=== PATIENT | female | born 1990 | race Caucasian/White ===

== ENCOUNTER → 2017-03-01 | Outpatient (CLI) | payer OTHER ==
[~2017-03-01] MED LIST: AZIT500T3 PO
== END | disposition home or self-care (01) ==
LOC: C.PAPS 07:58
PROVIDERS: ATTEND Physician Assistant
DX: Z12.4 Encounter for screening for malignant neoplasm of cervix (principal)

== ENCOUNTER → 2017-03-14 | Outpatient (CLI) | payer OTHER ==
[2017-03-19 09:57] LABS: CHLAMYDIA TRACH RNA*** NOT DETECTED (NOT DETECTED); GC (NEIS GONORRHOEAE)RNA** NOT DETECTED (NOT DETECTED)
== END | disposition home or self-care (01) ==
LOC: C.LABSPEC 15:18
PROVIDERS: ATTEND Physician Assistant
DX: Z30.430 Encounter for insertion of intrauterine contraceptive device (principal)

== ENCOUNTER → 2017-03-14 | Outpatient (CLI) | payer OTHER ==
[2017-03-14 10:34] LABS: PREG INTERNAL NEGATIVE QC NEG CLEAR BACKGROUND; PREG INTERNAL POSITIVE QC POS CONTROL LINE
== END | disposition home or self-care (01) ==
LOC: C.LAB1850 09:12
PROVIDERS: ATTEND Physician Assistant
DX: Z30.9 Encounter for contraceptive management, unspecified (principal)

== ENCOUNTER 2017-10-16 11:15 | Emergency (ER) | payer OTHER ==
[~2017-10-16] VITALS: Ht 172.7 cm; Wt 116.0 kg
[2017-10-16 11:17] VITALS: Ht 172.7 cm; Wt 116.0 kg
[2017-10-16] MEDS ORDERED: PRENTAB26 PO (12:17)
[2017-10-16 12:41] LABS: BASO % 0.4 %; BASO ABS # 0.02 K/uL (0-0.2); COMPLETE YES; EOS % 2.7 %; HEMATOCRIT 45.8 % (37-47); IG% 0.2 %; LYMPH ABS # 1.32 K/uL (1.2-3.4); MEAN CELL VOLUME 88.8 fL (80-100); MEAN CORPUSCULAR HEMOGLOBIN 30.2 pg (25-34); MEAN CORPUSCULAR HGB CONC 34.1 g/dl (32-36); MEAN PLATELET VOLUME 9.7 fL (7.4-10.4); MONO % 26.1 %; NEUT % 46.6 %; PLATELET COUNT 212 K/uL (130-400); RED BLOOD COUNT 5.16 M/uL (4.2-5.4); WHITE BLOOD COUNT 5.51 K/uL (4.8-10.8)
[2017-10-16 13:02] LABS: CALCIUM 9.5 mg/dl (8.5-10.1); CREATININE 0.77 mg/dl (0.60-1.20)
[2017-10-16 13:05] LABS: ALB/GLOB RATIO 1.1 (0.9-2)
--- NOTE | 2017-10-16 13:07 | EMERGENCY ROOM VISIT NOTE ---
History Report prepared by Corin: Riccardo Deal Under the Supervision of: Rosalind AkbarO. First contact with patient: 12:26 Chief Complaint: VOMITING Stated Complaint: COLD,VOMITING, MAYBE PREG 16 DAYS LATE Nursing Triage Summary: abdominal pain lower abdomen. nasuea vomiting for the past 9-12 days. 16 days late with my period. took preg test last week that was negative. 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 She notes that she is trying to get and had her IUD removed nine days ago. She notes baseline nausea and vomiting daily, though her symptoms worsened nine days ago and became yellow in color. She notes her nausea and vomiting persisted s/p her cholecystectomy. She notes dizziness, lightheadedness, dry cough, congestion, rhinorrhea, stuffy nose, abdominal pain, sick contacts, and shortness of breath. She also notes recent hemorrhoids that began last week and are bleeding with clots. She currently rates her pain a 4/10 in severity. She has a history of severe acid reflux and takes medications daily. She denies a history of asthma. She has not received the flu shot this year. She denies any urinary symptoms, chest pain, and sore throat. Her menstrual cycle is 16 days late. 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 Review of Systems See HPI for pertinent positives & negatives. A total of 10 systems reviewed and were otherwise negative. Past Medical & Surgical Medical Problems: (1) Abdominal Pain, Epigastric (2) Abdominal Pain, Unspecified Site (3) Acute Appendicitis Nos (4) Hydradenitis (5) Tobacco Use Disorder Surgical Problems: (1) Hx of appendectomy Family History Cancer Diabetes mellitus Hypertension Kidney disease Kidney stones Social History Smoking Status: Never Smoker Alcohol Use: none Drug Use: none Marital Status: single Housing Status: lives with family Occupation Status: employed Current/Historical Medications Scheduled Multivit/Min/Iron/Fol Ac/Pren ( Vitamin), 1 TAB PO DAILY Allergies Coded Allergies: Penicillins (Verified Allergy, Intermediate, HIVES, 10/16/17) Physical Exam Vital Signs Date Time Temp Pulse Resp B/P (MAP) Pulse Ox O2 Delivery O2 Flow Rate FiO2 10/16/17 15:01 37.1 119 18 140/95 100 10/16/17 12:35 37.1 119 18 140/95 100 Room Air 10/16/17 12:14 109 10/16/17 11:39 37.1 114 18 147/97 100 Room Air 10/16/17 11:17 37.1 113 18 158/104 100 Room Air Physical Exam GENERAL: alert, well appearing, well nourished, no distress, non-toxic EYE EXAM: normal conjunctiva, PERRL and EOM's grossly intact OROPHARYNX: no exudate, no erythema, lips, buccal mucosa, and tongue normal and mucous membranes are moist NECK: supple, no nuchal rigidity, no adenopathy, non-tender LUNGS: Clear to auscultation. Normal chest wall mechanics, no wheezes/rhonchi/ rales HEART: no murmurs, S1 normal and S2 normal ABDOMEN: abdomen soft, non-tender, normo-active bowel sounds, no masses, no rebound or guarding. BACK: Back is symmetrical on inspection and there is no deformity, no midline tenderness, no CVA tenderness. SKIN: no rashes and no bruising UPPER EXTREMITIES: upper extremities are grossly normal. Normal range of motion and normal pulses. LOWER EXTREMITIES: No pitting edema. Normal range of motion and normal pulses. NEURO EXAM: Normal sensorium, cranial nerves II-XII grossly intact, normal speech, no gross weakness of arms, no gross weakness of legs. Medical Decision & Procedures ER Provider Diagnostic Interpretation: Radiology results have been interpreted by the radiologist and reviewed by me. CHEST 2 VIEWS ROUTINE CLINICAL HISTORY: Cough and shortness of breath. COMPARISON STUDY: Chest radiograph September 09, 2016. FINDINGS: Lung volumes are normal. There is no pneumothorax or pleural effusion. There is no evidence of pulmonary edema. No consolidation is identified. Cardiomediastinal silhouette is normal. Bilateral nipple piercings are noted. IMPRESSION: No acute cardiopulmonary findings. Electronically signed by: Duran Davila M.D. 10/16/2017 1:42 PM Dictated Date/Time: 10/16/2017 1:42 PM Laboratory Results 10/16/17 12:18 Red Blood Count 5.16, Mean Corpuscular Volume 88.8, Mean Corpuscular Hemoglobin 30.2, Mean Corpuscular Hemoglobin Concent 34.1, Mean Platelet Volume 9.7, Neutrophils (%) (Auto) 46.6, Lymphocytes (%) (Auto) 24.0, Monocytes (%) (Auto) 26.1, Eosinophils (%) (Auto) 2.7, Basophils (%) (Auto) 0.4, Neutrophils # (Auto ) 2.57, Lymphocytes # (Auto) 1.32, Monocytes # (Auto) 1.44, Eosinophils # (Auto ) 0.15, Basophils # (Auto) 0.02 10/16/17 12:18 Test 10/16/17 11:33 10/16/17 12:18 10/16/17 13:30 Urine Color YELLOW Urine Appearance CLOUDY (CLEAR) Urine pH 7.5 (4.5-7.5) Urine Specific Pierz 1.025 (1.000-1.030) Urine Protein NEG (NEG) Urine Glucose (UA) NEG (NEG) Urine Ketones NEG (NEG) Urine Occult Blood NEG (NEG) Urine Nitrite NEG (NEG) Urine Bilirubin NEG (NEG) Urine Urobilinogen NEG (NEG) Urine Leukocyte Esterase NEG (NEG) Urine WBC (Auto) 1-5 /hpf (0-5) Urine RBC (Auto) 5-10 /hpf (0-4) Urine Hyaline Casts (Auto) 0 /lpf (0-5) Urine Epithelial Cells (Auto) >30 /lpf (0-5) Urine Bacteria (Auto) NEG (NEG) Urine Test NEG (NEG) White Blood Count 5.51 K/uL (4.8-10.8) Red Blood Count 5.16 M/uL (4.2-5.4) Hemoglobin 15.6 g/dL (12.0-16.0) Hematocrit 45.8 % (37-47) Mean Corpuscular Volume 88.8 fL (80-100) Mean Corpuscular Hemoglobin 30.2 pg (25-34) Mean Corpuscular Hemoglobin Concent 34.1 g/dl (32-36) Platelet Count 212 K/uL (130-400) Mean Platelet Volume 9.7 fL (7.4-10.4) Neutrophils (%) (Auto) 46.6 % Lymphocytes (%) (Auto) 24.0 % Monocytes (%) (Auto) 26.1 % Eosinophils (%) (Auto) 2.7 % Basophils (%) (Auto) 0.4 % Neutrophils # (Auto) 2.57 K/uL (1.4-6.5) Lymphocytes # (Auto) 1.32 K/uL (1.2-3.4) Monocytes # (Auto) 1.44 K/uL (0.11-0.59) Eosinophils # (Auto) 0.15 K/uL (0-0.5) Basophils # (Auto) 0.02 K/uL (0-0.2) RDW Standard Deviation 41.9 fL (36.4-46.3) RDW Coefficient of Variation 13.0 % (11.5-14.5) Immature Granulocyte % (Auto) 0.2 % Immature Granulocyte # (Auto) 0.01 K/uL (0.00-0.02) Anion Gap 5.0 mmol/L (3-11) Est Creatinine Clear Calc Drug Dose 148.1 ml/min Estimated GFR () 123.5 Estimated GFR (Non- 106.6 BUN/Creatinine Ratio 17.0 (10-20) Calcium Level 9.5 mg/dl (8.5-10.1) Total Bilirubin 0.5 mg/dl (0.2-1) Aspartate Amino Transf (AST/SGOT) 28 U/L (15-37) Alanine Aminotransferase (ALT/SGPT) 57 U/L (12-78) Alkaline Phosphatase 66 U/L (45-117) Total Protein 7.7 gm/dl (6.4-8.2) Albumin 4.1 gm/dl (3.4-5.0) Globulin 3.6 gm/dl (2.5-4.0) Albumin/Globulin Ratio 1.1 (0.9-2) Lipase 92 U/L (73-393) Human Chorionic Gonadotropin, Qual NEG (NEG) Influenza Type A Antigen Neg for Influ A (NEG) Influenza Type B Antigen Neg for Influ B (NEG) Laboratory results per my review. Medications Administered Medications (Trade) Dose Ordered Sig/Nissa Route Start Time Stop Time Status Last Admin Dose Admin Albuterol (Ventolin Hfa Inhaler) 2 puffs NOW ONCE INH 10/16/17 13:15 10/16/17 13:16 DC 10/16/17 13:24 2 PUFFS ED Course 1240: The patient was evaluated in room B11B. A complete history and physical exam was performed. 1315: Ordered Albuterol 2 puffs INH 1405: I reassessed the patient at this time. She is feeling better and resting comfortably. I discussed the results and treatment plan with the patient. I answered all pertaining questions that she had. She expressed understanding and verbalized agreement. The patient will be discharged home. Medical Decision Prior records/ancillary studies reviewed. Triage Nursing notes reviewed. The patient's history was concerning for respiratory difficulties. Differential diagnosis: Etiologies such as infections, reactive airway disease, pneumonia, pneumothorax , COPD, CHF, cardiac ischemia, pulmonary embolism, musculoskeletal, gastrointestinal, as well as others were entertained. Patient well-appearing here. Patient states vomiting has been chronic since even prior to her cholecystectomy and has persisted since. Discussed with her close follow-up with family doctor, continue use of an acid reducing medication and follow-up with GI as an outpatient given persistence of symptoms. Patient' s other upper respiratory symptoms appear mild, no evidence of pneumonia, no evidence of flow, doubt bacteremia/sepsis, doubt cardiac etiology, no evidence of effusion or congestive heart failure. Discussed with patient tobacco cessation, symptoms to watch and return for, she verbalized understanding was agreeable with plan. Patient given MDI and spacer to take and use at home, discussed other outpatient [id number] cough and cold remedies, discussed adequate hydration. Discussed avoidance of acidic foods in her diet. Medication Reconcilliation Current Medication List: was personally reviewed by me Blood Pressure Screening Patient's blood pressure: Elevated blood pressure Blood pressure disposition: Elevated BP felt to be situational Impression Primary Impression: URI (upper respiratory infection) Additional Impressions: Vomiting Tobacco Use Disorder Scribe Attestation The scribe's documentation has been prepared under my direction and personally reviewed by me in its entirety. I confirm that the note above accurately reflects all work, treatment, procedures, and medical decision making performed by me. Departure Information Dispostion Home / Self-Care Referrals Perri Smith M.D. (PCP) Forms HOME CARE DOCUMENTATION FORM, IMPORTANT VISIT INFORMATION Patient Instructions Colds Self Care, My [facility] Additional Instructions Please drink plenty of water to stay well-hydrated. You may use Tylenol or ibuprofen as needed for fevers. You may use other [id number] cough and cold medications as directed on the bottles are packaging. He may eat as tolerated. Please follow up with your family doctor regarding your GI symptoms you have had for a long time, they may recommend referral to a GI specialist for additional testing or procedures. Please continue your acid reducing medication as well as her other medications as prescribed. If you develop any worsening symptoms including trouble breathing, noticed blood in your sputum, develop persistent fevers, noticed blood in your vomit, abdominal pain, dizziness, black or bloody stools, or you've any other new concerns, please return the emergency room. Problem Qualifiers Primary Impression: URI (upper respiratory infection) URI type: unspecified URI Qualified Codes: J06.9 - Acute upper respiratory infection, unspecified Additional Impressions: Vomiting Vomiting type: unspecified Vomiting Intractability: non-intractable Nausea presence: with nausea Qualified Codes: R11.2 - Nausea with vomiting, unspecified
[2017-10-16 13:15] LABS: URINE APPEARANCE CLOUDY (CLEAR); URINE BILIRUBIN NEG (NEG); URINE COLOR YELLOW; URINE EPITHELIAL CELL AUTO >30 /lpf (0-5); URINE NITRITE NEG (NEG); URINE PH 7.5 (4.5-7.5); URINE SPECIFIC GRAVITY 1.025 (1.000-1.030); UROBILINOGEN NEG (NEG); ZZUR CULT IF INDIC CLEAN CATCH NO
[2017-10-16] MEDS ORDERED: ALBUTEROL HFA 8 GM INHALER INH ONE (13:15)
[2017-10-16 13:16] LABS: MANUAL MICROSCOPIC REQUIRED? NO; REVIEW REQ? NO
[2017-10-16 13:35] LABS: PREG INTERNAL NEGATIVE QC NEG CLEAR BACKGROUND; PREG INTERNAL POSITIVE QC POS CONTROL LINE
--- NOTE | 2017-10-16 13:44 | DIAGNOSTIC IMAGING REPORT ---
CHEST 2 VIEWS ROUTINE CLINICAL HISTORY: Cough and shortness of breath. COMPARISON STUDY: Chest radiograph September 09, 2016. FINDINGS: Lung volumes are normal. There is no pneumothorax or pleural effusion. There is no evidence of pulmonary edema. No consolidation is identified. Cardiomediastinal silhouette is normal. Bilateral nipple piercings are noted. IMPRESSION: No acute cardiopulmonary findings. Electronically signed by: Duran Davila M.D. 10/16/2017 1:42 PM Dictated Date/Time: 10/16/2017 1:42 PM
[2017-10-16 15:01] VITALS: BP 140/95; PULSE 119; TEMP 37.1; O2SAT 100
== END 2017-10-16 15:02 | disposition home or self-care (01) ==
LOC: C.EDB 11:16
DX: J06.9 Acute upper respiratory infection, unspecified (principal); R11.2 Nausea with vomiting, unspecified; F17.200 Nicotine dependence, unspecified, uncomplicated; K64.9 Unspecified hemorrhoids; K21.9 Gastro-esophageal reflux disease without esophagitis; Z83.3 Family history of diabetes mellitus; Z82.49 Family history of ischemic heart disease and other diseases of the circulatory system; Z84.1 Family history of disorders of kidney and ureter

== ENCOUNTER → 2017-12-05 | Outpatient (CLI) | payer OTHER ==
[~2017-12-05] MED LIST changes: -AZIT500T3 PO; +PRENTAB26 PO
== END | disposition home or self-care (01) ==
LOC: C.LAB1850 11:40
PROVIDERS: ATTEND Physician Assistant
DX: N91.2 Amenorrhea, unspecified (principal)

== ENCOUNTER → 2018-01-09 | Outpatient (CLI) | payer BC ==
[2018-01-09 17:51] LABS: FOLLICLE STIMULAT HORMONE 5.93 IU/L; LUTEINIZING HORMONE 22.65 IU/L
== END | disposition home or self-care (01) ==
LOC: C.LAB1850 16:37
PROVIDERS: ATTEND Obstetrics & Gynecology
DX: N91.2 Amenorrhea, unspecified (principal)

== ENCOUNTER → 2018-05-20 | Outpatient (CLI) | payer BC ==
[~2018-05-20] MED LIST changes: +CLOT-51 TOP
--- NOTE | 2018-05-20 11:10 | DIAGNOSTIC IMAGING REPORT ---
HYSTEROSALPINGOGRAM HISTORY: Infertility. FLUOROSCOPY TIME: 42 seconds. TECHNIQUE: The cervix was cannulated by the station cleaning porter-engineering specialist technician and water soluble contrast was instilled into the uterus under fluoroscopic guidance. Multiple spot images were obtained. FINDINGS: The right fallopian tubes filled a normal fashion there is free spillage. The left fallopian tube is faintly visualized. No definitive spillage is identified on the left. IMPRESSION: 1. Normal right fallopian tube with free spillage 2. Suboptimal visualization of the left fallopian tube. No definite free spillage of the left Electronically signed by: Carlos Diez M.D. 05/20/2018 11:09 AM Dictated Date/Time: 05/20/2018 11:08 AM
--- NOTE | 2018-05-20 11:54 | Procedure Note ---
Procedure Note Procedure Date May 20, 2018. Procedure Description Procedure Name: Hysterosalpingogram Indications: diagnostic Description: Patient presented for hysterosalpingogram, recommended by [facility] for infertility workup. I discussed the procedure with her, informed consent was obtained, she agreed to the procedure. All questions were answered. She was positioned comfortably on the radiology table in the dorsal lithotomy position. A speculum was placed in the vagina, the cervix was visualized, the vagina and cervix were swabbed with Betadine. The anterior lip of the cervix was grasped with a single-tooth tenaculum and the acorn manipulator was placed into the cervix. The speculum was removed and patient was repositioned on the table for imaging. I gently injected the radiopaque dye through the catheter into the uterus, the radiologist took images. The uterus was visualized, the right fallopian tube appeared patent with right spill. The left fallopian tube did not appear patent, there was no left spill. I discussed these findings with the patient at the conclusion of the procedure. All instruments were, excellent hemostasis was observed. The patient tolerated the procedure well. Complications: none Patient tolerated procedure: well
== END | disposition home or self-care (01) ==
LOC: C.RAD 10:08
PROVIDERS: ATTEND Obstetrics & Gynecology
DX: N97.9 Female infertility, unspecified (principal)

== ENCOUNTER 2018-12-29 14:26 | Inpatient (IN) ==
[2018-12-29] MEDS ORDERED: SODIUM CHLORIDE 0.9% 1000ML 1,000 ML IV ONE (15:27)
[2018-12-29] MEDS ORDERED: cefTRIAXone SODIUM 1,000 MG/50 ML BAG IV STA (15:27)
[2018-12-29 16:10] LABS: Basophils # (auto) 0.02 K/uL (0-0.2); Basophils % (auto) 0.1 %; Eosinophils # (auto) 0.34 K/uL (0-0.5); Hematocrit (blood only) 41.8 % (37-47); Hemoglobin 14.4 g/dL (12.0-16.0); Immature Granulocytes # (auto) 0.05 K/uL (0.00-0.02); Immature Granulocytes % (auto) 0.3 %; Lymphocytes # (auto) 2.63 K/uL (1.2-3.4); Lymphocytes % (auto) 15.2 %; Mean Corpuscular Hgb Conc 34.4 g/dL (32-36); Mean Corpuscular Volume 86.7 fL (80-100); Mean Platelet Volume 9.5 fL (7.4-10.4); Monocytes # (auto) 1.53 K/uL (0.11-0.59); Monocytes % (auto) 8.8 %; Neutrophils # (auto) 12.74 K/uL (1.4-6.5); Neutrophils % (auto) 73.6 %; Platelet Count 254 K/uL (130-400); RDW Coefficient of Variation 12.4 % (11.5-14.5); Red Blood Count 4.82 M/uL (4.2-5.4); White Blood Count 17.31 K/uL (4.8-10.8)
[2018-12-29 16:14] LABS: INR 1.1 (0.9-1.1); Partial Thromboplastin Ratio 1.1; Partial Thromboplastin Time 30.3 Seconds (21.0-31.0)
[2018-12-29 16:15] LABS: BUN Creatinine Ratio 14.8 (10-20); Calcium 9.3 mg/dl (8.5-10.1); Creatinine Clr Calc Pharmacy 120.6 ml/min; Est GFR (African American) 94.5; Est GFR (Non-African American) 81.5; Potassium 3.7 mmol/L (3.5-5.1)
[2018-12-29 16:18] LABS: Bilirubin,Total 0.8 mg/dl (0.2-1); Globulin 4.2 gm/dl (2.5-4.0); Total Protein 8.2 gm/dl (6.4-8.2)
[2018-12-29 16:35] LABS: Pregnancy Test, Serum Negative (Negative)
--- NOTE | 2018-12-29 19:30 | Emergency Department Note ---
History of Present Illness General Chief complaint: Breast Pain/Problems Stated complaint: LUMP IN L BREAST Source: patient Mode of arrival: ambulatory Limitations: no limitations History of Present Illness Provider Complaint: + abscess/boil Onset (ago): 3 day(s) Tetanus up to date: yes Location: + chest (left breast) Severity: moderate Maximum Pain Intensity: 3 Current Pain Intensity: 3 Quality: + aching, + sharp and + constant Pain Consistency: + constant Relieved By: + cold therapy and + other (heating pad) Exacerbated By: + palpation and + movement Associated symptoms: + chills and + myalgias; no fever, no nausea, no vomiting, no malaise, no arthralgias, no cough and no shortness of breath Treatments prior to arrival: + attempted to drain pus at home, + antibiotic (bactrim) and + other (heat therapy) HPI narrative: This 28-year-old female patient presents emergency department today, ambulatory, from an outpatient ultrasound for evaluation by a surgeon for a left breast abscess. The patient was seen outpatient on Saturday at her PCP office for a lump in the left breast. She was started on Bactrim at that time and had a mammogram and ultrasound scheduled for outpatient on Saturday. The patient states over the weekend, she developed worsening redness, swelling, and pain in the breast. She states there has been some bloody, purulent drainage from the breast. She does have nipple piercings, and states the drainage is coming out of the piercing. The patient has been using heat and ice without relief of her discomfort. She has been taking the Bactrim as directed. She states after the ultrasound, the radiologist contacted her primary care provider. She was encouraged to come to the emergency department by her PCP when the PCP contacted the surgery office in attempt to schedule consult/appointment. They advised they do not have any surgeons in the office and encouraged the patient to go to the ED for I&D by Dr. Arana, as he was radiation oncology nurse. The patient denies any fever, but does report chills. She denies nausea or vomiting. Home Medications Home Medications Medication Instructions Recorded Confirmed Type Vitamin 1 tab PO DAILY 12/29/18 12/29/18 History sulfamethoxazole-trimethoprim 1 tab PO BID 12/29/18 12/29/18 History Allergies Allergy/AdvReac Type Severity Reaction Status Date / Time Penicillins Allergy Intermediate HIVES Verified 12/29/18 16:15 Past Med/Surg History Social History Preferred Language: Portuguese Communication Ability: Effective [employer] Librarian Required: No Beliefs That Will Affect Care: None Current Living Situation: Significant Other and Other Current Living Situation Comment: And daughter Other Information That Helps Us Care for You: No Feels Safe at Home: Yes Safety Concerns: Feels Safe At This Time Smoking Status: Never smoker Hx Alcohol Use: No Hx Substance Use: No Review of Systems A total of 10 systems reviewed and were otherwise negative Physical Exam Vital Signs: Vital Signs - 24 hr 12/29/18 14:34 12/29/18 16:57 12/29/18 18:41 Temperature 37.0 C Temperature Source Oral Sepsis Recent Feve r Within 48 Hours No Sepsis New/Unexpla ined Change in Men evelyne Status No Sepsis Action Take n by Nursing No Action Required Pulse Rate 105 H Pulse Rate [Apical ] Pulse Rate [Finger ] 101 H 100 H Pulse Rhythm Regular Pulse Rhythm [Apic al] Pulse Strength Normal Pulse Strength [Ap ical] Respiratory Rate 20 17 17 Respiratory Effort / Characteristics Respiratory Depth Normal Respiratory Patter n Regular Blood Pressure 158/95 H Blood Pressure [Le ft Arm] Blood Pressure [Ri ght Arm] 130/95 154/96 H Blood Pressure Bharti n 116 Blood Pressure Bharti n [Left Arm] Blood Pressure Bharti n [Right Arm] 106 115 Blood Pressure Pos ition Sitting Blood Pressure Pos ition [Right Arm] Pulse Oximetry 98 99 98 Oxygen Delivery Me thod Room Air Room Air 12/29/18 19:46 12/29/18 21:30 12/29/18 21:45 Temperature 38.2 C H Temperature Source Oral Sepsis Recent Feve r Within 48 Hours Sepsis New/Unexpla ined Change in Men evelyne Status Sepsis Action Take n by Nursing Pulse Rate Pulse Rate [Apical ] Pulse Rate [Finger ] 116 H 120 H Pulse Rhythm Pulse Rhythm [Apic al] Pulse Strength Pulse Strength [Ap ical] Respiratory Rate 18 14 Respiratory Effort / Characteristics Non-Labored Sponta neous Respiratory Depth Normal Respiratory Patter n Blood Pressure Blood Pressure [Le ft Arm] Blood Pressure [Ri ght Arm] 143/88 H 147/93 H Blood Pressure Bharti n Blood Pressure Bharti n [Left Arm] Blood Pressure Bharti n [Right Arm] 106 111 Blood Pressure Pos ition Blood Pressure Pos ition [Right Arm] Pulse Oximetry 97 97 Oxygen Delivery Me thod Room Air Room Air 12/29/18 22:45 12/29/18 23:34 12/30/18 07:56 Temperature 37.3 C 37.4 C Temperature Source Oral Oral Sepsis Recent Feve r Within 48 Hours Sepsis New/Unexpla ined Change in Men evelyne Status Sepsis Action Take n by Nursing Pulse Rate Pulse Rate [Apical ] 106 H Pulse Rate [Finger ] 123 H 117 H Pulse Rhythm Pulse Rhythm [Apic al] Regular Pulse Strength Pulse Strength [Ap ical] Normal Respiratory Rate 16 18 14 Respiratory Effort / Characteristics Non-Labored Sponta neous Non-Labored Respiratory Depth Normal Normal Respiratory Patter n Regular Regular Blood Pressure Blood Pressure [Le ft Arm] Blood Pressure [Ri ght Arm] 143/88 H 142/90 H 135/88 Blood Pressure Bharti n Blood Pressure Bharti n [Left Arm] Blood Pressure Bharti n [Right Arm] 106 107 103 Blood Pressure Pos ition Blood Pressure Pos ition [Right Arm] Lying Pulse Oximetry 96 95 94 Oxygen Delivery Me thod Room Air Room Air Room Air 12/30/18 08:12 12/30/18 11:20 Temperature 37.5 C Temperature Source Oral Sepsis Recent Feve r Within 48 Hours Sepsis New/Unexpla ined Change in Men evelyne Status Sepsis Action Take n by Nursing Pulse Rate Pulse Rate [Apical ] Pulse Rate [Finger ] 105 H Pulse Rhythm Pulse Rhythm [Apic al] Pulse Strength Pulse Strength [Ap ical] Respiratory Rate 14 Respiratory Effort / Characteristics Non-Labored Non-Labored Respiratory Depth Normal Normal Respiratory Patter n Regular Blood Pressure Blood Pressure [Le ft Arm] 128/85 Blood Pressure [Ri ght Arm] Blood Pressure Bharti n Blood Pressure Bharti n [Left Arm] 99 Blood Pressure Bharti n [Right Arm] Blood Pressure Pos ition Blood Pressure Pos ition [Right Arm] Pulse Oximetry 95 Oxygen Delivery Me thod Room Air Room Air Physical Exam: VITALS: Vitals are noted on the nurse's note and reviewed by myself. Vital signs stable. GENERAL: This is a 28-year-old female, in no acute distress, nondiaphoretic, well-developed well-nourished. SKIN: Erythematous, tender, and firm left breast superior to the area Ayush. There is a palpable abscess measuring approximately 2 x 2 cm subareolar. There is a nipple bar in place which was successfully removed with purulent drainage. the skin was otherwise without rashes, erythema, edema, or bruising. There is no tenting of the skin. Capillary reflex less than 2 seconds. HEAD: Normocephalic atraumatic. NECK: Supple without nuchal rigidity. No lymphadenopathy. Cervical spine is nontender. No JVD. HEART: Regular rate and rhythm without murmurs gallops or rubs. LUNGS: Clear to auscultation bilaterally without wheezes, rales or rhonchi. No dullness to percussion. No retractions or accessory muscle use. ABDOMEN: Positive bowel sounds x 4. Normal tympanic percussion. Soft, nontender, without masses or organomegaly. Resendez sign negative. No guarding or rebound tenderness. MUSCULOSKELETAL: No muscle atrophy, erythema, or edema noted. Full range of motion without joint tenderness in all extremities. No tenderness to palpation. Normal gait. Strength 5/5 throughout. NEURO: Patient was alert and oriented to person place and time. Normal sensation to light and sharp touch. No focal neurological deficits. Course The patient was seen and evaluated as above. IV access obtained, labs drawn. I contacted Haydee Moody PA-C to discuss the case. She did see the patient at ultrasound today and advised the redness and induration has worsened over the weekend. She contacted the surgery office outpatient and was advised to send the patient to the ED to be seen/drained by Dr. Arana. Ultrasound report obtained from [facility] outpatient. This was reviewed. Labs reviewed by myself. The patient was started on ceftriaxone IV. I attempted to contact Dr. Arana. He was in the OR most of the afternoon. Awaiting his response for other patient and did not receive call back for approximately 3 hours. Was advised when he was done in the OR he would return the call. Updated the patient that we are awaiting call. Found out Dr. Arana had been down to the department to see other patient. Had not informed other provider. I paged him again. He responded and asked that I call the on-call surgeon, as it is now 1900 and he is no longer the on-call surgeon at this time. Contacted Dr. Escobedo. Advised him of the patient condition and lengthy wait for Dr. Arana. He agreed to see and evaluate the patient. Please see his dictation regarding ongoing management and care. Administered Medications Lactated Ringer's (Lr) 1,000 mls @ 125 mls/hr IV .Q8H [facility] Stop: 01/29/19 00:00 Last Admin: 12/30/18 09:06 Dose: 125 mls/hr Documented by: [id number] Infusion: 12/30/18 08:54 Dose: 125 mls/hr Documented by: [id number] Infusion: 12/30/18 01:00 Dose: 125 mls/hr Documented by: [id number] Infusion: 12/30/18 00:24 Dose: 0 mls/hr Documented by: [id number] Admin: 12/30/18 00:18 Dose: 125 mls/hr Documented by: [id number] Clindamycin Phosphate 600 mg/ (Dextrose) 54 mls @ 100 mls/hr IV Q8H [facility] Stop: 01/09/19 00:00 Last Infusion: 12/30/18 09:44 Dose: 0 mls/hr Documented by: [id number] Admin: 12/30/18 09:05 Dose: 100 mls/hr Documented by: [id number] Infusion: 12/30/18 01:00 Dose: 0 mls/hr Documented by: [id number] Admin: 12/30/18 00:24 Dose: 100 mls/hr Documented by: [id number] Prenat Multivit/[place]/Iron/Folic Ac ( Vitamin) 1 tab PO DAILY [facility] Stop: 01/29/19 08:59 Last Admin: 12/30/18 09:06 Dose: 1 tab Documented by: [id number] Discontinued Medications Sodium Chloride (Nss 1000ml) 1,000 mls @ 999 mls/hr IV .Q1H1M ONE Stop: 12/29/18 16:27 Last Infusion: 12/29/18 16:57 Dose: 0 mls/hr Documented by: [id number] Admin: 12/29/18 15:54 Dose: 999 mls/hr Documented by: [id number] Ceftriaxone Sodium (Rocephin) 1,000 mg in 50 mls @ 100 mls/hr IV NOW STA Stop: 12/29/18 15:56 Last Infusion: 12/29/18 16:26 Dose: 0 mls/hr Documented by: [id number] Admin: 12/29/18 15:54 Dose: 100 mls/hr Documented by: [id number] Medical Decision Making Differential Diagnosis + abscess of skin or subcutaneous tissue, + viral exanthem, + dermatophytosis, + urticaria, + herpes zoster, + allergic reaction to drug, + cellulitis, + eczema, + insect bites, + impetigo, + contact dermatitis, + cellulitis, + necrotizing fasciitis, + foreign body, + dermatitis and + drug eruption Home Medications Current Medication List: was personally reviewed by me Laboratory Data Attestation: I reviewed the patient's lab results. On her leukocytosis of 17,000. No anemia or thrombocytopenia. Renal, hepatic function electrolytes without abnormality. Lactic acid 0.9. HCG negative. Coags normal. Result diagrams: 12/30/18 09:33 12/30/18 09:33 Lab Results 12/29/18 12/29/18 12/29/18 Range/Units 15:44 15:44 15:44 WBC 17.31 H (4.8-10.8) K/uL RBC 4.82 (4.2-5.4) M/uL Hgb 14.4 (12.0-16.0) g/dL Hct 41.8 (37-47) % MCV 86.7 (80-100) fL MCH 29.9 (25-34) pg MCHC 34.4 (32-36) g/dL RDW Std Deviation 40.0 (36.4-46.3) fL RDW Coeff of Gurpreet 12.4 (11.5-14.5) % Plt Count 254 (130-400) K/uL MPV 9.5 (7.4-10.4) fL Immature Gran % (Auto) 0.3 % Neut % (Auto) 73.6 % Lymph % (Auto) 15.2 % [place] % (Auto) 8.8 % Eos % (Auto) 2.0 % Baso % (Auto) 0.1 % Immature Gran # (Auto) 0.05 H (0.00-0.02) K/uL Neut # (Auto) 12.74 H (1.4-6.5) K/uL Lymph # (Auto) 2.63 (1.2-3.4) K/uL [place] # (Auto) 1.53 H (0.11-0.59) K/uL Eos # (Auto) 0.34 (0-0.5) K/uL Baso # (Auto) 0.02 (0-0.2) K/uL PT 11.0 (9.0-12.0) Seconds INR 1.1 (0.9-1.1) APTT 30.3 (21.0-31.0) Seconds PTT Ratio 1.1 Sodium 136 (136-145) mmol/L Potassium 3.7 (3.5-5.1) mmol/L Chloride 102 (98-107) mmol/L Carbon Dioxide 26 (21-32) mmol/L Anion Gap 8.0 (3-11) BUN 14 (7-18) mg/dl Creatinine 0.95 (0.6-1.2) mg/dl Est Cr Clr Drug Dosing 120.6 ml/min Est GFR ( Amer) 94.5 Est GFR (Non-Af Amer) 81.5 BUN/Creatinine Ratio 14.8 (10-20) Glucose 81 (70-99) mg/dl Lactate (0.4-2.0) mmol/L Calcium 9.3 (8.5-10.1) mg/dl Total Bilirubin 0.8 (0.2-1) mg/dl AST 20 (15-37) U/L ALT 44 (12-78) U/L Alkaline Phosphatase 76 (45-117) U/L Total Protein 8.2 (6.4-8.2) gm/dl Albumin 4.0 (3.4-5.0) gm/dl Globulin 4.2 H (2.5-4.0) gm/dl Albumin/Globulin Ratio 1.0 (0.9-2) HCG, Qual (Negative) Urine Color Urine Appearance (Clear) Urine pH (4.5-7.5) Ur Specific [place] (1.000-1.030) Urine Protein (Negative) Urine Glucose (UA) (Negative) Urine Ketones (Negative) Urine Blood (Negative) Urine Nitrite (Negative) Urine Bilirubin (Negative) Urine Urobilinogen (Negative) Ur Leukocyte Esterase (Negative) 12/29/18 12/29/18 12/29/18 Range/Units 15:44 15:44 21:45 WBC (4.8-10.8) K/uL RBC (4.2-5.4) M/uL Hgb (12.0-16.0) g/dL Hct (37-47) % MCV (80-100) fL MCH (25-34) pg MCHC (32-36) g/dL RDW Std Deviation (36.4-46.3) fL RDW Coeff of Gurpreet (11.5-14.5) % Plt Count (130-400) K/uL MPV (7.4-10.4) fL Immature Gran % (Auto) % Neut % (Auto) % Lymph % (Auto) % [place] % (Auto) % Eos % (Auto) % Baso % (Auto) % Immature Gran # (Auto) (0.00-0.02) K/uL Neut # (Auto) (1.4-6.5) K/uL Lymph # (Auto) (1.2-3.4) K/uL [place] # (Auto) (0.11-0.59) K/uL Eos # (Auto) (0-0.5) K/uL Baso # (Auto) (0-0.2) K/uL PT (9.0-12.0) Seconds INR (0.9-1.1) APTT (21.0-31.0) Seconds PTT Ratio Sodium (136-145) mmol/L Potassium (3.5-5.1) mmol/L Chloride (98-107) mmol/L Carbon Dioxide (21-32) mmol/L Anion Gap (3-11) BUN (7-18) mg/dl Creatinine (0.6-1.2) mg/dl Est Cr Clr Drug Dosing ml/min Est GFR ( Amer) Est GFR (Non-Af Amer) BUN/Creatinine Ratio (10-20) Glucose (70-99) mg/dl Lactate 0.9 (0.4-2.0) mmol/L Calcium (8.5-10.1) mg/dl Total Bilirubin (0.2-1) mg/dl AST (15-37) U/L ALT (12-78) U/L Alkaline Phosphatase (45-117) U/L Total Protein (6.4-8.2) gm/dl Albumin (3.4-5.0) gm/dl Globulin (2.5-4.0) gm/dl Albumin/Globulin Ratio (0.9-2) HCG, Qual Negative (Negative) Urine Color Dark Yellow Urine Appearance Clear (Clear) Urine pH 6.0 (4.5-7.5) Ur Specific [place] 1.027 (1.000-1.030) Urine Protein Negative (Negative) Urine Glucose (UA) Negative (Negative) Urine Ketones 4+ H (Negative) Urine Blood Negative (Negative) Urine Nitrite Negative (Negative) Urine Bilirubin Negative (Negative) Urine Urobilinogen Negative (Negative) Ur Leukocyte Esterase Negative (Negative) 12/30/18 12/30/18 Range/Units 09:33 09:33 WBC 12.41 H (4.8-10.8) K/uL RBC 4.54 (4.2-5.4) M/uL Hgb 13.2 (12.0-16.0) g/dL Hct 39.3 (37-47) % MCV 86.6 (80-100) fL MCH 29.1 (25-34) pg MCHC 33.6 (32-36) g/dL RDW Std Deviation 39.9 (36.4-46.3) fL RDW Coeff of Gurpreet 12.5 (11.5-14.5) % Plt Count 230 (130-400) K/uL MPV 9.5 (7.4-10.4) fL Immature Gran % (Auto) 0.3 % Neut % (Auto) 64.2 % Lymph % (Auto) 19.3 % [place] % (Auto) 13.1 % Eos % (Auto) 2.9 % Baso % (Auto) 0.2 % Immature Gran # (Auto) 0.04 H (0.00-0.02) K/uL Neut # (Auto) 7.96 H (1.4-6.5) K/uL Lymph # (Auto) 2.40 (1.2-3.4) K/uL [place] # (Auto) 1.62 H (0.11-0.59) K/uL Eos # (Auto) 0.36 (0-0.5) K/uL Baso # (Auto) 0.03 (0-0.2) K/uL PT (9.0-12.0) Seconds INR (0.9-1.1) APTT (21.0-31.0) Seconds PTT Ratio Sodium 137 (136-145) mmol/L Potassium 4.1 (3.5-5.1) mmol/L Chloride 106 (98-107) mmol/L Carbon Dioxide 23 (21-32) mmol/L Anion Gap 8.0 (3-11) BUN 11 (7-18) mg/dl Creatinine 0.68 (0.6-1.2) mg/dl Est Cr Clr Drug Dosing 167.8 ml/min Est GFR ( Amer) 138.0 Est GFR (Non-Af Amer) 119.0 BUN/Creatinine Ratio 16.2 (10-20) Glucose 85 (70-99) mg/dl Lactate (0.4-2.0) mmol/L Calcium 8.8 (8.5-10.1) mg/dl Total Bilirubin (0.2-1) mg/dl AST (15-37) U/L ALT (12-78) U/L Alkaline Phosphatase (45-117) U/L Total Protein (6.4-8.2) gm/dl Albumin (3.4-5.0) gm/dl Globulin (2.5-4.0) gm/dl Albumin/Globulin Ratio (0.9-2) HCG, Qual (Negative) Urine Color Urine Appearance (Clear) Urine pH (4.5-7.5) Ur Specific [place] (1.000-1.030) Urine Protein (Negative) Urine Glucose (UA) (Negative) Urine Ketones (Negative) Urine Blood (Negative) Urine Nitrite (Negative) Urine Bilirubin (Negative) Urine Urobilinogen (Negative) Ur Leukocyte Esterase (Negative) Imaging Data Radiologist's Impression: US Left Breast (Outpatient US obtained from [facility]): Findings consistent with left breast cellulitis and retroareolar abscess maximally measuring 21 x 13 x 23 mm. Clinical follow-up to ensure complete resolution is recommended after appropriate therapy. If this does not resolve in the expected time course, follow-up imaging is recommended. Blood Pressure Blood Pressure Findings: Elevated blood pressure Blood Pressure Disposition: elevated BP felt to be situational MDM Narrative This 28-year-old female patient presents emergency department today after being seen and evaluated by her primary care provider and sent for an outpatient ultrasound. She was sent for a left breast abscess and cellulitis which has developed quickly over the weekend. The patient has not been febrile, but is tachycardic and experiencing chills. She does have a leukocytosis of 17,000. She has been on Bactrim without improvement in the symptoms. The patient was started on IV antibiotics in the emergency department. We did wait an extended period of time for surgical consult due to the surgeon being in the OR most of the afternoon. I did ultimately discuss the case with the next on-call surgeon in the evening, Dr. Escobedo. He did see and evaluate the patient. He felt jorge t the patient could be admitted for IV antibiotics, but did not feel that she needs drainage at this time. He agreed to admit the patient and will continue to monitor. He recommended ultrasound-guided drainage if no improvement with IV antibiotics. Please see his dictation regarding ongoing management and care of this patient. The chart was completed utilizing [employer] voice recognition software. Grammatical errors, random word insertions, pronoun errors, and incomplete sentences are an occasional consequence of this system due to software limitations, ambient noise, and hardware issues. Any formal questions or concerns about the content, text, or information contained within the body of this dictation should be directly addressed to the provider for clarification. Impression & Plan Cellulitis of left breast, Breast abscess of female Discharge Plan Visit Data *Final* Discharge Date/Time: 12/29/18 22:46 Chief Complaint: Breast Pain/Problems Stated Complaint: LUMP IN L BREAST ED Provider: Leonid Staples ED Midlevel Provider: Kia Tang Discharge Problem: Cellulitis of left breast, Breast abscess of female Patient Disposition: Admitted As Inpatient Discharge Instructions Interventions: ED Discharge Assessment Last Done: 12/29/18 22:46
--- NOTE | 2018-12-29 20:07 | History & Physical Report ---
Date of Service December 29, 2018 Assessment & Plan (1) Breast abscess of female: Small abscess only 2 cm No skin fluctuance Will begin IV zosyn and gauge response, if fails would proceed to US guided drainage by radiology Present on Admission?: Yes History of Present Illness Primary Care Provider: Perri Smith MD This 28-year-old female patient presents emergency department today after an ultrasound showed a 2cm retro-areolar abscess with cellulitis of her left breast. She has been on Bactrim since Saturday but over the weekend, she developed worsening redness, swelling, and pain in the breast. She states there has been some bloody, purulent drainage from the breast. She does have nipple piercings, and states the drainage is coming out of the piercing. The patient denies any fever, but does report chills. She denies nausea or vomiting. Allergies Allergy/AdvReac Type Severity Reaction Status Date / Time Penicillins Allergy Intermediate HIVES Verified 12/29/18 16:15 Home Medications Home Medications Medication Instructions Recorded Confirmed Type Vitamin 1 tab PO DAILY 12/29/18 12/29/18 History sulfamethoxazole-trimethoprim 1 tab PO BID 12/29/18 12/29/18 History Past Med/Surg History Social History Preferred Language: Turkish Feels Safe at Home: Yes Smoking Status: Former smoker Review of Systems Constitutional: + chills and + anorexia; no fever and no sweats Eyes: no problem reported Ear, Nose, Mouth, Throat: no problem reported Respiratory: no cough, no chest congestion, no dyspnea and no dyspnea on exertion Cardiovascular: no chest pain, no chest pain with activity and no dyspnea at rest Gastrointestinal: no abdominal pain, no bloating, no nausea and no vomiting Genitourinary (Female): no problem reported Musculoskeletal: no back pain, no neck pain and no joint pain Integumentary: + breast lump, + breast pain, + breast skin changes and + breast swelling; no rash and no lesions Neurologic: no problem reported Psychiatric: no problem reported Endocrine: no problem reported Hematologic / Lymphatic: no problem reported Physical Exam Vital Signs (Past 24 Hours): Last Vital Signs Temp 37.0 C 12/29/18 14:34 Pulse 116 H 12/29/18 19:46 Resp 18 12/29/18 19:46 BP 143/88 H 12/29/18 19:46 Pulse Ox 98 12/29/18 19:46 Constitutional: well developed and well nourished; no acute distress Eyes: PERRL, conjunctivae normal, anicteric sclerae ENMT: external ear and nose normal, oropharynx normal Neck: trachea midline Thyroid: thyroid nontender Respiratory: normal respiratory effort, lungs clear to auscultation normal respiratory effort Cardiovascular: Rate/Rhythm: regular rhythm and + tachycardic Chest (Breasts): Breast: + breast tenderness Additional Comments: erythema without fluctuance of left breast Gastrointestinal (Abdomen): normal bowel sounds, soft, nontender, no hepatosplenomegaly Musculoskeletal: no cyanosis or clubbing, extremities motor strength 5/5 Skin: no rashes, warm and dry Psychiatric: A+Ox3, euthymic affect Code Status & VTE Plan VTE Prophylaxis Plan VTE Prophylaxis will be ordered: Yes
[2018-12-29 21:59] LABS: Appearance Urine Clear (Clear); Bilirubin Urine Negative (Negative); Blood Urine Negative (Negative); Color Urine Dark Yellow; Glucose Urine UA Negative (Negative); Leukocyte Esterase Urine Negative (Negative); Nitrite Urine Negative (Negative); Protein Urine Negative (Negative); Specific Gravity Urine 1.027 (1.000-1.030); Urobilinogen Urine Negative (Negative)
[2018-12-29 22:08] LABS: Ketones Urine 4+ (Negative)
[2018-12-29] MEDS ORDERED: ACETAMINOPHEN 325 MG TAB PO PRN (23:04)
[2018-12-29] MEDS ORDERED: ONDANSETRON INJ 2 MG/ML 2 ML VIAL IV PRN (23:04)
[2018-12-29] MEDS ORDERED: MoRPHine SULFATE 2 MG/ML CARP IV PRN (23:04)
[2018-12-29] MEDS ORDERED: HYDROCODONE/ACETAMOPHEN 5/325MG TAB PO PRN ×2 (23:04)
[2018-12-29] MEDS ORDERED: MoRPHine SULFATE 4 MG/ML 1 ML CARP\\VIAL IV PRN (23:04)
[2018-12-29] MEDS ORDERED: IBUPROFEN 200 MG TAB PO PRN (23:04)
[2018-12-30] MEDS: LACTATED RINGER'S 1,000 ML IV SCH ×3 (00:18→18:42)
[2018-12-30] MEDS: CLINDAMYCIN 600 MG in DEXTROSE 5% 50 ML IV SCH ×4 (00:24→23:43)
[2018-12-30] MEDS: PRENATAL VITAMIN 1 TAB PO SCH (09:06)
--- NOTE | 2018-12-30 09:26 | Surgery Progress Note ---
Date of Service December 30, 2018 Assessment & Plan (1) Breast abscess of female: Small abscess only 2 cm, outpatient US No skin fluctuance afebrile last night Plan: Will order US guided aspiration of abscess with fluid sent for culture continue IV Abx Keep NPO until US aspiration and then may advanced to regular diet Will continue to monitor response to abx Dr. Arana has seen and examined pt, agrees with above Subjective had some sweats when she woke up no fever no n/v pain improved of left breast, mild drainage Physical Exam Vital Signs (Past 24 Hours): Last Vital Signs Temp 37.4 C 12/30/18 07:56 Pulse 117 H 12/30/18 07:56 Resp 14 12/30/18 07:56 BP 135/88 12/30/18 07:56 Pulse Ox 94 12/30/18 07:56 Constitutional: WD/WN, vitals as above no acute distress and not ill appearing Respiratory: no respiratory distress Chest (Breasts): Breast: + skin thickening and + breast tenderness Additional Comments: Left breast with induration surrounding nipple , no fluctuance palpated, tender to palpation, + erythema Skin: no rashes, warm and dry Psychiatric: A+Ox3, euthymic affect Results & Data Laboratory Results 12/30/18 12/30/18 12/29/18 Range/Units 09:33 09:33 21:45 WBC Pending (4.8-10.8) K/uL RBC Pending (4.2-5.4) M/uL Hgb Pending (12.0-16.0) g/dL Hct Pending (37-47) % MCV Pending (80-100) fL MCH Pending (25-34) pg MCHC Pending (32-36) g/dL RDW Std Deviation (36.4-46.3) fL RDW Coeff of Gurpreet (11.5-14.5) % Plt Count Pending (130-400) K/uL MPV (7.4-10.4) fL Immature Gran % (Auto) % Neut % (Auto) % Lymph % (Auto) % [place] % (Auto) % Eos % (Auto) % Baso % (Auto) % Immature Gran # (Auto) (0.00-0.02) K/uL Neut # (Auto) (1.4-6.5) K/uL Lymph # (Auto) (1.2-3.4) K/uL Spink # (Auto) (0.11-0.59) K/uL Eos # (Auto) (0-0.5) K/uL Baso # (Auto) (0-0.2) K/uL PT (9.0-12.0) Seconds INR (0.9-1.1) APTT (21.0-31.0) Seconds PTT Ratio Sodium Pending (136-145) mmol/L Potassium Pending (3.5-5.1) mmol/L Chloride Pending (98-107) mmol/L Carbon Dioxide Pending (21-32) mmol/L Anion Gap Pending (3-11) BUN Pending (7-18) mg/dl Creatinine Pending (0.6-1.2) mg/dl Est Cr Clr Drug Dosing Pending ml/min Est GFR ( Amer) Pending Est GFR (Non-Af Amer) Pending BUN/Creatinine Ratio Pending (10-20) Glucose Pending (70-99) mg/dl Lactate (0.4-2.0) mmol/L Calcium Pending (8.5-10.1) mg/dl Total Bilirubin (0.2-1) mg/dl AST (15-37) U/L ALT (12-78) U/L Alkaline Phosphatase (45-117) U/L Total Protein (6.4-8.2) gm/dl Albumin (3.4-5.0) gm/dl Globulin (2.5-4.0) gm/dl Albumin/Globulin Ratio (0.9-2) HCG, Qual (Negative) Urine Color Dark Yellow Urine Appearance Clear (Clear) Urine pH 6.0 (4.5-7.5) Ur Specific [place] 1.027 (1.000-1.030) Urine Protein Negative (Negative) Urine Glucose (UA) Negative (Negative) Urine Ketones 4+ H (Negative) Urine Blood Negative (Negative) Urine Nitrite Negative (Negative) Urine Bilirubin Negative (Negative) Urine Urobilinogen Negative (Negative) Ur Leukocyte Esterase Negative (Negative) 12/29/18 12/29/18 12/29/18 Range/Units 15:44 15:44 15:44 WBC (4.8-10.8) K/uL RBC (4.2-5.4) M/uL Hgb (12.0-16.0) g/dL Hct (37-47) % MCV (80-100) fL MCH (25-34) pg MCHC (32-36) g/dL RDW Std Deviation (36.4-46.3) fL RDW Coeff of Gurpreet (11.5-14.5) % Plt Count (130-400) K/uL MPV (7.4-10.4) fL Immature Gran % (Auto) % Neut % (Auto) % Lymph % (Auto) % Spink % (Auto) % Eos % (Auto) % Baso % (Auto) % Immature Gran # (Auto) (0.00-0.02) K/uL Neut # (Auto) (1.4-6.5) K/uL Lymph # (Auto) (1.2-3.4) K/uL Spink # (Auto) (0.11-0.59) K/uL Eos # (Auto) (0-0.5) K/uL Baso # (Auto) (0-0.2) K/uL PT (9.0-12.0) Seconds INR (0.9-1.1) APTT (21.0-31.0) Seconds PTT Ratio Sodium 136 (136-145) mmol/L Potassium 3.7 (3.5-5.1) mmol/L Chloride 102 (98-107) mmol/L Carbon Dioxide 26 (21-32) mmol/L Anion Gap 8.0 (3-11) BUN 14 (7-18) mg/dl Creatinine 0.95 (0.6-1.2) mg/dl Est Cr Clr Drug Dosing 120.6 ml/min Est GFR ( Amer) 94.5 Est GFR (Non-Af Amer) 81.5 BUN/Creatinine Ratio 14.8 (10-20) Glucose 81 (70-99) mg/dl Lactate 0.9 (0.4-2.0) mmol/L Calcium 9.3 (8.5-10.1) mg/dl Total Bilirubin 0.8 (0.2-1) mg/dl AST 20 (15-37) U/L ALT 44 (12-78) U/L Alkaline Phosphatase 76 (45-117) U/L Total Protein 8.2 (6.4-8.2) gm/dl Albumin 4.0 (3.4-5.0) gm/dl Globulin 4.2 H (2.5-4.0) gm/dl Albumin/Globulin Ratio 1.0 (0.9-2) HCG, Qual Negative (Negative) Urine Color Urine Appearance (Clear) Urine pH (4.5-7.5) Ur Specific [place] (1.000-1.030) Urine Protein (Negative) Urine Glucose (UA) (Negative) Urine Ketones (Negative) Urine Blood (Negative) Urine Nitrite (Negative) Urine Bilirubin (Negative) Urine Urobilinogen (Negative) Ur Leukocyte Esterase (Negative) 12/29/18 12/29/18 Range/Units 15:44 15:44 WBC 17.31 H (4.8-10.8) K/uL RBC 4.82 (4.2-5.4) M/uL Hgb 14.4 (12.0-16.0) g/dL Hct 41.8 (37-47) % MCV 86.7 (80-100) fL MCH 29.9 (25-34) pg MCHC 34.4 (32-36) g/dL RDW Std Deviation 40.0 (36.4-46.3) fL RDW Coeff of Gurpreet 12.4 (11.5-14.5) % Plt Count 254 (130-400) K/uL MPV 9.5 (7.4-10.4) fL Immature Gran % (Auto) 0.3 % Neut % (Auto) 73.6 % Lymph % (Auto) 15.2 % Spink % (Auto) 8.8 % Eos % (Auto) 2.0 % Baso % (Auto) 0.1 % Immature Gran # (Auto) 0.05 H (0.00-0.02) K/uL Neut # (Auto) 12.74 H (1.4-6.5) K/uL Lymph # (Auto) 2.63 (1.2-3.4) K/uL Spink # (Auto) 1.53 H (0.11-0.59) K/uL Eos # (Auto) 0.34 (0-0.5) K/uL Baso # (Auto) 0.02 (0-0.2) K/uL PT 11.0 (9.0-12.0) Seconds INR 1.1 (0.9-1.1) APTT 30.3 (21.0-31.0) Seconds PTT Ratio 1.1 Sodium (136-145) mmol/L Potassium (3.5-5.1) mmol/L Chloride (98-107) mmol/L Carbon Dioxide (21-32) mmol/L Anion Gap (3-11) BUN (7-18) mg/dl Creatinine (0.6-1.2) mg/dl Est Cr Clr Drug Dosing ml/min Est GFR ( Amer) Est GFR (Non-Af Amer) BUN/Creatinine Ratio (10-20) Glucose (70-99) mg/dl Lactate (0.4-2.0) mmol/L Calcium (8.5-10.1) mg/dl Total Bilirubin (0.2-1) mg/dl AST (15-37) U/L ALT (12-78) U/L Alkaline Phosphatase (45-117) U/L Total Protein (6.4-8.2) gm/dl Albumin (3.4-5.0) gm/dl Globulin (2.5-4.0) gm/dl Albumin/Globulin Ratio (0.9-2) HCG, Qual (Negative) Urine Color Urine Appearance (Clear) Urine pH (4.5-7.5) Ur Specific [place] (1.000-1.030) Urine Protein (Negative) Urine Glucose (UA) (Negative) Urine Ketones (Negative) Urine Blood (Negative) Urine Nitrite (Negative) Urine Bilirubin (Negative) Urine Urobilinogen (Negative) Ur Leukocyte Esterase (Negative)
[2018-12-30 09:58] LABS: Basophils # (auto) 0.03 K/uL (0-0.2); Basophils % (auto) 0.2 %; Eosinophils # (auto) 0.36 K/uL (0-0.5); Eosinophils % (auto) 2.9 %; Hematocrit (blood only) 39.3 % (37-47); Hemoglobin 13.2 g/dL (12.0-16.0); Immature Granulocytes # (auto) 0.04 K/uL (0.00-0.02); Immature Granulocytes % (auto) 0.3 %; Lymphocytes % (auto) 19.3 %; Mean Corpuscular Hgb Conc 33.6 g/dL (32-36); Mean Corpuscular Volume 86.6 fL (80-100); Mean Platelet Volume 9.5 fL (7.4-10.4); Monocytes # (auto) 1.62 K/uL (0.11-0.59); Monocytes % (auto) 13.1 %; Neutrophils # (auto) 7.96 K/uL (1.4-6.5); Neutrophils % (auto) 64.2 %; Platelet Count 230 K/uL (130-400); RDW Coefficient of Variation 12.5 % (11.5-14.5); RDW Standard Deviation 39.9 fL (36.4-46.3); Red Blood Count 4.54 M/uL (4.2-5.4); White Blood Count 12.41 K/uL (4.8-10.8)
[2018-12-30 10:45] LABS: BUN Creatinine Ratio 16.2 (10-20); Calcium 8.8 mg/dl (8.5-10.1); Creatinine Clr Calc Pharmacy 167.8 ml/min; Potassium 4.1 mmol/L (3.5-5.1)
--- NOTE | 2018-12-30 16:18 | Ultrasound Report ---
ULTRASOUND GUIDED ASPIRATION OF LEFT BREAST ABSCESS CLINICAL HISTORY: Left breast 2 cm abscess COMPARISON STUDY: Left breast ultrasound [facility] December 29, 2018. PROCEDURE: Sonography of the left breast demonstrated a 2.1 cm fluid collection within the left breas t at the 12:00 position, approximately 2 cm from the nipple. This was targeted for aspiration. Proced ure, risks and benefits were discussed with the patient and informed written consent was obtained. Th e procedure was performed by Dr. Davila following a timeout. Skin was prepped and draped in steril e fashion and local anesthesia achieved with 1% lidocaine. Under direct ultrasound guidance, an 18-ga uge 3 1/2 inch needle was directed into the fluid collection. 5 cc of purulent fluid was aspirated an d sent to the report for analysis. The patient tolerated the procedure well and no immediate complica tions were evident. IMPRESSION: Successful ultrasound guided aspiration of a 2 cm left breast abscess. 5 cc of aspirated purulent fluid sent to the laboratory for Gram stain, culture and sensitivity. Electronically signed by: Duran Davila M.D. 12/30/2018 4:16 PM
[2018-12-31] MEDS: LACTATED RINGER'S 1,000 ML IV SCH ×2 (03:03→07:46)
[2018-12-31 04:14] LABS: Basophils # (auto) 0.02 K/uL (0-0.2); Basophils % (auto) 0.2 %; Eosinophils # (auto) 0.53 K/uL (0-0.5); Eosinophils % (auto) 5.7 %; Hematocrit (blood only) 38.5 % (37-47); Hemoglobin 13.2 g/dL (12.0-16.0); Immature Granulocytes # (auto) 0.03 K/uL (0.00-0.02); Immature Granulocytes % (auto) 0.3 %; Lymphocytes # (auto) 2.55 K/uL (1.2-3.4); Lymphocytes % (auto) 27.4 %; Mean Corpuscular Hgb Conc 34.3 g/dL (32-36); Mean Corpuscular Volume 86.9 fL (80-100); Mean Platelet Volume 9.4 fL (7.4-10.4); Monocytes # (auto) 1.72 K/uL (0.11-0.59); Monocytes % (auto) 18.5 %; Neutrophils # (auto) 4.47 K/uL (1.4-6.5); Neutrophils % (auto) 47.9 %; Platelet Count 225 K/uL (130-400); RDW Coefficient of Variation 12.4 % (11.5-14.5); Red Blood Count 4.43 M/uL (4.2-5.4); White Blood Count 9.32 K/uL (4.8-10.8)
[2018-12-31 07:15] VITALS: TEMP 98.1; O2SAT 95
[2018-12-31] MEDS: CLINDAMYCIN 600 MG in DEXTROSE 5% 50 ML IV SCH (07:45)
[2018-12-31] MEDS: PRENATAL VITAMIN 1 TAB PO SCH (07:46)
--- NOTE | 2018-12-31 09:49 | Surgery Progress Note ---
Date of Service December 31, 2018 Assessment & Plan (1) Breast abscess of female: Breast abscess aspirated Gram stain noted Plan to send home on oral antibiotics Follow up next week Present on Admission?: Yes Subjective Results of U/S guided aspiration noted Cultures pending Gram stain showed gram positive cocci and gram negative bacilli Physical Exam Vital Signs (Past 24 Hours): Last Vital Signs Temp 36.7 C 12/31/18 07:14 Pulse 98 H 12/31/18 07:14 Resp 14 12/31/18 07:14 BP 131/87 12/31/18 07:14 Pulse Ox 95 12/31/18 07:14 Chest (Breasts): Additional Comments: Much less tender Less erythema Induration unchanged
[2018-12-31 10:16] VITALS: BP 135/88; PULSE 106
--- NOTE | 2019-01-01 06:58 | Discharge Summary ---
Date of Service January 02, 2019 Admission HPI Per Admitting Provider This 28-year-old female patient presents emergency department today after an ultrasound showed a 2cm retro-areolar abscess with cellulitis of her left breast. She has been on Bactrim since Saturday but over the weekend, she developed worsening redness, swelling, and pain in the breast. She states there has been some bloody, purulent drainage from the breast. She does have nipple piercings, and states the drainage is coming out of the piercing. The patient denies any fever, but does report chills. She denies nausea or vomiting. Principal Diagnosis Left breast abscess Discharge Exam Constitutional well developed; no acute distress Chest (Breasts) Breast: + breast tenderness (Mild and decreased) Additional Comments: Induration decreased Discharge Data Allergies Allergy/AdvReac Type Severity Reaction Status Date / Time Penicillins Allergy Intermediate HIVES Verified 12/29/18 16:15 Consultations 12/29/18 19:01 Consult General Surgery Stat 12/29/18 20:03 ED Decision to Admit Stat Ordered Studies 12/30/18 09:33 US breast cyst asp LT Routine 12/30/18 15:14 US guide needle placement Routine Hospital Course (1) Breast abscess of female: This patient had induration and a breast abscess between 2 and 3 cm. Ultrasound-guided aspiration removed 5 cc of purulent fluid that was sent for culture. At the time of this dictation the culture showed beta hemolytic strep but the sensitivities are still pending. Following the aspiration the discomfort and induration decreased significantly. She remained afebrile. She was discharged to home with plan for follow-up next week. We will continue to monitor the sensitivities. Total Time Total Time Spent Total Time Spent (In Minutes): 10 Discharge Plan Discharge Items Patient Disposition: Home - Self-Care Reason For Visit: BREAST CELLULITIS Discharge Diagnosis: Breast cellulitis with abscess Discharge Goals: Decrease discomfort Activity: Resume your previous activity Bathing: No limitations Non-emergency contact: Surgeon Call non-emergency contact if: your temperature is above 101.5, your wound has increased redness and your wound has increased drainage Follow-up/Referrals: Perri Smith MD [Primary Care Provider] - Diet: Regular Addtl Provider Instructions: Change band daily and as needed If pain or redness is increasing, call office ([phone]) Otherwise call for appointment for next week ([phone]) Prescriptions: Continued sulfamethoxazole-trimethoprim 800-160 mg tablet 1 tab PO BID RF: 0 Vitamin 1 tab PO DAILY RF: 0 Stand-Alone Forms: [facility] Discharge Orders: Discharge Order (Routine); Ordered 12/31/18 Ordered By: Jose Luis Arana Admission Data Admit Date/Time: 12/30/18 16:59 Attending Provider: Jose Luis Arana Admit Provider: Ethan Escobedo Primary Care Provider: Perri Smith Other Providers: Ethan Escobedo Service: Surgical Services Other Interventions: Discharge Summary Assessment (RN) Last Done: 12/31/18 10:15 DC Date/Time DO NOT enter until pt leaves facility: 12/31/18 11:08
--- NOTE | 2019-01-02 08:21 | Ultrasound Report ---
ULTRASOUND GUIDED ASPIRATION OF LEFT BREAST ABSCESS CLINICAL HISTORY: Left breast 2 cm abscess COMPARISON STUDY: Left breast ultrasound [facility] December 29, 2018. PROCEDURE: Sonography of the left breast demonstrated a 2.1 cm fluid collection within the left breas t at the 12:00 position, approximately 2 cm from the nipple. This was targeted for aspiration. Proced ure, risks and benefits were discussed with the patient and informed written consent was obtained. Th e procedure was performed by Dr. Davila following a timeout. Skin was prepped and draped in steril e fashion and local anesthesia achieved with 1% lidocaine. Under direct ultrasound guidance, an 18-ga uge 3 1/2 inch needle was directed into the fluid collection. 5 cc of purulent fluid was aspirated an d sent to the report for analysis. The patient tolerated the procedure well and no immediate complica tions were evident. IMPRESSION: Successful ultrasound guided aspiration of a 2 cm left breast abscess. 5 cc of aspirated purulent fluid sent to the laboratory for Gram stain, culture and sensitivity. Electronically signed by: Duran Davila M.D. 12/30/2018 4:16 PM
--- NOTE | 2019-01-02 11:07 | Coding Query ---
PATHOLOGY To promote full compliance with coding requirements relating to patient care, physician participation is requested in all cases of robotics mechanic uncertainty. Please assist us with the question(s) below: Please review the culture results from the left breast abscess FNA and please document any relevant diagnosis(es) below: Diagnosis(es): Breast abscess Thank you Darlyn MONTOYA
== END 2018-12-31 11:08 | disposition home or self-care (01) | DRG 601 ==
LOC: 3N 14:26 → ED 14:26 → 3N 22:46

== ENCOUNTER 2020-12-02 07:34 | Inpatient (IN) ==
[2020-12-02] MEDS ORDERED: OXYTOCIN 30 UNITS/500 ML BAG IV PRN (08:19)
[2020-12-02] MEDS ORDERED: VANCOMYCIN HCL 2,000 MG in SODIUM CHLORIDE 0.9% 250 ML IV PRN (08:19)
--- NOTE | 2020-12-02 08:30 | History & Physical Report ---
Date of Service December 02, 2020 Assessment & Plan (1) Elective induction of labor planned: Patient is a 39-year-old -0-0-1 at 39 weeks and 4 days of gestation, induction of labor for Class III Obesity VSS Afebrile FHR reassuring GBS + Covid testing pending Cervix unfavorable Plan to admit, labs, Cervidil for cervical ripening, Vancomycin All questions were answered (2) Class 3 obesity: (3) GBS (group B Streptococcus carrier), +RV culture, currently : Admission and Anticipated Discharge Date Admission Date: December 02, 2020 History of Present Illness Primary Care Provider: NO PCP Patient Is a 29-year-old -0-0-1 at 39 weeks 2 days of gestation is being admitted for induction of labor time due to class III obesity affecting . Patient has no complaints. Patient denies contractions, leakage of fluid, vaginal bleeding and she reports good movements. She denies fever, chills, nausea, vomiting, headaches, change in vision, abdominal or back pain. Her has been complicated by 1) Class III Obesity, last US with EFW of close to 8 lb on 11/23 2) PCOS 3) GBS, allergic to PCN, rx unknown 4) Pylectasis of fetus Allergies Allergy/AdvReac Type Severity Reaction Status Date / Time Penicillins Allergy Intermediate HIVES Verified 12/02/20 08:00 Home Medications Medication Instructions Recorded Confirmed Type prenat.vits,francine,[id number] 1 tab PO DAILY #0 12/29/18 12/02/20 History [ Vitamin] Patient History Surgical History History of ankle surgery Hx laparoscopic cholecystectomy Hx of appendectomy Social History Smoking Status: Never smoker Hx Alcohol Use: No Hx Substance Use: No Preferred Language: Sami Communication Ability: Effective 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 Gastrointestinal (Abdomen): normal bowel sounds, soft, nontender, no hepatosplenomegaly (Gravid) Genitourinary: normal external appearance Manual OB Exam: + cervical dilation 2 cm, + cervical effacement 50% and + station (ballotable) high OB Exam Monitor Tracing: + external uterine monitor used and + category I Results & Data ([facility]) Vital Signs (Past 12 Hours) Vital Signs Pulse BP 12/02/20 08:19 112 H 136/87 12/02/20 07:56 109 H 152/87 H 12/02/20 07:55 107 H 175/108 H
[2020-12-02 08:41] LABS: Hematocrit (blood only) 31.8 % (37-47); Hemoglobin 10.6 g/dL (12.0-16.0); Mean Corpuscular Hemoglobin 27.8 pg (25-34); Mean Corpuscular Hgb Conc 33.3 g/dL (32-36); Mean Corpuscular Volume 83.5 fL (80-100); Mean Platelet Volume 10.4 fL (7.4-10.4); Platelet Count 239 K/uL (130-400); RDW Coefficient of Variation 13.8 % (11.5-14.5); RDW Standard Deviation 41.5 fL (36.4-46.3); Red Blood Count 3.81 M/uL (4.2-5.4); White Blood Count 8.38 K/uL (4.8-10.8)
[2020-12-02] MEDS ORDERED: DINOPROSTONE 10 MG INSERT PV ONE (08:45)
[2020-12-02 08:59] LABS: Albumin Level 2.6 gm/dl (3.4-5.0); BUN Creatinine Ratio 8.2 (10-20); Calcium 9.1 mg/dl (8.5-10.1); Creatinine Clr Calc Pharmacy 196.3 ml/min; Est GFR (African American) 141.2; Est GFR (Non-African American) 121.9; Potassium 3.6 mmol/L (3.5-5.1)
[2020-12-02 09:02] LABS: Albumin Globulin Ratio 0.7 (0.9-2); Bilirubin,Total 0.6 mg/dl (0.2-1); Globulin 3.9 gm/dl (2.5-4.0); Total Protein 6.5 gm/dl (6.4-8.2)
--- NOTE | 2020-12-02 09:19 | Progress Note ---
Date of Service December 02, 2020 Assessment & Plan Admission and Anticipated Discharge Date Admission Date: December 02, 2020 Subjective Pt doing well FHR; CAT1 Ctx; Minimal VE; 2cm Cervidil placed in vagina Results & Data ([facility]) Vital Signs (Past 12 Hours) Vital Signs Pulse BP 12/02/20 08:19 112 H 136/87 12/02/20 07:56 109 H 152/87 H 12/02/20 07:55 107 H 175/108 H
[2020-12-02] MEDS: LACTATED RINGER'S 1,000 ML IV PRN (09:24)
[2020-12-02] MEDS: VANCOMYCIN HCL 2,000 MG in SODIUM CHLORIDE 0.9% 500 ML IV SCH ×2 (09:27→21:18)
--- NOTE | 2020-12-02 15:27 | Obstetrical Progress Note ---
Date of Service December 02, 2020 Assessment & Plan Admission and Anticipated Discharge Date Admission Date: December 02, 2020 Subjective Patient is reevaluated She feels crampy, not sure about ctxs Denies pain meds No LOF/VB FM's FHR categ I no ctxs on monitor Received Vancomycin Continue to monitor closely Results & Data ([facility]) Vital Signs (Past 12 Hours) Vital Signs Temp Pulse Resp BP 12/02/20 14:49 36.9 C 96 H 20 142/87 H 12/02/20 11:16 36.9 C 92 H 20 138/75 12/02/20 08:19 112 H 136/87 12/02/20 07:56 109 H 152/87 H 12/02/20 07:55 107 H 175/108 H
[2020-12-02] MEDS ORDERED: BUTORPHANOL TARTRATE 1 MG/ML VIAL IV ONE (21:20)
[2020-12-02] MEDS ORDERED: ONDANSETRON INJ 2 MG/ML 2 ML VIAL IV PRN (21:20)
--- NOTE | 2020-12-02 21:23 | Obstetrical Progress Note ---
Date of Service December 02, 2020 Assessment & Plan Admission and Anticipated Discharge Date Admission Date: December 02, 2020 Subjective Patient has been feeling painful ctxs for the last 2 hours No LOF/VB +FM's Pain is 7-8/10 FHR categ I [place]: ctxs q 2-3 min VE: Cervidil is removed, cervix is 2-3 cm/ 70%/ -3 Plan to observe, Monitor, Stadol for pain, Misoprostol of if ctxs would space out Results & Data ([facility]) Vital Signs (Past 12 Hours) Vital Signs Temp Pulse Resp BP 12/02/20 19:03 36.8 C 110 H 18 167/75 H 12/02/20 18:03 112 H 148/62 H 12/02/20 18:02 106 H 20 179/76 H 12/02/20 14:49 36.9 C 96 H 20 142/87 H 12/02/20 11:16 36.9 C 92 H 20 138/75
[2020-12-03] MEDS: miSOPROStoL 50 MCG TAB PO SCH ×6 (01:44→19:17)
[2020-12-03] MEDS ORDERED: miSOPROStoL 50 MCG TAB PO ONE (07:25)
[2020-12-03] MEDS: VANCOMYCIN HCL 2,000 MG in SODIUM CHLORIDE 0.9% 500 ML IV SCH ×2 (09:10→21:08)
[2020-12-03] MEDS ORDERED: OXYTOCIN 30 UNITS/500 ML BAG IV PRN (12:14)
[2020-12-03] MEDS: LACTATED RINGER'S 1,000 ML IV PRN (17:34)
[2020-12-03] MEDS ORDERED: BUTORPHANOL TARTRATE 1 MG/ML VIAL ONE (18:27)
[2020-12-03] MEDS ORDERED: SODIUM CHLORIDE 0.9% INJ 10 ML VIAL ONE (19:30)
[2020-12-03] MEDS ORDERED: BUPIVACAINE 0.25% 30 ML VIAL ONE (19:30)
[2020-12-03] MEDS ORDERED: ePHEDrine sulfate 50 MG/ML AMP ONE (19:30)
[2020-12-03] MEDS ORDERED: fentaNYL 2MCG/ML ROPIVACAINE 1.25MG/ML 100 ML BAG EPI ONE (19:31)
[2020-12-03] MEDS ORDERED: fentaNYL citrate 100 MCG/2 ML VIAL ONE (19:31)
[2020-12-03] MEDS ORDERED: NALOXONE HCL 0.4 MG/1 ML VIAL/CARP IV PRN (20:02)
[2020-12-03] MEDS ORDERED: ONDANSETRON INJ 2 MG/ML 2 ML VIAL IV PRN (20:02)
[2020-12-03] MEDS ORDERED: fentaNYL 2MCG/ML ROPIVACAINE 1.25MG/ML 100 ML BAG EPI PRN (20:02)
[2020-12-03] MEDS ORDERED: ePHEDrine sulfate 50 MG/ML AMP IV PRN (20:02)
[2020-12-03] MEDS ORDERED: diphenhydrAMINE 50 MG/ML VIAL IV PRN (20:02)
[2020-12-03] MEDS ORDERED: NALOXONE HCL 1 MG in SODIUM CHLORIDE 0.9% 1000ML 1,000 ML IV PRN (20:02)
--- NOTE | 2020-12-03 20:04 | Anesthesiology Consultation ---
Date of Service December 03, 2020 Covid 19 negative on 12/02/20. Assessment & Plan Chart Review Chart Review: Patient NOT seen in Pre Admission Testing and Acceptable Risk for Labor Epidural Consults Requested none ASA ASA2 Proposed Anesthesia Anesthesia Type: Labor Epidural and CSE Risk / Benefits Reviewed With: PT / POA / Parent / Guardian, Accepts Plan and Informed Consent Obtained History Height/Weight Height: 5 ft 9 in Weight: 132.903 kg Allergies Allergy/AdvReac Type Severity Reaction Status Date / Time Penicillins Allergy Intermediate HIVES Verified 12/02/20 08:00 Medications Home Medications Medication Instructions Recorded Confirmed Last Taken prenat.vits,francine,[id number] 1 tab PO DAILY #0 12/29/18 12/02/20 12/29/18 [ Vitamin] Active Medications Generic Name Dose Route Start Last Admin Trade Name Freq PRN Reason Stop Dose Admin Lactated Ringer's 1,000 mls @ 125 mls/hr 12/02/20 08:19 12/03/20 17:34 Lr IV 12/04/20 08:18 125 mls/hr .Q8H PRN Administration L&D Protocol Protocol Vancomycin HCl 2,000 mg/ 540 mls @ 200 mls/hr 12/02/20 09:15 12/03/20 09:10 Sodium Chloride IV 12/12/20 09:14 200 mls/hr Q12H ANDRES Administration Oxytocin 30 units in 500 mls @ 22 mls/hr 12/03/20 12:14 12/03/20 19:13 Pitocin IV 12/05/20 12:13 1.32 units/hr .[id number] PRN 22 mls/hr Labor Induction/Augmentation Titration Protocol 1.32 UNITS/HR Misoprostol 50 mcg 12/03/20 00:00 12/03/20 19:17 Misoprostol 50 Mcg Tab PO 01/02/21 00:00 Not Given Q4 ANDRES NPO Date Last Intake of Fluids: 12/03/20 Time Last Intake of Fluids: 18:00 Date Last Intake of Solids: 12/02/20 Time Last Intake of Solids: 21:00 Past Medical History Medical History Morbid obesity Exercise / Class Metabolic Activity II 4-5 Yardwork/Stairs/Walk up hill Past Surgical History Surgical History History of ankle surgery Hx laparoscopic cholecystectomy Hx of appendectomy Past Anesthesia History No Hx of Anesthesia Complications and No Family Hx of Anesthesia Complications History of PONV No Hx of PONV and No Hx of Motion Sickness Social History Smoking Status: Never smoker Hx Alcohol Use: No Hx Substance Use: No substance use type: does not use Review of Systems no chest pain or sob Physical Exam Vital Signs Last Vital Signs Temp 36.8 C 12/03/20 18:22 Pulse 99 H 12/03/20 19:57 Resp 18 12/03/20 18:22 BP 146/88 H 12/03/20 19:14 Pulse Ox 99 12/03/20 19:57 ENMT Mouth: no TMJ abnormality Thyromental Distance: > or= 3.5 Finger Breadths Mallampati Class: II Neck normal visual inspection Respiratory normal respiratory effort Auscultation: lungs clear to auscultation bilaterally Cardiovascular Rate/Rhythm: regular rate and regular rhythm Musculoskeletal Spine: normal cervical ROM Neurologic moves all extremities Psychiatric Orientation: alert and oriented x 3 Testing Laboratory Results 12/02/20 08:29 12/02/20 08:29 Blood Type O Positive 12/02/20 08:29 Antibody Screen NEGATIVE 12/02/20 08:29
[2020-12-03] MEDS ORDERED: Nursing to Pharmacy Communication SCH (23:45)
[2020-12-04] MEDS ORDERED: METHYLERGONOVINE MALEATE 0.2 MG/ML AMP ONE (04:38)
[2020-12-04] MEDS ORDERED: ACETAMINOPHEN W/CODEINE #3 1 TAB PO PRN (05:10)
[2020-12-04] MEDS ORDERED: DIPHTHERIA/TETANUS/PERTUSSIS 0.5 ML SYR/VIAL IM ONE (05:10)
[2020-12-04] MEDS ORDERED: ACETAMINOPHEN 325 MG TAB PO PRN (05:10)
[2020-12-04] MEDS ORDERED: OXYTOCIN 30 UNITS/500 ML BAG IV PRN (05:10)
[2020-12-04] MEDS ORDERED: oxyCODONE/ACETAMINOPHEN 5mg/325mg TAB PO PRN (05:10)
[2020-12-04] MEDS ORDERED: METHYLERGONOVINE MALEATE 0.2 MG/ML AMP IM ONE (05:10)
[2020-12-04] MEDS ORDERED: bisacodyL 10 MG SUPP PR PRN (05:10)
[2020-12-04] MEDS ORDERED: HYDROCORTISONE ACETATE 25 MG SUPP PR PRN (05:10)
--- NOTE | 2020-12-04 05:26 | Operative Report (OR) ---
DATE OF OPERATION: 12/04/2020 DELIVERY NOTE This is a 2, para 2, blood type is O positive, group B strep positive. The patient was brought in for induction of labor, suspected macrosomia. She was brought in for induction with suspected macrosomia at 39 weeks and 4 days. She had a long induction. She had a vaginal tape. She had 2 p.o. Cytotecs. Eventually she was switched to Pitocin, got to be about 4-5 cm, received epidural, got good pain relief. Membranes were ruptured. At the time of rupture, fluid was clear. She slowly but steadily progressed, went to full dilatation, pushed out a live male via direct occiput anterior position over an intact perineum. After delivery of the head, the head retracted. It was diagnosed with shoulder dystocia. We put the bed flat. We flexed the maternal thighs towards the chest and continued steady continuous pressure. There was a nuchal cord x1, which was reduced over the head. We then with a steady pressure, we were able to dislodge the anterior shoulder along with some suprapubic pressure and once this was dislodged, the other shoulder came out. We were able to deliver the . We let the cord pulse for a minute, then I clamped and cut it. Apgars will be deferred to the nurses. The immediately moved both of his arms vigorously. Cord blood was taken. With IV Pitocin running, the placenta was removed intact. I gave her IM Methergine. After removal of the placenta, there was a first-degree laceration. This was repaired anatomically. The vaginal mucosa was approximated out and to beyond the hymenal ring with a continuous Vicryl. Deep suture of Vicryl was used to approximate the bulbocavernosus muscle, separate deep suture was used to approximate the perineal body. Running subcuticular suture was used to approximate the perineal skin edges. Following this, vaginal exam including rectovaginal examination revealed no hematoma formation. A red rubber catheter was used to empty the bladder. Estimated blood loss was 200 mL. I attest to the content of the Intraoperative Record and any orders documented therein. Any exception s are noted below.
[2020-12-04] MEDS: DOCUSATE SODIUM 100 MG CAP PO SCH ×2 (07:26→20:56)
[2020-12-04] MEDS: PRENATAL VITAMIN 1 TAB PO SCH (07:26)
[2020-12-04] MEDS: SUPERCREAM 0.870% 15 GM JAR EXT PRN (08:13)
[2020-12-04] MEDS: BENZOCAINE 20% AER SPR 82.5 GM CAN EXT PRN (08:14)
--- NOTE | 2020-12-04 09:19 | Anesthesia Procedure Note ---
Date of Service December 04, 2020 Anesthesia Post Epidural Note Vital Signs Vital Signs: Temp Pulse Resp BP Pulse Ox 36.9 C 114 H 18 142/77 H 97 12/04/20 03:00 12/04/20 07:24 12/04/20 01:03 12/04/20 07:24 12/04/20 04:47 Pain Intensity Lower Abdomen: Pain Intensity: 2 Notes Mental Status: alert / awake / arousable and participated in evaluation Nausea / Vomiting: adequately controlled Pain: adequately controlled Airway Patency, RR, SpO2: stable & adequate BP & HR: stable & adequate Hydration State: stable & adequate Neuraxial Anesthesia: was administered and sensory block is resolving Anesthetic Complications: no major complications apparent Epidural: Removed without complications and With tip intact
[2020-12-04] MEDS: IBUPROFEN 600 MG TAB PO PRN ×2 (13:31→20:56)
[2020-12-04 15:46] LABS: Hematocrit (blood only) 28.8 % (37-47); Hemoglobin 9.8 g/dL (12.0-16.0)
[2020-12-04] MEDS: LABETALOL HCL 100 MG TAB PO SCH (20:56)
[2020-12-05 06:30] LABS: Hematocrit (blood only) 25.5 % (37-47); Hemoglobin 8.7 g/dL (12.0-16.0); Mean Corpuscular Hemoglobin 28.3 pg (25-34); Mean Corpuscular Hgb Conc 34.1 g/dL (32-36); Mean Corpuscular Volume 83.1 fL (80-100); Platelet Count 223 K/uL (130-400); RDW Coefficient of Variation 13.9 % (11.5-14.5); RDW Standard Deviation 42.3 fL (36.4-46.3); Red Blood Count 3.07 M/uL (4.2-5.4)
[2020-12-05] MEDS ORDERED: FERROUS SULFATE 325 MG TAB PO SCH (08:00)
[2020-12-05] MEDS: PRENATAL VITAMIN 1 TAB PO SCH (08:09)
[2020-12-05] MEDS: SUPERCREAM 0.870% 15 GM JAR EXT PRN (08:09)
[2020-12-05] MEDS: DOCUSATE SODIUM 100 MG CAP PO SCH (08:09)
[2020-12-05] MEDS: LABETALOL HCL 100 MG TAB PO SCH (08:10)
[2020-12-05] MEDS: BENZOCAINE 20% AER SPR 82.5 GM CAN EXT PRN (08:10)
[2020-12-05] MEDS: IBUPROFEN 600 MG TAB PO PRN (08:11)
--- NOTE | 2020-12-05 08:11 | Obstetrical Progress Note ---
Date of Service December 05, 2020 Assessment & Plan Admission and Anticipated Discharge Date Admission Date: December 02, 2020 Subjective Patient is seen and examined. She feels well, no complaints. Desires d/c today Ambulating without dizziness Voiding without difficulty Tolerating regular diet with out N&V Bleeding is minimal No fever/ chills/ CP/ SOB/ N&V/ Leg pain Breast feeding without problems Vital Signs Temp Pulse Pulse Resp BP Pulse Ox 12/05/20 03:30 36.6 C 99 H 18 115/79 12/04/20 23:35 36.5 C 103 H 18 133/92 12/04/20 20:50 36.8 C 105 H 18 133/91 12/04/20 15:05 37.0 C 120 H 18 129/86 12/04/20 13:20 36.8 C 116 H 18 142/94 H 99 Lab Results 12/02/20 12/02/20 12/02/20 Range/Units 08:29 08:29 08:29 WBC 8.38 (4.8-10.8) K/uL RBC 3.81 L (4.2-5.4) M/uL Hgb 10.6 L (12.0-16.0) g/dL Hct 31.8 L (37-47) % MCV 83.5 (80-100) fL MCH 27.8 (25-34) pg MCHC 33.3 (32-36) g/dL RDW Std Deviation 41.5 (36.4-46.3) fL RDW Coeff of Gurpreet 13.8 (11.5-14.5) % Plt Count 239 (130-400) K/uL MPV 10.4 (7.4-10.4) fL Sodium 139 (136-145) mmol/L Potassium 3.6 (3.5-5.1) mmol/L Chloride 108 H (98-107) mmol/L Carbon Dioxide 24 (21-32) mmol/L Anion Gap 7.0 (3-11) BUN 5 L (7-18) mg/dl Creatinine 0.62 (0.6-1.2) mg/dl Est Cr Clr Drug Dosing 196.3 ml/min Est GFR ( Amer) 141.2 Est GFR (Non-Af Amer) 121.9 BUN/Creatinine Ratio 8.2 L (10-20) Glucose 118 H (70-99) mg/dl Calcium 9.1 (8.5-10.1) mg/dl Total Bilirubin 0.6 (0.2-1) mg/dl AST 12 L (15-37) U/L ALT 12 (12-78) U/L Alkaline Phosphatase 190 H (45-117) U/L Total Protein 6.5 (6.4-8.2) gm/dl Albumin 2.6 L (3.4-5.0) gm/dl Globulin 3.9 (2.5-4.0) gm/dl Albumin/Globulin Ratio 0.7 L (0.9-2) COVID-19 Eval Order SARS-CoV-2, RNA, NAAT (NEGATIVE) Blood Type O Positive Antibody Screen NEGATIVE 12/02/20 12/02/20 12/04/20 Range/Units Unknown Unknown 15:38 WBC (4.8-10.8) K/uL RBC (4.2-5.4) M/uL Hgb 9.8 L (12.0-16.0) g/dL Hct 28.8 L (37-47) % MCV (80-100) fL MCH (25-34) pg MCHC (32-36) g/dL RDW Std Deviation (36.4-46.3) fL RDW Coeff of Gurpreet (11.5-14.5) % Plt Count (130-400) K/uL MPV (7.4-10.4) fL Sodium (136-145) mmol/L Potassium (3.5-5.1) mmol/L Chloride (98-107) mmol/L Carbon Dioxide (21-32) mmol/L Anion Gap (3-11) BUN (7-18) mg/dl Creatinine (0.6-1.2) mg/dl Est Cr Clr Drug Dosing ml/min Est GFR ( Amer) Est GFR (Non-Af Amer) BUN/Creatinine Ratio (10-20) Glucose (70-99) mg/dl Calcium (8.5-10.1) mg/dl Total Bilirubin (0.2-1) mg/dl AST (15-37) U/L ALT (12-78) U/L Alkaline Phosphatase (45-117) U/L Total Protein (6.4-8.2) gm/dl Albumin (3.4-5.0) gm/dl Globulin (2.5-4.0) gm/dl Albumin/Globulin Ratio (0.9-2) COVID-19 Eval [facility] SARS-CoV-2, RNA, NAAT NEGATIVE (NEGATIVE) Blood Type Antibody Screen 12/05/20 Range/Units 05:51 WBC 12.30 H (4.8-10.8) K/uL RBC 3.07 L (4.2-5.4) M/uL Hgb 8.7 L (12.0-16.0) g/dL Hct 25.5 L (37-47) % MCV 83.1 (80-100) fL MCH 28.3 (25-34) pg MCHC 34.1 (32-36) g/dL RDW Std Deviation 42.3 (36.4-46.3) fL RDW Coeff of Gurpreet 13.9 (11.5-14.5) % Plt Count 223 (130-400) K/uL MPV 10.0 (7.4-10.4) fL Sodium (136-145) mmol/L Potassium (3.5-5.1) mmol/L Chloride (98-107) mmol/L Carbon Dioxide (21-32) mmol/L Anion Gap (3-11) BUN (7-18) mg/dl Creatinine (0.6-1.2) mg/dl Est Cr Clr Drug Dosing ml/min Est GFR ( Amer) Est GFR (Non-Af Amer) BUN/Creatinine Ratio (10-20) Glucose (70-99) mg/dl Calcium (8.5-10.1) mg/dl Total Bilirubin (0.2-1) mg/dl AST (15-37) U/L ALT (12-78) U/L Alkaline Phosphatase (45-117) U/L Total Protein (6.4-8.2) gm/dl Albumin (3.4-5.0) gm/dl Globulin (2.5-4.0) gm/dl Albumin/Globulin Ratio (0.9-2) COVID-19 Eval Order SARS-CoV-2, RNA, NAAT (NEGATIVE) Blood Type Antibody Screen PE: General: Alert, orientedx3, NAD Abd: soft, NT, fundus firm, below Umbilicus Perineum intact, Lochia rubra minimal Ext; NT, 1+/1+ edema, Homans sign neg/ neg AP: 30 yo s/p , ppd# 1 VSS Afebrile doing well Continue routine care All questions were answered D/C home , f/u in office Discussed when to call Results & Data ([facility]) Vital Signs (Past 12 Hours) Vital Signs Temp Pulse Pulse Resp BP 12/05/20 03:30 36.6 C 99 H 18 115/79 12/04/20 23:35 36.5 C 103 H 18 133/92 12/04/20 20:50 36.8 C 105 H 18 133/91
[2020-12-05] MEDS ORDERED: bisacodyL 5 MG TABEC PO SCH (20:00)
== END 2020-12-05 13:29 | disposition home or self-care (01) | DRG 807 ==
LOC: 4S1 07:34 → 4S2 12-04 08:18

== ENCOUNTER 2022-10-23 07:29 | Inpatient (IN) ==
[2022-10-23] MEDS ORDERED: OXYTOCIN 30 UNITS/500 ML BAG IV PRN (09:08)
[2022-10-23] MEDS ORDERED: LIDOCAINE 1% LOCAL 20 ML VIAL INFIL PRN (09:08)
[2022-10-23] MEDS ORDERED: PENICILLIN G POTASSIUM 6 MU in DEXTROSE 5% 250 ML IV STA (09:14)
[2022-10-23] MEDS ORDERED: DINOPROSTONE 10 MG INSERT PV ONE (09:18)
--- NOTE | 2022-10-23 09:20 | History & Physical Report ---
Date of Service October 23, 2022 Assessment & Plan (1) Morbid obesity: Plan: Induction of labor Cervidil planned for cervical ripening (2) History of shoulder dystocia: Admission and Anticipated Discharge Date Admission Date: October 23, 2022 History of Present Illness Chief Complaint: induction of labor Primary Care Provider: SHAUNNA PCP 31 F [id number] at 39.1 weeks admitted for IOL for history of shoulder dystocia without any trauma to baby, macrosomia and class 3 obesity. GBS is negative. FHT Cat 1. I discussed with patient the option for primary for history of shoulder dystocia but patient declines Allergies Allergy/AdvReac Type Severity Reaction Status Date / Time Penicillins Allergy Intermediate HIVES Verified 12/02/20 08:00 Home Medications Medication Instructions Recorded Confirmed Type prenat.vits,francine,grz-[id number] 1 tab PO DAILY ##0 12/29/18 10/23/22 History ferrous sulfate 325 mg (65 mg 325 mg PO BIDM #60 tabs 12/05/20 10/23/22 Rx iron) tablet,delayed release aspirin 81 mg tablet,delayed 81 mg PO DAILY 10/23/22 10/23/22 History release labetalol 100 mg tablet 200 mg PO BID 10/23/22 10/23/22 History Patient History Medical History Morbid obesity Surgical History History of ankle surgery Hx laparoscopic cholecystectomy Hx of appendectomy Social History Smoking Status: Former smoker Smoking End Date: 2012; Hx Alcohol Use: No Hx Substance Use: No Preferred Language: Hungarian Communication Ability: Effective Japanese Interpreter Required: No Beliefs That Will Affect Care: None marital status: Current Living Situation: Spouse Current Living Situation Comment: And daughter Other Information That Helps Us Care for You: No Feels Safe at Home: Yes Safety Concerns: Feels Safe At This Time Assistive Devices: None OB History x2 history shoulder dystocia history of macrosomia [employer]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 neg Review of Systems All systems reviewed & are unremarkable except as noted in HPI & below Physical Exam Constitutional: WD/WN, vitals as above Eyes: PERRL, conjunctivae normal, anicteric sclerae Respiratory: normal respiratory effort, lungs clear to auscultation Cardiovascular: RRR, no murmur, no edema Gastrointestinal (Abdomen): Inspection/Auscultation: abdomen normal to inspection Musculoskeletal: Extremities: extremities normal to inspection Skin: no rashes, warm and dry Neurologic: patellar DTR's 2+ bilat, sensation intact Psychiatric: A+Ox3, euthymic affect Genitourinary: no vaginal lesions, no adnexal mass OB Exam Abdomen: + fundal height and + vertex Manual OB Exam: + cervical dilation fingertip, + cervical effacement 50% and + station high OB Exam Monitor Tracing: + external FHT monitor used, + external uterine monitor used, + category I and + normal FHT variability EFW 9 lbs. plan for Cervidil for cervical ripening Results & Data ([facility]) Vital Signs (Past 12 Hours) Vital Signs Temp Pulse Resp BP 10/23/22 07:46 36.7 C 10/23/22 07:44 36.7 C 105 H 20 130/85 Laboratory Results 10/23/22 08:20 SARS-CoV-2, RNA, NAAT NEGATIVE Code Status & VTE Plan VTE Prophylaxis Plan VTE Prophylaxis will be ordered: No
--- NOTE | 2022-10-23 09:33 | Labor Progress Brief Note ---
Date of Service October 23, 2022 Assessment & Plan Admission and Anticipated Discharge Date Admission Date: October 23, 2022 Physical Exam Genitourinary: Cervidil placed vaginally Results & Data ([facility]) Vital Signs (Past 12 Hours) Vital Signs Temp Pulse Resp BP 10/23/22 07:46 36.7 C 10/23/22 07:44 36.7 C 105 H 20 130/85
[2022-10-23 09:42] LABS: Hematocrit (blood only) 31.8 % (34.1-44.9); Hemoglobin 10.9 g/dl (12.0-16.0); Mean Corpuscular Hemoglobin 28.9 pg (25.0-34.0); Mean Corpuscular Hgb Conc 34.3 g/dL (32.0-36.0); Mean Corpuscular Volume 84.4 fL (80.0-100.0); Mean Platelet Volume 10.4 fL (9.4-12.3); Platelet Count 221 K/uL (130-400); RDW Coefficient of Variation 13.6 % (11.5-14.5); RDW Standard Deviation 41.6 fL (36.4-46.3); Red Blood Count 3.77 M/uL (3.93-5.22); White Blood Count 8.52 K/ul (4.8-10.8)
[2022-10-23] MEDS: LACTATED RINGER'S 1,000 ML IV PRN (17:03)
[2022-10-23] MEDS: PENICILLIN G POTASSIUM 3 MU in DEXTROSE 5% 100 ML IV PRN (20:45)
--- NOTE | 2022-10-23 21:14 | Labor Progress Brief Note ---
Date of Service October 23, 2022 Assessment & Plan Admission and Anticipated Discharge Date Admission Date: October 23, 2022 Physical Exam Genitourinary: Manual OB Exam: + cervical dilation 3 cm, + cervical effacement 60% and + station high OB Exam Monitor Tracing: + external FHT monitor used, + external uterine monitor used, + category I and + normal FHT variability Results & Data ([facility]) Vital Signs (Past 12 Hours) Vital Signs Temp Pulse Resp BP 10/23/22 19:23 37.1 C 18 10/23/22 19:31 100 H 139/87 10/23/22 17:11 93 H 137/86 10/23/22 15:53 36.8 C 83 20 146/83 H 10/23/22 11:00 18 10/23/22 11:00 36.7 C 18 10/23/22 11:05 81 137/86
[2022-10-24] MEDS: PENICILLIN G POTASSIUM 3 MU in DEXTROSE 5% 100 ML IV PRN ×6 (00:46→20:29)
[2022-10-24] MEDS ORDERED: OXYTOCIN 30 UNITS/500 ML BAG IV PRN ×3 (08:04→20:52)
--- NOTE | 2022-10-24 09:45 | Labor Progress Brief Note ---
Date of Service October 24, 2022 Subjective Patient comfortable in bed at this time, denies any contractions. Not had her morning labetalol dose yet Assessment & Plan (1) Morbid obesity: Plan: Continue oxytocin for augmentation, epidural if patient request Anticipate spontaneous vaginal delivery (2) History of shoulder dystocia: Plan: Again patient was counseled for history of shoulder dystocia, most common risk factor for shoulder dystocia is a history of a previous shoulder dystocia. Previously has counseled patient at length in clinic about elective , patient declines. Discussed if another shoulder dystocia occurs the risk of and maternal injury, hypoxia or even possible . We will proceed with continuation of induction at this time, however if she falls off the labor curve, my recommendation would be to again consider a , and avoid any operative delivery or if not good descent of the head She voiced her understanding and agreement with the plan. All questions answered in the room (3) Positive GBS test: Plan: currently on prophylaxis (4) Chronic hypertension affecting : Plan: labetalol 100mg BID, morning dose pending BP 141/85 (5) Macrosomia affecting management of mother in third trimester: Plan: Last EFW 4000g with M Admission and Anticipated Discharge Date Admission Date: October 23, 2022 Physical Exam Genitourinary: General heart tracing: Baseline 130, moderate variability, positive accelerations, no decelerations, category 1 tracing Tocometer: Irregular contractions, pit currently at 4 milliunits/h Cervix: 3/50/-3, head well applied AROM performed with moderate clear fluid, IUPC was placed, no cord felt, no complications Results & Data ([facility]) Vital Signs (Past 12 Hours) Vital Signs Temp Pulse Resp BP 10/24/22 00:48 36.8 C 16 10/24/22 08:44 98 H 141/85 H 10/24/22 08:21 36.8 C 80 20 169/96 H 10/24/22 04:19 36.8 C 95 H 16 133/83 10/24/22 00:48 81 143/93 H 10/23/22 22:19 88 138/89 10/23/22 22:17 37.0 C 83 19 171/96 H
[2022-10-24] MEDS ORDERED: ePHEDrine sulfate 50 MG/ML AMP ONE (10:31)
[2022-10-24] MEDS ORDERED: LIDOCAINE 2%/EPINEPHRINE 1:200,000 20 ML SDV ONE (10:32)
[2022-10-24] MEDS ORDERED: fentaNYL citrate 100 MCG/2 ML VIAL ONE (10:32)
[2022-10-24] MEDS ORDERED: SODIUM CHLORIDE 0.9% INJ 10 ML VIAL ONE (10:32)
[2022-10-24] MEDS ORDERED: BUPIVACAINE 0.25% 30 ML VIAL ONE (10:32)
[2022-10-24] MEDS ORDERED: fentaNYL 2MCG/ML ROPIVACAINE 1.25MG/ML 100 ML BAG EPI ONE (10:33)
[2022-10-24] MEDS ORDERED: NALBUPHINE HCL INJ 10 MG/ML AMP IV PRN (10:41)
[2022-10-24] MEDS ORDERED: NALOXONE HCL 1 MG in SODIUM CHLORIDE 0.9% 1000ML 1,000 ML IV PRN (10:41)
[2022-10-24] MEDS ORDERED: NALOXONE HCL 0.4 MG/1 ML VIAL/CARP IV PRN (10:41)
[2022-10-24] MEDS ORDERED: diphenhydrAMINE 50 MG/ML VIAL IV PRN (10:41)
[2022-10-24] MEDS ORDERED: ePHEDrine sulfate 50 MG/ML AMP IV PRN (10:41)
[2022-10-24] MEDS ORDERED: ONDANSETRON INJ 2 MG/ML 2 ML VIAL IV PRN (10:41)
--- NOTE | 2022-10-24 10:44 | Anesthesiology Consultation ---
Date of Service October 24, 2022 Assessment & Plan (1) Encounter for pre-operative examination: Chart Review Chart Review: Patient NOT seen in Pre Admission Testing and Acceptable Risk for Labor Epidural Consults Requested none History Height/Weight Height: 5 ft 8 in Weight: 136.078 kg Allergies Allergy/AdvReac Type Severity Reaction Status Date / Time Penicillins Allergy Intermediate HIVES Verified 12/02/20 08:00 Medications Home Medications Medication Instructions Recorded Confirmed Last Taken prenat.vits,francine,umq-jopx-dxluj 1 tab PO DAILY ##0 12/29/18 10/23/22 10/23/22 07:00 ferrous sulfate 325 mg (65 mg 325 mg PO BIDM #60 tabs 12/05/20 10/23/22 10/23/22 07:00 iron) tablet,delayed release aspirin 81 mg tablet,delayed 81 mg PO DAILY 10/23/22 10/23/22 10/23/22 07:00 release labetalol 100 mg tablet 200 mg PO BID 10/23/22 10/23/22 10/23/22 07:00 Active Medications Generic Name Dose Route Start Last Admin Trade Name Freq PRN Reason Stop Dose Admin Lactated Ringer's 1,000 mls @ 125 mls/hr 10/23/22 09:08 10/24/22 10:30 Lr IV 10/25/22 09:07 999 mls/hr .Q8H PRN Infusion L&D Protocol Protocol Penicillin G Potassium 3 mu/ 106 mls @ 100 mls/hr 10/23/22 12:08 10/24/22 09:33 Dextrose IV 11/02/22 12:07 Infused Q4H PRN Infusion GBS(+) Until Delivery Oxytocin 30 units in 500 mls @ 6 mls/hr 10/24/22 08:29 10/24/22 10:03 Pitocin IV 10/26/22 08:28 0.36 units/hr .Q24H PRN 6 mls/hr Labor Induction/Augmentation Titration Protocol 0.36 UNITS/HR Past Medical History Medical History Morbid obesity Exercise / Class Metabolic Activity II 4-5 Yardwork/Stairs/Walk up hill Past Surgical History Surgical History History of ankle surgery Hx laparoscopic cholecystectomy Hx of appendectomy Past Anesthesia History No Hx of Anesthesia Complications and No Family Hx of Anesthesia Complications History of PONV No Hx of PONV and No Hx of Motion Sickness Social History Smoking Status: Former smoker Smoking End Date: 2012 Hx Alcohol Use: No Hx Substance Use: No substance use type: does not use Physical Exam Vital Signs Last Vital Signs Temp 36.8 C 10/24/22 08:21 Pulse 85 10/24/22 10:46 Resp 20 10/24/22 08:21 BP 141/85 H 10/24/22 08:44 Testing Laboratory Results 10/23/22 09:21
[2022-10-24] MEDS: fentaNYL 2MCG/ML ROPIVACAINE 1.25MG/ML 100 ML BAG EPI PRN ×2 (11:07→17:00)
[2022-10-24] MEDS: LACTATED RINGER'S 1,000 ML IV PRN ×2 (11:31→21:25)
[2022-10-24] MEDS: LABETALOL HCL 200 MG TAB PO SCH ×2 (12:26→21:21)
--- NOTE | 2022-10-24 14:31 | Labor Progress Brief Note ---
Date of Service October 24, 2022 Subjective Patient comfortable in bed at this time, epidural in place Assessment & Plan (1) Morbid obesity: Plan: Continue oxytocin for augmentation Anticipate spontaneous vaginal delivery (2) History of shoulder dystocia: Plan: Again patient was counseled for history of shoulder dystocia, most common risk factor for shoulder dystocia is a history of a previous shoulder dystocia. Previously has counseled patient at length in clinic about elective , patient declines. Discussed if another shoulder dystocia occurs the risk of and maternal injury, hypoxia or even possible . We will proceed with continuation of induction at this time, however if she falls off the labor curve, my recommendation would be to again consider a , and avoid any operative delivery or if not good descent of the head She voiced her understanding and agreement with the plan. All questions answered in the room (3) Positive GBS test: Plan: currently on prophylaxis (4) Chronic hypertension affecting : Plan: labetalol 100mg BID, BP 134/74 (5) Macrosomia affecting management of mother in third trimester: Plan: Last EFW 4000g with M Admission and Anticipated Discharge Date Admission Date: October 23, 2022 Physical Exam Genitourinary: heart tracing: Baseline 150, moderate variability, no accelerations, variable and early decelerations, category 2 tracing Tocometer contractions every3 to 4 minutes, oxytocin at 16 milliunits/h Cervix: 5/80/-2 Results & Data ([facility]) Vital Signs (Past 12 Hours) Vital Signs Temp Pulse Resp BP Pulse Ox 10/24/22 14:26 113 H 98 10/24/22 14:21 88 96 10/24/22 14:22 99 H 91 10/24/22 14:16 110 H 99 10/24/22 14:14 96 H 134/74 10/24/22 14:11 106 H 99 10/24/22 14:06 98 H 98 10/24/22 14:01 100 H 98 10/24/22 14:00 92 H 145/73 H 10/24/22 13:56 98 H 100 10/24/22 13:51 88 99 10/24/22 13:46 103 H 98 10/24/22 13:44 84 140/82 10/24/22 13:42 113 H 92 10/24/22 13:41 100 H 99 01/04/23 13:36 98 H 100 10/24/22 13:34 100 H 92 10/24/22 13:31 95 H 100 10/24/22 13:29 98 H 140/92 10/24/22 13:26 92 H 98 10/24/22 13:21 91 H 99 10/24/22 13:20 101 H 91 10/24/22 13:16 88 99 10/24/22 13:14 81 140/88 10/24/22 13:11 87 99 10/24/22 13:06 79 100 10/24/22 13:01 80 99 10/24/22 12:59 88 137/74 10/24/22 12:56 81 100 10/24/22 12:51 92 H 99 10/24/22 10:26 20 10/24/22 10:26 36.7 C 20 10/24/22 12:46 81 100 10/24/22 12:44 66 142/80 H 10/24/22 12:41 89 100 10/24/22 12:36 78 99 10/24/22 12:33 83 91 10/24/22 12:31 76 100 10/24/22 12:28 79 145/80 H 10/24/22 12:26 87 98 10/24/22 12:22 84 163/85 H 10/24/22 12:21 97 H 100 10/24/22 12:18 88 171/83 H 10/24/22 12:16 73 100 10/24/22 12:11 77 100 10/24/22 12:06 78 100 10/24/22 12:01 100 10/24/22 12:01 81 10/24/22 12:01 78 155/86 H 10/24/22 11:56 81 99 10/24/22 11:51 80 99 10/24/22 11:47 75 143/89 H 10/24/22 11:46 76 100 10/24/22 11:41 87 100 10/24/22 11:40 83 93 10/24/22 11:36 93 H 100 10/24/22 11:31 85 100 10/24/22 11:30 84 153/88 H 10/24/22 11:26 92 H 100 10/24/22 11:25 95 H 154/88 H 10/24/22 11:21 88 156/89 H 99 10/24/22 11:18 95 H 159/84 H 10/24/22 11:16 92 H 100 10/24/22 11:14 89 172/88 H 10/24/22 11:11 91 H 100 10/24/22 11:12 90 160/102 H 10/24/22 11:10 92 H 145/95 H 10/24/22 11:08 91 H 142/90 H 10/24/22 11:06 91 H 98 10/24/22 11:05 90 163/99 H 10/24/22 11:02 78 168/94 H 10/24/22 11:01 77 100 10/24/22 10:56 90 97 10/24/22 10:51 96 H 99 10/24/22 10:46 85 100 10/24/22 08:44 98 H 141/85 H 10/24/22 08:21 36.8 C 80 20 169/96 H 10/24/22 04:19 36.8 C 95 H 16 133/83
[2022-10-24] MEDS ORDERED: SODIUM CHLORIDE 0.9% 250 ML IV PRN (15:12)
[2022-10-24] MEDS ORDERED: NURSING L&D Epidural Breakthrough Pain Update ONE (17:51)
--- NOTE | 2022-10-24 19:01 | Communication Note ---
Date of Service: October 24, 2022 pt with increased pain despite hitting bolus button via epidural infusion. gave a total of 10ml of 2% lido with epi in divided doses. vss. pain improved
--- NOTE | 2022-10-24 19:42 | Labor Progress Brief Note ---
Date of Service October 24, 2022 Subjective Patient comfortable in bed at this time, epidural in place. Was just redosed Assessment & Plan (1) Morbid obesity: Plan: Continue oxytocin for augmentation, positional changes Anticipate spontaneous vaginal delivery (2) History of shoulder dystocia: Plan: Again patient was counseled for history of shoulder dystocia, most common risk factor for shoulder dystocia is a history of a previous shoulder dystocia. Previously has counseled patient at length in clinic about elective , patient declines. Discussed if another shoulder dystocia occurs the risk of and maternal injury, hypoxia or even possible . We will proceed with continuation of induction at this time, however if she falls off the labor curve, my recommendation would be to again consider a , and avoid any operative delivery or if not good descent of the head She voiced her understanding and agreement with the plan. All questions answered in the room (3) Positive GBS test: Plan: currently on prophylaxis (4) Chronic hypertension affecting : Plan: labetalol 100mg BID, BP 134/74 (5) Macrosomia affecting management of mother in third trimester: Plan: Last EFW 4000g with MFM (6) Gestational hypertension: Plan: Noted elevated BP >4 hrs apart, severe range was due to cuff position. Will place stat H labs Treat severe range and start Mag if indicated Admission and Anticipated Discharge Date Admission Date: October 23, 2022 Physical Exam Genitourinary: heart tracing: Baseline 155, moderate variability, positive accelerations, early decelerations, currently category 2 tracing Tocometer:: Contractions every 2 to 3 minutes oxytocin at 20 milliunits/h Cervix: Anterior lip/100% effaced, -[address] Results & Data ([facility] [place]) Vital Signs (Past 12 Hours) Vital Signs Temp Pulse Resp BP Pulse Ox 10/24/22 19:37 128 H 100 10/24/22 19:33 125 H 180/90 H 10/24/22 19:31 116 H 98 10/24/22 19:26 102 H 100 10/24/22 19:21 101 H 100 10/24/22 19:16 110 H 99 10/24/22 19:17 120 H 146/80 H 10/24/22 19:11 111 H 99 10/24/22 19:06 111 H 99 10/24/22 19:02 106 H 146/81 H 10/24/22 19:01 108 H 100 10/24/22 18:56 98 H 100 10/24/22 18:50 20 10/24/22 18:50 36.9 C 20 10/24/22 18:51 104 H 100 10/24/22 18:46 123 H 98 10/24/22 18:45 100 H 153/92 H 10/24/22 18:43 99 H 163/95 H 10/24/22 18:41 100 10/24/22 18:41 107 H 10/24/22 18:41 99 H 162/88 H 10/24/22 18:39 103 H 149/89 H 10/24/22 18:36 101 H 100 10/24/22 18:37 99 H 145/84 H 10/24/22 18:33 102 H 168/102 H 10/24/22 18:31 100 H 162/101 H 100 10/24/22 18:29 111 H 138/87 10/24/22 18:26 101 H 100 10/24/22 18:21 98 H 100 10/24/22 18:20 102 H 93 10/24/22 18:16 106 H 99 10/24/22 18:14 112 H 150/87 H 10/24/22 18:11 123 H 99 10/24/22 18:06 113 H 100 10/24/22 18:04 112 H 94 10/24/22 18:01 114 H 95 10/24/22 17:59 107 H 138/83 10/24/22 17:56 103 H 100 10/24/22 17:51 99 H 100 10/24/22 17:46 118 H 99 10/24/22 17:45 108 H 151/84 H 10/24/22 17:41 117 H 99 10/24/22 17:36 108 H 98 10/24/22 17:31 97 H 100 10/24/22 17:29 97 H 141/80 H 10/24/22 17:26 95 H 100 10/24/22 17:23 104 H 92 10/24/22 17:21 99 H 100 10/24/22 17:16 92 H 100 10/24/22 17:14 96 H 138/84 10/24/22 17:11 100 H 99 10/24/22 17:06 98 H 99 10/24/22 17:03 107 H 88 L 10/24/22 17:01 100 H 100 10/24/22 17:00 37.1 C 99 H 20 137/83 10/24/22 16:56 86 100 10/24/22 16:51 96 H 99 10/24/22 16:46 100 H 100 10/24/22 16:45 96 H 142/78 H 10/24/22 16:41 98 H 100 10/24/22 16:36 94 H 99 10/24/22 16:33 103 H 91 10/24/22 16:31 95 H 100 10/24/22 16:30 93 H 135/79 10/24/22 16:26 94 H 100 10/24/22 16:21 96 H 100 10/24/22 16:16 94 H 100 10/24/22 16:14 93 H 148/78 H 10/24/22 16:11 102 H 98 10/24/22 16:06 101 H 99 10/24/22 16:01 104 H 98 10/24/22 16:00 100 H 144/76 H 10/24/22 15:56 89 98 10/24/22 15:51 95 H 99 10/24/22 15:46 86 99 10/24/22 15:44 93 H 145/77 H 10/24/22 15:41 93 H 99 10/24/22 15:36 93 H 99 10/24/22 15:31 92 H 99 10/24/22 15:29 102 H 129/81 10/24/22 15:26 78 100 10/24/22 15:21 107 H 100 10/24/22 15:16 94 H 100 10/24/22 15:15 37.1 C 93 H 20 144/82 H 10/24/22 15:11 96 H 99 10/24/22 15:06 98 H 100 10/24/22 15:01 89 100 10/24/22 14:59 85 139/83 10/24/22 14:56 105 H 98 10/24/22 14:51 99 H 99 10/24/22 14:46 83 99 10/24/22 14:44 90 138/78 10/24/22 14:41 95 H 99 10/24/22 14:36 98 H 98 10/24/22 14:31 87 99 10/24/22 14:29 104 H 141/72 H 10/24/22 14:26 113 H 98 10/24/22 14:21 88 96 10/24/22 14:22 99 H 91 10/24/22 14:16 36.9 C 110 H 18 99 10/24/22 14:14 96 H 134/74 10/24/22 14:11 106 H 99 10/24/22 14:06 98 H 98 10/24/22 14:01 100 H 98 10/24/22 14:00 92 H 145/73 H 10/24/22 13:56 98 H 100 10/24/22 13:51 88 99 10/24/22 13:46 103 H 98 10/24/22 13:44 84 140/82 10/24/22 13:42 113 H 92 10/24/22 13:41 100 H 99 10/24/22 13:36 98 H 100 10/24/22 13:34 100 H 92 10/24/22 13:31 95 H 100 10/24/22 13:29 98 H 140/92 10/24/22 13:26 92 H 98 10/24/22 13:21 91 H 99 10/24/22 13:20 101 H 91 10/24/22 13:16 88 99 10/24/22 13:14 81 140/88 10/24/22 13:11 87 99 10/24/22 13:06 79 100 10/24/22 13:01 80 99 10/24/22 12:59 88 137/74 10/24/22 12:56 81 100 10/24/22 12:51 92 H 99 10/24/22 10:26 20 10/24/22 10:26 36.7 C 20 10/24/22 12:46 81 100 10/24/22 12:44 66 142/80 H 10/24/22 12:41 89 100 10/24/22 12:36 78 99 10/24/22 12:33 83 91 10/24/22 12:31 76 100 10/24/22 12:28 36.8 C 79 20 145/80 H 10/24/22 12:26 87 98 10/24/22 12:22 84 163/85 H 10/24/22 12:21 97 H 100 10/24/22 12:18 88 171/83 H 10/24/22 12:16 73 100 10/24/22 12:11 77 100 10/24/22 12:06 78 100 10/24/22 12:01 100 10/24/22 12:01 81 10/24/22 12:01 78 155/86 H 10/24/22 11:56 81 99 10/24/22 11:51 80 99 10/24/22 11:47 75 143/89 H 10/24/22 11:46 76 100 10/24/22 11:41 87 100 10/24/22 11:40 83 93 10/24/22 11:36 93 H 100 10/24/22 11:31 85 100 10/24/22 11:30 84 153/88 H 10/24/22 11:26 92 H 100 10/24/22 11:25 95 H 154/88 H 10/24/22 11:21 88 156/89 H 99 10/24/22 11:18 95 H 159/84 H 10/24/22 11:16 92 H 100 10/24/22 11:14 89 172/88 H 10/24/22 11:11 91 H 100 10/24/22 11:12 90 160/102 H 10/24/22 11:10 92 H 145/95 H 10/24/22 11:08 91 H 142/90 H 10/24/22 11:06 91 H 98 10/24/22 11:05 90 163/99 H 10/24/22 11:02 78 168/94 H 10/24/22 11:01 77 100 10/24/22 10:56 90 97 10/24/22 10:51 96 H 99 10/24/22 10:46 85 100 10/24/22 08:44 98 H 141/85 H 10/24/22 08:21 36.8 C 80 20 169/96 H
[2022-10-24] MEDS ORDERED: MAG SULFATE 4GM BOLUS FROM BAG IV ONE (19:45)
[2022-10-24] MEDS ORDERED: LABETALOL HCL IV 5 MG/ML 20ML IV STA ×3 (19:45→22:11)
[2022-10-24 20:02] LABS: Hematocrit (blood only) 34.2 % (34.1-44.9); Hemoglobin 11.8 g/dl (12.0-16.0); Mean Corpuscular Hemoglobin 28.9 pg (25.0-34.0); Mean Corpuscular Hgb Conc 34.5 g/dL (32.0-36.0); Mean Corpuscular Volume 83.8 fL (80.0-100.0); Mean Platelet Volume 10.1 fL (9.4-12.3); Platelet Count 213 K/uL (130-400); RDW Coefficient of Variation 13.8 % (11.5-14.5); RDW Standard Deviation 42.2 fL (36.4-46.3); Red Blood Count 4.08 M/uL (3.93-5.22); White Blood Count 13.05 K/ul (4.8-10.8)
[2022-10-24 20:21] LABS: Albumin Globulin Ratio 1.1 (0.9-2); Albumin Level 3.3 gm/dl (3.4-5.0); BUN Creatinine Ratio 15.3 (10-20); Bilirubin,Total 1.1 mg/dl (0.2-1.0); Calcium 9.3 mg/dl (8.5-10.1); Creatinine Clr Calc Pharmacy 202.3 ml/min; Est GFR (African American) 141.6 ml/min; Est GFR (Non-African American) 122.1 ml/min; Potassium 3.8 mmol/L (3.5-5.1); Total Protein 6.3 gm/dl (6.0-8.3)
[2022-10-24] MEDS: MAGNESIUM SULFATE / WTR 40 GM/1,000 ML BAG IV SCH (20:43)
[2022-10-24] MEDS ORDERED: HYDROCORTISONE ACETATE 25 MG SUPP PR PRN (20:52)
[2022-10-24] MEDS ORDERED: bisacodyL 10 MG SUPP PR PRN (20:52)
[2022-10-24] MEDS ORDERED: DIPHTHERIA/TETANUS/PERTUSSIS 0.5mL SYR/VIAL (Age 7+yrs) IM ONE (20:52)
[2022-10-24] MEDS ORDERED: ACETAMINOPHEN W/CODEINE #3 1 TAB PO PRN (20:52)
[2022-10-24] MEDS ORDERED: ACETAMINOPHEN 325 MG TAB PO PRN (20:52)
[2022-10-24] MEDS ORDERED: BENZOCAINE 20% AER SPR 82.5 GM CAN EXT PRN (20:52)
--- NOTE | 2022-10-24 20:58 | Delivery Summary ---
Vaginal Delivery Summary Date of Service October 24, 2022 Vaginal Delivery Summary Delivery Note History synopsis: Patient is a 31-year-old G3, P2 with a history of a previous shoulder dystocia who was induced for chronic hypertension at term. She received 1 dose of Cervidil and progressed to 3 cm, and the next morning she was started on oxytocin for augmentation. She is currently on penicillin G for GBS prophylaxis. AROM was performed after adequate GBS prophylaxis was administered to the patient, she progressed to 5 cm, 8 cm, then 9 cm and complete. She had additional pressure, nurse called as delivery was eminent Delivery Summary: Patient was placed in the dorsal lithotomy position. She was prepped and draped in the usual sterile fashion. Upon maternal pushing the head was delivered atraumatically followed by the anterior shoulders, posterior shoulders then the remainder of the infants body. The infants mouth and nose were bulb suctioned. Delayed cord clamping for 1 min. A female infant was delivered at 2037, weight pending with APGARS of 8 at 1 minute and 9 at 5 minutes. The umbilical cord was clamped times two and cut. The was handed off to the awaiting nursing staff. Cord blood gases were not obtained. The placenta delivered intact with three vessel cord. Placenta was sent to pathology. Noted profuse bleeding from the uterus, and hemorrhage cart was called for. And gave 1 unit of Hemabate while I performed bimanual massage. Noted increase uterine tone, and oxytocin was allowed to run freely. Uterine massage was performed until uterus was deemed firm. Upon inspection of the vagina and cervix were intact. First degree laceration was noted which was repaired with 3-0 Vicryl in a [id number] fashion. Upon re-inspection the patient was hemostatic. Uterus again massaged and found to be firm. Needle and sponge counts were correct. Patient was stable and allowed to recover in L&D room. Infant was stable and remained in room with mother in the Family Care Unit. EBL 1500mls
[2022-10-24] MEDS ORDERED: CARBOPROST TROMETHAMINE 250 MCG/ML AMPUL IM ONE (21:28)
--- NOTE | 2022-10-24 21:50 | Anesthesia Procedure Note ---
Date of Service October 24, 2022 Anesthesia Post Epidural Note Vital Signs Vital Signs: Temp Pulse Resp BP Pulse Ox 36.9 C 110 H 20 191/87 H 95 10/24/22 18:50 10/24/22 21:47 10/24/22 18:50 10/24/22 21:45 10/24/22 21:47 Pain Intensity Bilateral Medial Abdomen: Pain Intensity: 2 Notes Mental Status: alert / awake / arousable and participated in evaluation Patient Amnestic to Procedure: No Nausea / Vomiting: adequately controlled Pain: adequately controlled Airway Patency, RR, SpO2: stable & adequate BP & HR: stable & adequate Hydration State: stable & adequate Neuraxial Anesthesia: was administered and sensory block is resolving Anesthetic Complications: no major complications apparent and Pt Satisfied with anesthetic care Epidural: Removed without complications and With tip intact
[2022-10-24] MEDS ORDERED: hydrALAZINE HCL 20 MG/ML VIAL IV STA (22:52)
[2022-10-24] MEDS: DOCUSATE SODIUM 100 MG CAP PO SCH (23:09)
[2022-10-25] MEDS: IBUPROFEN 600 MG TAB PO PRN ×4 (00:17→17:35)
[2022-10-25 00:40] LABS: Creatinine Urine Random 150.3 mg/dl; Protein Creatinine Ratio Urine 0.3 (0-0.2); Total Protein Urine Random 51.4 mg/dl (0-11.9)
[2022-10-25 06:31] LABS: Hematocrit (blood only) 29.7 % (34.1-44.9); Hemoglobin 10.1 g/dl (12.0-16.0); Mean Corpuscular Hemoglobin 29.4 pg (25.0-34.0); Mean Corpuscular Volume 86.3 fL (80.0-100.0); Mean Platelet Volume 10.4 fL (9.4-12.3); Platelet Count 217 K/uL (130-400); RDW Coefficient of Variation 13.6 % (11.5-14.5); RDW Standard Deviation 41.7 fL (36.4-46.3); Red Blood Count 3.44 M/uL (3.93-5.22); White Blood Count 15.37 K/ul (4.8-10.8)
[2022-10-25 06:50] LABS: Albumin Globulin Ratio 1.2 (0.9-2); Albumin Level 3.1 gm/dl (3.4-5.0); BUN Creatinine Ratio 12.5 (10-20); Calcium 7.8 mg/dl (8.5-10.1); Creatinine Clr Calc Pharmacy 213.2 ml/min; Est GFR (Non-African American) 124.2 ml/min; Globulin 2.6 gm/dl (2.5-4.0); Potassium 4.3 mmol/L (3.5-5.1); Total Protein 5.7 gm/dl (6.0-8.3)
[2022-10-25] MEDS: DOCUSATE SODIUM 100 MG CAP PO SCH ×2 (07:53→20:31)
[2022-10-25] MEDS: FERROUS SULFATE 325 MG TAB PO SCH (07:53)
[2022-10-25] MEDS: PRENATAL VITAMIN 1 TAB PO SCH (07:53)
--- NOTE | 2022-10-25 08:46 | Obstetrical Progress Note ---
Date of Service October 25, 2022 Assessment & Plan Admission and Anticipated Discharge Date Admission Date: October 23, 2022 Subjective Patient is seen and examined. She feels well, no complaints. On IV magnesium since last night Tolerating regular diet with out N&V Bleeding is minimal Moreno is draining, about 800 ml urine in it No SALCIDO/ Change in vision/fever/ chills/ CP/ SOB/ N&V/ Leg pain Plans to pump and breast and bottle feed Vital Signs Temp Pulse Resp BP Pulse Ox 10/25/22 07:21 36.6 C 20 100 10/25/22 07:21 20 10/25/22 06:00 18 10/25/22 05:00 37.0 C 18 10/25/22 05:00 18 10/25/22 04:00 18 10/25/22 03:00 18 10/25/22 01:00 18 10/25/22 00:00 18 10/24/22 22:45 36.7 C 18 97 10/25/22 08:37 100 10/25/22 08:37 85 10/25/22 08:32 98 10/25/22 08:32 92 H 10/25/22 08:27 98 10/25/22 08:27 86 10/25/22 08:22 100 10/25/22 08:22 85 10/25/22 08:21 83 10/25/22 08:21 127/74 10/25/22 08:17 100 10/25/22 08:17 84 10/25/22 08:12 100 10/25/22 08:12 87 10/25/22 08:07 100 10/25/22 08:07 85 10/25/22 08:02 100 10/25/22 08:02 83 10/25/22 07:57 100 10/25/22 07:57 86 10/25/22 07:52 99 10/25/22 07:52 87 10/25/22 07:47 99 10/25/22 07:47 85 10/25/22 07:42 99 10/25/22 07:42 81 10/25/22 07:37 99 10/25/22 07:37 87 10/25/22 07:32 100 10/25/22 07:32 87 10/25/22 07:27 99 10/25/22 07:27 91 H 10/25/22 07:21 20 10/25/22 07:21 36.6 C 20 10/25/22 07:22 100 10/25/22 07:22 87 10/25/22 07:21 81 10/25/22 07:21 142/72 H 10/25/22 07:17 100 10/25/22 07:17 89 10/25/22 07:12 99 10/25/22 07:12 86 10/25/22 07:07 99 10/25/22 07:07 89 10/25/22 07:02 100 10/25/22 07:02 85 10/25/22 06:57 100 10/25/22 06:57 90 10/25/22 06:52 100 10/25/22 06:52 75 10/25/22 06:47 97 10/25/22 06:47 85 10/25/22 06:42 99 10/25/22 06:42 86 10/25/22 06:37 99 10/25/22 06:37 80 10/25/22 06:32 99 10/25/22 06:32 88 10/25/22 06:27 97 10/25/22 06:27 85 10/25/22 06:22 99 10/25/22 06:22 85 10/25/22 06:21 91 H 10/25/22 06:21 111/75 10/25/22 06:17 99 10/25/22 06:17 90 10/25/22 06:12 99 10/25/22 06:12 87 10/25/22 06:07 100 10/25/22 06:07 89 10/25/22 06:02 99 10/25/22 06:02 93 H 10/25/22 05:57 98 10/25/22 05:57 97 H 10/25/22 05:52 98 10/25/22 05:52 88 10/25/22 05:47 97 10/25/22 05:47 92 H 10/25/22 05:42 98 10/25/22 05:42 98 H 10/25/22 05:21 100 10/25/22 05:21 89 10/25/22 05:21 82 10/25/22 05:21 125/67 10/25/22 05:16 97 10/25/22 05:16 90 10/25/22 05:11 100 10/25/22 05:11 92 H 10/25/22 05:06 98 10/25/22 05:06 94 H 10/25/22 05:01 96 10/25/22 05:01 92 H 10/25/22 04:56 97 10/25/22 04:56 95 H 10/25/22 04:51 97 10/25/22 04:51 82 10/25/22 04:46 98 10/25/22 04:46 84 10/25/22 04:41 97 10/25/22 04:41 88 10/25/22 04:36 98 10/25/22 04:36 93 H 10/25/22 04:31 97 10/25/22 04:31 90 10/25/22 04:26 97 10/25/22 04:26 90 10/25/22 04:21 99 10/25/22 04:21 90 10/25/22 04:21 94 H 10/25/22 04:21 109/66 10/25/22 04:16 97 10/25/22 04:16 90 10/25/22 04:11 97 10/25/22 04:11 91 H 10/25/22 04:06 97 10/25/22 04:06 92 H 10/25/22 04:01 97 10/25/22 04:01 90 10/25/22 03:56 97 10/25/22 03:56 90 10/25/22 03:51 97 10/25/22 03:51 92 H 10/25/22 03:46 96 10/25/22 03:46 92 H 10/25/22 03:41 97 10/25/22 03:41 91 H 10/25/22 03:36 97 10/25/22 03:36 91 H 10/25/22 03:31 96 10/25/22 03:31 95 H 10/25/22 03:26 96 10/25/22 03:26 103 H 10/25/22 03:21 98 10/25/22 03:21 89 10/25/22 03:21 96 H 10/25/22 03:21 122/64 10/25/22 03:16 97 10/25/22 03:16 94 H 10/25/22 03:11 97 10/25/22 03:11 95 H 10/25/22 03:06 97 10/25/22 03:06 95 H 10/25/22 03:01 95 H 97 10/25/22 02:56 95 H 97 10/25/22 02:51 98 H 97 10/25/22 02:46 99 H 97 10/25/22 02:41 102 H 97 10/25/22 02:36 107 H 97 10/25/22 02:33 99 H 121/66 10/25/22 02:31 103 H 98 10/25/22 02:26 104 H 97 10/25/22 02:21 106 H 97 10/25/22 02:16 107 H 99 10/25/22 02:11 96 H 97 10/25/22 02:06 97 H 96 10/25/22 02:01 94 H 97 10/25/22 01:56 95 H 97 10/25/22 01:51 91 H 98 10/25/22 01:46 97 H 96 10/25/22 01:41 103 H 96 10/25/22 01:36 102 H 96 10/25/22 01:31 96 H 95 10/25/22 01:26 97 H 96 10/25/22 01:21 94 H 96 10/25/22 01:16 96 H 96 10/25/22 01:11 95 H 96 10/25/22 01:06 94 H 95 10/25/22 01:01 96 H 96 10/25/22 00:56 94 H 96 10/25/22 00:51 94 H 96 10/25/22 00:46 92 H 96 10/25/22 00:41 98 H 97 10/25/22 00:36 99 H 97 10/25/22 00:31 96 H 98 10/25/22 00:26 93 H 98 10/25/22 00:21 96 H 99 10/25/22 00:20 95 H 140/80 10/25/22 00:16 102 H 99 10/25/22 00:11 97 H 99 10/25/22 00:06 100 H 98 10/25/22 00:01 94 H 99 10/25/22 00:02 92 H 133/85 10/24/22 23:56 97 H 98 10/24/22 23:51 101 H 98 10/24/22 23:46 99 H 98 10/24/22 23:47 98 H 126/80 10/24/22 23:41 100 H 97 10/24/22 23:36 101 H 99 10/24/22 23:31 97 H 97 10/24/22 23:32 96 H 129/82 10/24/22 23:26 96 10/24/22 23:26 106 H 10/24/22 23:26 105 H 94 10/24/22 23:21 101 H 98/63 L 10/24/22 22:47 101 H 95 10/24/22 22:46 100 H 164/76 H 10/24/22 22:42 103 H 97 10/24/22 22:41 102 H 160/74 H 10/24/22 22:37 101 H 96 10/24/22 22:36 103 H 165/74 H 10/24/22 22:32 105 H 96 10/24/22 22:31 102 H 156/75 H 10/24/22 22:27 102 H 96 10/24/22 22:28 104 H 94 10/24/22 22:26 104 H 157/80 H 10/24/22 22:22 96 10/24/22 22:22 107 H 10/24/22 22:22 107 H 94 10/24/22 22:21 106 H 160/80 H 10/24/22 22:17 106 H 95 10/24/22 22:15 107 H 162/82 H 10/24/22 22:13 104 H 92 10/24/22 22:12 106 H 96 10/24/22 22:10 104 H 179/88 H 10/24/22 22:07 107 H 94 10/24/22 22:08 107 H 177/88 H 10/24/22 22:06 104 H 93 10/24/22 22:02 112 H 95 10/24/22 22:01 107 H 93 10/24/22 22:00 109 H 171/79 H 10/24/22 21:57 110 H 95 10/24/22 21:55 108 H 173/77 H 94 10/24/22 21:52 106 H 178/81 H 95 10/24/22 21:49 111 H 92 10/24/22 21:50 112 H 201/91 H 10/24/22 21:47 110 H 95 10/24/22 21:45 112 H 191/87 H 10/24/22 21:44 116 H 93 10/24/22 21:42 116 H 96 10/24/22 21:40 114 H 194/88 H 10/24/22 21:37 94 10/24/22 21:37 112 H 10/24/22 21:37 111 H 93 10/24/22 21:35 114 H 197/90 H 10/24/22 21:32 112 H 95 10/24/22 21:30 112 H 199/90 H 10/24/22 21:25 116 H 195/90 H 10/24/22 21:20 113 H 177/84 H 10/24/22 21:15 112 H 185/86 H 10/24/22 21:08 114 H 202/94 H 10/24/22 21:02 126 H 195/89 H 10/24/22 20:57 124 H 99 10/24/22 20:52 118 H 98 10/24/22 20:47 133 H 98 10/24/22 20:48 126 H 180/87 H Lab Results 10/23/22 10/23/22 10/23/22 Range/Units 08:20 09:21 09:21 WBC 8.52 (4.8-10.8) K/ul RBC 3.77 L (3.93-5.22) M/uL Hgb 10.9 L (12.0-16.0) g/dl Hct 31.8 L (34.1-44.9) % MCV 84.4 (80.0-100.0) fL MCH 28.9 (25.0-34.0) pg MCHC 34.3 (32.0-36.0) g/dL RDW Std Deviation 41.6 (36.4-46.3) fL RDW Coeff of Gurpreet 13.6 (11.5-14.5) % Plt Count 221 (130-400) K/uL MPV 10.4 (9.4-12.3) fL Sodium (136-145) mmol/L Potassium (3.5-5.1) mmol/L Chloride (98-107) mmol/L Carbon Dioxide (21-32) mmol/L Anion Gap (3-11) BUN (6-23) mg/dl Creatinine (0.6-1.2) mg/dl Est Cr Clr Drug Dosing ml/min Est GFR ( Amer) ml/min Est GFR (Non-Af Amer) ml/min BUN/Creatinine Ratio (10-20) Glucose (70-99(Fasting)) mg/dl Calcium (8.5-10.1) mg/dl Total Bilirubin (0.2-1.0) mg/dl AST (13-39) U/L ALT (7-52) U/L Alkaline Phosphatase (34-104) U/L Total Protein (6.0-8.3) gm/dl Albumin (3.4-5.0) gm/dl Globulin (2.5-4.0) gm/dl Albumin/Globulin Ratio (0.9-2) Ur Random Creatinine mg/dl U Random Total Protein (0-11.9) mg/dl Protein/Creatinin Ratio (0-0.2) SARS-CoV-2, RNA, NAAT NEGATIVE (NEGATIVE) Blood Type O Positive Antibody Screen NEGATIVE Crossmatch See Detail 10/24/22 10/24/22 10/24/22 Range/Units 19:52 19:52 Unknown WBC 13.05 H (4.8-10.8) K/ul RBC 4.08 (3.93-5.22) M/uL Hgb 11.8 L (12.0-16.0) g/dl Hct 34.2 (34.1-44.9) % MCV 83.8 (80.0-100.0) fL MCH 28.9 (25.0-34.0) pg MCHC 34.5 (32.0-36.0) g/dL RDW Std Deviation 42.2 (36.4-46.3) fL RDW Coeff of Gurpreet 13.8 (11.5-14.5) % Plt Count 213 (130-400) K/uL MPV 10.1 (9.4-12.3) fL Sodium 136 (136-145) mmol/L Potassium 3.8 (3.5-5.1) mmol/L Chloride 104 (98-107) mmol/L Carbon Dioxide 24 (21-32) mmol/L Anion Gap 8 (3-11) BUN 9 (6-23) mg/dl Creatinine 0.59 L (0.6-1.2) mg/dl Est Cr Clr Drug Dosing 202.3 ml/min Est GFR ( Amer) 141.6 ml/min Est GFR (Non-Af Amer) 122.1 ml/min BUN/Creatinine Ratio 15.3 (10-20) Glucose 94 (70-99(Fasting)) mg/dl Calcium 9.3 (8.5-10.1) mg/dl Total Bilirubin 1.1 H (0.2-1.0) mg/dl AST 24 (13-39) U/L ALT 16 (7-52) U/L Alkaline Phosphatase 127 H (34-104) U/L Total Protein 6.3 (6.0-8.3) gm/dl Albumin 3.3 L (3.4-5.0) gm/dl Globulin 3.0 (2.5-4.0) gm/dl Albumin/Globulin Ratio 1.1 (0.9-2) Ur Random Creatinine 150.3 mg/dl U Random Total Protein 51.4 H (0-11.9) mg/dl Protein/Creatinin Ratio 0.3 H (0-0.2) SARS-CoV-2, RNA, NAAT (NEGATIVE) Blood Type Antibody Screen Crossmatch 10/25/22 10/25/22 Range/Units 06:00 06:00 WBC 15.37 H (4.8-10.8) K/ul RBC 3.44 L (3.93-5.22) M/uL Hgb 10.1 L (12.0-16.0) g/dl Hct 29.7 L (34.1-44.9) % MCV 86.3 (80.0-100.0) fL MCH 29.4 (25.0-34.0) pg MCHC 34.0 (32.0-36.0) g/dL RDW Std Deviation 41.7 (36.4-46.3) fL RDW Coeff of Gurpreet 13.6 (11.5-14.5) % Plt Count 217 (130-400) K/uL MPV 10.4 (9.4-12.3) fL Sodium 135 L (136-145) mmol/L Potassium 4.3 (3.5-5.1) mmol/L Chloride 105 (98-107) mmol/L Carbon Dioxide 23 (21-32) mmol/L Anion Gap 7 (3-11) BUN 7 (6-23) mg/dl Creatinine 0.56 L (0.6-1.2) mg/dl Est Cr Clr Drug Dosing 213.2 ml/min Est GFR ( Amer) 144.0 ml/min Est GFR (Non-Af Amer) 124.2 ml/min BUN/Creatinine Ratio 12.5 (10-20) Glucose 114 H (70-99(Fasting)) mg/dl Calcium 7.8 L (8.5-10.1) mg/dl Total Bilirubin 1.0 (0.2-1.0) mg/dl AST 23 (13-39) U/L ALT 16 (7-52) U/L Alkaline Phosphatase 101 (34-104) U/L Total Protein 5.7 L (6.0-8.3) gm/dl Albumin 3.1 L (3.4-5.0) gm/dl Globulin 2.6 (2.5-4.0) gm/dl Albumin/Globulin Ratio 1.2 (0.9-2) Ur Random Creatinine mg/dl U Random Total Protein (0-11.9) mg/dl Protein/Creatinin Ratio (0-0.2) SARS-CoV-2, RNA, NAAT (NEGATIVE) Blood Type Antibody Screen Crossmatch PE: General: Alert, orientedx3, NAD Abd: soft, NT, fundus firm, below Umbilicus Perineum intact, Lochia rubra minimal Ext; NT, no edema, SCD's on, No clonus, DTR 2+/2+ AP: 31 yo s/p ,after IOL for CHT superimposed preeclampsia, ppd# 1, pp hemorrhage stopped with IV Oxytocin and Hemobate. VSS Afebrile doing well No s/s of Magnesium toxicity Continue routine care D/C magnesium at 24 hours after delivery All questions were answered Results & Data ([facility]) Vital Signs (Past 12 Hours) Vital Signs Temp Pulse Resp BP Pulse Ox 10/25/22 07:21 36.6 C 20 100 10/25/22 07:21 20 10/25/22 06:00 18 10/25/22 05:00 37.0 C 18 10/25/22 05:00 18 10/25/22 04:00 18 10/25/22 03:00 18 10/25/22 01:00 18 10/25/22 00:00 18 10/24/22 22:45 36.7 C 18 97 10/25/22 08:37 100 10/25/22 08:37 85 10/25/22 08:32 98 10/25/22 08:32 92 H 10/25/22 08:27 98 10/25/22 08:27 86 10/25/22 08:22 100 10/25/22 08:22 85 10/25/22 08:21 83 10/25/22 08:21 127/74 10/25/22 08:17 100 10/25/22 08:17 84 10/25/22 08:12 100 10/25/22 08:12 87 10/25/22 08:07 100 10/25/22 08:07 85 10/25/22 08:02 100 10/25/22 08:02 83 10/25/22 07:57 100 10/25/22 07:57 86 10/25/22 07:52 99 10/25/22 07:52 87 10/25/22 07:47 99 10/25/22 07:47 85 10/25/22 07:42 99 10/25/22 07:42 81 10/25/22 07:37 99 10/25/22 07:37 87 10/25/22 07:32 100 10/25/22 07:32 87 10/25/22 07:27 99 10/25/22 07:27 91 H 10/25/22 07:21 20 10/25/22 07:21 36.6 C 20 10/25/22 07:22 100 10/25/22 07:22 87 10/25/22 07:21 81 10/25/22 07:21 142/72 H 10/25/22 07:17 100 10/25/22 07:17 89 10/25/22 07:12 99 10/25/22 07:12 86 10/25/22 07:07 99 10/25/22 07:07 89 10/25/22 07:02 100 10/25/22 07:02 85 10/25/22 06:57 100 10/25/22 06:57 90 10/25/22 06:52 100 10/25/22 06:52 75 10/25/22 06:47 97 10/25/22 06:47 85 10/25/22 06:42 99 10/25/22 06:42 86 10/25/22 06:37 99 10/25/22 06:37 80 10/25/22 06:32 99 10/25/22 06:32 88 10/25/22 06:27 97 10/25/22 06:27 85 10/25/22 06:22 99 10/25/22 06:22 85 10/25/22 06:21 91 H 10/25/22 06:21 111/75 10/25/22 06:17 99 10/25/22 06:17 90 10/25/22 06:12 99 10/25/22 06:12 87 10/25/22 06:07 100 10/25/22 06:07 89 10/25/22 06:02 99 10/25/22 06:02 93 H 10/25/22 05:57 98 10/25/22 05:57 97 H 10/25/22 05:52 98 10/25/22 05:52 88 10/25/22 05:47 97 10/25/22 05:47 92 H 10/25/22 05:42 98 10/25/22 05:42 98 H 10/25/22 05:21 100 10/25/22 05:21 89 10/25/22 05:21 82 10/25/22 05:21 125/67 10/25/22 05:16 97 10/25/22 05:16 90 10/25/22 05:11 100 10/25/22 05:11 92 H 10/25/22 05:06 98 10/25/22 05:06 94 H 10/25/22 05:01 96 10/25/22 05:01 92 H 10/25/22 04:56 97 10/25/22 04:56 95 H 10/25/22 04:51 97 10/25/22 04:51 82 10/25/22 04:46 98 10/25/22 04:46 84 10/25/22 04:41 97 10/25/22 04:41 88 10/25/22 04:36 98 10/25/22 04:36 93 H 10/25/22 04:31 97 10/25/22 04:31 90 10/25/22 04:26 97 10/25/22 04:26 90 10/25/22 04:21 99 10/25/22 04:21 90 10/25/22 04:21 94 H 10/25/22 04:21 109/66 10/25/22 04:16 97 10/25/22 04:16 90 10/25/22 04:11 97 10/25/22 04:11 91 H 10/25/22 04:06 97 10/25/22 04:06 92 H 10/25/22 04:01 97 10/25/22 04:01 90 10/25/22 03:56 97 10/25/22 03:56 90 10/25/22 03:51 97 10/25/22 03:51 92 H 10/25/22 03:46 96 10/25/22 03:46 92 H 10/25/22 03:41 97 10/25/22 03:41 91 H 10/25/22 03:36 97 10/25/22 03:36 91 H 10/25/22 03:31 96 10/25/22 03:31 95 H 10/25/22 03:26 96 10/25/22 03:26 103 H 10/25/22 03:21 98 10/25/22 03:21 89 10/25/22 03:21 96 H 10/25/22 03:21 122/64 10/25/22 03:16 97 10/25/22 03:16 94 H 10/25/22 03:11 97 10/25/22 03:11 95 H 10/25/22 03:06 97 10/25/22 03:06 95 H 10/25/22 03:01 95 H 97 10/25/22 02:56 95 H 97 10/25/22 02:51 98 H 97 10/25/22 02:46 99 H 97 10/25/22 02:41 102 H 97 10/25/22 02:36 107 H 97 10/25/22 02:33 99 H 121/66 10/25/22 02:31 103 H 98 10/25/22 02:26 104 H 97 10/25/22 02:21 106 H 97 10/25/22 02:16 107 H 99 10/25/22 02:11 96 H 97 10/25/22 02:06 97 H 96 10/25/22 02:01 94 H 97 10/25/22 01:56 95 H 97 10/25/22 01:51 91 H 98 10/25/22 01:46 97 H 96 10/25/22 01:41 103 H 96 10/25/22 01:36 102 H 96 10/25/22 01:31 96 H 95 10/25/22 01:26 97 H 96 10/25/22 01:21 94 H 96 10/25/22 01:16 96 H 96 10/25/22 01:11 95 H 96 10/25/22 01:06 94 H 95 10/25/22 01:01 96 H 96 10/25/22 00:56 94 H 96 10/25/22 00:51 94 H 96 10/25/22 00:46 92 H 96 10/25/22 00:41 98 H 97 10/25/22 00:36 99 H 97 10/25/22 00:31 96 H 98 10/25/22 00:26 93 H 98 10/25/22 00:21 96 H 99 10/25/22 00:20 95 H 140/80 10/25/22 00:16 102 H 99 10/25/22 00:11 97 H 99 10/25/22 00:06 100 H 98 10/25/22 00:01 94 H 99 10/25/22 00:02 92 H 133/85 10/24/22 23:56 97 H 98 10/24/22 23:51 101 H 98 10/24/22 23:46 99 H 98 10/24/22 23:47 98 H 126/80 10/24/22 23:41 100 H 97 10/24/22 23:36 101 H 99 10/24/22 23:31 97 H 97 10/24/22 23:32 96 H 129/82 10/24/22 23:26 96 10/24/22 23:26 106 H 10/24/22 23:26 105 H 94 10/24/22 23:21 101 H 98/63 L 10/24/22 22:47 101 H 95 10/24/22 22:46 100 H 164/76 H 10/24/22 22:42 103 H 97 10/24/22 22:41 102 H 160/74 H 10/24/22 22:37 101 H 96 10/24/22 22:36 103 H 165/74 H 10/24/22 22:32 105 H 96 10/24/22 22:31 102 H 156/75 H 10/24/22 22:27 102 H 96 10/24/22 22:28 104 H 94 10/24/22 22:26 104 H 157/80 H 10/24/22 22:22 96 10/24/22 22:22 107 H 10/24/22 22:22 107 H 94 10/24/22 22:21 106 H 160/80 H 10/24/22 22:17 106 H 95 10/24/22 22:15 107 H 162/82 H 10/24/22 22:13 104 H 92 10/24/22 22:12 106 H 96 10/24/22 22:10 104 H 179/88 H 10/24/22 22:07 107 H 94 10/24/22 22:08 107 H 177/88 H 10/24/22 22:06 104 H 93 10/24/22 22:02 112 H 95 10/24/22 22:01 107 H 93 10/24/22 22:00 109 H 171/79 H 10/24/22 21:57 110 H 95 10/24/22 21:55 108 H 173/77 H 94 10/24/22 21:52 106 H 178/81 H 95 10/24/22 21:49 111 H 92 10/24/22 21:50 112 H 201/91 H 10/24/22 21:47 110 H 95 10/24/22 21:45 112 H 191/87 H 10/24/22 21:44 116 H 93 10/24/22 21:42 116 H 96 10/24/22 21:40 114 H 194/88 H 10/24/22 21:37 94 10/24/22 21:37 112 H 10/24/22 21:37 111 H 93 10/24/22 21:35 114 H 197/90 H 10/24/22 21:32 112 H 95 10/24/22 21:30 112 H 199/90 H 10/24/22 21:25 116 H 195/90 H 10/24/22 21:20 113 H 177/84 H 10/24/22 21:15 112 H 185/86 H 10/24/22 21:08 114 H 202/94 H 10/24/22 21:02 126 H 195/89 H 10/24/22 20:57 124 H 99 10/24/22 20:52 118 H 98 10/24/22 20:47 133 H 98 10/24/22 20:48 126 H 180/87 H
[2022-10-25] MEDS: LABETALOL HCL 200 MG TAB PO SCH ×2 (08:53→20:32)
[2022-10-25] MEDS: MAGNESIUM SULFATE / WTR 40 GM/1,000 ML BAG IV SCH (14:58)
[2022-10-25] MEDS ORDERED: bisacodyL 5 MG TABEC PO SCH (20:00)
[2022-10-26] MEDS: IBUPROFEN 600 MG TAB PO PRN ×3 (03:07→16:21)
[2022-10-26 07:32] LABS: Hemoglobin 8.4 g/dl (12.0-16.0); Mean Corpuscular Hemoglobin 28.9 pg (25.0-34.0); Mean Corpuscular Hgb Conc 33.6 g/dL (32.0-36.0); Mean Corpuscular Volume 85.9 fL (80.0-100.0); Platelet Count 202 K/uL (130-400); RDW Coefficient of Variation 14.3 % (11.5-14.5); RDW Standard Deviation 44.3 fL (36.4-46.3); Red Blood Count 2.91 M/uL (3.93-5.22); White Blood Count 8.92 K/ul (4.8-10.8)
[2022-10-26] MEDS: FERROUS SULFATE 325 MG TAB PO SCH (07:50)
[2022-10-26] MEDS: DOCUSATE SODIUM 100 MG CAP PO SCH (07:50)
[2022-10-26] MEDS: PRENATAL VITAMIN 1 TAB PO SCH (07:50)
[2022-10-26 08:14] LABS: Albumin Globulin Ratio 1.2 (0.9-2); BUN Creatinine Ratio 23.1 (10-20); Bilirubin,Total 0.3 mg/dl (0.2-1.0); Calcium 7.8 mg/dl (8.5-10.1); Creatinine Clr Calc Pharmacy 229.6 ml/min; Est GFR (African American) 147.6 ml/min; Est GFR (Non-African American) 127.3 ml/min; Globulin 2.6 gm/dl (2.5-4.0); Potassium 3.9 mmol/L (3.5-5.1); Total Protein 5.6 gm/dl (6.0-8.3)
[2022-10-26] MEDS: LABETALOL HCL 200 MG TAB PO SCH (08:49)
--- NOTE | 2022-10-26 11:06 | Obstetrical Progress Note ---
Date of Service October 26, 2022 Assessment & Plan (1) Chronic hypertension with superimposed preeclampsia: Plan Pt doing well sable BP post delivery and off magnesium d/c home with instructions Subjective Ambulation: ambulating normally Voiding: no voiding problems Passing Gas:: Yes Diet Tolerance:: regular diet Lochia:: Small Feeding Type:: breast feeding Review of Systems All systems reviewed & are unremarkable except as noted in HPI & below Physical Exam Constitutional WD/WN, vitals as above well developed and well nourished Eyes PERRL, conjunctivae normal, anicteric sclerae Neck trachea midline, no thyromegaly Respiratory normal respiratory effort, lungs clear to auscultation Auscultation: no crackles, no rales and no wheezes Cardiovascular RRR, no murmur, no edema Gastrointestinal (Abdomen) normal bowel sounds, soft, nontender, no hepatosplenomegaly Uterus is below umbilicus Musculoskeletal no cyanosis or clubbing, extremities motor strength 5/5 Skin no rashes, warm and dry Neurologic patellar DTR's 2+ bilat, sensation intact Psychiatric A+Ox3, euthymic affect Genitourinary normal external appearance Results & Data ([facility]) Vital Signs (Past 12 Hours) Vital Signs Temp Pulse Resp BP Pulse Ox O2 Del Method 10/26/22 07:56 36.7 C 89 18 137/88 99 Room Air 10/26/22 03:00 37.1 C 92 H 18 119/82 97 Room Air 10/25/22 23:20 36.8 C 98 H 16 120/69 98 Room Air
== END 2022-10-26 18:05 | disposition home or self-care (01) | DRG 807 ==
LOC: 4S1 07:29 → UNDODISIN 21:46 → 4E2 10-25 20:45

== ENCOUNTER 2022-12-03 12:09 | Inpatient (IN) ==
--- NOTE | 2022-12-03 12:39 | Emergency Department Note ---
ED Provider Note History of Present Illness Chief Complaint: Back Injury/Pain Stated Complaint: HERNIATED DISC PAIN Time Seen by Provider: 12/03/22 12:38 This is a 32-year-old female who is accompanied by her mother who returns to the emergency department with uncontrolled low and right-sided back pain. Patient was in this emergency department 2 days ago for similar symptoms and was diagnosed with a large disc herniation via MRI. At that visit, the provider who saw her spoke with Dr. Washington (orthospine) who stated the patient could be either admitted or discharged home with close follow-up. Patient had elected to go home on a Medrol Dosepak and prescription pain medication. Her pain is uncontrolled and she is having a difficult time functioning at home. She has been taking the steroids as prescribed, and tried taking 1 dose of the prescription pain medication last night but states that this did not help her. She states that she needed to figure out childcare as she recently had a baby about 1 month ago which is why she decided to go home on Saturday. She is having a difficult time managing at home due to the amount of pain she is experiencing. She continues with numbness in her toes on the right side, but denies any new loss of bowel or bladder function or saddle anesthesia. She is not retaining urine. She does have an enormous mount of pain when bending forward attempting to sit. Denies any nausea, vomiting, or abdominal pain. She is not breast-feeding. Home Medications Medication Instructions Recorded Confirmed Type labetalol 300 mg tablet 300 mg PO BID #60 tabs 11/05/22 12/03/22 Rx vits no.124-ferrous fum 1 tab PO DAILY 11/05/22 12/03/22 History 27 mg iron-folic acid 800 mcg tablet ( Vitamin) methylprednisolone 4 mg tablets in 4 mg PO DIRECTED #21 ea 12/01/22 12/03/22 Rx a dose pack (Medrol (Duglas)) oxycodone 5 mg tablet 5 mg PO Q6 PRN pain #14 tabs 12/01/22 12/03/22 Rx iron,carbonyl 65 mg-vitamin C 125 1 tab PO DAILY 12/03/22 12/03/22 History mg tablet,delayed release (Vitron-C) riboflavin (vitamin B2) 100 mg 100 mg PO DAILY 12/03/22 12/03/22 History tablet (Vitamin B-2) Allergies Allergy/AdvReac Type Severity Reaction Status Date / Time penicillin V Allergy Hives Verified 11/05/22 17:40 Past Med/Surg History Medical History (Updated 12/03/22 @ 18:09 by Arely Pete PA-C) Gestational hypertension History of shoulder dystocia Morbid obesity Positive GBS test hemorrhage Surgical History History of ankle surgery Hx laparoscopic cholecystectomy Hx of appendectomy Family History Other Diabetes Family history of blood clots Social History Smoking Status: Never smoker Hx Alcohol Use: No Hx Substance Use: No Preferred Language: Micronesian Communication Ability: Effective 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 In Economics Required: No Beliefs That Will Affect Care: None marital status: Current Living Situation: Spouse Current Living Situation Comment: And daughter Other Information That Helps Us Care for You: No Feels Safe at Home: Yes Safety Concerns: Feels Safe At This Time Assistive Devices: None Physical Exam Vital Signs Vital Signs - 24 hr 12/03/22 12:13 12/03/22 12:58 12/03/22 14:55 Temperature 97.9 F Temperature Source Temporal Artery Scan Pulse Rate 88 Pulse Rate [Finger] 82 Pulse Rhythm [Finger] Regular Pulse Strength [Finger] Normal Respiratory Rate 18 20 Respiratory Effort / Characteristics Non-Labored Spontaneous Non-Labored Spontaneous Respiratory Depth Normal Normal Respiratory Pattern Regular Blood Pressure 167/106 H Blood Pressure [Right Arm] 155/89 H Blood Pressure Mean 126 Blood Pressure Mean [Right Arm] 111 Blood Pressure Position [Right Arm] Lying Pulse Oximetry 98 98 99 Oxygen Delivery Method Room Air Room Air Room Air Sepsis Recent Fever Within 48 Hours No Sepsis New/Unexplained Change in Mental Status N/A Sepsis Action Taken by Nursing No Action Required CONSTITUTIONAL: Well developed, well nourished, appears to be in a significant amount of pain laying in prone position. Intermittently tearful. HEAD: Normocephalic, atraumatic. EYES: conjunctivae normal, extraocular muscles intact. RESPIRATORY: Breathing unlabored and symmetric. CARDIOVASCULAR: DP pulses 2+ bilaterally. MUSCULOSKELETAL: Movement in general is very limited due to the amount of pain the patient is experiencing in her right low back. She is able to move toes on both sides, is able to flex and extend at bilateral knees though this causes p ain especially on the right knee. Her midline low lumbar spine as well as the soft tissue adjacent to the spine on the right side into the buttock musculature is exquisitely tender to palpation. SKIN: [place], warm, dry. No rash. NEUROLOGIC: Awake, alert, oriented. There is decreased sensation in the right lateral foot. There is weakness with right EHL extension. PSYCHIATRIC: Anxious, otherwise linear thought process, somewhat upset at times. Course Consultations Consultation #1: Spoke with Dr. Washington (orthospine) regarding the case. He is familiar with her imaging and case. He agrees she should be admitted for pain control under the hospitalist service, and he will consult and will see her first thing in the morning, likely requires a laminectomy. Administered Medications Oxycodone HCl (Oxycodone Hcl Ir 5 Mg Tab (Immediate Release)) 10 mg PO Q4H PRN PRN Reason: MODERATE Pain (4,5,6) Stop: 12/17/22 17:49 Last Admin: 12/03/22 20:15 Dose: 10 mg Documented By: PANCHO Discontinued Medications Dexamethasone Sodium Phosphate (DexamethasonePf 10 Mg/Ml Vial) 10 mg IV NOW ONE Stop: 12/03/22 12:58 Last Admin: 12/03/22 13:46 Dose: 10 mg Documented By: [id number] Diazepam (Diazepam 2 Mg Tablet) 2 mg PO NOW ONE Stop: 12/03/22 12:58 Last Admin: 12/03/22 13:06 Dose: 2 mg Documented By: BHAKTI Diazepam (Diazepam 5 Mg/Ml Inj 10ml Vial) 2 mg IV NOW STA Stop: 12/03/22 13:52 Last Admin: 12/03/22 14:06 Dose: 2 mg Documented By: [id number] Hydromorphone HCl (Hydromorphone Inj 1 Mg/Ml Syringe) 1 mg IM NOW STA Stop: 12/03/22 12:58 Last Admin: 12/03/22 13:06 Dose: 1 mg Documented By: BHAKTI Hydromorphone HCl (Hydromorphone Inj 1 Mg/Ml Syringe) 1 mg IV NOW STA Stop: 12/03/22 13:52 Last Admin: 12/03/22 14:06 Dose: 1 mg Documented By: [id number] Hydromorphone HCl (Hydromorphone Inj 2 Mg/Ml Syr/Vial) 2 mg IV NOW STA Stop: 12/03/22 17:11 Last Admin: 12/03/22 17:19 Dose: Not Given Documented By: CLARA Hydromorphone HCl (Hydromorphone Inj 2 Mg/Ml Syr/Vial) 1 mg IV NOW STA Stop: 12/03/22 17:11 Last Admin: 12/03/22 17:19 Dose: 1 mg Documented By: CLARA Ketorolac Tromethamine (Ketorolac Tromethamine 15 Mg/Ml Vial) 15 mg IV NOW STA Stop: 12/03/22 14:26 Last Admin: 12/03/22 14:29 Dose: 15 mg Documented By: BHAKTI Ondansetron HCl (Ondansetron Inj 2 Mg/Ml 2 Ml Vial) 4 mg IV NOW STA Stop: 12/03/22 14:26 Last Admin: 12/03/22 14:29 Dose: 4 mg Documented By: BHAKTI Medical Decision Making Differential Diagnosis Disc protrusion, disc herniation, uncontrolled pain, cauda equina syndrome, discitis, transverse myelitis, myofascial pain, strain, among other pathology Medical Records Attestation: I reviewed the patient's medical records. (Reviewed prior ED notes from 2 days ago) Laboratory Data 12/03/22 13:35 12/03/22 13:35 Lab Results 12/03/22 12/03/22 12/03/22 Range/Units 13:35 13:35 14:23 WBC 13.67 H (4.8-10.8) K/ul RBC 4.19 L (4.20-5.40) M/uL Hgb 11.4 L (12.0-16.0) g/dl Hct 34.8 L (37.0-47.0) % MCV 83.1 (80.0-100.0) fL MCH 27.2 (25.0-34.0) pg MCHC 32.8 (32.0-36.0) g/dL RDW Std Deviation 39.3 (36.4-46.3) fL RDW Coeff of Gurpreet 13.0 (11.5-14.5) % Plt Count 315 (130-400) K/uL MPV 9.4 (9.4-12.4) fL Immature Gran % (Auto) 1.2 % Neut % (Auto) 62.2 % Lymph % (Auto) 27.5 % [place] % (Auto) 8.1 % Eos % (Auto) 0.5 % Baso % (Auto) 0.5 % Neut # (Auto) 8.49 H (1.40-6.50) K/uL Lymph # (Auto) 3.76 H (1.2-3.4) K/uL [place] # (Auto) 1.11 H (0.11-0.59) K/uL Eos # (Auto) 0.07 (0-0.50) K/uL Baso # (Auto) 0.07 (0-0.2) K/uL Immature Gran # (Auto) 0.17 (0.01-0.20) K/uL Sodium 140 (136-145) mmol/L Potassium 4.2 (3.5-5.1) mmol/L Chloride 106 (98-107) mmol/L Carbon Dioxide 28 (21-32) mmol/L Anion Gap 6 (3-11) BUN 19 (6-23) mg/dl Creatinine 0.71 (0.6-1.2) mg/dl Est Cr Clr Drug Dosing 136.0 ml/min Est GFR ( Amer) 130.6 ml/min Est GFR (Non-Af Amer) 112.7 ml/min BUN/Creatinine Ratio 26.8 H (10-20) Glucose 90 (70-99(Fasting)) mg/dl Calcium 10.0 (8.5-10.1) mg/dl Total Bilirubin 0.6 (0.2-1.0) mg/dl AST 22 (13-39) U/L ALT 37 (7-52) U/L Alkaline Phosphatase 63 (34-104) U/L Total Protein 7.7 (6.0-8.3) gm/dl Albumin 4.7 (3.4-5.0) gm/dl Globulin 3.0 (2.5-4.0) gm/dl Albumin/Globulin Ratio 1.6 (0.9-2) SARS-CoV-2, RNA, NAAT NEGATIVE (NEGATIVE) MDM Narrative This is a 32-year-old female who was diagnosed with a large disc protrusion at L5-S1 2 days ago who returns to the emergency department with uncontrolled low back pain despite steroids and prescription pain medication. She is quite uncomfortable appearing, intermittently tearful, only able to lay prone. She is able to move toes on both sides but does have neurologic deficits which appear to be similar to her initial examination 2 days ago in the right lower extremity. She also has significant tenderness in the mid low lumbar spine as well as the soft tissue to the right of her lumbar spine into the buttock musculature. Throughout her stay in the emergency department, the patient was administered a total of 3 mg Dilaudid, 4 mg of Valium, Toradol, and dexamethasone, and her pain was still not well controlled. I spoke with Dr. Washington (orthospine) who was familiar with the case from her initial presentation 2 days ago and agreed the patient should be admitted under medicine for pain control and he will see her first thing tomorrow morning. He states she likely needs a laminectomy. I discussed the case with the [facility] hospitalist group who will admit the patient and consult with Dr. Washington for definitive management. Impression Protrusion of intervertebral disc of lumbosacral region, Uncontrolled pain Discharge Plan Visit Data Chief Complaint: Back Injury/Pain Stated Complaint: HERNIATED DISC PAIN ED Provider: Micah Aragon ED Midlevel Provider: Brayden Mcmanus Discharge Problem: Protrusion of intervertebral disc of lumbosacral region, Uncontrolled pain Patient Disposition: Admitted As Inpatient Condition: Fair
[2022-12-03] MEDS ORDERED: dexAMETHasone**PF** 10 MG/ML VIAL IV ONE (12:57)
[2022-12-03] MEDS ORDERED: HYDROmorphone INJ 1 MG/ML SYRINGE IM STA (12:57)
[2022-12-03] MEDS ORDERED: diazePAM 2 MG TABLET PO ONE (12:57)
[2022-12-03] MEDS ORDERED: HYDROmorphone INJ 1 MG/ML SYRINGE IV STA (13:51)
[2022-12-03 14:00] LABS: Basophils # (auto) 0.07 K/uL (0-0.2); Basophils % (auto) 0.5 %; Eosinophils # (auto) 0.07 K/uL (0-0.50); Eosinophils % (auto) 0.5 %; Hematocrit (blood only) 34.8 % (37.0-47.0); Hemoglobin 11.4 g/dl (12.0-16.0); Immature Granulocytes # (auto) 0.17 K/uL (0.01-0.20); Immature Granulocytes % (auto) 1.2 %; Lymphocytes # (auto) 3.76 K/uL (1.2-3.4); Lymphocytes % (auto) 27.5 %; Mean Corpuscular Hemoglobin 27.2 pg (25.0-34.0); Mean Corpuscular Hgb Conc 32.8 g/dL (32.0-36.0); Mean Corpuscular Volume 83.1 fL (80.0-100.0); Mean Platelet Volume 9.4 fL (9.4-12.4); Monocytes # (auto) 1.11 K/uL (0.11-0.59); Monocytes % (auto) 8.1 %; Neutrophils # (auto) 8.49 K/uL (1.40-6.50); Neutrophils % (auto) 62.2 %; Platelet Count 315 K/uL (130-400); RDW Standard Deviation 39.3 fL (36.4-46.3); Red Blood Count 4.19 M/uL (4.20-5.40); White Blood Count 13.67 K/ul (4.8-10.8)
[2022-12-03 14:18] LABS: Albumin Globulin Ratio 1.6 (0.9-2); Albumin Level 4.7 gm/dl (3.4-5.0); BUN Creatinine Ratio 26.8 (10-20); Bilirubin,Total 0.6 mg/dl (0.2-1.0); Est GFR (African American) 130.6 ml/min; Est GFR (Non-African American) 112.7 ml/min; Potassium 4.2 mmol/L (3.5-5.1); Total Protein 7.7 gm/dl (6.0-8.3)
[2022-12-03] MEDS ORDERED: ONDANSETRON INJ 2 MG/ML 2 ML VIAL IV STA (14:25)
[2022-12-03] MEDS ORDERED: KETOROLAC TROMETHAMINE 15 MG/ML VIAL IV STA (14:25)
--- NOTE | 2022-12-03 17:03 | History & Physical Report ---
Date of Service December 03, 2022 Assessment & Plan (1) Lower back pain: Plan: 32 y/o female with PMH of gestational HTN, recent vaginal delivery (10/24/22), and hx sciatic pain during recent who presents to the ED with intractable lower back pain after failing trial of conservative management outpatient. MRI on 12/01 showed large L5-S1 disc herniation. - Admit for pain control - Consult ortho spine - ED provider spoke with Dr. Washington who will see pt in AM, possible OR this week so will make pt NPO after midnight until determine timing of possible procedure - Scheduled acetaminophen, prn oxy for mild to moderate pain, Dilaudid for severe pain - Add stool softener since on significant doses of narcotics - Has been on Medrol Dosepak, received dose of IV dexamethasone today - will defer additional steroids to Dr. Washington - Fall precautions (2) Lumbar disc herniation: (3) Sciatica: (4) Gestational hypertension: Plan: Has continued on labetalol since delivery - reports BPs at home have been better, was scheduled to see OB this week abot potentially discontinuing. BP currently elevated in the ED but suspect partially due to pain. - Continue labetalol for now - will monitor BP during admission Plan Pt seen and reviewed with collaborating physician, Dr. Patton. Plan of care discussed and as outlined above. Code Status: Full code DVT Prophylaxis: Carlos Pete PA-C History of Present Illness Chief Complaint: Intractable back pain Primary Care Provider: Jamaal Cash MD This is a 32 y/o female with a PMH of gestational HTN/possible preeclampsia, for which she is still on the labetalol, adjustment disorder w/ mixed mood, prior right sciatic pain during recent (attributed to baby lying on the nerve), and hx migraines who presents to the ED today with acute intractable back pain. Seen in the ED on 12/01 with back pain radiating down right leg that had started the day prior while standing in her kitchen. She initially felt like her right hip had "popped out" which has happened to her before. Tried going to her chiropractor for manipulation, specifically related to her prior hip issues, but had no relief and pain became severe overnight so came to the ED. No prior history of similar symptoms. She was also complaining of new numbness in her right toes. She was given multiple medications in the ED to control her pain. ED provider spoke with Dr. Washington from [facility] who recommended either admission or very close outpatient follow-up. Pt has a [id number] infant at home so elected to try outpatient management if possible. Her pain was somewhat improved with meds given in the ED - discharged home on oxycodone, Tylenol, Motrin, and Medrol Dosepak. Has continued to have severe symptoms at home. Even going to the bathroom causes unbearable pain because of sitting position. Pain radiates up to right shoulder blade and down to right toes. No pain in left LE. Pain particularly severe behind right knee. No loss of control of bowels or bladder although has had some trouble with getting to the bathroom in time due to the severity of the pain. Not currently . Allergies Allergy/AdvReac Type Severity Reaction Status Date / Time penicillin V Allergy Hives Verified 11/05/22 17:40 Home Medications Medication Instructions Recorded Confirmed Type labetalol 300 mg tablet 300 mg PO BID #60 tabs 11/05/22 12/03/22 Rx vits no.124-ferrous fum 1 tab PO DAILY 11/05/22 12/03/22 History 27 mg iron-folic acid 800 mcg tablet ( Vitamin) methylprednisolone 4 mg tablets in 4 mg PO DIRECTED #21 ea 12/01/22 12/03/22 Rx a dose pack (Medrol (Duglas)) oxycodone 5 mg tablet 5 mg PO Q6 PRN pain #14 tabs 12/01/22 12/03/22 Rx iron,carbonyl 65 mg-vitamin C 125 1 tab PO DAILY 12/03/22 12/03/22 History mg tablet,delayed release (Vitron-C) riboflavin (vitamin B2) 100 mg 100 mg PO DAILY 12/03/22 12/03/22 History tablet (Vitamin B-2) Past Med/Surg History Medical History (Updated 12/03/22 @ 18:09 by Arely Pete PA-C) Gestational hypertension History of shoulder dystocia Morbid obesity Positive GBS test hemorrhage Surgical History History of ankle surgery Hx laparoscopic cholecystectomy Hx of appendectomy Family History Other Diabetes Family history of blood clots Social History Smoking Status: Never smoker Hx Alcohol Use: No Hx Substance Use: No Preferred Language: Tanzanian Communication Ability: Effective Field Technician Required: No Beliefs That Will Affect Care: None marital status: Current Living Situation: Spouse Current Living Situation Comment: And daughter Feels Safe at Home: Yes Assistive Devices: None Review of Systems Review of Systems: All systems reviewed & are unremarkable except as noted in HPI & below Constitutional: + chills (since delivery of daughter) and + fatigue; no fever Eyes: no diplopia Ear, Nose, Mouth, Throat: no nasal congestion and no sore throat Respiratory: no cough and no dyspnea Cardiovascular: no chest pain, no palpitations, no syncope and no edema Gastrointestinal: no abdominal pain and no diarrhea/loose stools Genitourinary: no dysuria and no hematuria Musculoskeletal: + back pain and + radicular pain Integumentary: no rash and no yellowing of the skin Neurologic: + numbness (in right toes) and + headache(s) Physical Exam Constitutional: well developed, well nourished and + in distress (mild due to pain) Eyes: + anicteric sclerae Neck: trachea midline Respiratory: no respiratory distress and no labored breathing Auscultation: lungs clear to auscultation bilaterally Cardiovascular: Rate/Rhythm: regular rate and regular rhythm Vessels: posterior tibial pulses present and radial pulses present Extremities: no pedal edema Gastrointestinal (Abdomen): Inspection/Auscultation: normal bowel sounds; abdomen not distended Percussion/Palpation: abdomen soft Musculoskeletal: Spine: + lumbar spinal tenderness (no spinous process tenderness but tender right > left lumbar area) and + buttock tenderness; no step off deformity Skin: scar right ankle from prior surgery Neurologic: moves all extremities; not confused mildly diminished sensation right toes Psychiatric: Orientation: alert and oriented x 3 Results & Data Results & Data ([facility]) Vital Signs (Past 12 Hours) Vital Signs Temp Pulse Pulse Resp BP BP Pulse Ox 12/03/22 14:55 82 20 155/89 H 99 12/03/22 12:58 98 12/03/22 12:13 36.6 C 88 18 167/106 H 98 O2 Del Method 12/03/22 14:55 Room Air 12/03/22 12:58 Room Air 12/03/22 12:13 Room Air Laboratory Results Laboratory Results - last 24 hr 12/03/22 12/03/22 12/03/22 13:35 13:35 14:23 WBC 13.67 H RBC 4.19 L Hgb 11.4 L Hct 34.8 L MCV 83.1 MCH 27.2 MCHC 32.8 RDW Std Deviation 39.3 RDW Coeff of Gurpreet 13.0 Plt Count 315 MPV 9.4 Immature Gran % (Auto) 1.2 Neut % (Auto) 62.2 Lymph % (Auto) 27.5 [place] % (Auto) 8.1 Eos % (Auto) 0.5 Baso % (Auto) 0.5 Neut # (Auto) 8.49 H Lymph # (Auto) 3.76 H [place] # (Auto) 1.11 H Eos # (Auto) 0.07 Baso # (Auto) 0.07 Immature Gran # (Auto) 0.17 Sodium 140 Potassium 4.2 Chloride 106 Carbon Dioxide 28 Anion Gap 6 BUN 19 Creatinine 0.71 Est Cr Clr Drug Dosing 136.0 Est GFR ( Amer) 130.6 Est GFR (Non-Af Amer) 112.7 BUN/Creatinine Ratio 26.8 H Glucose 90 Calcium 10.0 Total Bilirubin 0.6 AST 22 ALT 37 Alkaline Phosphatase 63 Total Protein 7.7 Albumin 4.7 Globulin 3.0 Albumin/Globulin Ratio 1.6 SARS-CoV-2, RNA, NAAT NEGATIVE Diagnostic Findings MRI Lumbar Spine 12/01/22 - IMPRESSION:1. An 11 x 6 mm right paracentral focal disc protrusion at L5-S1 which compresses the transiting right S1 nerve roots and results in mild right-sided central canal narrowing. 2. Additional degenerative changes as described above. 3. No fracture or subluxation. Medications Administered Discontinued Medications Dexamethasone Sodium Phosphate (DexamethasonePf 10 Mg/Ml Vial) 10 mg IV NOW ONE Stop: 12/03/22 12:58 Last Admin: 12/03/22 13:46 Dose: 10 mg Documented By: [id number] Diazepam (Diazepam 2 Mg Tablet) 2 mg PO NOW ONE Stop: 12/03/22 12:58 Last Admin: 12/03/22 13:06 Dose: 2 mg Documented By: BHAKTI Diazepam (Diazepam 5 Mg/Ml Inj 10ml Vial) 2 mg IV NOW STA Stop: 12/03/22 13:52 Last Admin: 12/03/22 14:06 Dose: 2 mg Documented By: [id number] Hydromorphone HCl (Hydromorphone Inj 1 Mg/Ml Syringe) 1 mg IM NOW STA Stop: 12/03/22 12:58 Last Admin: 12/03/22 13:06 Dose: 1 mg Documented By: BHAKTI Hydromorphone HCl (Hydromorphone Inj 1 Mg/Ml Syringe) 1 mg IV NOW STA Stop: 12/03/22 13:52 Last Admin: 12/03/22 14:06 Dose: 1 mg Documented By: [id number] Ketorolac Tromethamine (Ketorolac Tromethamine 15 Mg/Ml Vial) 15 mg IV NOW STA Stop: 12/03/22 14:26 Last Admin: 12/03/22 14:29 Dose: 15 mg Documented By: BHAKTI Ondansetron HCl (Ondansetron Inj 2 Mg/Ml 2 Ml Vial) 4 mg IV NOW STA Stop: 12/03/22 14:26 Last Admin: 12/03/22 14:29 Dose: 4 mg Documented By: BHAKTI Supervising Physician Co-Signing Physician Notes Date of Service: December 03, 2022 History and physical exam performed by me notable for 32-year-old woman who recently had the vaginal delivery just over a month ago With gestational hypertension who presents with worsening low back pain over the weekend. Reported that she has had some right hip popping issues for a while but started having radiculopathic pain radiating from back down to right foot since recent pregnanacy. She felt some pop in her right hip/back on saturday and could not move without pain. Saw her chiropractor that day. Pain had worsened over the weekend with initial presentation to ER 2 days ago. At the time, she was found to have disch herniation and narrowing. She stated she was given option of admission vs outpatient mgt. Due to children at home, she opted for outpt mgt. However, pain has not improved at home necessistating representation. She also reports some paresthesia 'ryan [place]' in right leg Denied urinary or bladder incontinence. Denied fevers or other symptoms Exam notable for obese woman laying prone (comfortable position). Tenderness over low back and over right buttock. Labs notable for WBC 13K, Hb 11.4 Optimize Pain control Got dexamethasone in ER. Will defer further dosing to ortho spine surgeon Ortho spine surg c/s Keep NPO past midnight Continue home antihypertensives. Reports she is not at this time Other plans as detailed by Ofelia Pete PA-C (1) Lower back pain Back pain laterality: right Chronicity: acute Sciatica laterality: sciatica of right side Sciatica presence: with sciatica Qualified Code(s): M54.41 - Lumbago with sciatica, right side (2) Sciatica Laterality: right Qualified Code(s): M54.31 - Sciatica, right side
[2022-12-03] MEDS ORDERED: HYDROmorphone INJ 2 MG/ML SYR/VIAL IV STA ×2 (17:10)
[2022-12-03] MEDS ORDERED: oxyCODONE HCL IR 5 MG TAB (IMMEDIATE RELEASE) PO PRN (17:50)
--- NOTE | 2022-12-03 18:18 | Communication Note ---
Date of Service: December 03, 2022 History and physical exam performed by me notable for 32-year-old woman who recently had the vaginal delivery just over a month ago With gestational hypertension who presents with worsening low back pain over the weekend. Reported that she has had some right hip popping issues for a while but started having radiculopathic pain radiating from back down to right foot since recent pregnanacy. She felt some pop in her right hip/back on saturday and could not move without pain. Saw her chiropractor that day. Pain had worsened over the weekend with initial presentation to ER 2 days ago. At the time, she was found to have disch herniation and narrowing. She stated she was given option of admission vs outpatient mgt. Due to children at home, she opted for outpt mgt. However, pain has not improved at home necessistating representation. She also reports some paresthesia 'ryan horse' in right leg Denied urinary or bladder incontinence. Denied fevers or other symptoms Exam notable for obese woman laying prone (comfortable position). Tenderness over low back and over right buttock. Labs notable for WBC 13K, Hb 11.4 Optimize Pain control Got dexamethasone in ER. Will defer further dosing to ortho spine surgeon Ortho spine surg c/s Keep NPO past midnight Continue home antihypertensives. Reports she is not at this time Other plans as detailed by Ofelia Pete PA-C
[2022-12-03] MEDS: oxyCODONE HCL IR 5 MG TAB (IMMEDIATE RELEASE) PO PRN (20:15)
[2022-12-03] MEDS: HYDROmorphone INJ 1 MG/ML SYRINGE IV PRN (21:20)
[2022-12-03] MEDS: LABETALOL HCL 300 MG TAB PO SCH (21:55)
[2022-12-03] MEDS: ACETAMINOPHEN 500 MG TAB PO SCH (21:55)
[2022-12-03] MEDS: DOCUSATE SODIUM 100 MG CAP PO SCH (21:55)
[2022-12-04] MEDS: oxyCODONE HCL IR 5 MG TAB (IMMEDIATE RELEASE) PO PRN ×5 (00:36→20:35)
[2022-12-04] MEDS: HYDROmorphone INJ 1 MG/ML SYRINGE IV PRN ×9 (01:59→23:49)
[2022-12-04] MEDS ORDERED: PROMETHAZINE HCL 12.5 MG in SODIUM CHLORIDE 0.9% 50 ML IV PRN (05:06)
[2022-12-04] MEDS: ACETAMINOPHEN 500 MG TAB PO SCH ×3 (05:10→22:18)
--- NOTE | 2022-12-04 08:33 | Orthopedic Consultation ---
Date of Consultation December 04, 2022 Assessment & Plan (1) Lumbar disc herniation: Assessment lumbar disc herniation L5-S1 on the right with a herniated fragment and significant compression of the traversing S1 nerve root. Plan at this time at length discussion today with the patient regarding treatment options. We can continued with medication, possible epidural injection or ultimately lumbar laminotomy excision of the herniated free fragment. In light of her severe pain progressive deficit and inability to ambulate she would like to proceed with surgery. We will try to have this arranged and performed postoperative time. I will consult physical therapy for their impressions as well. Respecters pros cons alternatives were in detail. Risk include but not limited to anesthesia spinal stroke process nerve damage blood loss requiring transfusion infection requiring reoperation. Events of the marked improvement of her radiculopathy. History of Present Illness Reason for Consultation: Back and right leg pain Attending Physician: Lm Verde MD History of Present Illness This is a 32-year-old female that is now present in the emergency room twice with significant right leg radiculopathy. This began a few days ago. She is approximately 4 weeks . She describes pain involving the back right buttock posterior thigh extending into the calf and into the entire foot. She notes numbness to entire foot. She has marked limitations with ambulation. Any weightbearing creates a marked increase in her pain. She is now using a walker. Left lower extremity is asymptomatic. She notes marked loss of sensation and weakness to the right lower extremity. A course of oral steroids was provided no relief. Her utilization of pain medicines has provided very modest improvement. Allergies Allergy/AdvReac Type Severity Reaction Status Date / Time penicillin V Allergy Hives Verified 11/05/22 17:40 Home Medications Medication Instructions Recorded Confirmed Type labetalol 300 mg tablet 300 mg PO BID #60 tabs 11/05/22 12/03/22 Rx vits no.124-ferrous fum 1 tab PO DAILY 11/05/22 12/03/22 History 27 mg iron-folic acid 800 mcg tablet ( Vitamin) methylprednisolone 4 mg tablets in 4 mg PO DIRECTED #21 ea 12/01/22 12/03/22 Rx a dose pack (Medrol (Duglas)) oxycodone 5 mg tablet 5 mg PO Q6 PRN pain #14 tabs 12/01/22 12/03/22 Rx iron,carbonyl 65 mg-vitamin C 125 1 tab PO DAILY 12/03/22 12/03/22 History mg tablet,delayed release (Vitron-C) riboflavin (vitamin B2) 100 mg 100 mg PO DAILY 12/03/22 12/03/22 History tablet (Vitamin B-2) Patient History Medical History (Updated 12/03/22 @ 18:09 by Arely Pete PA-C) Gestational hypertension History of shoulder dystocia Morbid obesity Positive GBS test hemorrhage Surgical History History of ankle surgery Hx laparoscopic cholecystectomy Hx of appendectomy Family History Other Diabetes Family history of blood clots Social History Smoking Status: Never smoker Hx Alcohol Use: No Hx Substance Use: No Preferred Language: Georgian Communication Ability: Effective Fancy Wire Drawer Required: No Beliefs That Will Affect Care: None marital status: Current Living Situation: Spouse Current Living Situation Comment: And daughter Other Information That Helps Us Care for You: No Feels Safe at Home: Yes Safety Concerns: Feels Safe At This Time Assistive Devices: None Physical Exam Physical Exam: Patient prefers to be in a prone position. She exhibits severe tension signs and a positive Lasegue's maneuver to straight leg raise on the right compared to the left. She has significant breakaway weakness to the right dorsiflexion extensor houses longus compared to 5/5 on the left. Sensory is diminished. Deep tendon reflexes absent. Results & Data ([facility]) Vital Signs (Past 12 Hours) Vital Signs Temp Pulse Resp BP Pulse Ox O2 Del Method 12/04/22 07:49 36.8 C 68 18 141/90 H 96 Room Air 12/03/22 20:53 36.9 C 68 18 144/80 H 98 Room Air
[2022-12-04] MEDS: DOCUSATE SODIUM 100 MG CAP PO SCH ×2 (08:54→20:43)
[2022-12-04] MEDS: LABETALOL HCL 300 MG TAB PO SCH ×2 (08:54→20:42)
[2022-12-04] MEDS: GABAPENTIN 300 MG CAP PO SCH ×3 (11:10→20:41)
--- NOTE | 2022-12-04 13:17 | Hospitalist Progress Note ---
Date of Service December 04, 2022 Assessment & Plan (1) Lower back pain: (2) Lumbar disc herniation: (3) Sciatica: Plan: 32 y/o female with PMH of gestational HTN, recent vaginal delivery (10/24/22), and hx sciatic pain during recent who presented to the ED with intractable lower back pain after failing trial of conservative management outpatient. MRI on 12/01 showed large L5-S1 disc herniation. Spine Ortho consulted, tentatively planning for OR on 12/05 Current pain regimen --gabapentin 300 mg TID, scheduled Tylenol, PRN oxycodone and Dilaudid for breakthrough pain Bowel regimen (4) Gestational hypertension: Plan: Has continued on labetalol since delivery - reports BPs at home have been better, was scheduled to see OB this week abot potentially discontinuing. BP currently intermittently elevated but suspect partially due to pain. Continue labetalol for now - will monitor BP during admission DVT PROPHYLAXIS SCDs due to planned invasive procedure Admission and Anticipated Discharge Date Admission Date: December 03, 2022 Supervising Physician Co-Signing Physician Notes Attending Addendum: care coordinated with KAMALA Myrick please refer to her notes for full details, I agree with her notes patient seen and examined, records reviewed by myself as well on exam, patient seen resting in bed, in prone position, still having lower back pain, 8 out of 10 at worst Has shooting pain to the right leg No lower extremity weakness or numbness Denies fevers or chills no other symptoms VS noted and reviewed oriented x3, not in distress, speaks in sentences with no effort nor accessory muscle use normal rate, regular rhythm, no murmurs clear breath sounds bilaterally non distended, soft, nontender No lower extremity edema no neuro deficits Labs noted and reviewed ASSESSMENT AND PLAN Lumbar spine disc herniation Add gabapentin 100 mg p.o. 3 times daily Increase Dilaudid 1 mg to every 3 hours for pain control 4 OR tomorrow care of Dr. Washington other diagnoses and plan of care as per KAMALA Myrick's notes Lm Verde MD Subjective Follow-up for intractable back pain, L5-S1 disc herniation. Patient seen and examined. Low back pain continues, slightly improved with current pain medication regimen. Spine Ortho planning on OR tomorrow. Patient reports radicular pain into her right leg with some associated numbness and tingling of the right toes. Denies bowel and bladder incontinence. No chest pain or shortness of breath. Denies abdominal pain and nausea. Review of Systems Review of Systems: ROS per HPI, all other systems reviewed and negative Physical Exam Constitutional: WD/WN, vitals as above Respiratory: normal respiratory effort, lungs clear to auscultation Cardiovascular: Rate/Rhythm: regular rate and regular rhythm Vessels: normal peripheral pulses Extremities: no edema Gastrointestinal (Abdomen): Percussion/Palpation: abdomen soft; abdomen nontender Musculoskeletal: lumbar back tenderness, RLE weakness. exam limited due to pain Skin: no rashes, warm and dry Neurologic: no focal motor deficits Psychiatric: A+Ox3, euthymic affect Results & Data Results & Data ([facility]) Vital Signs (Past 12 Hours) Vital Signs Temp Pulse Resp BP Pulse Ox O2 Del Method 12/04/22 07:49 36.8 C 68 18 141/90 H 96 Room Air Laboratory Results Short CBC 12/03/22 Range/Units 13:35 WBC 13.67 H (4.8-10.8) K/ul Hgb 11.4 L (12.0-16.0) g/dl Hct 34.8 L (37.0-47.0) % Plt Count 315 (130-400) K/uL BMP 12/03/22 13:35 Sodium 140 Potassium 4.2 Chloride 106 Carbon Dioxide 28 BUN 19 Creatinine 0.71 Glucose 90 Calcium 10.0 Liver Function 12/03/22 Range/Units 13:35 Total Bilirubin 0.6 (0.2-1.0) mg/dl AST 22 (13-39) U/L ALT 37 (7-52) U/L Alkaline Phosphatase 63 (34-104) U/L Albumin 4.7 (3.4-5.0) gm/dl (1) Lower back pain Back pain laterality: right Chronicity: acute Sciatica laterality: sciatica of right side Sciatica presence: with sciatica Qualified Code(s): M54.41 - Lumbago with sciatica, right side (3) Sciatica Laterality: right Qualified Code(s): M54.31 - Sciatica, right side
[2022-12-05] MEDS: oxyCODONE HCL IR 5 MG TAB (IMMEDIATE RELEASE) PO PRN ×2 (00:35→05:31)
[2022-12-05] MEDS: HYDROmorphone INJ 1 MG/ML SYRINGE IV PRN ×3 (02:56→12:38)
[2022-12-05] MEDS: ACETAMINOPHEN 500 MG TAB PO SCH ×2 (05:31→15:04)
[2022-12-05 06:15] LABS: Hematocrit (blood only) 34.1 % (37.0-47.0); Hemoglobin 10.7 g/dl (12.0-16.0); Mean Corpuscular Hemoglobin 26.8 pg (25.0-34.0); Mean Corpuscular Hgb Conc 31.4 g/dL (32.0-36.0); Mean Corpuscular Volume 85.5 fL (80.0-100.0); Mean Platelet Volume 9.1 fL (9.4-12.4); Platelet Count 301 K/uL (130-400); RDW Coefficient of Variation 13.2 % (11.5-14.5); RDW Standard Deviation 41.1 fL (36.4-46.3); Red Blood Count 3.99 M/uL (4.20-5.40); White Blood Count 10.89 K/ul (4.8-10.8)
[2022-12-05 07:52] LABS: BUN Creatinine Ratio 37.5 (10-20); Calcium 8.9 mg/dl (8.5-10.1); Creatinine Clr Calc Pharmacy 134.1 ml/min; Est GFR (African American) 128.4 ml/min; Est GFR (Non-African American) 110.8 ml/min
--- NOTE | 2022-12-05 08:40 | Anesthesiology Consultation ---
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 History Surgery Operation Date: 12/05/22 08:10 Proposed Procedures p L4-L5 Right Lumbar Laminectomy - Shiva Washington DO Height/Weight Height: 5 ft 8 in Weight: 93.5 kg Allergies Allergy/AdvReac Type Severity Reaction Status Date / Time penicillin V Allergy Hives Verified 11/05/22 17:40 Medications Home Medications Medication Instructions Recorded Confirmed Last Taken labetalol 300 mg tablet 300 mg PO BID #60 tabs 11/05/22 12/03/22 12/03/22 vits no.124-ferrous fum 1 tab PO DAILY 11/05/22 12/03/22 12/03/22 27 mg iron-folic acid 800 mcg tablet ( Vitamin) methylprednisolone 4 mg tablets in 4 mg PO DIRECTED #21 ea 12/01/22 12/03/22 12/03/22 a dose pack (Medrol (Duglas)) oxycodone 5 mg tablet 5 mg PO Q6 PRN pain #14 tabs 12/01/22 12/03/22 12/03/22 iron,carbonyl 65 mg-vitamin C 125 1 tab PO DAILY 12/03/22 12/03/22 Unknown mg tablet,delayed release (Vitron-C) riboflavin (vitamin B2) 100 mg 100 mg PO DAILY 12/03/22 12/03/22 Unknown tablet (Vitamin B-2) Active Medications Generic Name Dose Route Start Last Admin Trade Name Freq PRN Reason Stop Dose Admin Acetaminophen 1,000 mg 12/03/22 20:00 12/05/22 05:31 Acetaminophen 500 Mg Tab PO 01/02/23 19:59 1,000 mg Q8 ANDRES Administration Docusate Sodium 100 mg 12/03/22 21:00 12/04/22 20:43 Docusate Sodium 100 Mg Cap PO 01/02/23 20:59 100 mg BID ANDRES Administration Gabapentin 300 mg 12/04/22 10:00 12/04/22 20:41 Gabapentin 300 Mg Cap PO 01/03/23 09:59 300 mg TID ANDRES Administration Hydromorphone HCl 1 mg 12/04/22 09:55 12/05/22 02:56 Hydromorphone Inj 1 Mg/Ml Syringe IV 12/17/22 17:49 1 mg Q3H PRN Administration SEVERE Pain (7,8,9,10) Promethazine HCl 12.5 mg/ 50.5 mls @ 202 mls/hr 12/04/22 05:06 12/04/22 06:46 Sodium Chloride IV 01/03/23 05:05 Infused Q6H PRN Infusion Nausea And Vomiting Labetalol HCl 300 mg 12/03/22 21:00 12/04/22 20:42 Labetalol Hcl 300 Mg Tab PO 01/02/23 20:59 300 mg BID ANDRES Administration Oxycodone HCl 10 mg 12/03/22 17:50 12/05/22 05:31 Oxycodone Hcl Ir 5 Mg Tab (Immediate Release) PO 12/17/22 17:49 10 mg Q4H PRN Administration MODERATE Pain (4,5,6) Past Medical History Medical History Gestational hypertension History of shoulder dystocia Morbid obesity Positive GBS test hemorrhage Past Family History Family History Other Diabetes Family history of blood clots Past Surgical History Surgical History History of ankle surgery Hx laparoscopic cholecystectomy Hx of appendectomy Social History Smoking Status: Never smoker Hx Alcohol Use: No Hx Substance Use: No substance use type: does not use Physical Exam Vital Signs Last Vital Signs Temp 98.1 F 12/05/22 07:41 Pulse 79 12/05/22 07:41 Resp 18 12/05/22 07:41 BP 144/89 H 12/05/22 07:41 Pulse Ox 98 12/05/22 07:41 O2 Del Method Room Air 12/05/22 07:41 Testing Laboratory Results 12/05/22 05:50 12/05/22 05:50 Electrocardiogram Date: 11/05/22 Sinus tachycardia, rate 101 bpm Possible Left atrial enlargement Left ventricular hypertrophy Abnormal ECG No previous ECGs available Confirmed by Giovanni Hernandez ([id number]) on 11/06/2022 6:36:36 AM
[2022-12-05] MEDS: LABETALOL HCL 300 MG TAB PO SCH ×2 (09:24→21:30)
[2022-12-05] MEDS: GABAPENTIN 300 MG CAP PO SCH ×3 (09:24→19:45)
[2022-12-05] MEDS: DOCUSATE SODIUM 100 MG CAP PO SCH ×2 (09:25→21:32)
[2022-12-05] MEDS ORDERED: ePHEDrine sulfate 50 MG/ML AMP IV PRN (13:27)
[2022-12-05] MEDS ORDERED: HYDROmorphone INJ 2 MG/ML SYR/VIAL IV PRN (13:27)
[2022-12-05] MEDS ORDERED: BUPIVACAINE/EPINEPHRINE 0.5% MPF 1:200,000 10 ML VIAL ONE (13:27)
[2022-12-05] MEDS ORDERED: ATROPINE SULFATE 0.1 MG/ML 10ML SYR IV PRN (13:27)
[2022-12-05] MEDS ORDERED: ONDANSETRON INJ 2 MG/ML 2 ML VIAL IV PRN ×2 (13:27→17:09)
[2022-12-05] MEDS ORDERED: ceFAZolin 330 MG/ML 1 GM VIAL ONE (13:27)
[2022-12-05] MEDS ORDERED: PROPOFOL IV EMULSION 10 MG/ML 20 ML VIAL IV ONE (13:35)
[2022-12-05] MEDS ORDERED: MIDAZOLAM HCL 1 MG/ML 2ML VIAL ONE (13:36)
[2022-12-05] MEDS ORDERED: LIDOCAINE 2% MPF LOCAL 5 ML VIAL INFIL ONE (13:36)
[2022-12-05] MEDS ORDERED: DEXAMETHASONE SOD INJ 4 MG/ML VIAL ONE (13:36)
[2022-12-05] MEDS ORDERED: fentaNYL citrate 100 MCG/2 ML VIAL ONE ×2 (13:36→15:51)
--- NOTE | 2022-12-05 13:41 | Hospitalist Progress Note ---
Date of Service December 05, 2022 Assessment & Plan (1) Lower back pain: (2) Lumbar disc herniation: (3) Sciatica: Plan: 32 y/o female with PMH of gestational HTN, recent vaginal delivery (10/24/22), and hx sciatic pain during recent who presented to the ED with intractable lower back pain after failing trial of conservative management outpatient. MRI on 12/01 showed large L5-S1 disc herniation. Spine Ortho consulted, scheduled for OR today Current pain regimen --gabapentin 300 mg TID, scheduled Tylenol, PRN oxycodone and Dilaudid for breakthrough pain Bowel regimen PT/OT when appropriate Monitor H&H for acute blood loss anemia, transfuse PRN (4) Gestational hypertension: Plan: Has continued on labetalol since delivery - reports BPs at home have been better, was scheduled to see OB this week about potentially discontinuing. BP currently intermittently elevated but suspect partially due to pain. Continue labetalol for now - will monitor BP during admission DVT PROPHYLAXIS SCDs due to planned invasive procedure Admission and Anticipated Discharge Date Admission Date: December 04, 2022 Supervising Physician Co-Signing Physician Notes Patient seen and examined Laying supine Reports low back pain radiating to RLE with some numbness/tingling Denied other complains Plan for OR today for disc herniation with radiculopathic pain Continue pain control Will get PT/OT post op Other plans as detailed by Theresa WRAY Subjective Follow-up for intractable back pain, L5-S1 disc herniation. Patient seen and examined. Low back pain continues with some associated numbness and tingling of the right toes/foot and radicular pain into the right leg. No bowel or bladder incontinence. Denies chest pain or shortness of breath. No abdominal pain or nausea. Scheduled for OR today. Review of Systems Review of Systems: ROS per HPI, all other systems reviewed and negative Physical Exam Constitutional: WD/WN, vitals as above Respiratory: normal respiratory effort, lungs clear to auscultation Cardiovascular: Rate/Rhythm: regular rate and regular rhythm Vessels: normal peripheral pulses Extremities: no edema Gastrointestinal (Abdomen): Percussion/Palpation: abdomen soft; abdomen nontender Musculoskeletal: RLE leg weakness, exam limited due to pain Skin: no rashes, warm and dry Neurologic: no focal motor deficits Psychiatric: A+Ox3, euthymic affect Results & Data Results & Data ([place]) Vital Signs (Past 12 Hours) Vital Signs Temp Pulse Resp BP Pulse Ox O2 Del Method 12/05/22 13:16 36.4 C L 80 18 134/83 96 Room Air 12/05/22 07:41 36.7 C 79 18 144/89 H 98 Room Air Laboratory Results Short CBC 12/05/22 Range/Units 05:50 WBC 10.89 H (4.8-10.8) K/ul Hgb 10.7 L (12.0-16.0) g/dl Hct 34.1 L (37.0-47.0) % Plt Count 301 (130-400) K/uL BMP 12/05/22 05:50 Sodium 139 Potassium 4.0 Chloride 106 Carbon Dioxide 28 BUN 27 H Creatinine 0.72 Glucose 85 Calcium 8.9 (1) Lower back pain Back pain laterality: right Chronicity: acute Sciatica laterality: sciatica of right side Sciatica presence: with sciatica Qualified Code(s): M54.41 - Lumbago with sciatica, right side (3) Sciatica Laterality: right Qualified Code(s): M54.31 - Sciatica, right side
--- NOTE | 2022-12-05 14:24 | History & Physical Bridge Note ---
Date of Service December 05, 2022 History & Physical Bridge Note I have examined the patient, reviewed the History & Physical and in the interval since the performance of the History & Physical I have noted the following changes of clinical significance: no changes noted L5-S1 laminectomy on the right
[2022-12-05 14:28] LABS: Pregnancy Test, Serum Negative (Negative)
[2022-12-05] MEDS ORDERED: ceFAZolin 2,000 MG/15 ML IV PUSH IV ONE (14:31)
[2022-12-05] MEDS ORDERED: ceFAZolin 2000MG 2,000 MG/15 ML SYR IV ONE (14:32)
[2022-12-05] MEDS ORDERED: ROCURONIUM BROMIDE 10 MG/ML 5 ML VIAL IV ONE (14:59)
[2022-12-05] MEDS ORDERED: NEOSTIGMINE METHYLSULFATE 1 MG/ML 10ML VIAL ONE (15:14)
[2022-12-05] MEDS ORDERED: GLYCOPYRROLATE 0.2 MG/ML VIAL ONE (15:14)
[2022-12-05] MEDS ORDERED: ONDANSETRON INJ 2 MG/ML 2 ML VIAL ONE (15:14)
[2022-12-05] MEDS ORDERED: FLOSEAL HEMOSTATIC MATRIX 10ML TOP ONE (15:15)
[2022-12-05] MEDS ORDERED: SUGAMMADEX SODIUM 200 MG/2 ML VIAL IV ONE (15:33)
--- NOTE | 2022-12-05 15:45 | Operative Report ---
Post Operative Report Pre & Post Diagnosis Operation Date: 12/05/22 08:10 Pre-Op Diagnosis: Lumbar disc condition with herniated free fragment L5-S1 on the right Post-Op Diagnosis: Same I identified the patient and participated in the time-out.: Yes Procedure Operation Date: 12/05/22 08:10 Actual Procedures Lumbar laminotomy L5-S1 on the right with excision of herniated free fragment Surgeon Shiva Washington, DO Garment Sewer Hand None Estimated Blood Loss 10 Findings Consistent with Post-Op Diagnosis Specimens None Indications This is a 32-year-old female presents with the above-mentioned diagnosis after experiencing significant pain not responding to medication is here for surgical invention. Description of Procedure Patient was met with identified informed consent obtained. Patient was then taken to the operative suite underwent a patient placed in a prone position on the [place] table top Sharad frame. All bony promises well-padded eyes inspected to ensure no external pressure placed upon the. This point the lumbar spine was prepped and draped in normal sterile fashion. With the assistance of fluoroscopy defy the L5-S1 disc space small midline incision was created overlying this region. Sharp dissection with assistance of Bovie Cardizem performed down to and exposing the interlaminar space at L5-S1 the right. Self- retaining retractors placed. Therefore performed a small laminotomy excised the lateral portion of ligamentum flavum and expose a severely compressed traversing S1 nerve root. Was able to mobilize this medially and identified very large fragment of free disc material underneath the root. It was removed in its entirety. The area was explored several times to ensure all these fragments addressed then copiously irrigated and closed with subcutaneous Vicryl and 4 Monocryl for final skin closure. Steri-Strip sterile dressings placed. Patient waken taken to PACU stable condition. I attest to the content of the Intraoperative Record and any orders documented therein. Any exceptions are noted below.
--- NOTE | 2022-12-05 15:55 | Fluoroscopy Report ---
INTRAOPERATIVE RADIOGRAPHS CLINICAL HISTORY: L5-S1 laminectomy. Fluoro time: 7 seconds Exposure: 6.3 mGy FINDINGS: A single spot fluoroscopic image of the lumbar spine is presented. A surgical probe project s at the L5-S1 disc space. IMPRESSION: Intraoperative image from lumbar spine surgery as above. Electronically signed by: Simon Sullivan M.D. 12/05/2022 3:54 PM
[2022-12-05] MEDS: fentaNYL citrate 100 MCG/2 ML VIAL IV PRN ×2 (16:05→16:20)
--- NOTE | 2022-12-05 16:46 | Anesthesiology Progress Note ---
Date of Service December 05, 2022 Anesthesia Post Procedure Vital Signs Vital Signs: Temp Pulse Pulse Resp BP BP Pulse Ox 12/05/22 16:10 74 12 115/88 96 12/05/22 16:30 98.2 F 79 12 148/80 H 98 12/05/22 16:20 81 12 141/69 H 97 12/05/22 16:00 89 12 129/92 96 12/05/22 15:56 97.3 F L 98 H 14 143/87 H 99 12/05/22 13:16 97.5 F L 80 18 134/83 96 12/05/22 07:41 98.1 F 79 18 144/89 H 98 12/04/22 23:17 97.9 F 75 16 143/84 H 98 O2 Del Method O2 Flow Rate 12/05/22 16:10 Oxymask 3 12/05/22 16:30 Nasal Cannula 2 12/05/22 16:20 Nasal Cannula 2 12/05/22 16:00 Oxymask 6 12/05/22 15:56 Oxymask 6 12/05/22 13:16 Room Air 12/05/22 07:41 Room Air 12/04/22 23:17 Room Air Pain Intensity Back: Pain Intensity: 5 Transfer of Care Handoff Completed per policy Notes Mental Status: alert / awake / arousable and participated in evaluation Patient Amnestic to Procedure: Yes Nausea / Vomiting: adequately controlled Pain: adequately controlled Airway Patency, RR, SpO2: stable & adequate BP & HR: stable & adequate Hydration State: stable & adequate Anesthetic Complications: no major complications apparent and Pt Satisfied with anesthetic care
[2022-12-05] MEDS ORDERED: NALOXONE HCL 0.4 MG/1 ML VIAL/CARP IV PRN (17:09)
[2022-12-05] MEDS ORDERED: ACETAMINOPHEN 500 MG TAB PO PRN (17:09)
[2022-12-05] MEDS ORDERED: diphenhydrAMINE Capsule 25 MG CAP PO PRN (17:09)
[2022-12-05] MEDS ORDERED: LORazepam 2 MG/1 ML VIAL IV PRN (17:09)
[2022-12-05] MEDS ORDERED: DO NOT ADMINISTER PNEUMOCOCCAL VACCINE PRN (17:09)
[2022-12-05] MEDS ORDERED: LORazepam 0.5 MG TAB PO PRN (17:09)
[2022-12-05] MEDS ORDERED: oxyCODONE HCL IR 5 MG TAB (IMMEDIATE RELEASE) PO PRN (17:09)
[2022-12-05] MEDS ORDERED: LACTATED RINGER'S 1,000 ML IV SCH (17:09)
[2022-12-05] MEDS ORDERED: PROMETHAZINE HCL 12.5 MG in SODIUM CHLORIDE 0.9% 50 ML IV PRN (17:09)
[2022-12-05] MEDS ORDERED: METOCLOPRAMIDE HCL INJ 5 MG/ML 2 ML VIAL IV PRN (17:09)
[2022-12-05] MEDS ORDERED: ONDANSETRON 4 MG OD TAB PO PRN (17:09)
[2022-12-05] MEDS ORDERED: hydrOXYzine HCl 25 MG TAB PO PRN (17:09)
[2022-12-05] MEDS ORDERED: HYDROmorphone INJ 0.5 MG/0.5 ML SYR IV PRN (17:09)
[2022-12-05] MEDS ORDERED: DO NOT ADMINISTER FLU VACCINE PRN (17:09)
[2022-12-05] MEDS ORDERED: ACETAMINOPHEN 1,000 MG/100 ML VIAL IV PRN (17:09)
[2022-12-05] MEDS ORDERED: SOD PHOSPHATE/SOD BIPHOSPHATE ENEMA 132 ML BTL PR PRN (17:09)
[2022-12-05] MEDS ORDERED: FAMOTIDINE 20 MG TAB PO PRN (17:09)
[2022-12-05] MEDS ORDERED: bisacodyL 10 MG SUPP PR PRN (17:09)
[2022-12-05] MEDS ORDERED: ALUMINUM/MAGNESIUM SUSP 30 ML UDC PO PRN (17:09)
[2022-12-05] MEDS ORDERED: MAGNESIUM HYDROXIDE SUSP 30 ML UDC PO PRN (17:09)
[2022-12-05] MEDS: KETOROLAC 30 MG/ML VIAL IV SCH (18:13)
[2022-12-05] MEDS ORDERED: DOCUSATE SODIUM/SENNA 50/8.6MG TAB PO SCH (21:00)
[2022-12-05] MEDS: traMADol HCL 50 MG TABLET PO PRN (21:29)
[2022-12-05] MEDS: ceFAZolin 2000MG 2,000 MG/15 ML SYR IV SCH (21:29)
[2022-12-06] MEDS: KETOROLAC 30 MG/ML VIAL IV SCH ×3 (00:35→12:10)
[2022-12-06] MEDS: traMADol HCL 50 MG TABLET PO PRN (03:33)
[2022-12-06] MEDS: ceFAZolin 2000MG 2,000 MG/15 ML SYR IV SCH (05:59)
[2022-12-06] MEDS: POLYETHYLENE (MIRALAX) 17 GM PACK PO SCH ×2 (05:59→12:15)
[2022-12-06 07:05] LABS: Hematocrit (blood only) 36.2 % (37.0-47.0); Hemoglobin 11.7 g/dl (12.0-16.0); Mean Corpuscular Hemoglobin 27.1 pg (25.0-34.0); Mean Corpuscular Hgb Conc 32.3 g/dL (32.0-36.0); Mean Corpuscular Volume 83.8 fL (80.0-100.0); Mean Platelet Volume 9.2 fL (9.4-12.4); Platelet Count 333 K/uL (130-400); RDW Coefficient of Variation 12.8 % (11.5-14.5); RDW Standard Deviation 38.8 fL (36.4-46.3); Red Blood Count 4.32 M/uL (4.20-5.40); White Blood Count 15.83 K/ul (4.8-10.8)
[2022-12-06 07:13] LABS: BUN Creatinine Ratio 23.9 (10-20); Calcium 9.6 mg/dl (8.5-10.1); Est GFR (African American) 130.6 ml/min; Est GFR (Non-African American) 112.7 ml/min; Potassium 4.3 mmol/L (3.5-5.1)
[2022-12-06] MEDS: DOCUSATE SODIUM 100 MG CAP PO SCH (08:18)
[2022-12-06] MEDS: GABAPENTIN 300 MG CAP PO SCH ×2 (08:19→13:30)
[2022-12-06] MEDS: LABETALOL HCL 300 MG TAB PO SCH (08:19)
[2022-12-06] MEDS ORDERED: dexAMETHasone 6 MG in SYRINGE 0 ML IV SCH (09:00)
--- NOTE | 2022-12-06 10:28 | Discharge Summary ---
Date of Service December 06, 2022 Admission HPI Per Admitting Provider This is a 32 y/o female with a PMH of gestational HTN/possible preeclampsia, for which she is still on the labetalol, adjustment disorder w/ mixed mood, prior right sciatic pain during recent (attributed to baby lying on the nerve), and hx migraines who presents to the ED today with acute intractable back pain. Seen in the ED on 12/01 with back pain radiating down right leg that had started the day prior while standing in her kitchen. She initially felt like her right hip had "popped out" which has happened to her before. Tried going to her chiropractor for manipulation, specifically related to her prior hip issues, but had no relief and pain became severe overnight so came to the ED. No prior history of similar symptoms. She was also complaining of new numbness in her right toes. She was given multiple medications in the ED to control her pain. ED provider spoke with Dr. Washington from [facility] who recommended either admission or very close outpatient follow-up. Pt has a [id number] infant at home so elected to try outpatient management if possible. Her pain was somewhat improved with meds given in the ED - discharged home on oxycodone, Tylenol, Motrin, and Medrol Dosepak. Has continued to have severe symptoms at home. Even going to the bathroom causes unbearable pain because of sitting position. Pain radiates up to right shoulder blade and down to right toes. No pain in left LE. Pain particularly severe behind right knee. No loss of control of bowels or bladder although has had some trouble with getting to the bathroom in time due to the severity of the pain. Not currently . Principal Diagnosis Lumbar disc herniation with radiculopathy Discharge Data Allergies Allergy/AdvReac Type Severity Reaction Status Date / Time penicillin V Allergy Hives Verified 11/05/22 17:40 Consultations 12/03/22 17:04 ED Decision to Admit Stat 12/03/22 20:52 Consult Orthopedic Surgery Routine Procedures Performed Operation Date: 12/05/22 08:10 Actual Procedures p L5-S1 Right Lumbar Laminectomy(Right) - Shiva Washington, Ordered Studies 12/05/22 [place] spine 1V any level Routine Hospital Course (1) Lumbar disc herniation: Patient was admitted with inability ambulate and evidence of a large disc herniation L5-S1 with neural compression. She did attempt a course of medication without improvement and underwent lumbar laminotomy. She tolerated p rocedure well and postop grade 1 radiculopathy markedly improved. She is up and ambulating. Good strength testing. Subsidy discharged home. Discharge orders instructions from the chart for further review. Total Time Total Time Spent Total Time Spent (In Minutes): 20 minutes Discharge Plan Discharge Items Patient Disposition: Home - Self-Care Reason For Visit: INTRACTABLE LOW BACK PAIN, SCIATIC PAIN Discharge Diagnosis: Lumbar disc herniation with radiculopathy Condition on Discharge: Fair Activity: As commented below Non-emergency contact: Primary Care Provider Call non-emergency contact if: you have any medication questions Follow-up/Referrals: Jamaal Cash MD [Primary Care Provider] - Diet: Regular Addtl Attending Provider Instructions: ACTIVITY RECOMMENDATIONS: SELF CARE INSTRUCTIONS AFTER A LAMINECTOMY 1. No prolonged sitting (less than 30 minutes for the first 3 weeks after surgery). 2. No bending, lifting more than 5 pounds, or twisting (roll like a log when turning in bed). 3. You may shower 3 days after surgery if no drainage from wound. Thoroughly dry wound. Do not soak in the tub. 4. Please walk as much as you can for exercise. Gradually increase the distance that you walk as your endurance increases. 5. You may drive in 7-10 days if you are comfortable and no longer requiring pain medications. SPECIAL CARE INSTRUCTIONS: VERY IMPORTANT TO READ AND REVIEW A. Your surgical incision has been closed with a cosmetic suture under the skin that will dissolve in about 6 weeks. In 14 days, you can use a pair of clean scissors and cut the suture that is left outside of the skin at the ends of your incision. B. Complications are uncommon, but please contact us if you have any signs or symptoms of: 1. wound infection (fever higher than 102.5 degrees F, redness, separation of wound, drainage, or increasing pain from the incision) 2. blood clots in legs (pain, swelling, redness and warmth in legs) 3. urinary tract infection (fever higher than 102.5 degrees, burning upon urination or increased frequency of urination) 4. nerve problems (inability to walk on your toes or heels, numbness, loss of bowel or bladder control) 5. any other symptoms that concern you. C. Please call the office at if you have any concerns or questions about your operation or recovery. MANAGING PAIN AFTER SPINAL SURGERY 1. Narcotic medication is intended for short-term use and will be provided for surgical pain. Surgical pain usually lasts for a period of 4-6 weeks. Narcotic medication includes Percocet, Vicodin, Darvocet, Tylenol #3 or Lortab. 2. Longer-term pain is more appropriately treated with non-narcotic medication such as Tylenol ES. 3. Muscle spasm is not appropriately treated with narcotics. Muscle relaxers such as Soma, Flexeril or Skelaxin can be used along with Tylenol ES. 4. Remember that we all live with some "aches and pains". This is not unusual or uncommon after an injury or as we get older. 5. We will provide appropriate medication within the normal guidelines of their prescribed use. We will also be very cautious and aware of potential abuse and extended duration of patients' medication needs. 6. Please allow 2-3 days to process refills. Prescriptions will not be mailed but must be picked up at the office. FOLLOW UP VISIT: Keep your scheduled follow-up appointment. Any questions, please call the office at . Pending Studies at Discharge: No Stand-Alone Forms: My [facility], Smoking Cessation Medications and DC Order Prescriptions: New oxycodone 5 mg tablet 5 mg PO Q6H PRN (Reason: pain, severe) Qty: 20 0RF Continued riboflavin (vitamin B2) [Vitamin B-2] 100 mg Tablet 100 mg PO DAILY Vitron-C 65 mg iron- 125 mg Tablet,Delayed Release (Dr/Ec) 1 tab PO DAILY Vitamin 27 mg iron- 800 mcg Tablet 1 tab PO DAILY labetalol 300 mg tablet 300 mg PO BID Qty: 60 0RF oxycodone 5 mg tablet 5 mg PO Q6 PRN (Reason: pain) Qty: 14 0RF Discontinued methylprednisolone [Medrol (Duglas)] 4 mg tablets,dose pack 4 mg PO DIRECTED Qty: 21 0RF Discharge Orders: Discharge Order (Routine); Ordered 12/06/22 Ordered By: Shiva Washington Admission Data Admit Date/Time: 12/04/22 14:57 Attending Provider: Trinity Patton I. Admit Provider: Trinity Patton I. Primary Care Provider: Jamaal Cash Other Providers: Lm Verde ; Trinity Patton I. ; Shiva Washington ; Opal Hogue
--- NOTE | 2022-12-06 15:35 | Discharge Summary ---
Discharge Summary Date of Service December 06, 2022 Notes For Next Care Provider large disc herniation L5-S1 with neural compression s/p lumbar laminotomy Medication Changes From Visit no medication changes other than short course PRN oxycodone Admission HPI Per Admitting Provider This is a 32 y/o female with a PMH of gestational HTN/possible preeclampsia, for which she is still on the labetalol, adjustment disorder w/ mixed mood, prior right sciatic pain during recent (attributed to baby lying on the nerve), and hx migraines who presents to the ED today with acute intractable back pain. Seen in the ED on 12/01 with back pain radiating down right leg that had started the day prior while standing in her kitchen. She initially felt like her right hip had "popped out" which has happened to her before. Tried going to her chiropractor for manipulation, specifically related to her prior hip issues, but had no relief and pain became severe overnight so came to the ED. No prior history of similar symptoms. She was also complaining of new numbness in her right toes. She was given multiple medications in the ED to control her pain. ED provider spoke with Dr. Washington from [facility] who recommended either admission or very close outpatient follow-up. Pt has a [id number] at home so elected to try outpatient management if possible. Her pain was somewhat improved with meds given in the ED - discharged home on oxycodone, Tylenol, Motrin, and Medrol Dosepak. Has continued to have severe symptoms at home. Even going to the bathroom causes unbearable pain because of sitting position. Pain radiates up to right shoulder blade and down to right toes. No pain in left LE. Pain particularly severe behind right knee. No loss of control of bowels or bladder although has had some trouble with getting to the bathroom in time due to the severity of the pain. Not currently . Admission Exam Per Admitting Provider Constitutional: well developed, well nourished and + in distress (mild due to pain) Eyes: + anicteric sclerae Neck: trachea midline Respiratory: no respiratory distress and no labored breathing Auscultation: lungs clear to auscultation bilaterally Cardiovascular: Rate/Rhythm: regular rate and regular rhythm Vessels: posterior tibial pulses present and radial pulses present Extremities: no pedal edema Gastrointestinal (Abdomen): Inspection/Auscultation: normal bowel sounds; abdomen not distended Percussion/Palpation: abdomen soft Musculoskeletal: Spine: + lumbar spinal tenderness (no spinous process tenderness but tender right > left lumbar area) and + buttock tenderness; no st ep off deformity Skin: scar right ankle from prior surgery Neurologic: moves all extremities; not confused mildly diminished sensation right toes Psychiatric: Orientation: alert and oriented x 3 Principal Dx & Hospital Course #1 = Principal Diagnosis (1) Lower back pain: (2) Lumbar disc herniation: (3) Sciatica: (4) Gestational hypertension: Plan 32 y/o female with PMH of gestational HTN, recent vaginal delivery (10/24/22), and hx sciatic pain during recent who presented to the ED with intractable lower back pain after failing trial of conservative management outpatient. MRI on 12/01 showed large L5-S1 disc herniation. S/p lumbar laminotomy on 12/05/22. Pain significantly improved postoperatively. Still with some lower extremity paresthesias that were present prior to surgery. Able to ambulate with therapy as well as independently. Had a bowel movement this morning. Will continue on current labetalol hypertensive regimen. Patient to follow-up with orthopedic surgery as scheduled. Continue to monitor BP and follow up with PCP. Discharge Exam Gen: WD/WN, NAD, lying in bed, A&Ox3 HEENT: Normocephalic, atraumatic, conjunctivae moist, sclerae anicteric, mucous membranes moist Lung: Clear to Auscultation bilaterally, no wheezes/rales/rhonchi Heart: Regular rate, regular rhythm, no murmurs, rubs, or gallops Abdomen: Soft, NT, ND +BS x 4 Extremities: Spinal dressing c/d/i. No edema Skin: Warm, no rash Updated Medication List Medication Instructions Recorded Confirmed Type labetalol 300 mg tablet 300 mg PO BID #60 tabs 11/05/22 12/03/22 Rx vits no.124-ferrous fum 1 tab PO DAILY 11/05/22 12/03/22 History 27 mg iron-folic acid 800 mcg tablet ( Vitamin) oxycodone 5 mg tablet 5 mg PO Q6 PRN pain #14 tabs 12/01/22 12/03/22 Rx iron,carbonyl 65 mg-vitamin C 125 1 tab PO DAILY 12/03/22 12/03/22 History mg tablet,delayed release (Vitron-C) riboflavin (vitamin B2) 100 mg 100 mg PO DAILY 12/03/22 12/03/22 History tablet (Vitamin B-2) oxycodone 5 mg tablet 5 mg PO Q6H PRN pain, severe #20 12/06/22 Rx tabs Hospital Stay Data Consultations 12/03/22 17:04 ED Decision to Admit Stat 12/03/22 20:52 Consult Orthopedic Surgery Routine Procedures Performed Operation Date: 12/05/22 08:10 Actual Procedures p L5-S1 Right Lumbar Laminectomy(Right) - Shiva Washington DO Diagnostic Imagining Performed 12/05/22 FL spine 1V any level Routine Pending Results Patient Have Any Pending Studies at Discharge: No Discharge Instructions Given to Patient (Per Discharging Provider) ACTIVITY RECOMMENDATIONS: SELF CARE INSTRUCTIONS AFTER A LAMINECTOMY 1. No prolonged sitting (less than 30 minutes for the first 3 weeks after surgery). 2. No bending, lifting more than 5 pounds, or twisting (roll like a log when turning in bed). 3. You may shower 3 days after surgery if no drainage from wound. Thoroughly dry wound. Do not soak in the tub. 4. Please walk as much as you can for exercise. Gradually increase the distance that you walk as your endurance increases. 5. You may drive in 7-10 days if you are comfortable and no longer requiring pain medications. SPECIAL CARE INSTRUCTIONS: VERY IMPORTANT TO READ AND REVIEW A. Your surgical incision has been closed with a cosmetic suture under the skin that will dissolve in about 6 weeks. In 14 days, you can use a pair of clean scissors and cut the suture that is left outside of the skin at the ends of your incision. B. Complications are uncommon, but please contact us if you have any signs or symptoms of: 1. wound infection (fever higher than 102.5 degrees F, redness, separation of wound, drainage, or increasing pain from the incision) 2. blood clots in legs (pain, swelling, redness and warmth in legs) 3. urinary tract infection (fever higher than 102.5 degrees, burning upon urination or increased frequency of urination) 4. nerve problems (inability to walk on your toes or heels, numbness, loss of bowel or bladder control) 5. any other symptoms that concern you. C. Please call the office at if you have any concerns or questions about your operation or recovery. MANAGING PAIN AFTER SPINAL SURGERY 1. Narcotic medication is intended for short-term use and will be provided for surgical pain. Surgical pain usually lasts for a period of 4-6 weeks. Narcotic medication includes Percocet, Vicodin, Darvocet, Tylenol #3 or Lortab. 2. Longer-term pain is more appropriately treated with non-narcotic medication such as Tylenol ES. 3. Muscle spasm is not appropriately treated with narcotics. Muscle relaxers such as Soma, Flexeril or Skelaxin can be used along with Tylenol ES. 4. Remember that we all live with some "aches and pains". This is not unusual or uncommon after an injury or as we get older. 5. We will provide appropriate medication within the normal guidelines of their prescribed use. We will also be very cautious and aware of potential abuse and extended duration of patients' medication needs. 6. Please allow 2-3 days to process refills. Prescriptions will not be mailed but must be picked up at the office. FOLLOW UP VISIT: Keep your scheduled follow-up appointment. Any questions, please call the office at . Total Time Total Time Spent Total Time Spent (In Minutes): 35 Supervising Physician Co-Signing Physician Notes Patient seen and examined Agree with findings and plan
== END 2022-12-06 14:12 | disposition home or self-care (01) | DRG 517 ==
LOC: ED 12:09 → 3E 12:09 → SUATTDRO 17:49 → 3E 20:45 → SUATTDRO 12-04 14:57

== ENCOUNTER 2024-09-10 22:32 | Observation (INO) ==
[2024-09-10 23:09] LABS: Basophils # (auto) 0.02 K/uL (0.00-0.20); Basophils % (auto) 0.2 %; Eosinophils # (auto) 0.06 K/uL (0.00-0.50); Eosinophils % (auto) 0.7 %; Hematocrit (blood only) 32.3 % (37.0-47.0); Hemoglobin 10.9 g/dl (12.0-16.0); Immature Granulocytes # (auto) 0.07 K/uL (0.01-0.20); Immature Granulocytes % (auto) 0.8 %; Lymphocytes # (auto) 1.54 K/uL (1.20-3.40); Lymphocytes % (auto) 17.7 %; Mean Corpuscular Hemoglobin 29.3 pg (25.0-34.0); Mean Corpuscular Hgb Conc 33.7 g/dL (32.0-36.0); Mean Corpuscular Volume 86.8 fL (80.0-100.0); Mean Platelet Volume 9.6 fL (9.4-12.4); Monocytes # (auto) 0.62 K/uL (0.11-0.59); Monocytes % (auto) 7.1 %; Neutrophils # (auto) 6.39 K/uL (1.40-6.50); Neutrophils % (auto) 73.5 %; Platelet Count 212 K/uL (130-400); RDW Coefficient of Variation 13.4 % (11.5-14.5); RDW Standard Deviation 41.5 fL (36.4-46.3); Red Blood Count 3.72 M/uL (4.20-5.40)
[2024-09-10 23:25] LABS: Albumin Globulin Ratio 1.1 (0.9-2); Albumin Level 3.5 gm/dl (3.4-5.0); BUN Creatinine Ratio 17.5 (10-20); Bilirubin,Total 0.6 mg/dl (0.2-1.0); Calcium 9.5 mg/dl (8.6-10.3); Creatinine Clr Calc Pharmacy 203.3 ml/min; Globulin 3.2 gm/dl (2.5-4.0); Potassium 3.7 mmol/L (3.5-5.1); Total Protein 6.7 gm/dl (6.0-8.3)
[2024-09-10 23:31] LABS: Troponin I High Sensitivity 2.8 pg/ml (0-14)
[2024-09-10 23:32] LABS: Prothrombin Time 10.4 Seconds (9.0-12.0)
[2024-09-10] MEDS: ONDANSETRON INJ 2 MG/ML 2 ML VIAL IV STA (23:32)
[2024-09-10] MEDS: MoRPHine SULFATE 4 MG/ML 1 ML CARP\\VIAL IV STA (23:32)
--- NOTE | 2024-09-10 23:33 | Emergency Department Note ---
Impression & Plan Migraine, Hypertension affecting admit to the [facility] Consult OB ED Provider Note NAME: KAREN ALDANA AGE: 33 SEX: Female INFORMANT: Patient ED PROVIDER(S): Sherrill Payton DO CHIEF COMPLAINT: Migraine and left-sided chest pressure PLAN: Disposition: admit to the [facility] MEDICAL DECISION MAKING: This is a 33-year-old female patient at 29 weeks who presents to the emergency department complaining of left-sided chest pain and migraine and shortness of breath. patient has been diagnosed with preeclampsia. She is currently taking labetalol. She had a fairly sudden onset of migraine and chest pressure at 1:00 today. She took a total of 4 Tylenol at 345 this afternoon. Patient's blood pressure is borderline on presentation here to the emergency department. She does have a significant headache. Laboratory studies revealed no leukocytosis. She is mildly anemic consistent with . Platelet count was 212. There were no elevated liver function tests. Troponin was normal. Glucose was normal. She was medicated with morphine, IV fluids and IV Tylenol but the migraine persisted. I discussed the case with Dr. Santos from OB and he recommended admission to the [facility] with consult to OB. Care/management discussed with: integration project manager, Emir her OB and [facility] Triage Nursing notes: reviewed and agree with them. Vital Signs: reviewed and remarkable for tachycardia Additional History obtained from: patient's mother who is at the bedside Chronic Medical/Social Conditions affecting care: patient has a history of preeclampsia and is currently taking labetalol; she has a history of anxiety, ADHD and OCD. Differential Diagnosis: Pleurisy, costochondritis, PE, intracranial hemorrhage, migraine, anxiety Diagnostics, independently interpreted by me: ECG: sinus tachycardia at a rate of [address] segment elevation or signs of ischemia. There is no ectopy. QTc was 417 ms. Cardiac Monitoring: Sinus tachycardia at 117 Imaging studies: CT scan of the chest: As per embro CT scan of the brain: As per embro HPI: 33 year old Female arrives for evaluation of left-sided chest discomfort, shortness of breath and migraine. patient is currently 29 weeks with her third child. has a history of preeclampsia and is currently taking labetalol. At 1:00 this afternoon, she developed a migraine and noted a feeling of some pressure around her upper abdomen that she described as a tire. She then noted some left-sided chest pressure and shortness of breath. PAST MEDICAL HISTORY: See Below, PAST SURGICAL HISTORY: See Below, SOCIAL HISTORY: See Below, HOME MEDICATIONS: See list ALLERGIES: none VITALS: See Below PHYSICAL EXAMINATION: HEENT: Head - normocephalic and atraumatic. Pupils are equal, round, and reactive to light. Extraocular eye muscles are intact, and sclera are anicteric. Nose - moist nasal mucosa without discharge. Mouth - moist buccal mucosa. Oropharynx is nonerythematous and there is no tonsillar exudate or edema noted. Neck: Supple; no cervical lymphadenopathy or nuchal rigidity Chest: There is some reproducible discomfort with palpation to the left anterior chest wall. There are no skin lesions noted. Heart: Regular rate and rhythm. There is a normal S1 and S2 with no murmurs, clicks, or gallops appreciated. Lungs: Clear to auscultation bilaterally with no wheezes, rales, or rhonchi. Abdomen: Soft, gravid and slightly tender to palpation in the upper abdomen. Extremities: No evidence of cyanosis, clubbing, or edema. There are easily palpable peripheral pulses. Skin: warm and dry with good turgor and no rashes. Emergency Department treatment: vehicle monitor technician, IV morphine, IV Zofran, IV Tylenol, IV normal saline Emergency department course: The patient was evaluated in room C-6. A complete history and physical was performed. An order was placed for continuous cardiac monitoring. The patient was in a sinus tachycardia at a rate of 117. A twelve- lead EKG was obtained. patient was medicated with IV Zofran and IV morphine with very little relief of the discomfort to her head. This did give her some relief of the discomfort to her chest. She went for CT scan of the brain and chest. Upon returning from radiology, she was given Another dose of IV morphine. This only gave her minimal relief of her discomfort. She went on to receive a dose of IV Tylenol. She continued to complain of severe head pain. I reviewed the results of the CT scans with the patient. She was given IV normal saline solution. I reviewed results of the laboratory studies with the patient. Patient's blood pressure remained slightly elevated. I discussed the case with OB and they recommended admission to the hospitalist with consult OB. Past Med/Surg History Problem List (Updated 09/12/24 @ 06:52 by Sherrill Payton DO) Hypertension affecting (Acute) Migraine (Acute) Headache in Severe frontal headaches Gestational hypertension Protrusion of intervertebral disc of lumbosacral region (Acute) Uncontrolled pain (Acute) Chronic hypertension with superimposed preeclampsia Macrosomia affecting management of mother in third trimester Chronic hypertension affecting Morbid obesity Hydradenitis (Chronic) Epigastric abdominal pain (Acute) Rash and nonspecific skin eruption (Acute) Cellulitis of left breast Breast abscess of female Breast abscess of female Medical History hemorrhage Positive GBS test History of shoulder dystocia GBS (group B Streptococcus carrier), +RV culture, currently Class 3 obesity Elective induction of labor planned Surgical History Hx of appendectomy Hx laparoscopic cholecystectomy History of ankle surgery Family History Other Diabetes Family history of blood clots Social History Smoking Status: Never smoker Do You Dip or Chew Tobacco: No; Hx Alcohol Use: No Hx Substance Use: No Preferred Language: Faroese Communication Ability: Effective Estate Planning Director Required: No Beliefs That Will Affect Care: None marital status: Current Living Situation: Family Current Living Situation Comment: lives at home with and 3 children Feels Safe at Home: Yes Safety Concerns: Feels Safe At This Time Assistive Devices: None Allergies Allergies Allergy/AdvReac Type Severity Reaction Status Date / Time No Known Allergies Allergy Verified 01/14/23 00:15 Home Meds Home Medications Medication Instructions Recorded Confirmed albuterol sulfate 90 mcg/actuation 2 puff inhalation QID PRN 09/11/24 09/11/24 aerosol inhaler DIRECTED dextroamphetamine-amphetamine 20 20 mg PO TID 09/11/24 09/11/24 mg tablet fluvoxamine 100 mg tablet 150 mg PO HS 09/11/24 09/11/24 folic acid 800 mcg tablet 800 mcg PO QAM 09/11/24 09/11/24 gabapentin 600 mg tablet 600 mg PO TID 09/11/24 09/11/24 labetalol 300 mg tablet 300 mg PO [facility] 09/11/24 09/11/24 ondansetron HCl 4 mg tablet 4 mg PO Q8 PRN Nausea 09/11/24 09/11/24 Results & Data (ED) Vital Signs Vital Signs - 24 hr 09/10/24 22:34 09/10/24 22:58 09/10/24 23:00 Temperature 37.4 C Temperature Source Temporal Artery Scan Pulse Rate 125 H 116 H Respiratory Rate 18 22 Respiratory Effort / Characteristics Non-Labored Spontaneous Respiratory Depth Normal Blood Pressure 142/80 H 139/97 Blood Pressure Mean 100 111 Pulse Oximetry 99 100 100 Oxygen Delivery Method Room Air Room Air Sepsis Recent Fever Within 48 Hours No Sepsis New/Unexplained Change in Mental Status No Sepsis Action Taken by Nursing No Action Required Laboratory Data 09/12/24 06:12 09/11/24 06:45 Lab Results 09/10/24 Range/Units 22:53 WBC 8.70 (4.8-10.8) K/ul RBC 3.72 L (4.20-5.40) M/uL Hgb 10.9 L (12.0-16.0) g/dl Hct 32.3 L (37.0-47.0) % MCV 86.8 (80.0-100.0) fL MCH 29.3 (25.0-34.0) pg MCHC 33.7 (32.0-36.0) g/dL RDW Std Deviation 41.5 (36.4-46.3) fL RDW Coeff of Gurpreet 13.4 (11.5-14.5) % Plt Count 212 (130-400) K/uL MPV 9.6 (9.4-12.4) fL Immature Gran % (Auto) 0.8 % Neut % (Auto) 73.5 % Lymph % (Auto) 17.7 % [place] % (Auto) 7.1 % Eos % (Auto) 0.7 % Baso % (Auto) 0.2 % Neut # (Auto) 6.39 (1.40-6.50) K/uL Lymph # (Auto) 1.54 (1.20-3.40) K/uL [place] # (Auto) 0.62 H (0.11-0.59) K/uL Eos # (Auto) 0.06 (0.00-0.50) K/uL Baso # (Auto) 0.02 (0.00-0.20) K/uL Immature Gran # (Auto) 0.07 (0.01-0.20) K/uL PT 10.4 (9.0-12.0) Seconds INR 1.0 (0.9-1.1) Sodium 140 (136-145) mmol/L Potassium 3.7 (3.5-5.1) mmol/L Chloride 108 H (98-107) mmol/L Carbon Dioxide 25 (21-32) mmol/L Anion Gap 7 (3-11) BUN 10 (6-23) mg/dl Creatinine 0.57 L (0.6-1.2) mg/dl Est Cr Clr Drug Dosing 203.3 ml/min eGFR 122.98 BUN/Creatinine Ratio 17.5 (10-20) Glucose 106 H (70-99(Fasting)) mg/dl Calcium 9.5 (8.6-10.3) mg/dl Total Bilirubin 0.6 (0.2-1.0) mg/dl AST 21 (13-39) U/L ALT 20 (7-52) U/L Alkaline Phosphatase 75 (34-104) U/L Troponin I High Sens 2.8 (0-14) pg/ml Total Protein 6.7 (6.0-8.3) gm/dl Albumin 3.5 (3.4-5.0) gm/dl Globulin 3.2 (2.5-4.0) gm/dl Albumin/Globulin Ratio 1.1 (0.9-2) Lipase 13 (11-82) U/L Administered Medications Amphetamine/Dextroamphetamine (Dextroamphetamine/Amphetamine Ir 20 Mg Tab) 20 mg PO TID ANDRES Stop: 09/25/24 08:59 Last Admin: 09/11/24 21:06 Dose: 20 mg Documented By: Admin: 09/11/24 15:08 Dose: 20 mg Documented By: Admin: 09/11/24 09:52 Dose: 20 mg Documented By: WOJCIECH Fluvoxamine Maleate (Fluvoxamine Maleate 50 Mg Tab) 150 mg PO HS ANDRES Stop: 10/11/24 20:59 Last Admin: 09/11/24 21:02 Dose: 150 mg Documented By: JANNIE Folic Acid (Folic Acid 400 Mcg Tab) 800 mcg PO QAM ANDRES Stop: 10/11/24 08:59 Last Admin: 09/11/24 09:48 Dose: 800 mcg Documented By: WOJCIECH Gabapentin (Gabapentin 600 Mg Tab) 600 mg PO TID ANDRES Stop: 10/11/24 08:59 Last Admin: 09/11/24 21:02 Dose: 600 mg Documented By: Admin: 09/11/24 15:08 Dose: 600 mg Documented By: Admin: 09/11/24 09:48 Dose: 600 mg Documented By: WOJCIECH Acetaminophen (Ofirmev) 1,000 mg in 100 mls @ 400 mls/hr IV Q8H PRN PRN Reason: Pain or Fever Stop: 09/14/24 05:13 Last Infusion: 09/11/24 21:33 Dose: Infused Documented By: Admin: 09/11/24 21:06 Dose: 400 mls/hr Documented By: Infusion: 09/11/24 10:44 Dose: Infused Documented By: Admin: 09/11/24 09:44 Dose: 400 mls/hr Documented By: WOJCIECH Labetalol HCl (Labetalol Hcl 300 Mg Tab) 300 mg PO [facility] Stop: 10/11/24 08:59 Last Admin: 09/11/24 21:02 Dose: 300 mg Documented By: Admin: 09/11/24 09:48 Dose: 300 mg Documented By: WOJCIECH Morphine Sulfate (Morphine Sulfate 4 Mg/Ml 1 Ml Carp\Vial) 3 mg IV Q4H PRN PRN Reason: Severe Pain (Scale 7, 8, 9,10) Stop: 09/25/24 05:13 Last Admin: 09/11/24 15:07 Dose: 3 mg Documented By: Admin: 09/11/24 05:40 Dose: 3 mg Documented By: JOLYNN Ondansetron HCl (Ondansetron Inj 2 Mg/Ml 2 Ml Vial) 4 mg IV Q6H PRN PRN Reason: Nausea Stop: 10/11/24 05:13 Last Admin: 09/12/24 06:29 Dose: 4 mg Documented By: JANNIE Discontinued Medications Diphenhydramine HCl (Diphenhydramine 50 Mg/Ml Vial) 25 mg IV NOW STA Stop: 09/11/24 09:00 Last Admin: 09/11/24 09:47 Dose: 25 mg Documented By: WOJCIECH Diphenhydramine HCl (Diphenhydramine 50 Mg/Ml Vial) 25 mg IV NOW STA Stop: 09/11/24 15:22 Last Admin: 09/11/24 16:26 Dose: 25 mg Documented By: WOJCIECH Diphenhydramine HCl (Diphenhydramine 50 Mg/Ml Vial) 25 mg IV NOW STA Stop: 09/11/24 21:18 Last Admin: 09/11/24 21:54 Dose: 25 mg Documented By: JNANIE Sodium Chloride (Nss) 1,000 mls @ 999 mls/hr IV .Q1H1M ONE Stop: 09/11/24 02:23 Last Infusion: 09/11/24 02:27 Dose: Infused Documented By: Admin: 09/11/24 01:25 Dose: 999 mls/hr Documented By: OMARI Acetaminophen (Ofirmev) 1,000 mg in 100 mls @ 400 mls/hr IV NOW STA Stop: 09/11/24 01:37 Last Infusion: 09/11/24 01:40 Dose: Infused Documented By: Admin: 09/11/24 01:25 Dose: 400 mls/hr Documented By: OMARI Sodium Chloride (Nss) 1,000 mls @ 80 mls/hr IV .[id number] ANDRES Stop: 09/12/24 05:13 Last Admin: 09/11/24 21:00 Dose: 80 mls/hr Documented By: Infusion: 09/11/24 18:11 Dose: Infused Documented By: Admin: 09/11/24 05:41 Dose: 80 mls/hr Documented By: JOLYNN Ioversol (Optiray 320 125ml) 116 ml IV ONCE ONE Stop: 09/10/24 23:50 Last Admin: 09/10/24 23:49 Dose: 116 ml Documented By: JEY Metoclopramide HCl (Metoclopramide Hcl Inj 5 Mg/Ml 2 Ml Vial) 10 mg IV NOW STA Stop: 09/11/24 09:00 Last Admin: 09/11/24 09:47 Dose: 10 mg Documented By: WOJCIECH Metoclopramide HCl (Metoclopramide Hcl Inj 5 Mg/Ml 2 Ml Vial) 10 mg IV NOW STA Stop: 09/11/24 15:22 Last Admin: 09/11/24 16:26 Dose: 10 mg Documented By: WOJCIECH Metoclopramide HCl (Metoclopramide Hcl Inj 5 Mg/Ml 2 Ml Vial) 5 mg IV ONE ONE Stop: 09/11/24 21:18 Last Admin: 09/11/24 21:54 Dose: 5 mg Documented By: JANNIE Morphine Sulfate (Morphine Sulfate 4 Mg/Ml 1 Ml Carp\Vial) 4 mg IV NOW STA Stop: 09/10/24 23:27 Last Admin: 09/10/24 23:32 Dose: 4 mg Documented By: OMARI Morphine Sulfate (Morphine Sulfate 4 Mg/Ml 1 Ml Carp\Vial) 4 mg IV NOW STA Stop: 09/11/24 00:27 Last Admin: 09/11/24 00:30 Dose: 4 mg Documented By: OMARI Ondansetron HCl (Ondansetron Inj 2 Mg/Ml 2 Ml Vial) 4 mg IV NOW STA Stop: 09/10/24 23:27 Last Admin: 09/10/24 23:32 Dose: 4 mg Documented By: OMARI Discharge Plan Visit Data Chief Complaint: Cardiac Assessment Stated Complaint: MIGRIANE, CHEST PRESSURE, SOB, LEFT ABD PAIN ED Provider: Sherrill Payton Discharge Problem: Migraine, Hypertension affecting Patient Disposition: Admitted As Inpatient Discharge Instructions Interventions: ED Discharge Assessment Last Done: 09/11/24 05:16
[2024-09-10] MEDS: OPTIRAY 320 125ml IV ONE (23:49)
[2024-09-11] MEDS: MoRPHine SULFATE 4 MG/ML 1 ML CARP\\VIAL IV STA (00:30)
--- NOTE | 2024-09-11 01:02 | CT Scan Report ---
EXAM: CT head/brain wo con CLINICAL HISTORY: TECHNIQUE: Multiple axial images are obtained from the skull base to the vertex without contrast. CT scan was performed according to ALARA (as low as reasonable achievable). COMPARISON: None. FINDINGS: The brain shows normal morphology, attenuation, and volume for age. No evidence of space occupying lesion, hemorrhage, edema, mass effect, midline shift, extra axial collection, or hydrocephalus is noted. Ventricles, sulci, and basal cisterns are symmetric and normal in size and configuration. The gonzalez-white matter differentiation is preserved. Visualized paranasal sinuses and mastoid air cells are well aerated. Orbital contents are within normal limits. Bony structures are intact. IMPRESSION: 1. No evidence of acute intracranial abnormality is demonstrated Electronically signed by Juan Duong 09-11-2024 01:02 AM
--- NOTE | 2024-09-11 01:04 | CT Scan Report ---
EXAM: CT angio chest PE protocol CLINICAL HISTORY: PE 116 cc opti 320 scan repeated due to iv blowing apart pt shielded TECHNIQUE: Contiguous axial images were obtained from the neck base through the upper abdomen following intravenous administration of iodinated contrast material. Angiographic images were processed, 3D MIP images were acquired for interpretation. If IV contrast material had not been administered, the likelihood of detecting abnormalities relevant to the patient's condition would have been substantially decreased. Coronal and sagittal 3-D MIPs were likewise performed and indicated to increase the sensitivity of detectin diffuse clinically relevant pathology. CT scan was performed according to ALARA (as low as reasonable achievable). COMPARISON: None. FINDINGS: Adequate contrast bolus without evidence of pulmonary embolism. The central airways are patent. The lungs are clear. No pleural effusion. The heart, aorta, and pulmonary arteries are of normal size and configuration. There are no appreciable coronary artery and aortic atherosclerotic calcifications. No pericardial effusion is identified. The thyroid is unremarkable. No mediastinal, hilar, or axillary lymphadenopathy is noted. No suspicious lytic or sclerotic osseous lesions are identified. IMPRESSION: 1. No evidence of pulmonary embolism or pulmonary disease. Electronically signed by Juan Duong 09-11-2024 01:03 AM
[2024-09-11] MEDS: ACETAMINOPHEN 1,000 MG/100 ML VIAL IV STA (01:25)
[2024-09-11] MEDS: SODIUM CHLORIDE 0.9% 1,000 ML IV ONE (01:25)
--- NOTE | 2024-09-11 04:18 | History & Physical Report ---
Date of Service September 11, 2024 Assessment & Plan (1) Severe frontal headaches: Plan: 33-year-old female with past medical history significant for morbid obesity, maternal asthma complicating , history of preeclampsia, hypertension, failed back surgical syndrome, tension headache, high risk , anxiety during currently 29th week comes with severe headaches and also chest pains. Patient states since 1 PM yesterday she has severe headache in the front part of the head going to the top of the head and also around eyeballs, lights bothering her and also having left lower chest pain and also some pain in the left arm which prompted her come to the ER. Patient received morphine and Tylenol in ER but still has significant pain. Patient also feeling short of breath. Denies any cough. No fevers. No runny nose or sore throat. Denies any nausea currently. Has mild abdominal discomfort. Normal bowel and bladder movements. Patient states during last she had preeclampsia and was prescribed labetalol which was supposed to stop after delivery of the baby but then she became again and was continued.Mother is in the room. Severe frontal headaches CT head is okay Received Tylenol and morphine in the ER Will control pain with IV Tylenol and morphine as needed Gentle fluids Close monitor Chest pain and shortness of breath EKG and troponin okay CTA chest is okay Will follow serial cardiac enzymes and echo Monitor in med/telemetry 29th-week High risk Continue prenatals Will consult [facility] [employer] [employer] to help with medications Needs close follow-up Patient says she is currently on Adderall, fluvoxamine, gabapentin and labetalol and also baby aspirin Preeclampsia/hypertension Continue labetalol Will monitor Maternal asthma We will monitor Morbid obesity Needs counseling DVT prophylaxis SCDs Disposition Observation medical/telemetry Full code. History of Present Illness Chief Complaint: Severe headache and chest pain Primary Care Provider: Jamaal Cash MD 33-year-old female with past medical history significant for morbid obesity, maternal asthma complicating , history of preeclampsia, hypertension, failed back surgical syndrome, tension headache, high risk , anxiety during currently 29th week comes with severe headaches and also chest pains. Patient states since 1 PM yesterday she has severe headache in the front part of the head going to the top of the head and also around eyeballs, lights bothering her and also having left lower chest pain and also some pain in the left arm which prompted her come to the ER. Patient received morphine and Tylenol in ER but still has significant pain. Patient also feeling short of breath. Denies any cough. No fevers. No runny nose or sore throat. Denies any nausea currently. Has mild abdominal discomfort. Normal bowel and bladder movements. Patient states during last she had preeclampsia and was prescribed labetalol which was supposed to stop after delivery of the baby but then she became again and was continued.Mother is in the room. Past medical history. As mentioned above Past surgical history. Injection of the lumbosacral spine. Laminotomy. Laparoscopic cholecystectomy. Appendectomy. Revision of ankle joint. Social history. . Quit smoking 2012. Smoked 0.3 pack a day for 2 years. No alcohol use. No drug use. Family history. Sister has anxiety disorder. Asthma. Sister has migraines. Father had blood disorder. Depression. Pulmonary embolism. Chronic venous insufficiency. Paternal aunt had breast cancer. Paternal grandmother had breas t cancer. Diabetes. Maternal grandmother had diabetes. Allergies Allergy/AdvReac Type Severity Reaction Status Date / Time No Known Allergies Allergy Verified 01/14/23 00:15 Home Medications Medication Instructions Recorded Confirmed Type albuterol sulfate 90 mcg/actuation 2 puff inhalation QID PRN 09/11/24 09/11/24 History aerosol inhaler DIRECTED dextroamphetamine-amphetamine 20 20 mg PO TID 09/11/24 09/11/24 History mg tablet fluvoxamine 100 mg tablet 150 mg PO HS 09/11/24 09/11/24 History folic acid 800 mcg tablet 800 mcg PO QAM 09/11/24 09/11/24 History gabapentin 600 mg tablet 600 mg PO TID 09/11/24 09/11/24 History labetalol 300 mg tablet 300 mg PO AMHS 09/11/24 09/11/24 History ondansetron HCl 4 mg tablet 4 mg PO Q8 PRN Nausea 09/11/24 09/11/24 History Past Med/Surg History Problem List (Updated 09/11/24 @ 04:22 by Anson Nuñez MD) Severe frontal headaches Gestational hypertension Protrusion of intervertebral disc of lumbosacral region (Acute) Uncontrolled pain (Acute) Chronic hypertension with superimposed preeclampsia Macrosomia affecting management of mother in third trimester Chronic hypertension affecting Morbid obesity Hydradenitis (Chronic) Epigastric abdominal pain (Acute) Rash and nonspecific skin eruption (Acute) Cellulitis of left breast Breast abscess of female Breast abscess of female Medical History Class 3 obesity Elective induction of labor planned GBS (group B Streptococcus carrier), +RV culture, currently Gestational hypertension History of shoulder dystocia Morbid obesity Positive GBS test hemorrhage Surgical History History of ankle surgery Hx laparoscopic cholecystectomy Hx of appendectomy Family History Other Diabetes Family history of blood clots Social History Smoking Status: Never smoker Do You Dip or Chew Tobacco: No; Hx Alcohol Use: No Hx Substance Use: No Preferred Language: Croatian Communication Ability: Effective Employment Coach Required: No Beliefs That Will Affect Care: None marital status: Current Living Situation: Family Current Living Situation Comment: lives at home with and 3 children Feels Safe at Home: Yes Safety Concerns: Feels Safe At This Time Assistive Devices: Hospital Bed Review of Systems Review of Systems: All systems reviewed & are unremarkable except as noted in HPI & below Physical Exam Physical Exam: General- Not in distress Head- atraumatic Eyes- PERRL. ENT- oropharynx clear Neck- supple, no JVD. Lungs- clear to auscultation no wheezing or crackles. Heart- regular rate and rhythm; no murmur, no gallop. Abdomen- normal bowel sounds, soft, nontender, no distension Extremities- no pretibial edema, no erythema seen Neuro- alert, oriented PERRL, no facial palsy; no dysarthria; moves extremities Results & Data Results & Data Vital Signs (Past 12 Hours) Vital Signs Temp Pulse Resp BP Pulse Ox O2 Del Method 09/11/24 02:59 117 H 09/11/24 02:47 110 H 18 123/94 96 09/11/24 02:05 37.1 C 09/11/24 02:00 116 H 20 128/86 96 09/11/24 01:11 123 H 20 134/95 98 09/11/24 00:50 37.6 C H 09/11/24 00:37 114 H 18 130/91 96 09/11/24 00:15 114 H 18 147/83 H 98 09/10/24 23:43 115 H 20 135/89 98 09/10/24 23:00 116 H 22 139/97 100 09/10/24 22:59 115 H 09/10/24 22:58 100 Room Air 09/10/24 22:34 37.4 C 125 H 18 142/80 H 99 Room Air Diagnostic Findings Laboratory Results WBC 8.70 K/ul (4.8-10.8) 09/10/24 22:53 RBC 3.72 M/uL (4.20-5.40) L 09/10/24 22:53 Hgb 10.9 g/dl (12.0-16.0) L 09/10/24 22:53 Hct 32.3 % (37.0-47.0) L 09/10/24 22:53 MCV 86.8 fL (80.0-100.0) 09/10/24 22:53 MCH 29.3 pg (25.0-34.0) 09/10/24 22:53 MCHC 33.7 g/dL (32.0-36.0) 09/10/24 22:53 RDW Std Deviation 41.5 fL (36.4-46.3) 09/10/24 22:53 RDW Coeff of Gurpreet 13.4 % (11.5-14.5) 09/10/24 22:53 Plt Count 212 K/uL (130-400) 09/10/24 22:53 MPV 9.6 fL (9.4-12.4) 09/10/24 22:53 Immature Gran % (Auto) 0.8 % 09/10/24 22:53 Neut % (Auto) 73.5 % 09/10/24 22:53 Lymph % (Auto) 17.7 % 09/10/24 22:53 Mesa % (Auto) 7.1 % 09/10/24 22:53 Eos % (Auto) 0.7 % 09/10/24 22:53 Baso % (Auto) 0.2 % 09/10/24 22:53 Neut # (Auto) 6.39 K/uL (1.40-6.50) 09/10/24 22:53 Lymph # (Auto) 1.54 K/uL (1.20-3.40) 09/10/24 22:53 Mesa # (Auto) 0.62 K/uL (0.11-0.59) H 09/10/24 22:53 Eos # (Auto) 0.06 K/uL (0.00-0.50) 09/10/24 22:53 Baso # (Auto) 0.02 K/uL (0.00-0.20) 09/10/24 22:53 Immature Gran # (Auto) 0.07 K/uL (0.01-0.20) 09/10/24 22:53 PT 10.4 Seconds (9.0-12.0) 09/10/24 22:53 INR 1.0 (0.9-1.1) 09/10/24 22:53 Sodium 140 mmol/L (136-145) 09/10/24 22:53 Potassium 3.7 mmol/L (3.5-5.1) 09/10/24 22:53 Chloride 108 mmol/L (98-107) H 09/10/24 22:53 Carbon Dioxide 25 mmol/L (21-32) 09/10/24 22:53 Anion Gap 7 (3-11) 09/10/24 22:53 BUN 10 mg/dl (6-23) 09/10/24 22:53 Creatinine 0.57 mg/dl (0.6-1.2) L 09/10/24 22:53 Est Cr Clr Drug Dosing 203.3 ml/min 09/10/24 22:53 eGFR 122.98 09/10/24 22:53 BUN/Creatinine Ratio 17.5 (10-20) 09/10/24 22:53 Glucose 106 mg/dl (70-99(Fasting)) H 09/10/24 22:53 Calcium 9.5 mg/dl (8.6-10.3) 09/10/24 22:53 Total Bilirubin 0.6 mg/dl (0.2-1.0) 09/10/24 22:53 AST 21 U/L (13-39) 09/10/24 22:53 ALT 20 U/L (7-52) 09/10/24 22:53 Alkaline Phosphatase 75 U/L (34-104) 09/10/24 22:53 Troponin I High Sens 2.8 pg/ml (0-14) 09/10/24 22:53 Total Protein 6.7 gm/dl (6.0-8.3) 09/10/24 22:53 Albumin 3.5 gm/dl (3.4-5.0) 09/10/24 22:53 Globulin 3.2 gm/dl (2.5-4.0) 09/10/24 22:53 Albumin/Globulin Ratio 1.1 (0.9-2) 09/10/24 22:53 Lipase 13 U/L (11-82) 09/10/24 22:53 Impressions Chest CTA 09/10/24 23:26 EXAM: CT angio chest PE protocol CLINICAL HISTORY: PE 116 cc opti 320 scan repeated due to iv blowing apart pt shielded TECHNIQUE: Contiguous axial images were obtained from the neck base through the upper abdomen following intravenous administration of iodinated contrast material. Angiographic images were processed, 3D MIP images were acquired for interpretation. If IV contrast material had not been administered, the likelihood of detecting abnormalities relevant to the patient's condition would have been substantially decreased. Coronal and sagittal 3-D MIPs were likewise performed and indicated to increase the sensitivity of detectin diffuse clinically relevant pathology. CT scan was performed according to ALARA (as low as reasonable achievable). COMPARISON: None. FINDINGS: Adequate contrast bolus without evidence of pulmonary embolism. The central airways are patent. The lungs are clear. No pleural effusion. The heart, aorta, and pulmonary arteries are of normal size and configuration. There are no appreciable coronary artery and aortic atherosclerotic calcifications. No pericardial effusion is identified. The thyroid is unremarkable. No mediastinal, hilar, or axillary lymphadenopathy is noted. No suspicious lytic or sclerotic osseous lesions are identified. IMPRESSION: 1. No evidence of pulmonary embolism or pulmonary disease. Electronically signed by Juan Duong 09-11-2024 01:[address] 09/10/24 23:26 EXAM: CT head/brain wo con CLINICAL HISTORY: TECHNIQUE: Multiple axial images are obtained from the skull base to the vertex without contrast. CT scan was performed according to ALARA (as low as reasonable achievable). COMPARISON: None. FINDINGS: The brain shows normal morphology, attenuation, and volume for age. No evidence of space occupying lesion, hemorrhage, edema, mass effect, midline shift, extra axial collection, or hydrocephalus is noted. Ventricles, sulci, and basal cisterns are symmetric and normal in size and configuration. The gonzalez-white matter differentiation is preserved. Visualized paranasal sinuses and mastoid air cells are well aerated. Orbital contents are within normal limits. Bony structures are intact. IMPRESSION: 1. No evidence of acute intracranial abnormality is demonstrated Electronically signed by Juan Duong 09-11-2024 01:02 AM ECG Additional Comments: ECG sinus tachycardia rate of 118. No significant change was found. Code Status & VTE Plan VTE Prophylaxis Plan VTE Prophylaxis will be ordered: Yes
[2024-09-11] MEDS: MoRPHine SULFATE 4 MG/ML 1 ML CARP\\VIAL IV PRN (05:40)
[2024-09-11] MEDS: SODIUM CHLORIDE 0.9% 1,000 ML IV SCH (05:41)
[2024-09-11 07:14] LABS: Basophils # (auto) 0.03 K/uL (0.00-0.20); Basophils % (auto) 0.4 %; Eosinophils # (auto) 0.03 K/uL (0.00-0.50); Eosinophils % (auto) 0.4 %; Hematocrit (blood only) 31.1 % (37.0-47.0); Hemoglobin 10.2 g/dl (12.0-16.0); Immature Granulocytes # (auto) 0.06 K/uL (0.01-0.20); Immature Granulocytes % (auto) 0.8 %; Lymphocytes # (auto) 1.66 K/uL (1.20-3.40); Lymphocytes % (auto) 21.9 %; Mean Corpuscular Hemoglobin 28.7 pg (25.0-34.0); Mean Corpuscular Hgb Conc 32.8 g/dL (32.0-36.0); Mean Corpuscular Volume 87.6 fL (80.0-100.0); Mean Platelet Volume 9.3 fL (9.4-12.4); Monocytes # (auto) 0.66 K/uL (0.11-0.59); Monocytes % (auto) 8.7 %; Neutrophils # (auto) 5.13 K/uL (1.40-6.50); Neutrophils % (auto) 67.8 %; Platelet Count 187 K/uL (130-400); RDW Coefficient of Variation 13.5 % (11.5-14.5); RDW Standard Deviation 42.8 fL (36.4-46.3); Red Blood Count 3.55 M/uL (4.20-5.40); White Blood Count 7.57 K/ul (4.8-10.8)
[2024-09-11 07:24] LABS: BUN Creatinine Ratio 11.5 (10-20); Calcium 9.1 mg/dl (8.6-10.3); Creatinine Clr Calc Pharmacy 222.4 ml/min; Magnesium 1.5 mg/dl (1.7-2.4); Potassium 3.7 mmol/L (3.5-5.1)
[2024-09-11 07:30] LABS: Troponin I High Sensitivity 3.1 pg/ml (0-14)
[2024-09-11] MEDS: ACETAMINOPHEN 1,000 MG/100 ML VIAL IV PRN (09:44)
[2024-09-11] MEDS: METOCLOPRAMIDE HCL INJ 5 MG/ML 2 ML VIAL IV STA ×2 (09:47→16:26)
[2024-09-11] MEDS: diphenhydrAMINE 50 MG/ML VIAL IV STA ×3 (09:47→21:54)
[2024-09-11] MEDS: FOLIC ACID 400 MCG TAB PO SCH (09:48)
[2024-09-11] MEDS: GABAPENTIN 600 MG TAB PO SCH (09:48)
[2024-09-11] MEDS: LABETALOL HCL 300 MG TAB PO SCH (09:48)
[2024-09-11] MEDS: DEXTROAMPHETAMINE/AMPHETAMINE IR 20 MG TAB PO SCH (09:52)
--- NOTE | 2024-09-11 10:43 | History & Physical Report ---
Date of Service September 11, 2024 Assessment & Plan (1) Severe frontal headaches: (2) Chronic hypertension affecting : (3) History of shoulder dystocia: (4) Class 3 obesity: (5) Headache in : Plan: 33-year-old -0-0-3 at 28 weeks and 2 days of gestation, complicated by, asthma, anxiety, ADHD, class III obesity, medication exposure during , history of back surgery, close interval. She was admitted for headache and chest pain by medicine this morning from ER, on labetalol for chronic hypertension during , Vital signs stable afebrile, blood pressures are within normal limits, No OB complaints, NST reactive, heart rate reassuring No signs of symptoms of labor labs including platelets and liver enzymes are within normal limits would recommend urine PC ratio which I placed order for, Recommend neurology consultation for sudden onset headache, will follow with NSTs per shift, continue with her current medication regimen, All questions were answered Admission and Anticipated Discharge Date Admission Date: September 11, 2024 History of Present Illness Chief Complaint: Headache Primary Care Provider: Jamaal Cash MD patient is a 33-year-old -0-0-3 at 28 weeks and 2 days of gestation who started to have headache around 1 PM yesterday while she was at home. it was around her eyes and temples which moves up to her top of the head. The pain level was 9 out of 10 yesterday. Headache continued She also noticed chest pain and presented to ER this morning when she was admitted under medicine. She denies change in her vision, nausea vomiting, epigastric or right upper quadrant pain. She denies contractions, leakage of fluid, vaginal bleeding. She reports good movements. Her has been complicated by, 1. Class II obesity, 2. Anxiety during , OCD, managed by [facility], 3. History of asthma, on albuterol, 4. Chronic hypertension during , on labetalol 300 mg daily blood pressures were stable, labs have been normal, on aspirin 80 mg daily, 5. History of shoulder dystocia in prior in 2020 fetus weight 4344 g, 6. Medication exposure during she has been on gabapentin for chronic back pain and Adderall for ADHD, she has seen M about this and decided to continue during this , 7. History of back surgery, laminectomy in 2022, 8. Close interval, has a 1-year-old baby at home Allergies Allergy/AdvReac Type Severity Reaction Status Date / Time No Known Allergies Allergy Verified 01/14/23 00:15 Home Medications Medication Instructions Recorded Confirmed Type albuterol sulfate 90 mcg/actuation 2 puff inhalation QID PRN 09/11/24 09/11/24 History aerosol inhaler DIRECTED dextroamphetamine-amphetamine 20 20 mg PO TID 09/11/24 09/11/24 History mg tablet fluvoxamine 100 mg tablet 150 mg PO HS 09/11/24 09/11/24 History folic acid 800 mcg tablet 800 mcg PO QAM 09/11/24 09/11/24 History gabapentin 600 mg tablet 600 mg PO TID 09/11/24 09/11/24 History labetalol 300 mg tablet 300 mg PO AMHS 09/11/24 09/11/24 History ondansetron HCl 4 mg tablet 4 mg PO Q8 PRN Nausea 09/11/24 09/11/24 History Patient History Medical History hemorrhage Positive GBS test History of shoulder dystocia GBS (group B Streptococcus carrier), +RV culture, currently Class 3 obesity Elective induction of labor planned Surgical History Hx of appendectomy Hx laparoscopic cholecystectomy History of ankle surgery Family History Other Diabetes Family history of blood clots Social History Smoking Status: Never smoker Do You Dip or Chew Tobacco: No; Hx Alcohol Use: No Hx Substance Use: No Preferred Language: Greenlandic Communication Ability: Effective Product Builder Required: No Beliefs That Will Affect Care: None marital status: Current Living Situation: Family Current Living Situation Comment: lives at home with and 3 children Feels Safe at Home: Yes Safety Concerns: Feels Safe At This Time Assistive Devices: Hospital Bed Review of Systems as per Subjective / HPI Physical Exam 2 Physical Exam: patient is covering her eyes and temples with cold towels Constitutional: WD/WN, vitals as above well developed, well nourished and + obese Gastrointestinal (Abdomen): normal bowel sounds, soft, nontender, no hepatosplenomegaly ( nontender, gravid) Neurologic: PERRL, EOMI, accommodation nl, no face palsy, no dysarthria patient uncovered her eyes and look at me able to see me and objects clearly able to follow my fingertip, patient has normal strength in legs and upper extremities and no sensational deficiency Genitourinary: OB Exam Monitor Tracing: + external uterine monitor used and + category I NST is reactive, toco shows no contractions Results & Data Vital Signs (Past 12 Hours) Vital Signs Temp Pulse Pulse Resp BP BP BP 09/11/24 07:39 36.8 C 105 H 19 130/85 09/11/24 06:00 09/11/24 05:55 108 H 09/11/24 05:25 37.2 C 105 H 18 132/82 09/11/24 05:24 106 H 09/11/24 03:15 111 H 14 130/95 09/11/24 02:59 117 H 09/11/24 02:47 110 H 18 123/94 09/11/24 02:05 37.1 C 09/11/24 02:00 116 H 20 128/86 09/11/24 01:11 123 H 20 134/95 09/11/24 00:50 37.6 C H 09/11/24 00:37 114 H 18 130/91 09/11/24 00:15 114 H 18 147/83 H 09/10/24 23:43 115 H 20 135/89 09/10/24 23:00 116 H 22 139/97 09/10/24 22:59 115 H 09/10/24 22:58 09/10/24 22:34 37.4 C 125 H 18 142/80 H Pulse Ox O2 Del Method 09/11/24 07:39 96 Room Air 09/11/24 06:00 Room Air 09/11/24 05:55 09/11/24 05:25 96 Room Air 09/11/24 05:24 09/11/24 03:15 95 Room Air 09/11/24 02:59 09/11/24 02:47 96 09/11/24 02:05 09/11/24 02:00 96 09/11/24 01:11 98 11/22/24 00:50 09/11/24 00:37 96 09/11/24 00:15 98 09/10/24 23:43 98 09/10/24 23:00 100 09/10/24 22:59 09/10/24 22:58 100 Room Air 09/10/24 22:34 99 Room Air Code Status & VTE Plan VTE Prophylaxis Plan VTE Prophylaxis will be ordered: Yes (5) Headache in Trimester: third trimester Qualified Code(s): O26.893 - Other specified related conditions, third trimester; R51.9 - Headache, unspecified
--- NOTE | 2024-09-11 12:21 | Neurology Consultation ---
Date of Consultation September 11, 2024 Assessment & Plan (1) Headache in : likely migraine in a 33F with a pMH of headache and who is currently . I do have a low suspicion that there is a more sinister cause of her headaches, but would recommend imaging. Plan Recommend MRI/MRV brain to rule out CVST Telehealth Consultation Telehealth Information Telehealth Information: I performed this visit using a real-time telehealth connection between my location and the patients location ([facility]). After connecting through interactive tele-video, patient was identified by name and date of and/or wristband check.Patient (or authorized healthcare veterans service representative) was informed that this was a telemedicine visit and it was being conducted confidentially over secure lines. My office door was closed and no one else was present in the room with me.Patient (or authorized healthcare veterans service representative) provided consent to proceed with the visit, expressed an understanding of privacy and security of the telemedicine visit, and gave permission to have a hospital veterans service representative in the room in order to assist with the visit and to conduct portions of the visit, as needed. I informed the patient (or authorized healthcare veterans service representative) that I reviewed their record and presented the opportunity for them to ask any questions regarding the visit today. The patient agreed to participate. History of Present Illness Reason for Consultation: headache Attending Physician: Edwin Dunn MD History of Present Illness Theresa Ordaz is a 33F with a PMH of obesity who is currently 29 week who presents with headache. Yesterday she was sitting down when she developed a headache that gradually worsened throughout the day. The headache is bifrontal and wraps around her eyes. it is a 4/10 in severity now. She endorse photophobia and phonophobia but this is improving. She denies any nausea/vomiting. She does say that lying flat makes the headache worse. She does have a history of migraine and will get 1-2 headaches a month, but these only last for 1-2 hours and then resolve. They aren't normally this severe She denies fevers, chills, nausea, vomtiing, SOB, weakness, numbness, slurred speech, vertigo or aphasia. Allergies Allergy/AdvReac Type Severity Reaction Status Date / Time No Known Allergies Allergy Verified 01/14/23 00:15 Home Medications Medication Instructions Recorded Confirmed Type albuterol sulfate 90 mcg/actuation 2 puff inhalation QID PRN 09/11/24 09/11/24 History aerosol inhaler DIRECTED dextroamphetamine-amphetamine 20 20 mg PO TID 09/11/24 09/11/24 History mg tablet fluvoxamine 100 mg tablet 150 mg PO HS 09/11/24 09/11/24 History folic acid 800 mcg tablet 800 mcg PO QAM 09/11/24 09/11/24 History gabapentin 600 mg tablet 600 mg PO TID 09/11/24 09/11/24 History labetalol 300 mg tablet 300 mg PO AMHS 09/11/24 09/11/24 History ondansetron HCl 4 mg tablet 4 mg PO Q8 PRN Nausea 09/11/24 09/11/24 History Patient History Medical History hemorrhage Positive GBS test History of shoulder dystocia GBS (group B Streptococcus carrier), +RV culture, currently Class 3 obesity Elective induction of labor planned Surgical History Hx of appendectomy Hx laparoscopic cholecystectomy History of ankle surgery Family History Other Diabetes Family history of blood clots Social History Smoking Status: Never smoker Do You Dip or Chew Tobacco: No; Hx Alcohol Use: No Hx Substance Use: No Preferred Language: Urdu Communication Ability: Effective Clutch Specialist Required: No Beliefs That Will Affect Care: None marital status: Current Living Situation: Family Current Living Situation Comment: lives at home with and 3 children Feels Safe at Home: Yes Safety Concerns: Feels Safe At This Time Assistive Devices: Hospital Bed Physical Exam NEUROLOGIC EXAMINATION: Mental Status:alert, oriented to time, place, person, normal recent memory, normal remote memory, normal attention span, normal concentration, normal language, and normal fund of knowledge Cranial Nerves: CN 2 - no visual defect on confrontation and pupils round, equal, reactive to light CN 3, 4, 6 - extra-ocular movements intact and no nystagmus CN 5 - facial sensation intact CN 7 - no facial asymmetry CN 8 - intact hearing CN 9, 10 - palate symmetric, normal gag CN 11 - good shoulder shrug CN 12 - tongue midline MOTOR: Strength was at least antigravity throughout, Pronator drift was absent, and There were no abnormal movements SENSATION: intact COORDINATION: no ataxia with finger to nose testing and heel to alonso testing REFLEXES: cannot assess over telemedicine Results & Data Vital Signs (Past 12 Hours) Vital Signs Temp Pulse Pulse Resp BP BP BP 09/11/24 11:39 36.7 C 65 18 108/68 09/11/24 07:39 36.8 C 105 H 19 130/85 09/11/24 06:00 09/11/24 05:55 108 H 09/11/24 05:25 37.2 C 105 H 18 132/82 09/11/24 05:24 106 H 09/11/24 03:15 111 H 14 130/95 09/11/24 02:59 117 H 09/11/24 02:47 110 H 18 123/94 09/11/24 02:05 37.1 C 09/11/24 02:00 116 H 20 128/86 09/11/24 01:11 123 H 20 134/95 09/11/24 00:50 37.6 C H 09/11/24 00:37 114 H 18 130/91 Pulse Ox O2 Del Method 09/11/24 11:39 94 Room Air 09/11/24 07:39 96 Room Air 09/11/24 06:00 Room Air 09/11/24 05:55 09/11/24 05:25 96 Room Air 09/11/24 05:24 09/11/24 03:15 95 Room Air 09/11/24 02:59 09/11/24 02:47 96 09/11/24 02:05 09/11/24 02:00 96 09/11/24 01:11 98 09/11/24 00:50 09/11/24 00:37 96 Laboratory Results Abnormal Lab Results 09/10/24 09/11/24 22:53 06:45 WBC 8.70 7.57 RBC 3.72 L 3.55 L Hgb 10.9 L 10.2 L Hct 32.3 L 31.1 L MCV 86.8 87.6 MCH 29.3 28.7 MCHC 33.7 32.8 RDW Std Deviation 41.5 42.8 RDW Coeff of Gurpreet 13.4 13.5 Plt Count 212 187 MPV 9.6 9.3 L Immature Gran % (Auto) 0.8 0.8 Neut % (Auto) 73.5 67.8 Lymph % (Auto) 17.7 21.9 [place] % (Auto) 7.1 8.7 Eos % (Auto) 0.7 0.4 Baso % (Auto) 0.2 0.4 Neut # (Auto) 6.39 5.13 Lymph # (Auto) 1.54 1.66 [place] # (Auto) 0.62 H 0.66 H Eos # (Auto) 0.06 0.03 Baso # (Auto) 0.02 0.03 Immature Gran # (Auto) 0.07 0.06 PT 10.4 INR 1.0 Sodium 140 137 Potassium 3.7 3.7 Chloride 108 H 107 Carbon Dioxide 25 24 Anion Gap 7 6 BUN 10 6 Creatinine 0.57 L 0.52 L Est Cr Clr Drug Dosing 203.3 222.4 eGFR 122.98 125.73 BUN/Creatinine Ratio 17.5 11.5 Glucose 106 H 102 H Calcium 9.5 9.1 Magnesium 1.5 L Total Bilirubin 0.6 AST 21 ALT 20 Alkaline Phosphatase 75 Troponin I High Sens 2.8 3.1 Total Protein 6.7 Albumin 3.5 Globulin 3.2 Albumin/Globulin Ratio 1.1 Lipase 13 Diagnostic Findings Chest CTA 09/10/24 23:26 EXAM: CT angio chest PE protocol CLINICAL HISTORY: PE 116 cc opti 320 scan repeated due to iv blowing apart pt shielded TECHNIQUE: Contiguous axial images were obtained from the neck base through the upper abdomen following intravenous administration of iodinated contrast material. Angiographic images were processed, 3D MIP images were acquired for interpretation. If IV contrast material had not been administered, the likelihood of detecting abnormalities relevant to the patient's condition would have been substantially decreased. Coronal and sagittal 3-D MIPs were likewise performed and indicated to increase the sensitivity of detectin diffuse clinically relevant pathology. CT scan was performed according to ALARA (as low as reasonable achievable). COMPARISON: None. FINDINGS: Adequate contrast bolus without evidence of pulmonary embolism. The central airways are patent. The lungs are clear. No pleural effusion. The heart, aorta, and pulmonary arteries are of normal size and configuration. There are no appreciable coronary artery and aortic atherosclerotic calcifications. No pericardial effusion is identified. The thyroid is unremarkable. No mediastinal, hilar, or axillary lymphadenopathy is noted. No suspicious lytic or sclerotic osseous lesions are identified. IMPRESSION: 1. No evidence of pulmonary embolism or pulmonary disease. Electronically signed by Juan Duong 09-11-2024 01:[address] 09/10/24 23:26 EXAM: CT head/brain wo con CLINICAL HISTORY: TECHNIQUE: Multiple axial images are obtained from the skull base to the vertex without contrast. CT scan was performed according to ALARA (as low as reasonable achievable). COMPARISON: None. FINDINGS: The brain shows normal morphology, attenuation, and volume for age. No evidence of space occupying lesion, hemorrhage, edema, mass effect, midline shift, extra axial collection, or hydrocephalus is noted. Ventricles, sulci, and basal cisterns are symmetric and normal in size and configuration. The gonzalez-white matter differentiation is preserved. Visualized paranasal sinuses and mastoid air cells are well aerated. Orbital contents are within normal limits. Bony structures are intact. IMPRESSION: 1. No evidence of acute intracranial abnormality is demonstrated Electronically signed by Juan Duong 09-11-2024 01:02 AM (1) Headache in Trimester: third trimester Qualified Code(s): O26.893 - Other specified related conditions, third trimester; R51.9 - Headache, unspecified
--- NOTE | 2024-09-11 13:05 | Communication Note ---
Date of Service: September 11, 2024 Patient seen and examined at bedside. Reports that her headache is better after administration of metoclopramide. Still reports difficulty seeing lights. Chest pain has improved On physical examination; Constitutional: Awake, alert oriented x 3; appears to be in mild distress. Respiratory: normal respiratory effort, lungs clear to auscultation, no wheeze, rales, rhonchi. Normal insp/exp effort, no accessory muscle use Cardiovascular: RRR, no murmur, no edema Vessels: no JVD or carotid bruit Chest: normal inspection of chest Abdomen: Soft, nontender. Musculoskeletal: no cyanosis or clubbing, extremities motor strength 5/5 Skin: no rashes, warm and dry normal turgor Neurologic: PERRL, EOMI, accommodation nl, no face palsy, no dysarthria CN's II- XI intact bilaterally and moves all extremities Assessment/plan Headache Possible migraine Patient presents with severe onset of headache. Reports prior history of migraine; not on any preventive medication CT headno acute intracranial abnormality Patient given Reglan and Benadryl with improvement of the headache Neurology consulted; recommended MRI and MRV of the brain. Will follow-up on the recommendation after the results. Chest pain Patient presented with intermittent report of substernal chest pain EKG reviewed; sinus tachycardia; no other significant changes CTA chest- no acute findings High sensitive troponin negative Will follow-up on echocardiogram Second trimester Obstetrics consulted; recommend neurologic consultation for sudden onset headache. Plan to obtain urine protein creatinine ratio Continue current medication Hypertensioncontinue on labetalol Full code DVT prophylaxis SCDs Please note the above document was generated using voice recognition software. It may contain grammatical, syntax or spelling errors. Any formal questions or concerns about the content, text or information contained within the body of this dictation should be directly addressed to the provider for clarification
--- NOTE | 2024-09-11 14:40 | Electrocardiogram Report ---
Test Reason : Blood Pressure : */* mmHG Vent. Rate : 118 BPM Atrial Rate : 118 BPM P-R Int : 146 ms QRS Dur : 80 ms QT Int : 298 ms P-R-T Axes : 51 20 59 degrees QTcB Int : 417 ms Sinus tachycardia Otherwise normal ECG When compared with ECG of 05-Nov-2022 16:00, No significant change was found Confirmed by Giovanni Hernandez ([id number]) on 09/11/2024 2:40:20 PM Referred By: Dawson Krishnamurthy Confirmed By: Giovanni Hernandez
--- NOTE | 2024-09-11 15:07 | Magnetic Resonance Report ---
MR brain wo con HISTORY: 33 years-old Female severe headache acute migraine headache COMPARISON: MRV of same day, head CT 09/10/2024 TECHNIQUE: Multiplanar multisequence MRI of the brain FINDINGS: No restricted diffusion. Midline structures appear unremarkable. Study is mildly motion degraded. The re is no acute intracranial hemorrhage, midline shift, abnormal extra-axial collection, hydrocephalus or intra-axial mass. The cerebral venous sinuses and major arterial flow voids appear patent. Skull, orbits and soft tissu es are unremarkable. Mastoid air cells and paranasal sinuses appear clear. The volume and signal hermann acteristics of the brain parenchyma are within normal limits. IMPRESSION: No acute intracranial abnormality. ACT 112: Negative or not required by law. The above report was generated using voice recognition software. It may contain grammatical, syntax o r spelling errors. Electronically signed by: Melo Soto M.D. 09/11/2024 3:06 PM
--- NOTE | 2024-09-11 15:09 | Magnetic Resonance Report ---
MR venography head wo con CLINICAL HISTORY: Severe headache. COMPARISON STUDY: Head CT September 10, 2024. TECHNIQUE: Utilizing a 1.5 Yi magnet and [id number] technique, unenhanced MRA of the head was obtained. FINDINGS: Please note that the MRI of the brain will be reported separately. Mild cerebellar tonsilla r ectopia is better depicted on that exam. The superior sagittal sinus is patent. The straight sinus is patent. The bilateral transverse and sigmoid sinuses are patent as are visualized portions of the proximal internal jugular veins. No dural sinus thrombosis is identified on this exam. IMPRESSION: No evidence for dural sinus thrombosis. ACT 112: Negative or not required by law. Electronically signed by: Duran Davila M.D. 09/11/2024 3:08 PM
[2024-09-11] MEDS: fluvoxaMINE MALEATE 50 MG TAB PO SCH (21:02)
[2024-09-11] MEDS: METOCLOPRAMIDE HCL INJ 5 MG/ML 2 ML VIAL IV ONE (21:54)
[2024-09-12 00:08] LABS: Total Protein Urine Random 7.5 mg/dl (0-11.9)
[2024-09-12 00:14] LABS: Creatinine Urine Random 41.1 mg/dl; Protein Creatinine Ratio Urine 0.2 (0-0.2)
--- OUTSIDE RECORDS SUMMARY | 2024-09-12 00:16 | External Medical Summary | Summary of Care ---
Author Name Unknown Organization [facility] Address [address] [place] [address] Phone [phone] Care Team Providers Care Drawing Supervisor Name Role Phone Jamaal Cash MD Primary Care Provider [phone] Reason for Visit * Reason Comments Return Visit Encounter Details Date Type Department Care Team (Late st Contact Info) Description 09/09/2024 4:30 PM EST Office Visit Gynecology/Obstetric s Just[facility] Acosta [address] [place] [id number] Yaritza Bartlett PA-C [address] [place] [address] High-risk in third trimester*; Antepartum anemia complicating ; Obesity in , antepartum; Chronic hypertension in ; History of shoulder dystocia in prior ; History of delivery of macrosomal ; Medication exposure during first trimester of ; History of pre-eclampsia in prior , currently ; History of back surgery; Rubella non-immune status, antepartum; Maternal asthma complicating ; Anxiety during Allergies No known active allergiesdocumented as of this encounter (statuses as of 09/09/2024) Medications Vit-Fe Fumarate-FA ( VITAMIN) 27-0.8 MG TABS Take by mouth. Activ e fluvoxaMINE Maleate 100 MG Oral Tablet (Luvox) TAKE 1 TABLET BY MOUTH EVERYDAY AT BEDTIME 3 Active ProAir HFA 108 (90 Base) MCG/ACT Inhalation Aerosol SolutionIndicati ons:Bronchitis, complicated Inhale 2 Puffs by mouth in the morning and 2 Puffs at noon and 2 Puffs in the evening and 2 Puffs before bedtime. 18 g 1 4 Active Gabapentin 600 MG Oral Tablet (Neurontin) Take 1 Tablet by mouth in the morning and 1 Tablet at noon and 1 Tablet before bedtime. 90 Tablet 5 4 Active Aspirin 81 MG Oral Tablet Chewable (Aspirin 81) Take 1 Tablet by mouth in the morning. 4 Active Amphetamine-Dext roamphetamine 20 MG Oral Tablet (Adderall) Take 1 Tablet by mouth in the morning and 1 Tablet at noon and 1 Tablet before bedtime. 4 Active Labetalol HCl 300 MG Oral Tablet TAKE 1 TABLET BY MOUTH IN THE MORNING AND BEFORE BEDTIME 180 Tablet 2 4 Active Folic Acid 800 MCG Oral TabletIndication s:Medication exposure during first trimester of Take 1 Tablet by mouth in the morning. 90 Tablet 2 4 Active Additional Information Patient not taking.Reported on 09/09/2024 Ondansetron HCl 4 MG Oral TabletIndication s:Nausea Take 1 Tablet by mouth every 8 hours as needed for Nausea. 30 Tablet 2 4 Active documented as of this encounter (statuses as of 09/09/2024) Active Problems Problem Noted Date Diagnosed Date Anxiety during 05/18/2024 Overview (05/18/2024): Anxiety and OCD managed with Luvox (SSRI) No current outpatient therapy Reports a stable mood in . Denies any suicidal or homicidal ideation. Reports she has a good support system at home. Assessment & Plan (05/18/2024 10:44 AM EDT): CONSIDERATIONS: Untreated maternal anxiety and depression may be associated with an increased risk of multiple poor obstetrical outcomes including miscarriages, low weight, and delivery. Women with a history of anxiety or depression are at risk for recurrence both during and/or the period. Studies of first-trimester SSRI exposure do not demonstrate consistent data to support an increased risk for structural malformations. Anti-anxiety or depression medications have been associated with transient effects (withdrawal syndrome). RECOMMENDATIONS: Mental illness can and should be treated during when the benefits of treatment outweigh potential risks. Referral to behavioral health services as clinically indicated. Maternal asthma complicating Overview (05/18/2024): Managed with albuterol as needed Last albuterol use November 2023 Denies hospitalizations or intubations due to asthma Assessment & Plan (05/18/2024 10:32 AM EDT): CONSIDERATIONS: Asthma symptoms may improve, worsen or remain unchanged in severity in . Asthma is generally managed the same in as in the non- patient, as asthma-control medications are considered safe in . If asthma is well-controlled with medications prior to , it is recommended to continue the same medication regimen during . A patient should seek medical care immediately if an asthma flare does not respond to therapy. Mild and well-controlled moderate asthma can be associated with excellent maternal and outcomes. Severe and poorly controlled asthma may be associated with increased morbidity and mortality. Asthma management includes monitoring of lung function with pulmonary function testing (when indicated), avoidance of triggers (such as tobacco smoke, mold, dust mite exposure, animal dander and cockroaches), and a step-care approach to pharmacologic therapy based on the severity of the patient's asthma. RECOMMENDATIONS: Inhaled corticosteroids are the mainstay of therapy for all patients except those with intermittent asthma. If patients are routinely requiring rescue inhaler (such as albuterol, Ventolin, ProAir, Atrovent, or Proventil) use more than twice weekly, we recommend adding a low-dose inhaled corticosteroid. [Pulmicort (budesonide) is preferred to use in .] If patients are routinely requiring rescue inhaler use daily, we recommend adding a combined low-dose inhaled corticosteroid/long-acting beta-agonist [such as Advair (fluticasone/salmeterol) or Symbicort (budesonide/formoterol)] or a medium dose inhaled corticosteroid. Patient should discuss these treatment options with her primary OB provider or PCP. Typically, patients do not need stress dose steroids as long as they continue their usual dose perioperatively (or during labor) and do not have primary renal failure or other problems with the pituitary axis. Medications such as prostaglandin F2a (including Hemabate), ergonovine, and indomethacin (in patients who are aspirin allergic) should be used with caution. Patients with moderate or severe persistent asthma should have Maternal- Medicine ultrasound for anatomy at 19-20 weeks. surveillance with growth ultrasounds and non-stress tests should be considered starting at 32 weeks. Rubella non-immune status, antepartum 05/11/2024 High-risk 05/08/2024 Obesity in , antepartum 05/08/2024 Overview (05/12/2024): The patient's pre-gravid BMI is 41.03. Class 3 Lab Results Component Value Date/Time 50-G GESTATIONAL GLUCOSE, 1 HOUR - [facility] 121 05/08/2024 10:43 AM Assessment & Plan (07/15/2024 10:52 AM EDT): I reviewed the ultrasound with her. The anatomy that was visualized appears unremarkable and the biometry is appropriate for the gestational age. The amniotic fluid volume is subjectively normal and the fetus is in the breech presentation. Assessment & Plan (05/18/2024 10:39 AM EDT): CONSIDERATIONS: Discussed obstetrical risks associated with class III obesity (pre- BMI of greater than or equal to 40) Reviewed that the accuracy of ultrasound at diagnosing anomalies is significantly decreased for women with an increased BMI. RECOMMENDATIONS: Recommend restricting weight gain during to 11-20 pounds. Patient should be referred for a nutrition consult. Recommend evaluation for signs and symptoms (snoring, excessive daytime sleepiness witnessed apnea or unexplained hypoxia) of obstructive sleep apnea. If any of these are present, referral to Sleep Medicine specialist for further evaluation should be considered. Recommend performing gestational diabetes mellitus screen again at 26-28 weeks if early screen is normal. Recommend Maternal- Medicine ultrasound for anatomy at 20 weeks and for growth every 4 weeks thereafter. For patients with Class 3 obesity, we recommend baseline preeclamptic labs with CBC, serum AST/ALT/creatinine and dlswdzh-um-fypwzgyflt ratio or 24-hour urine protein TIMOTHY if not already done. For patients with Class 3 obesity, we recommend weekly surveillance starting at 34 weeks and delivery by EDC if not taking antihypertensives for chronic hypertension. Recommend anesthesia consult during the antepartum period. Chronic hypertension in 05/08/2024 Overview (05/18/2024): Diagnosed September 2022 Managed on Labetalol Has a home blood pressure cuff and checking blood pressure daily BP Readings from Last 7 Encounters: 05/08/24 114/66 01/17/24 120/80 11/13/23 122/76 10/18/23 124/78 10/02/23 137/78 07/08/23 130/82 05/01/23 149/91 Baseline Preeclampsia Labs Lab Results Component Value Date/Time PLT 209 05/08/2024 10:43 AM CREATININE - [facility] 0.7 05/08/2024 10:43 AM AST - [facility] 27 05/08/2024 10:43 AM ALT - [facility] 32 05/08/2024 10:43 AM PROTEIN/ CREATININE RATIO, URINE - [facility] 78 05/08/2024 09:42 AM Currently on aspirin 81 mg therapy Weekly NSTs 32 weeks on medication, growth q4 weeks, deliver [id number] Assessment & Plan (05/18/2024 10:37 AM EDT): Considerations: Women with chronic hypertension during are at significantly increased risk for morbidity. Signs and symptoms of superimposed pre-eclampsia were reviewed; instructed patient to contact primary OB care provider if these symptoms occur. Recommendations: Obtain baseline lab work TIMOTHY (if not already done) with assessment of proteinuria (24-hour urine protein or hyzckfl-mq-yarhonftml ratio) and CBC, serum AST/ALT/creatinine. If patient has had hypertension for 10 years or more, obtain an EKG and eye exam (if not performed within the past year). Recommend continuing aspirin (81mg) daily, until delivery, to decrease the risk of superimposed preeclampsia. Daily home blood pressure monitoring, especially in the second half of the . It may be useful to have the patient validate their home device with their primary OB care provider's office. Patients with BP less than 140/90 maintained with antihypertensives should continue medication during . Discontinuation of CIPRIANO inhibitors or angiotensin type II receptor antagonists under the guidance of the primary care physician prior to conception of or upon knowledge of . Initiate or adjust antihypertensive medication if BP is 140/90 or greater on at least two occasions at least 4 hours apart and refer patient back to Maternal- Medicine. Titrate medication to maintain blood pressure in a goal range 120-140/70-90. Labetalol and Nifedipine are considered safe for use in and these agents are considered as first-line therapy when indicated. Maternal Medicine ultrasound for anatomy at 19-20 weeks. surveillance as follows: If being treated with anti-hypertensives: Maternal- Medicine ultrasound for growth every 4 weeks starting at 24-26 weeks surveillance weekly starting at 32 weeks gestation Delivery should be individualized based on blood pressure control and assessment of patient risk and is indicated as follows: For those with stable blood pressures not on anti-hypertensive medications: Between 38 0/7 and 39 6/7 weeks For those on anti-hypertensive medications: Between 37 0/7 and 39 6/7 weeks History of shoulder dystocia in prior 05/08/2024 Overview (05/12/2024): History of shoulder dystocia in 2020 Assessment & Plan (05/18/2024 10:55 AM EDT): Studies have shown a 11.9%-16.7% recurrence rate for shoulder dystocia. Factors that will increase the risk of recurrence are high maternal pre- weight, high maternal weight at delivery, prolonged second stage of labor, birthweight greater than the index and a birthweight greater than 4000gm. Explained that no testing is available to guarantee whether or not a shoulder dystocia will occur but that most shoulder dystocias resolve with specific manuevers such as suprapubic pressure, Jenni maneuver, wood screw maneuver, delivering the posterior arm, pubic symphisotomy, or Zavenelli manuever to replace the head and deliver by section. Maternal complications of shoulder dystocia include hemorrhage (11%), extension of an episiotomy into the rectum (3.8%), and cervical or vaginal lacerations. complications include brachial plexus palsy (16.8%), clavicular fracture (9.5%), humeral fracture (4.2%), and rare cases of hypoxic ischemic encephalopathy or . Explained that most cases of trauma heal without complications. Recommend to avoid operative vaginal delivery and may consider delivery in the OR to keep risk as low as possible. History of delivery of macrosomal infant 024 Overview (05/12/2024): History of macrosomia with shoulder dystocia. Infant weighed 4344 grams at term Assessment & Plan (05/18/2024 10:58 AM EDT): CONSIDERATIONS: Explained that macrosomia is defined as a weight of greater than 4000 grams. A woman who previously has given to an weighing more than 4,000 g is 5-10 times more likely to deliver an infant weighing more than 4,500 g than a woman without such a history. Discussed that a variety of factors predispose a to macrosomia, including preexisting maternal diabetes, uncontrolled gestational diabetes, maternal prepregnancy obesity, excessive gestational weight gain, maternal interpregnancy weight gain, a prior macrosomic , postterm , and maternal nonsmoking status. An accurate diagnosis of macrosomia can be made only by weighing the after delivery. The diagnosis of macrosomia is imprecise. Methods used to predict weight include assessment of maternal risk factors, clinical examination, and ultrasound measurement of the fetus. For suspected macrosomia, the accuracy of estimated weight using ultrasound biometry is no better than that obtained with clinical palpation. RECOMMENDATION: Recommend performing gestational diabetes mellitus screen again at 26-28 weeks if early screen is normal. Medication exposure during first trimester of pr egnancy 05/08/2024 Overview (05/18/2024): Gabapentin for chronic back pain managed by PCP Adderall for ADHD and Luvox (SSRI) for anxiety Managed by Dr. Hilario Montelongo MD Assessment & Plan (05/18/2024 10:47 AM EDT): Discussed that every woman has a background risk for a 3-5% chance of having a baby with a defect. We review the risks and benefits to promote discussion between the the prescribing provider and patient but ultimately it is the patient and prescribing provider's decision. It is important to consider risk to the fetus versus risk of untreated illness. In some cases it is reasonable to continue these medications in , but this must be determined on an individualized basis. Neurontin (Gabapentin)- Crosses the placenta. There is insufficient clinical experience with gabapentin in to confirm its safety in this patient population. Since gabapentin is frequently prescribed with other anticonvulsants, a clear association between maternal gabapentin use and adverse effects can not be determined. Due to lack of adequate, well-controlled studies, the manufacturers recommend that gabapentin should be used during only if the potential benefit outweighs the potential risk to the fetus. According to several registries, major congenital malformations were reported in 1.7% of infants with first trimester gabapentin monotherapy exposure compared to 1.6% to 2.2% reported in the general population. Major congenital malformations included: ventricular septal defect, congenital heart disease, endocardial fibroelastosis, tethered spinal cord and hydronephrosis. Encouraged patient to continue current medications as prescribed, and follow up with prescribing provider regarding monitoring for need for dose adjustments as the advances. Discussed taking the lowest dose possible to maintain effective treatment of her symptoms. Consider counseling as adjunct therapy for treatment of patient's symptoms of anxiety and depression during . Adderall (dextroamphetamine/amphetamine). Crosses Placenta. There are no adequate and well-controlled studies in women. Amphetamines should be used during only if the potential benefit justifies the potential risk to the fetus. Nonteratogenic Effects: Infants born to women who are dependent on amphetamines have an increased risk of premature delivery, low weight, and may experience symptoms of withdrawal (dysphoria, agitation, and significant lassitude). History of pre-eclampsia in prior , currently 05/08/2024 Overview (05/18/2024): History of preeclampsia in 2020 and 2022 Assessment & Plan (05/18/2024 10:38 AM EDT): CONSIDERATIONS: Discussed that the overall recurrence rate for pre-eclampsia is 20%. The recurrence risk of pre-eclampsia is 5-7% if it was uncomplicated pre-eclampsia in the prior . If it was pre-eclampsia with severe features in the prior , the recurrence risk goes up to 30-65%. Explained to patient that risk factors for development of pre-eclampsia include the primigravid state, history of pre-eclampsia in previous , family history of pre-eclampsia, presence of chronic hypertension, increased BMI, multiple gestation, pre-existing maternal renal disease or diabetes, advanced maternal age, antiphospholipid syndrome and other coagulopathies, chronic maternal autoimmune disease, or prolonged interval between pregnancies. Discussed with patient that the risks associated with a diagnosis of pre- eclampsia which is not monitored and not managed appropriately include development of HELLP syndrome or eclampsia (seizures) and end organ damage to liver, brain, kidneys, or fetus (manifested by growth restriction or ), and even maternal . RECOMMENDATIONS: Recommend baseline pre-eclamptic labwork be done early in subsequent pregnancies to include CBC, AST/ALT, creatinine, and 24 hour total urine protein (complete). Patients should be monitored closely in subsequent pregnancies for signs of pre-eclampsia and managed appropriately to reduce the incidence of associated maternal and risks. Reviewed that pre-eclampsia and HELLP are not preventable conditions. There is some evidence that daily ASA 81mg may decrease the risk for recurrence in patients with a history of pre-eclampsia prior to 34 weeks and we recommend that she continue this therapy. History of back surgery 05/08/2024 Overview (05/18/2024): History of back surgery (laminectomy) in November 2022 Consider anesthesia consult Assessment & Plan (05/18/2024 10:39 AM EDT): Recommend anesthesia consult during the antepartum period. 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 DDD (degenerative disc disease), lumbar 02/08/20 23 Tension-type headache, not intractable 3 Hypertension 01/15/2021 Antepartum anemia complicating 021 Overview (09/07/2024): 08/2024 Hgb 10.9 recommended IV iron per OB protocol Morbid obesity 11/15/2009 Overview (05/08/2024): Per Obesity Taxonomy Estimated Date of Delivery Comme nts Yes 11/30/2024 Based on last me nstrual period of 02/24/2024 (Exact Date), cycles irreg documented as of this encounter (statuses as of 09/09/2024) Resolved Problems Problem Noted Date Diagnosed Date Resolved Date S/P hemilaminotomy 02/07/2023 Major depressive disorder, r ecurrent episode, moderate 02/07/2023 02/07/2023 Depression with anxiety 01/10/2023 04/2 Positive GBS test 10/08/2022 10/19/2022 Positive testing for group B Streptococcus 10/05/2022 10/24/2022 Polyhydramnios, antepartum 10/01/2022 0 10/24/2022 Overview (10/08/2022): MILD: 10/01/22: ALICE is at the 95th percentile with MVP of 7.5 cm. 10/08/22 IMPRESSION 1. Polyhydramnios, ALICE 28.7 2. Vertex presentation. CONSIDERATIONS: Polyhydramnios is the presence of elevated levels of amniotic fluid index (ALICE) greater than or equal to 24 cm or a maximum of vertical pocket (MVP) greater than or equal to 8 cm. Polyhydramnios is categorized as: o Mild ALICE of 24.0-29.9 cm o Moderate ALICE of 30.0-34.9 cm Severe ALICE of greater than or equal to 35 cm. Mild polyhydramnios often resolves spontaneously without negative effects on the . RECOMMENDATIONS: In non-diabetic patients, re-screen for GDM if not done within the previous 4 weeks. Supervision of high-risk pre gnancy, unspecified trimester 08/20/2022 10/24/2022 Excessive growth affec ting management of in third trimester 08/16/2022 10/24/19 Assessment & Plan (10/18/2022 11:30 AM EST): Macrosomia confirmed today, with EFW at 4000g. This is a similar size to her second delivery, which resulted in shoulder dystocia. IOL is currently planned for 39 weeks. We reviewed risk for recurrent shoulder dystocia as well as option to consider c/s to avoid this complication, which can range for mild (maneuvers followed by successful ) to severe ( injury and/or need for urgent c/s with resulting damage). In some cases there may be indicators of impending shoulder dystocia, such as failure to descend or protracted labor, but in others there may be no warning signs. Theresa wishes to avoid c/s and prefers trial of labor. Questions answered. Assessment & Plan (08/16/2022 10:20 AM EDT): LGA growth noted today with h/o LGA and shoulder dystocia. 1'GTT performed recently and normal. Will continue to follow for growth. HTN in , chronic 05/09/2022 Overview (05/09/2022): BP 142/92 on 02/21/22 and 136/86 on 05/09/22. Likely chronic HTN. See progress note on 05/09/22. Assessment & Plan (06/14/2022 10:46 AM EDT): Normal baseline pre-eclampsia labs and 24h urine reviewed. Theresa states she is taking low dose aspirin. Recent BP stable; 144/84 today and 130/80s in record at OB visits. Agree that Theresa likely has underlying mild CHTN which is often associated with PCOS/metabolic syndrome. Recommend treating if BP persistently 140/90 or greater on at least two occasions at least 4 hours apart. Titrate medication to maintain blood pressure in a goal range 120-140/70-90. BP control will Obesity, Class III, BMI 40-4 9.9 (morbid obesity) 04/16/2022 10/24/2022 Overview (04/16/2022): Reviewed BMI readings noted below. Encouraged completion of early GCT. BMI Readings from Last 4 Encounters: 04/13/22 45.81 kg/m 02/21/22 45.96 kg/m 01/22/22 46.23 kg/m 10/24/21 46.31 kg/m Assessment & Plan (04/16/2022 8:12 AM EDT): DISCUSSION: 1. Discussed obstetrical risks associated with class III obesity (pre- BMI of greater than or equal to 40) including increased incidence of: spontaneous miscarriage, recurrent loss, diabetes in , hypertension/preeclampsia, IUFD, macrosomia and shoulder dystocia, hemorrhage or infection, venous thromboembolism, increased length of labor and delivery, complications with anesthesia, as well as a possibly increased risk of congenital anomalies (neural tube defects, cardiovascular, orofacial). 2. Reviewed that the accuracy of ultrasound at diagnosing anomalies is significantly decreased for women with an increased BMI. RECOMMENDATIONS: 1. Recommend restricting weight gain during to 11-20 pounds. Patient should be referred for a nutrition consult. 2. Recommend evaluation for signs and symptoms (snoring, excessive daytime sleepiness witnessed apnea or unexplained hypoxia) of obstructive sleep apnea. If any of these are present, referral to Sleep Medicine specialist for further evaluation should be considered. 3. Recommend performing gestational diabetes mellitus screen now (if not performed at first visit) and repeat again at 26-28 weeks if early screen is normal. 4. Recommend Maternal- Medicine ultrasound for anatomy at 20 weeks and for growth every 4 weeks thereafter. 5. For patients with Class 3 obesity, we recommend baseline preeclamptic labs with CBC, serum AST/ALT/creatinine and 24 hour urine protein TIMOTHY if not already done. 6. For patients with Class 3 obesity, we recommend weekly surveillance starting at 34 weeks and delivery by EDC. 7. Recommend anesthesia consult during the antepartum period. History of pre-eclampsia in prior , currently 04/16/2022 10/24/2022 Overview (04/16/2022): G2- history of pre-eclampsia with IOL and delivery at 39w4d. She did require antihypertensive treatment in the period. I reviewed blood pressures and baseline pre-eclamptic labs below. No known history of chronic hypertension. BP Readings from Last 10 Encounters: 04/13/22 118/80 02/21/22 142/92 01/22/22 136/84 10/24/21 130/82 05/05/21 132/82 01/18/21 128/80 01/16/21 134/78 12/28/20 130/80 11/29/20 142/78 11/22/20 124/78 Lab Results Component Value Date/Time CREATININE - [facility] 0.6 04/13/2022 02:23 PM AST - [facility] 28 04/13/2022 02:23 PM ALT - [facility] 37 (H) 04/13/2022 02:23 PM PLATELET AUTO - [facility] 249 04/13/2022 02:23 PM Lab Results Component Value Date/Time PROTEIN/ CREATININE RATIO, URINE - [facility] 68 04/13/2022 02:15 PM Assessment & Plan (04/16/2022 8:16 AM EDT): DISCUSSION: 1. Discussed that the overall recurrence rate for pre-eclampsia is 20%. The recurrence risk of pre-eclampsia is 5-7% if it was uncomplicated pre-eclampsia in the prior . If it was pre-eclampsia with severe features in the prior , the recurrence risk goes up to 30-65%. 2. Explained to patient that risk factors for development of pre-eclampsia include the primigravid state, history of pre-eclampsia in previous , family history of pre-eclampsia, presence of chronic hypertension, increased BMI, multiple gestation, pre-existing maternal renal disease or diabetes, advanced maternal age, antiphospholipid syndrome and other coagulopathies, chronic maternal autoimmune disease, or prolonged interval between pregnancies. 3. Discussed with patient that the risks associated with a diagnosis of pre- eclampsia which is not monitored and not managed appropriately include development of HELLP syndrome or eclampsia (seizures) and end organ damage to liver, brain, kidneys, or fetus (manifested by growth restriction or ), and even maternal . RECOMMENDATIONS: 1. Recommend baseline pre-eclamptic labwork be done early in subsequent pregnancies to include CBC, AST/ALT, creatinine, and 24 hour total urine protein. Patients should be monitored closely in subsequent pregnancies for signs of pre-eclampsia and managed appropriately to reduce the incidence of associated maternal and risks. 2. Reviewed that pre-eclampsia and HELLP are not preventable conditions. There is some evidence that daily ASA 81mg may decrease the risk for recurrence in patients with a history of pre-eclampsia prior to 34 weeks and we recommend that she proceed with starting this therapy after 12 weeks. History of delivery of macrosomal infant 04/16/2022 10/24/2022 Overview (04/16/2022): G2- delivery of LGA with birthweight of 4344 grams. Assessment & Plan (06/14/2022 11:05 AM EDT): EFW today at 90%ile. We will be following growth. Assessment & Plan (04/16/2022 8:18 AM EDT): RECOMMENDATION: 1. Recommend performing gestational diabetes mellitus screen at time of first visit and repeat again at 26-28 weeks if early screen is normal. 2. Monitor maternal weight gain throughout . Recommended weight gain during is 11-20 pounds. Consider referral for a nutrition consult. History of shoulder dystocia in prior 04/16/2022 10/24/2022 Overview (04/16/2022): G2- delivery complicated by shoulder dystocia Assessment & Plan (04/16/2022 8:19 AM EDT): 1. Studies have shown a 11.9%-16.7% recurrence rate for shoulder dystocia. Factors that will increase the risk of recurrence are high maternal pre- weight, high maternal weight at delivery, prolonged second stage of labor, birthweight greater than the index and a birthweight greater than 4000gm. 2. No testing is available to guarantee whether or not a shoulder dystocia will occur but that most shoulder dystocias resolve with specific manuevers such as suprapubic pressure, Jenni maneuver, wood screw maneuver, delivering the posterior arm, pubic symphisotomy, or Zavenelli manuever to replace the head and deliver by section. 3. Maternal complications of shoulder dystocia include hemorrhage (11%), extension of an episiotomy into the rectum (3.8%), and cervical or vaginal lacerations. complications include brachial plexus palsy (16.8%), clavicular fracture (9.5%), humeral fracture (4.2%), and rare cases of hypoxic ischemic encephalopathy or . Explained that most cases of trauma heal without complications. 4. Recommend to avoid operative vaginal delivery and may consider delivery in the OR to keep risk as low as possible. Genetic screening 04/16/2022 10/24/2022 Overview (04/16/2022): Upon discussion with patient, she has opted to decline genetic screening/testing for aneuploidy at this time Assessment & Plan (04/16/2022 8:33 AM EDT): Cell-free DNA (cffDNA) screening is a genetic screening option that analyzes maternal blood for DNA that is placental in origin and targets the following conditions: Trisomy 21 (Down syndrome), trisomy 18, trisomy 13, and sex chromosome abnormalities such as monosomy X (Griffin syndrome), and sex chromosome trisomies (triple X, Klinefelter syndrome, XYY). It may also evaluate for other genetic alterations such as microdeletions, depending on the specific test. It reveals the sex of the fetus but should generally not be performed solely for this indication. The screening test can be performed after 10 weeks gestation. Results provided are NOT diagnostic, but provide a risk estimate. Types of results include low-risk/negative, high-risk/positive, and inconclusive. Low-risk results convey a low risk for the conditions screened, while high- risk results will indicate which condition is high risk and the likelihood of the condition based on the results. High-risk and inconclusive results would require follow up with a Maternal- Medicine genetic counselor. Amniocentesis would be recommended in the setting of high-risk results. Results are available 5-7 days after the test is completed. Cost of cffDNA screening is dependent on health insurance plan. The performing laboratory will bill the insurance directly. Offer MSAFP only (not Quad Screen) at 16-22 weeks if screening for open neural tube defects is desired. Amniocentesis for diagnosis of chromosomal abnormalities is also available. The risk of complications from the procedure and that risk is 1 in 500 (0.2%). COVID-19 vaccine series declined 04/16/2022 10/24/2022 Overview (04/16/2022): Upon discussion with patient, she has not yet completed COVID-19 vaccine series and has respectfully opted to decline at this time. Assessment & Plan (04/16/2022 8:34 AM EDT): During the visit today, COVID-19 vaccination was discussed and all questions were answered. The following information was shared with the patient. The [employer] [employer], Society for Maternal- Medicine, CDC and multiple medical associations strongly recommend the COVID-19 vaccine for women who are in any trimester, those attempting to become , women who have recently delivered, who are lactating as well as any other woman, regardless of age or PLATFORM SUPERVISOR disorder. The only exceptions to receiving the vaccine are for those who have a contraindication or allergy to the vaccine or any component of the vaccine or with sincerely held yazidism convictions. The CDC and ACOG encourages a COVID-19 vaccine booster for women, given the risk of severe complications from COVID-19 in . Encounter for supervision of with history of infertility 04/13/2022 10/24/2022 Obesity in , antepartum 04/13/2022 10/24/2022 Assessment & Plan (09/24/2022 1:03 PM EST): I reviewed the ultrasound. The overall estimated weight is consistent with the 92nd percentile for the gestational age and the abdominal circumference is consistent with the 96 percentile the gestational age. The head circumference is greater than the 99th percentile for the gestational age. The anatomy that was visualized appears unremarkable and the amniotic fluid volume is normal. Assessment & Plan (06/14/2022 9:56 AM EDT): Normal early 1'GTT appreciated. Hx of preeclampsia, prior pr egnancy, currently 04/13/2022 10/24/2022 Supervision of normal 04/13/2022 07/09/2022 Adjustment disorder with mix ed anxiety and depressed mood 10/24/2021 01/10/2023 Body mass index (BMI) of 40. 0 to 44.9 in adult 04/04/2021 10/03/2021 Overview: Per Obesity protocol Iron deficiency anemia due t o chronic blood loss 01/18/2021 10/24/2021 GBS (group B Streptococcus c raquel), +RV culture, currently 11/15/2020 01/15/2021 Overview (11/15/2020): CLINDAMYCIN SUSCEPTIBLE TETRACYCLINE RESISTANT VANCOMYCIN SUSCEPTIBLE PENICILLIN SUSCEPTIBLE presentation, breech 10/28/2020 0 11/09/2020 Pyelectasis of fetus on ultrasound 09/09/2020 01/15/2021 Overview (09/09/2020): We will reassess at her next visit. We recommend alerting the national insurance officer providing care of this finding if it persists in the 3rd trimester. Assessment & Plan (09/09/2020 3:08 PM EST): urinary tract dilation is found in approximately 1% of pregnancies and for the woman who is under 35 years of age at the time of delivery, this may be considered a normal variant of and is not associated with an increased risk for aneuploidy. urinary tract dilation can be physiologic 50 to 70 percent of the time. The other common causes of urinary tract dilation are some type of urinary obstruction (10-30%) and bladder reflux (10-40%). RECOMMENDATIONS: We will reassess at her next visit. We recommend alerting the national insurance officer providing care of this finding if it persists in the 3rd trimester. PCOS (polycystic ovarian syndrome) 06/23/2020 10/24/2022 Assessment & Plan (04/16/2022 8:17 AM EDT): RECOMMENDATIONS: Due to the increased risk for diabetes in this population, recommend testing for undiagnosed type 2 diabetes mellitus with the first visit using the standard diagnostic criteria (2016 ADA Diabetes Management Guidelines). Assessment & Plan (06/23/2020 9:40 AM EDT): DISCUSSION: Discussed that there is an increased incidence of spontaneous and gestational diabetes mellitus in women with PCOS. However, there is no increased incidence of poor outcomes. RECOMMENDATIONS Due to the increased risk for diabetes in this population, recommend testing for undiagnosed type 2 diabetes mellitus with the first visit using the standard diagnostic criteria (2016 ADA Diabetes Management Guidelines). High-risk 06/23/2020 01/16/20 Genetic screening 06/23/2020 07/06/2020 Overview (06/23/2020): Patient has opted to decline genetic screening/testing for aneuploidy. Obesity affecting 06/03/2020 01/15/2021 Overview (11/15/2020): Pre-gravid BMI of 43. She has not yet completed early glucose challenge test. Baseline pre-eclamptic labs reveiwed-serum creatinine 0.7, AST 23, ALT 36, platelet count of 255K). She has not yet completed 24 hour urine protein screen. Class III obesity (BMI 40+) -Weight gain 11-20lbs -Nutrition consult -Early GDM screening -MFM anatomy scan, growth scan q4 weeks -Baseline preeclampsia labs (CBC, AST/ALT/creatinine, 24 hour urine) -NSTs twice weekly at 36 weeks -Deliver by EVERARDO -Anesthesia consult Assessment & Plan (09/09/2020 3:06 PM EST): She presents for follow-up of growth. We reviewed the results of today's ultrasound. The estimated weight is appropriate for gestational age in the 77th percentile. Mild bilateral urinary tract dilation is noted (right 4.2 mm and left 5.4 mm). The remainder of the visualized anatomy is unremarkable in appearance. The ALICE is normal. She had an elevated early 1 hour GCT with a normal 3 hour GTT. I recommended completion of a repeat 3 hour GTT. Assessment & Plan (06/23/2020 9:39 AM EDT): DISCUSSION: 1. Discussed obstetrical risks associated with class III obesity (pre- BMI of greater than or equal to 40) including increased incidence of: spontaneous miscarriage, recurrent loss, diabetes in , hypertension/preeclampsia, IUFD, macrosomia and shoulder dystocia, hemorrhage or infection, venous thromboembolism, increased length of labor and delivery, complications with anesthesia, as well as a possibly increased risk of congenital anomalies (neural tube defects, cardiovascular, orofacial). 2. Reviewed that the accuracy of ultrasound at diagnosing anomalies is significantly decreased for women with an increased BMI. RECOMMENDATIONS: 1. Recommend restricting weight gain during to 11-20 pounds. Patient should be referred for a nutrition consult. 2. Recommend evaluation for signs and symptoms (snoring, excessive daytime sleepiness witnessed apnea or unexplained hypoxia) of obstructive sleep apnea. If any of these are present, referral to Sleep Medicine specialist for further evaluation should be considered. 3. Recommend performing gestational diabetes mellitus screen now (if not performed at first visit) and repeat again at 26-28 weeks if early screen is normal. 4. Recommend Maternal- Medicine ultrasound for anatomy at 20 weeks and for growth every 4 weeks thereafter. 5. For patients with Class 3 obesity, we recommend 24 hour urine protein TIMOTHY 6. For patients with Class 3 obesity, we recommend twice weekly surveillance starting at 36 weeks and delivery by EDC. 7. Recommend anesthesia consult during the antepartum period. OBESITY, PEDIATRIC, BMI 95-98TH PERCENTILE 01/12/2010 07/09/2011 Overview (01/12/2010): Per Obesity Taxonomy Allergic rhinitis 03/15/2009 01/15/2021 Urinary frequency 04/12/2000 07/09/2011 Constipation 04/12/2000 07/09/2011 Overview (01/12/2016): ICD-10 update of inactive term documented as of this encounter (statuses as of 09/09/2024) Immunizations Name Administration Dates Next Due Hepatitis A, Ped/Adol., 18 year and below, 2-Dos e 01/08/2007,05/29/2006 Meningococcal Conjugate Vaccine (Menactra/Menveo ) 05/29/2006 PPD 06/15/2010 TDAP (age 10 and older)(Boostrix) 08/01/2022, TDAP, Age 7 and older, IM (Adacel) 06/15/2010 documented as of this encounter Social History Tobacco Use Types Packs/Day Years Used Date Smoking Tobacco: Former Cigarettes 0.3 2 2 011 - 2012 Smokeless Tobacco: Never Alcohol Use Standard Drinks/Week Comments Not Currently 0 (1 standard drink = 0.6 oz pur e alcohol) PHQ-2 Answer Date Recorded PHQ-2 Score 0 05/30/2020 Hunger Vital Sign Answer Date Recorded Within the past 12 months, y ou worried that your food would run out before you got the money to buy more. Patient declined Within the past 12 months, t he food you bought just didn't last and you didn't have money to get more. Patient declined 07/2024 [place] Depression Scale Answer Date Recorded [place] Depression Scale Total 7 12/18/2022 The thought of harming myself has occurred to me . Never 12/18/2022 Childcare Answer Date Recorded Do you feel overwhelmed with taking care of a child, family member or friend? No 04/29/2024 Does your family need help f inding childcare? (Household - for ages 0-17 years) Not on file 04/29/2024 Clothing Answer Date Recorded Have you been unable to get clothing when it was really needed? No 04/29/2024 Is your family able to get c lothes or diapers when needed? (Household - for ages 0-17 years) Not on file 04/29/2024 Personal Safety Answer Date Recorded Do you feel unsafe or have concerns for your saf ety? No 04/29/2024 Do you have concerns for you r family's safety? (Household - for ages 0-17 years) Not on file 04/29/2024 Utilities Answer Date Recorded Do you have trouble paying y our heating, water, or electric bill? No 04/29/2024 Is your family able to pay t he heat, water, or electric bill? (Household - for ages 0-17 years) Not on file 04/29/2024 Does your family have access to good internet? (Household - for ages 0-17 years) Not on file 04/29/2024 Employment Status Answer Date Recorded Are you unemployed or without regular income? Ye s 04/29/2024 Does the household have a re gular source of income? (Household - for ages 0-17 years) Not on file 04/29/2024 Social Connections Answer Date Recorded How often do you feel lonely or isolated from th ose around you? Never 04/29/2024 Financial Resource Strain Answer Date R ecorded Do you have any trouble payi ng for your medications, or do you think you might in the future? Yes 04/29/2024 Does your family have troubl e paying for medicine? (Household - for ages 0-17 years) Not on file 04/29/2024 Transportation Needs Answer Date Record ed Do you have trouble getting a ride to medical visits or work? (Adult - for ages 18 years and over) Not on file 04/29/2024 Does your family have a hard time getting a ride to doctors visits? (Household - for ages 0-17 years) Not on file 04/29/2024 Has lack of transportation k ept you from medical appointments, meetings, work, or from getting things needed for daily living? Check all that apply. No 04/29/2024 Do you (or your family) have trouble finding or paying for a ride (transportation)? (Household - for ages 0-17 years) Not on file 04/29/2024 Housing Stability Answer Date Recorded Do you currently live in a s helter or have no steady place to sleep at night? No 04/29/2024 Do you think you are at risk of becoming homeless? (Adult - for ages 18 years and over) Not on file 04/29/2024 Does your family worry about paying for your home or becoming homeless? (Household - for ages 0-17 years) Not on file 0 04/29/2024 Are you homeless or worried that you might be in the future? No 04/29/2024 Are you (or your family) nini eless or worried that you might be in the future? (Household - for ages 0-17 years) Not on file Food Insecurity Answer Date Recorded Do you need food for this week? No 04/29/2024 Are you able to get enough f ood for your family? (Household - for ages 0-17 years) Not on file 04/29/2024 Does your family need food t his week? (Household - for ages 0-17 years) Not on file 04/29/2024 Do you always have enough fo od for your family? 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 LFT returned normal. UA today negative for bilirubin. Anemic Hgb 10.9, referred for IV iron. Failed 1 hour gtt, plans 3 hour gtt -- she is scheduled. States fasted for 14 hours before last test. Completed anesthesia consult paper work today in office. Denies LOF, VB, contractions. Baby is active. Reviewed NST at 32 weeks. RTC in 2 weeks. Yaritza Bartlett PA-C documented in this encounter Nursing Notes * Yajaira Nixon LPN - 09/09/2024 4:20 PM EST 28w2d Denies concerns documented in this encounter Plan of Treatment Upcoming Encounters Date Type Department Care Team (Late st Contact Info) Description 09/11/2024 9:10 AM EST [facility] [address] [id number] [address] [place] [address] 09/16/2024 4:00 PM EST Pharmacy Pharmacy, [address] [place] [address] Clinic, [facility] [address] [address] 09/24/2024 11:00 AM EST Imaging Maternal Medicine Imaging, [facility] [place] [address] [place] [phone] 10/29/2024 2:30 PM EST Imaging Maternal Medicine Imaging, [place] [address] [place] [phone] Health Maintenance Due Date Last Done Comments Pneumococcal Vaccine: Pediatrics (0 to 5 Years) and At-Risk Patients (6 to 64 Years) (1 of 2 - PCV) 1996 Depression Screening 05/24/2021 05/24/2020 COVID-19 Vaccine ( - season) 2024 Influenza Vaccine (FLU shot) (#1) 2024 GFR 08/28/2025 08/28/2024, 04/20, 05/01/2023, Additional history exists Pap Smear 05/08/2027 05/08/2024, 05/21, 03/01/2017 Cervical Cancer Screening 05/08/2029 HPV/Co-Test 05/08/2029 05/08/2024 DTap/Tdap Vaccines (9 - Td or Tdap) 08/01/2032 08/01/2022, 09/12/2020, 06/15/2010, Additional history exists Hepatitis B Vaccine Completed 11/12/2003, 02/16/2003, 03/02/2002 MENINGOCOCCAL (MENACTRA/MENVEO) Aged Out 05/29/2006, 05/29/2006 No longer eligibl e based on patient's age to complete this topic HPV (Gardasil) Vaccine Aged Out No lo nger eligible based on patient's age to complete this topic documented as of this encounter Goals Goal Patient Goal Type Associated Problems Recent Progress Patient-Stated? Author Reminders Care Plan OB Reminders No Mychart, Provider documented as of this encounter Medical Devices Not on filedocumented as of this encounter Procedures Procedure Name Priority Date/Time Associated Diagnosis Comments URINALYSIS OBSTETRICS, POINT OF CARE TIMOTHY 09/09/2024 4:30 PM EST documented in this encounter Results * (ABNORMAL) URINALYSIS OBSTETRICS, POINT OF CARE (09/09/2024 4:30 PM EST) Color, Urine Yellow Light Yellow, Yellow 09/09/2024 4:33 PM EST [facility] Clarity, Urine Clear Clear 09/09/2024 4:33 PM EST [facility] Glucose, Urine Negative Negative mg/dL 09/09/2024 4:33 PM EST [facility] Bilirubin, Urine Negative Negative 09/09/2024 4:33 PM EST [facility] Ketone, Urine Negative Negative mg/dL 09/09/2024 4:33 PM EST [facility] Specific [place], Urine 1.015 1.003 - 1.030 09/09/2024 4:33 PM EST [facility] Blood, Urine Trace-intact (A) Negative 09/09/2024 4:33 PM EST [facility] pH, Urine 7.0 5.0, 5.5, 6.0, 6.5, 7.0, 7.5 units 09/09/2024 4:33 PM EST [facility] Protein, Urine Negative Negative mg/dL 09/09/2024 4:33 PM EST [facility] Urobilinogen, Urine 1.0 0.2, 1.0 mg/dL 09/09/2024 4:33 PM EST [facility] Nitrite, Urine Negative Negative 09/09/2024 4:33 PM EST [facility] Esterase, Urine Negative Negative 09/09/2024 4:33 PM EST [facility] Urine 09/09/2024 4:30 PM EST 09/09/2024 4:33 PM EST us Yaritza Bartlett PA-C LAB POINT OF CARE TE ST DOCKED DEVICE UNSOLICITED RESULTS Final Result [facility] [address] [facility] [place] [id number] documented in this encounter Visit Diagnoses Diagnosis Obesity in , antepartum- Primary Obesity complicating , childbirth, or the puerperium, antepartum condition or complication Chronic hypertension in Benign essential hypertension complicating , childbirth, and the puerperium, unspecified as to episode of care Medication exposure during first trimester of Supervision of other high-risk Maternal asthma complicating Other current maternal conditions classifiable elsewhere, complicating , childbirth, or the puerperium, unspecified as to episode of care History of pre-eclampsia in prior , currently with other poor obstetric history Anxiety during History of shoulder dystocia in prior History of delivery of macrosomal infant Supervision of high risk , antepartum, first trimester 12 weeks gestation of state, incidental Morbid obesity (HCC)- Primary Morbid obesity Obesity in , antepartum Obesity complicating , childbirth, or the puerperium, antepartum condition or complication Chronic hypertension in Benign essential hypertension complicating , childbirth, and the puerperium, unspecified as to episode of care Anxiety during Maternal asthma complicating Other current maternal conditions classifiable elsewhere, complicating , childbirth, or the puerperium, unspecified as to episode of care High-risk in third trimester- Primary Antepartum anemia complicating Anemia, antepartum Obesity in , antepartum Obesity complicating , childbirth, or the puerperium, antepartum condition or complication Chronic hypertension in Benign essential hypertension complicating , childbirth, and the puerperium, unspecified as to episode of care History of shoulder dystocia in prior History of delivery of macrosomal Medication exposure during first trimester of Supervision of other high-risk History of pre-eclampsia in prior , currently with other poor obstetric history History of back surgery Other postprocedural status Rubella non-immune status, antepartum Other specified complication, antepartum Maternal asthma complicating Other current maternal conditions classifiable elsewhere, complicating , childbirth, or the puerperium, unspecified as to episode of care Anxiety during documented in this encounter Additional Health Concerns Active Problems Noted Date Diagnosed Date OB Reminders 05/08/2024 documented as of this encounter Care Teams Drawing Supervisor Relationship Specialty Start Date End Date Jamaal Cash MD [address] [id number] PCP - General Family Medicine 12/28/20 documented as of this encounter
--- OUTSIDE RECORDS SUMMARY | 2024-09-12 00:16 | External Medical Summary ---
Author Name Unknown Address Unknown Organization [facility] [place] [address] Laboratory Report Ordering Provider Test Date Status MIGUEL العراقي 09/09/2024 16:30:00 Final Observation Date Value Abnormality Reference (Units ) Status Color of Urine by Auto 09/09/2024 16:30:00 Yellow Light Yellow, Yellow Final Clarity, Urine 09/09/2024 16:30:00 Clear Clear Final Glucose [Mass/volume] in Urine by Automated test strip 09/09/2024 16:30:00 Negative Negative (mg/dL) Final Bilirubin.total [Presence] in Urine by Automated test strip 09/09/2024 16:30:00 Negative Negative Final Ketones [Mass/volume] in Urine by Automated test strip 09/09/2024 16:30:00 Negative Negative (mg/dL) Final Specific gravity, Urine 09/09/2024 16:30:00 1.015 1.003-1.030 Final Hemoglobin [Presence] in Urine by Automated test strip 09/09/2024 16:30:00 Trace-intact Abnormal Negative Final pH, Urine 09/09/2024 16:30:00 7.0 5.0, 5.5, 6.0, 6.5, 7.0, 7.5 (units) Final Protein [Mass/volume] in Urine by Automated test strip 09/09/2024 16:30:00 Negative Negative (mg/dL) Final Urobilinogen, Urine 09/09/2024 16:30:00 1.0 0.2, 1.0 (mg/dL) Final Nitrite [Presence] in Urine by Automated test strip 09/09/2024 16:30:00 Negative Negative Final Leukocyte esterase [Presence] in Urine by Automated test strip 09/09/2024 16:30:00 Negative Negative Final Performing Location [facility] [place] [address]
--- OUTSIDE RECORDS SUMMARY | 2024-09-12 00:16 | External Medical Summary | Summary of Care ---
Author Name Unknown Organization [facility] Address [address] [place] [address] Phone [phone] Care Team Providers Care Feed Blender Name Role Phone Jamaal Cash MD Primary Care Provider [phone] Reason for Visit * Reason Comments Outpatient Testing Encounter Details Date Type Department Care Team (Late st Contact Info) Description 09/04/2024 9:10 AM EST Laboratory Laboratory, [facility] [address] [place] [phone] [facility] [address] [place] [address] High-risk in second trimester Allergies No known active allergiesdocumented as of this encounter (statuses as of 09/04/2024) Medications Vit-Fe Fumarate-FA ( VITAMIN) 27-0.8 MG TABS Take by mouth. Active fluvoxaMINE Maleate 100 MG Oral Tablet (Luvox) [...] the morning. 90 Tablet 2 4 Active Ondansetron HCl 4 MG Oral TabletIndication s:Nausea Take 1 Tablet by mouth every 8 hours as needed for Nausea. 30 Tablet 2 4 Active documented as of this encounter (statuses as of 09/04/2024) Active Problems Problem Noted Date Diagnosed Date [...] services as clinically indicated. Maternal asthma complicating 4 Overview (05/18/2024): Managed with albuterol as needed [...] preeclamptic labs with CBC, serum AST/ALT/creatinine and teuyeqt-pq-eeofhukcge ratio or 24-hour urine protein TIMOTHY if [...] weeks on medication, growth q4 weeks, deliver [id number] Assessment & Plan (05/18/2024 10:37 AM EDT): Considerations: Women with chronic hypertension during are at significantly increased risk for morbidity. Signs and symptoms of superimposed pre-eclampsia were reviewed; instructed patient to contact primary OB care provider if these symptoms occur. Recommendations: Obtain baseline lab work TIMOTHY (if not already done) with assessment of proteinuria (24-hour urine protein or izeslpq-cy-lhrqwlckzh ratio) and CBC, serum AST/ALT/creatinine. If patient [...] as possible. History of delivery of macrosomal 024 Overview (05/12/2024): History of macrosomia with shoulder dystocia. weighed 4344 grams at term Assessment & Plan (05/18/2024 10:58 AM EDT): CONSIDERATIONS: Explained that macrosomia is defined as a weight of greater than 4000 grams. A woman who previously has given to an weighing more than 4,000 g is 5-10 times more likely to deliver an weighing more than 4,500 g than a woman without such a history. Discussed that a variety of factors predispose a to macrosomia, including preexisting maternal diabetes, uncontrolled gestational diabetes, maternal prepregnancy obesity, excessive gestational weight gain, maternal interpregnancy weight gain, a prior macrosomic infant, postterm , and maternal nonsmoking status. An [...] 02/18/2023 DDD (degenerative disc disease), lumbar 02/08/20 Tension-type headache, not intractable 3 Hypertension 01/15/2021 Morbid obesity 11/15/2009 Overview (05/08/2024): Per Obesity Taxonomy Estimated Date of Delivery Comme nts Yes 11/30/2024 Based on last me nstrual period of 02/24/2024 (Exact Date), cycles irreg documented as of this encounter (statuses as of 09/04/2024) Resolved Problems Problem Noted Date Diagnosed Date Resolved Date S/P hemilaminotomy 02/07/2023 3 Major depressive disorder, r ecurrent episode, moderate [...] 12 weeks. History of delivery of macrosomal 04/16/2022 10/24/2022 Overview (04/16/2022): G2- delivery of [...] information was shared with the patient. The [employer], Society for Maternal- Medicine, CDC and multiple medical associations strongly recommend the COVID-19 vaccine for women who are in any trimester, those attempting to become , women who have recently delivered, who are lactating as well as any other woman, regardless of age or COFFEE ROASTER HELPER disorder. The only exceptions to receiving the vaccine are for those who have a contraindication or allergy to the vaccine or any component of the vaccine or with sincerely held denominational convictions. The CDC and ACOG encourages a [...] t o chronic blood loss 01/18/2021 10/24/2021 Antepartum anemia complicating 11/16/2020 01/15/2021 Overview (11/16/2020): 11/16/20 Hgb 10.3, to start Vitron C GBS (group B Streptococcus c terranceier), +RV culture, currently 11/15/2020 01/15/2021 Overview (11/15/2020): CLINDAMYCIN SUSCEPTIBLE TETRACYCLINE RESISTANT VANCOMYCIN SUSCEPTIBLE PENICILLIN SUSCEPTIBLE presentation, breech 10/28/2020 0 11/09/2020 Pyelectasis of fetus on ultrasound 09/09/2020 01/15/2021 Overview (09/09/2020): We will reassess at her next visit. We recommend alerting the painting contractor providing care of this finding if it [...] her next visit. We recommend alerting the painting contractor providing care of this finding if it [...] ADA Diabetes Management Guidelines). High-risk 06/23/2020 01/16/20 21 Genetic screening 06/23/2020 07/06/2020 Overview (06/23/2020): Patient [...] as of this encounter (statuses as of 09/04/2024) Immunizations Name Administration Dates Next Due Hepatitis A, Ped/Adol., 18 year and below, 2-Dos e 01/08/2007,05/29/2006 Meningococcal Conjugate Vaccine (Menactra/Menveo ) 05/29/2006 PPD 06/15/2010 TDAP (age 10 and older)(Boostrix) 08/01/2022, TDAP, Age 7 and older, IM (Adacel) 06/15/2010 documented as of this encounter Social History Tobacco Use Types Packs/Day Years Used Date Smoking Tobacco: Former Cigarettes 0.3 2 2 - 2012 Smokeless Tobacco: Never Alcohol Use [...] money to get more. Patient declined 07/2024 Iota Depression Scale Answer Date Recorded Iota Depression Scale Total 7 12/18/2022 The thought [...] on file documented as of this encounter Plan of Treatment Upcoming Encounters Date Type Department Care Team (Late st Contact Info) Description 09/09/2024 4:30 PM EST Office Visit Gynecology/Obstetrics [facility] [address] [place] [address] Yaritza Bartlett PA-C [address] [place] [id number] 09/24/2024 11:00 AM EST Imaging Maternal Medicine Imaging, [facility] [address] [place] [phone] 10/29/2024 2:30 PM EST Imaging Maternal Medicine Imaging, [facility] [address] [place] [phone] Pending Results Name Type Priority Associated Diagnoses Date /Time 50-G GESTATIONAL GLUCOSE, 1 HOUR Lab Routine High-risk in second trimester 09/04/2024 10:03 AM EST CBC WITH WBC DIFFERENTIAL AND ANEMIA REFLEX WORKUP Lab Routine High-risk in second trimester 09/04/2024 10:03 AM EST SYPHILIS ANTIBODY SCREEN WITH REFLEX TO RPR Lab Routine High-risk in second trimester 09/04/2024 10:03 AM EST ANEMIA CBC Lab Routine High-risk in second trimester 09/04/2024 10:03 AM EST DIFFERENTIAL, AUTOMATED Lab Routine High-risk in second trimester 09/04/2024 10:03 AM EST ANEMIA REFLEX CHEMISTRY HOLD Lab Routine High-risk in second trimester 09/04/2024 10:03 AM EST SYPHILIS ANTIBODY SCREEN Lab Routine High-risk in second trimester 09/04/2024 10:03 AM EST Health Maintenance Due Date Last Done Comments Pneumococcal Vaccine: Pediatrics (0 to 5 Years) and At-Risk Patients (6 to 64 Years) (1 of 2 - PCV) 1996 Depression Screening 05/24/2021 05/24/2020 COVID-19 Vaccine ( season) 2024 Influenza Vaccine (FLU shot) (#1) [...] Author Reminders Care Plan OB Reminders No Omero, Provider documented as of this encounter Medical Devices Not on filedocumented as of this encounter Visit Diagnoses Diagnosis Obesity in [...] as to episode of care High-risk in second trimester documented in this encounter Additional Health Concerns Active Problems Noted Date Diagnosed Date OB Reminders 05/08/2024 documented as of this encounter Care Teams Feed Blender Relationship Specialty Start Date End Date Jamaal Cash MD [address] [place] [address] PCP - General Family Medicine 12/28/20 documented as of this encounter
--- OUTSIDE RECORDS SUMMARY | 2024-09-12 00:16 | External Medical Summary | Summary of Care ---
Author Name Unknown Organization [facility] Address [address] [place] [address] Phone [phone] Care Team Providers Care Weight Guesser Name Role Phone Jamaal Cash MD Primary Care Provider [phone] Reason for Visit * Reason Onset Date Comments Test Results 09/07/2024 Encounter Details Date Type Department Care Team (Late st Contact Info) Description 09/07/2024 Telephone Gynecology/Obstetrics [facility] [address] [facility] [place] [address] Yaritza Bartlett PA-C [address] [facility] [place] [address] Test Results Allergies No known active allergiesdocumented as of this encounter (statuses as of 09/08/2024) Medications Vit-Fe Fumarate-FA ( VITAMIN) 27-0.8 MG [...] as of this encounter (statuses as of 09/08/2024) Active Problems Problem Noted Date Diagnosed Date [...] preeclamptic labs with CBC, serum AST/ALT/creatinine and mnoucxp-dv-snwiycuafq ratio or 24-hour urine protein TIMOTHY if [...] weeks on medication, growth q4 weeks, deliver [id number] Assessment & Plan (05/18/2024 10:37 AM EDT): Considerations: Women with chronic hypertension during are at significantly increased risk for morbidity. Signs and symptoms of superimposed pre-eclampsia were reviewed; instructed patient to contact primary OB care provider if these symptoms occur. Recommendations: Obtain baseline lab work TIMOTHY (if not already done) with assessment of proteinuria (24-hour urine protein or kkotbuc-eh-xqdqzztbcl ratio) and CBC, serum AST/ALT/creatinine. If patient [...] as of this encounter (statuses as of 09/08/2024) Resolved Problems Problem Noted Date Diagnosed Date [...] information was shared with the patient. The [employer], Society for Maternal- Medicine, CDC and multiple medical associations strongly recommend the COVID-19 vaccine for women who are in any trimester, those attempting to become , women who have recently delivered, who are lactating as well as any other woman, regardless of age or ASSISTANT FINANCE DIRECTOR disorder. The only exceptions to receiving the vaccine are for those who have a contraindication or allergy to the vaccine or any component of the vaccine or with sincerely held sikh convictions. The CDC and ACOG encourages a [...] her next visit. We recommend alerting the enforcement officer providing care of this finding if [...] her next visit. We recommend alerting the enforcement officer providing care of this finding if [...] as of this encounter (statuses as of 09/08/2024) Immunizations Name Administration Dates Next Due DTaP Dipth/Tet/Acell Pertussis (Infanrix), Peds 06/17/1996,07/20/1992,09/08/1991,05/15,01/23/1991 HIB PRP-T, 4 Dose, PF, IM (H iberix, ActHib) 07/20/1992,09/08/1991,05/15/1991,01/23 Hepatitis A, Ped/Adol., 18 y ear and below, 2-Dose 01/08/2007,05/29/2006 Hepatitis B, 0-19 yrs 11/12/2003,02/16/2003,02/18 MMR - Measles/Mumps/Rubella Vaccine 03/25/1998,0 07/20/1992 Meningococcal Conjugate Vacc ine (Menactra/Menveo) 05/29/2006 OPV - Polio Virus Vaccine (Oral) 996,07/20/1992,05/15/1991,01/23 PPD 06/15/2010 TD - Tetanus/Diptheria (ADULT) 05/22/2004 TDAP (age 10 and older)(Boostrix) 08/01/2022, TDAP, [...] money to get more. Patient declined 07/2024 Central Depression Scale Answer Date Recorded Central Depression Scale Total 7 12/18/2022 The thought [...] on file documented as of this encounter Miscellaneous Notes * Addendum Note - Jey Mohan LPN - 09/08/2024 9:51 AM EST Addended by: JEY MOHAN on: 09/08/2024 09:51 AM Modules accepted: Orders * Telephone Encounter - Jey Mohan LPN - 09/08/2024 9:50 AM EST Patient aware and agreeable to blood management referral, [facility] to schedule 3hr gtt. * Telephone Encounter - Johanny Shin LPN - 09/08/2024 9:28 AM EST left message for patient to call office * Telephone Encounter - Yaritza Bartlett PA-C - 09/07/2024 4:38 PM EST Please let her know. Patient labs did show anemia. Would recommend we set her up with IV iron to treat this. She unfortunately did not pass 1 hour gtt, needs 3 hour gtt. I placed order for this. Please give her instructions for fasting. If agreeable to IV iron will place referral. Yaritza Bartlett PA-C documented in this encounter Plan of Treatment Upcoming Encounters Date Type Department Care Team (Late st Contact Info) Description 09/09/2024 4:30 PM EST Office Visit Gynecology/Obstetrics [facility] [address] [place] [address] Yaritza Bartlett PA-C [address] [place] [address] 09/11/2024 9:10 AM EST Laboratory Laboratory, [facility] [address] [place] [phone] [facility] [address] [place] [address] 09/24/2024 11:00 AM EST Imaging Maternal Medicine Imaging, [facility] [address] [place] [phone] 10/29/2024 2:30 PM EST Imaging Maternal Medicine Imaging, [facility] [address] [place] [phone] Scheduled Orders Name Type Priority Associated Diagnoses Orde r Schedule GESTATIONAL GLUCOSE TOLERANCE, 3 HOUR Lab Routine Abnormal glucose tolerance in mother complicating Expected: 09/07/2024, Expires: 09/07/2025 Health Maintenance Due Date Last Done Comments [...] in prior History of delivery of macrosomal Supervision of high risk , antepartum, first [...] puerperium, unspecified as to episode of care Abnormal glucose tolerance in mother complicating - Primary Abnormal maternal glucose tolerance, complicating , childbirth, or the puerperium, unspecified as to episode of care documented in this encounter Additional Health Concerns Active Problems Noted Date Diagnosed Date OB Reminders 05/08/2024 documented as of this encounter Care Teams Weight Guesser Relationship Specialty Start Date End Date Jamaal Cash MD [address] [place] [address] PCP - General Family Medicine 12/28/20 documented as of this encounter
--- OUTSIDE RECORDS SUMMARY | 2024-09-12 00:16 | External Medical Summary | Summary of Care ---
Author Name Unknown Organization [facility] Address [address] [place] [address] Phone [phone] Care Team Providers Care Fire Extinguisher Mechanic Name Role Phone Jamaal Cash MD Primary Care Provider [phone] Reason for Visit * Reason Onset Date Comments Test Results 09/07/2024 Encounter Details Date Type Department Care Team (Late st Contact Info) Description 09/07/2024 Telephone Gynecology/Obstetrics [facility] [address] [facility] [place] [address] Yaritza Bartlett PA-C [address] [facility] [address] Test Results Allergies No known active allergiesdocumented [...] preeclamptic labs with CBC, serum AST/ALT/creatinine and hnwykbn-wf-skdijgkqac ratio or 24-hour urine protein TIMOTHY if [...] weeks on medication, growth q4 weeks, deliver [id number] Assessment & Plan (05/18/2024 10:37 AM EDT): Considerations: Women with chronic hypertension during are at significantly increased risk for morbidity. Signs and symptoms of superimposed pre-eclampsia were reviewed; instructed patient to contact primary OB care provider if these symptoms occur. Recommendations: Obtain baseline lab work TIMOTHY (if not already done) with assessment of proteinuria (24-hour urine protein or qaaxhab-fc-qbraibmeqv ratio) and CBC, serum AST/ALT/creatinine. If patient [...] information was shared with the patient. The [employer], Society for Maternal- Medicine, CDC and multiple medical associations strongly recommend the COVID-19 vaccine for women who are in any trimester, those attempting to become , women who have recently delivered, who are lactating as well as any other woman, regardless of age or CONTRACT FORESTER disorder. The only exceptions to receiving the vaccine are for those who have a contraindication or allergy to the vaccine or any component of the vaccine or with sincerely held hinduism convictions. The CDC and ACOG encourages a [...] her next visit. We recommend alerting the bulk loader providing care of this finding if it [...] her next visit. We recommend alerting the bulk loader providing care of this finding if it [...] 09/08/2024) Immunizations Name Administration Dates Next Due Hepatitis [...] money to get more. Patient declined 07/2024 Schaller Depression Scale Answer Date Recorded Schaller Depression Scale Total 7 12/18/2022 The thought [...] s 04/29/2024 Does the household have a [facility] source of income? (Household - for ages [...] as of this encounter Miscellaneous Notes * Telephone Encounter - Johanny Shin LPN [...] 09/09/2024 4:30 PM EST Office Visit Gynecology/Obstetrics [facility] [address] [place] [address] Yaritza Bartlett PA-C [address] [place] [address] 09/11/2024 9:10 AM EST Laboratory [facility], [facility] [address] [place] [phone] [facility] [address] [place] [address] 09/24/2024 11:00 AM EST Imaging Maternal Medicine Imaging, [facility] [address] [place] [phone] 10/29/2024 2:30 PM EST [facility] [address] [place] [phone] Scheduled Orders Name Type Priority Associated Diagnoses [...] documented as of this encounter Care Teams Fire Extinguisher Mechanic Relationship Specialty Start Date End Date Jamaal Cash MD [address] [place] [address] PCP - General Family Medicine 12/28/20 documented as of this encounter
--- OUTSIDE RECORDS SUMMARY | 2024-09-12 00:16 | External Medical Summary | Summary of Care ---
Author Name Unknown Organization [facility] Address [address] [place] [address] Phone [phone] Care Team Providers Care Historian Research Assistant Name Role Phone Jamaal Cash MD Primary Care Provider [phone] Reason for Referral * (Within 10 days (routine)) Specialty Diagnoses / Procedures Referred By Dirk perez Referred To Contact Head and Neck Surgery Diagnoses Antepartum anemia complicating Dulce Maria Bartlett PA-C [address] [place] [address] Phone: tel: fax: Referral ID Status Reason Start Date Expiration Date Visits Re quested Visits Authorized Question Answer Referral Priority Within 10 days (routine) Where should this appointment be scheduled? [facility] Reason for Visit * Reason Onset Date Comments Test Results 09/07/2024 Encounter Details Date Type Department Care Team (Late st Contact Info) Description 09/07/2024 Telephone Gynecology/Obstetrics [facility] [address] [place] [address] Dulce Maria Bartlett PA-C [address] [place] [id number] Test Results Allergies No known active allergiesdocumented [...] Date/Time 50-G [facility] 05/08/2024 10:43 AM Assessment & Plan [...] preeclamptic labs with CBC, serum AST/ALT/creatinine and ujajkft-gu-xnjjynhcxf ratio or 24-hour urine protein TIMOTHY if [...] weeks on medication, growth q4 weeks, deliver [id number] Assessment & Plan (05/18/2024 10:37 AM EDT): Considerations: Women with chronic hypertension during are at significantly increased risk for morbidity. Signs and symptoms of superimposed pre-eclampsia were reviewed; instructed patient to contact primary OB care provider if these symptoms occur. Recommendations: Obtain baseline lab work TIMOTHY (if not already done) with assessment of proteinuria (24-hour urine protein or cbiycez-im-runihdnnij ratio) and CBC, serum AST/ALT/creatinine. If patient [...] woman who previously has given to an infant weighing more than 4,000 g is 5-10 [...] episode, moderate 02/07/2023 02/07/2023 Depression with anxiety 01/10/202301/20 Positive GBS test 10/08/2022 10/19/2022 Positive testing [...] management of in third trimester 08/16/2022 10/24/19 23 Assessment & Plan (10/18/2022 11:30 AM EST): [...] information was shared with the patient. The [employer], Society for Maternal- Medicine, CDC and multiple medical associations strongly recommend the COVID-19 vaccine for women who are in any trimester, those attempting to become , women who have recently delivered, who are lactating as well as any other woman, regardless of age or FIELD ARTILLERY OPERATIONS SPECIALIST disorder. The only exceptions to receiving the vaccine are for those who have a contraindication or allergy to the vaccine or any component of the vaccine or with sincerely held mandaen convictions. The CDC and ACOG encourages a [...] her next visit. We recommend alerting the teletype clerk providing care of this finding if it [...] her next visit. We recommend alerting the teletype clerk providing care of this finding if it [...] 09/09/2024) Immunizations Name Administration Dates Next Due DTaP [...] money to get more. Patient declined 07/2024 [place] Depression Scale Answer Date Recorded [place] Depression Scale Total 7 12/18/2022 The thought [...] encounter Miscellaneous Notes * Addendum Note - Dulce Maria Bartlett PA-C - 09/09/2024 7:54 AM ESTAddended by: DULCE MARIA BARTLETT on: 09/09/2024 07:54 AM Modules accepted: Orders * Addendum Note - Jey Nixon LPN - 09/08/2024 9:51 AM EST Addended by: JEY NIXON on: 09/08/2024 09:51 AM Modules accepted: Orders * Telephone Encounter - Jey Nixon LPN - 09/08/2024 9:50 AM EST Patient aware and agreeable to blood management referral, transferred to [facility] to schedule 3hr gtt. * Telephone Encounter - Johanny Shin LPN - 09/08/2024 9:28 AM EST left message for patient to call office * Telephone Encounter - Dulce Maria Bartlett PA-C - 09/07/2024 4:38 PM EST Please let her know. Patient labs did show anemia. Would recommend we set her up with IV iron to treat this. She unfortunately did not pass 1 hour gtt, needs 3 hour gtt. I placed order for this. Please give her instructions for fasting. If agreeable to IV iron will place referral. Dulce Maria Bartlett PA-C documented in this encounter Plan of Treatment Upcoming Encounters Date Type Department Care Team (Late st Contact Info) Description 09/09/2024 4:30 PM EST [facility] [address] [place] [address] Dulce Maria Bartlett PA-C [address] [place] [address] 09/11/2024 9:10 AM EST [facility] [address] [place] [address] [facility] [address] [place] [address] 09/24/2024 11:00 AM EST Imaging Maternal Medicine Imaging, [facility] [address] [place] [address] 10/29/2024 2:30 PM EST Imaging Maternal Medicine Imaging, [facility] [address] [place] [address] Scheduled Orders Name Type Priority Associated Diagnoses Orde r Schedule GESTATIONAL GLUCOSE TOLERANCE, 3 HOUR Lab Routine Abnormal glucose tolerance in mother complicating Expected: 09/07/2024, Expires: 09/07/2025 Scheduled Referrals Name Type Priority Associated Diagnoses Orde r Schedule BLOOD MANAGEMENT REFERRAL Referral Within 10 days (routine) Antepartum anemia complicating Ordered: 09/09/2024 Health Maintenance Due Date Last Done Comments Pneumococcal Vaccine: Pediatrics (0 to 5 Years) and At-Risk Patients (6 to 64 Years) (1 of 2 - PCV) 1996 Depression Screening 05/24/2021 05/24/2020 COVID-19 Vaccine (1 - season) 2024 Influenza Vaccine (FLU shot) [...] puerperium, unspecified as to episode of care Antepartum anemia complicating Anemia, antepartum documented in this encounter Additional Health Concerns Active Problems Noted Date Diagnosed Date OB Reminders 05/08/2024 documented as of this encounter Care Teams Historian Research Assistant Relationship Specialty Start Date End Date Jamaal Cash MD [address] [facility] [place] [address] PCP - General Family Medicine 12/28/20 documented as of this encounter
--- OUTSIDE RECORDS SUMMARY | 2024-09-12 00:16 | External Medical Summary | Summary of Care ---
Author Name Unknown Organization [facility] Address [address] [place] [address] Phone [phone] Care Team Providers Care Sas Programmer Remote Name Role Phone Jamaal Cash MD Primary Care Provider [phone] Reason for Visit * Reason Comments Blood Management Program Encounter Details Date Type Department Care Team (Late st Contact Info) Description 09/09/2024 Documentation Patient Blood Management, [place] [address] [place] [address] Randy Rutherford RN Allergies No known active allergiesdocumented as of [...] Date/Time 50-G GESTATIONAL GLUCOSE, 1 HOUR - [facility] 121 05/08/2024 10:43 AM Assessment & Plan [...] preeclamptic labs with CBC, serum AST/ALT/creatinine and ntqnxup-ka-dsaepbsglr ratio or 24-hour urine protein TIMOTHY if [...] 114/66 01/17/24 120/80 11/13/23 122/76 10/18/23 124/78 12/13/23 137/78 07/08/23 130/82 05/01/23 149/91 Baseline Preeclampsia [...] weeks on medication, growth q4 weeks, deliver [id number] Assessment & Plan (05/18/2024 10:37 AM EDT): Considerations: Women with chronic hypertension during are at significantly increased risk for morbidity. Signs and symptoms of superimposed pre-eclampsia were reviewed; instructed patient to contact primary OB care provider if these symptoms occur. Recommendations: Obtain baseline lab work TIMOTHY (if not already done) with assessment of proteinuria (24-hour urine protein or piqjfmk-fn-bmsruwyepg ratio) and CBC, serum AST/ALT/creatinine. If patient [...] moderate 02/07/2023 02/07/2023 Depression with anxiety 01/10/2023 042 Positive GBS test 10/08/2022 10/19/2022 Positive testing [...] information was shared with the patient. 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 The only exceptions to receiving the [...] her next visit. We recommend alerting the threader providing care of this finding if it [...] her next visit. We recommend alerting the threader providing care of this finding if it [...] money to get more. Patient declined 07/2024 [place] Depression Scale Answer Date Recorded [place] Depression Scale Total 7 12/18/2022 The thought [...] on file documented as of this encounter Progress Notes * Randy Rutherford RN - 09/09/2024 9:01 AM EST REFERRAL - Patient Blood Management Name: Theresa Ordaz REQUESTING SERVICE: [facility] [place] REASON FOR REFERRAL: new evaluation outpatient, anemia in [place]: 11/30/24 Anemia Evaluation: Latest Reference Range & Units 09/04/24 10:03 HGB 12.0 - 15.3 g/dL 10.9 (L) HCT 36.0 - 45.2 % 34.3 (L) Iron 33 - 151 ug/dL 67 Iron Binding Capacity 250 - 425 ug/dL 463 (H) Transferrin Saturation Percent 15 - 55 % 14 (L) Ferritin 13 - 150 ng/mL 43 Vitamin B12 232 - 1,245 pg/mL 404 Folic Acid >4.5 ng/mL >20.0 Immature Reticuloctye Fraction 2.5 - 20.6 % 23.9 (H) Reticulocyte Hemoglobin 29.7 - 37.4 pg 30.8 (L): Data is abnormally low (H): Data is abnormally high Current Patient Medications: Medications that may impair hemostasis: bASA Medications that may impair iron absorption: none Patient Refused Blood Transfusion? (e.g. Sikhism): no Possible Contributing Factors: iron deficiency Treatment Recommendations: IV iron per OB MTM guidelines. Spoke with Theresa, agreeable to [facility] at [facility]. Risks and benefits of IV iron, including risk of adverse drug reaction discussed with patient. Patient voiced understanding. Thank you for allowing Blood Management to participate in the care of this patient. documented in this encounter Plan of Treatment Upcoming Encounters Date Type Department Care Team (Late st Contact Info) Description 09/09/2024 4:30 PM EST Office Visit Gynecology/Obstetrics [facility] [address] [place] [address] Yaritza Bartlett PA-C [address] [facility] [place] [address] 09/11/2024 9:10 AM EST [facility] [address] [place] [address] [facility] [address] [place] [address] 09/24/2024 11:00 AM EST Imaging Maternal Medicine [place] [address] 10/29/2024 2:30 PM EST Imaging Maternal Medicine Imaging, [facility] [address] [facility] [place] [phone] Health Maintenance Due Date Last Done Comments Pneumococcal Vaccine: Pediatrics (0 to 5 Years) and At-Risk Patients (6 to 64 Years) (1 of 2 - PCV) 1996 Depression Screening 05/24/2021 05/24/2020 COVID-19 Vaccine (1 - 2023- season) 2024 Influenza Vaccine (FLU shot) (#1) [...] Not on filedocumented as of this encounter Additional Health Concerns Active Problems Noted Date Diagnosed Date OB Reminders 05/08/2024 documented as of this encounter Care Teams Sas Programmer Remote Relationship Specialty Start Date End Date Jamaal Cash MD [address] [place] [address] PCP - General Family Medicine 12/28/20 documented as of this encounter
--- OUTSIDE RECORDS SUMMARY | 2024-09-12 00:17 | External Medical Summary ---
Author Name Unknown Address Unknown Organization [facility] [address] [place] [address] Laboratory Report Ordering Provider Test Date Status MIGUEL العراقي 08/28/2024 09:07:00 Final Observation Date Value Abnormality Reference (Units ) Status Color of Urine by Auto 08/28/2024 09:07:00 [place] Abnormal Light Yellow, Yellow Final Clarity, Urine 08/28/2024 09:07:00 Clear Clear Final Glucose [Mass/volume] in Urine by Automated test strip 08/28/2024 09:07:00 Negative Negative (mg/dL) Final Bilirubin.total [Presence] in Urine by Automated test strip 08/28/2024 09:07:00 Small Abnormal Negative Final Ketones [Mass/volume] in Urine by Automated test strip 08/28/2024 09:07:00 Negative Negative (mg/dL) Final Specific gravity, Urine 08/28/2024 09:07:00 1.025 1.003-1.030 Final Hemoglobin [Presence] in Urine by Automated test strip 08/28/2024 09:07:00 Negative Negative Final pH, Urine 08/28/2024 09:07:00 6.5 5.0, 5.5, 6.0, 6.5, 7.0, 7.5 (units) Final Protein [Mass/volume] in Urine by Automated test strip 08/28/2024 09:07:00 30 Abnormal Negative (mg/dL) Final Urobilinogen, Urine 08/28/2024 09:07:00 1.0 0.2, 1.0 (mg/dL) Final Nitrite [Presence] in Urine by Automated test strip 08/28/2024 09:07:00 Negative Negative Final Leukocyte esterase [Presence] in Urine by Automated test strip 08/28/2024 09:07:00 Negative Negative Final [facility] Location [facility] [address] [place] [address]
--- OUTSIDE RECORDS SUMMARY | 2024-09-12 00:17 | External Medical Summary | Summary of Care ---
Author Name Unknown Organization [facility] Address [address] [place] [address] Phone [phone] Care Team Providers Care Admission Specialist Name Role Phone Jamaal Cash MD Primary Care Provider [phone] Reason for Visit * Reason Comments Return Visit Encounter Details Date Type Department Care Team (Late st Contact Info) Description 07/31/2024 9:30 AM EDT Office Visit Gynecology/Obstetric [facility] [address] [facility] [place] [address] Karen Dorantes PA-C [address] [facility] [place] [id number] High-risk in second trimester*; Obesity in , antepartum; Chronic hypertension in ; History of shoulder dystocia in prior ; History of delivery of macrosomal infant; Medication exposure during first trimester of ; History of pre-eclampsia in prior , currently ; History of back surgery; Rubella non-immune status, antepartum; Maternal asthma complicating ; Anxiety during ; Nausea Allergies No known active allergiesdocumented as of this encounter (statuses as of 07/31/2024) Medications Medication Sig Dispensed Refills Start Date End Date Status Vit-Fe Fumarate-FA ( VITAMIN) 27-0.8 MG TABS Take by mouth. Active fluvoxaMINE Maleate 100 MG Oral Tablet (Luvox) TAKE 1 TABLET BY MOUTH EVERYDAY AT BEDTIME 06/13/2023 Active ProAir HFA 108 (90 Base) MCG/ACT Inhalation Aerosol SolutionIndicatio ns:Bronchitis, complicated Inhale 2 Puffs by mouth in the morning and 2 Puffs at noon and 2 Puffs in the evening and 2 Puffs before bedtime. 18 g 1 01/17/2024 Active Gabapentin 600 MG Oral Tablet (Neurontin) Take 1 Tablet by mouth in the morning and 1 Tablet at noon and 1 Tablet before bedtime. 90 Tablet 5 03/03/2024 Active Aspirin 81 MG Oral Tablet Chewable (Aspirin 81) Take 1 Tablet by mouth in the morning. 05/18/2024 Active Amphetamine-Dextr oamphetamine 20 MG Oral Tablet (Adderall) Take 1 Tablet by mouth in the morning and 1 Tablet at noon and 1 Tablet before bedtime. 06/14/2024 Active Labetalol HCl 300 MG Oral Tablet TAKE 1 TABLET BY MOUTH IN THE MORNING AND BEFORE BEDTIME 180 Tablet 2 07/17/2024 Active Folic Acid 800 MCG Oral TabletIndications :Medication exposure during first trimester of Take 1 Tablet by mouth in the morning. 90 Tablet 2 07/31/2024 Active Ondansetron HCl 4 MG Oral TabletIndications :Nausea Take 1 Tablet by mouth every 8 hours as needed for Nausea. 30 Tablet 2 07/31/2024 Active Folic Acid 800 MCG Oral TabletIndications :Medication exposure during first trimester of Take 1 Tablet by mouth in the morning. 90 Tablet 2 05/08/2024 07/31/2024 Discontinued (Refill) Ondansetron HCl 4 MG Oral TabletIndications :Nausea Take 1 Tablet by mouth every 8 hours as needed for Nausea. 30 Tablet 2 07/03/2024 07/31/2024 Discontinued (Refill) documented as of this encounter (statuses as of 07/31/2024) Active Problems Problem Noted Date Diagnosed Date Anxiety during 05/18/2024 Overview: Anxiety and OCD managed with Luvox (SSRI) No current outpatient therapy Reports a stable mood in . Denies any suicidal or homicidal ideation. Reports she has a good support system at home. Last Assessment & Plan: CONSIDERATIONS: Untreated maternal anxiety and depression may [...] services as clinically indicated. Maternal asthma complicating Overview: Managed with albuterol as needed Last albuterol use November 2023 Denies hospitalizations or intubations due to asthma Last Assessment & Plan: CONSIDERATIONS: Asthma symptoms may improve, worsen or [...] High-risk 05/08/2024 Obesity in , antepartum 05/08/2024 Overview: The patient's pre-gravid BMI is 41.03. Class 3 Lab Results Component Value Date/Time 50-G GESTATIONAL GLUCOSE, 1 HOUR - [facility] 121 05/08/2024 10:43 AM Last Assessment & Plan: I reviewed the ultrasound with her. The anatomy that was visualized appears unremarkable and the biometry is appropriate for the gestational age. The amniotic fluid volume is subjectively normal and the fetus is in the breech presentation. Chronic hypertension in 05/08/2024 Overview: Diagnosed September 2022 Managed on Labetalol Has [...] weeks on medication, growth q4 weeks, deliver [id number] Last Assessment & Plan: Considerations: Women with chronic hypertension during are at significantly increased risk for morbidity. Signs and symptoms of superimposed pre-eclampsia were reviewed; instructed patient to contact primary OB care provider if these symptoms occur. Recommendations: Obtain baseline lab work TIMOTHY (if not already done) with assessment of proteinuria (24-hour urine protein or psanflc-te-rlqlktveuh ratio) and CBC, serum AST/ALT/creatinine. If patient [...] History of shoulder dystocia in prior 05/08/2024 Overview: History of shoulder dystocia in 2020 Last Assessment & Plan: Studies have shown a 11.9%-16.7% recurrence rate [...] possible. History of delivery of macrosomal 024 Overview: History of macrosomia with shoulder dystocia. Infant weighed 4344 grams at term Last Assessment & Plan: CONSIDERATIONS: Explained that macrosomia is defined as [...] Medication exposure during first trimester of pr christiano 05/08/2024 Overview: Gabapentin for chronic back pain managed by PCP Adderall for ADHD and Luvox (SSRI) for anxiety Managed by Dr. Hilario Montelongo MD Last Assessment & Plan: Discussed that every woman has a background [...] of pre-eclampsia in prior , currently 05/08/2024 Overview: History of preeclampsia in 2020 and 2022 Last Assessment & Plan: CONSIDERATIONS: Discussed that the overall recurrence rate [...] this therapy. History of back surgery 05/08/2024 Overview: History of back surgery (laminectomy) in November 2022 Consider anesthesia consult Last Assessment & Plan: Recommend anesthesia consult during the antepartum period. 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 DDD (degenerative disc disease), lumbar 02/08/20 Tension-type headache, not intractable 3 Hypertension 01/15/2021 Morbid obesity 11/15/2009 Overview: Per Obesity Taxonomy Estimated Date of Delivery Comme nts Yes 11/30/2024 Based on last me nstrual period of 02/24/2024 (Exact Date), cycles irreg documented as of this encounter (statuses as of 07/31/2024) Resolved Problems Problem Noted Date Diagnosed Date Resolved Date S/P hemilaminotomy 02/07/2023 Major depressive disorder, r ecurrent episode, moderate 02/07/2023 02/07/2023 Depression with anxiety 01/10/202301/20 Positive GBS test 10/08/2022 10/19/2022 Positive testing for group B Streptococcus 10/05/2022 10/24/2022 Polyhydramnios, antepartum 10/01/2022 0 10/24/2022 Overview: MILD: 10/01/22: ALICE is at the [facility]th [...] management of in third trimester 08/16/2022 10/24/19 Last Assessment & Plan: Macrosomia confirmed today, with EFW at 4000g. [...] others there may be no warning signs. Karen wishes to avoid c/s and prefers trial of labor. Questions answered. HTN in , chronic 05/09/2022 Overview: BP 142/92 on 02/21/22 and 136/86 on 05/09/22. Likely chronic HTN. See progress note on 05/09/22. Last Assessment & Plan: Normal baseline pre-eclampsia labs and 24h urine reviewed. Karen states she is taking low dose aspirin. Recent BP stable; 144/84 today and 130/80s in record at OB visits. Agree that Karen likely has underlying mild CHTN which is often associated with PCOS/metabolic syndrome. Recommend treating if BP persistently 140/90 or greater on at least two occasions at least 4 hours apart. Titrate medication to maintain blood pressure in a goal range 120-140/70-90. BP control will Obesity, Class III, BMI 40-4 9.9 (morbid obesity) 04/16/2022 10/24/2022 Overview: Reviewed BMI readings noted below. Encouraged completion of early GCT. BMI Readings from Last 4 Encounters: 04/13/22 45.81 kg/m 02/21/22 45.96 kg/m 01/22/22 46.23 kg/m 10/24/21 46.31 kg/m Last Assessment & Plan: DISCUSSION: 1. Discussed obstetrical risks associated with [...] pre-eclampsia in prior , currently 04/16/2022 10/24/2022 Overview: G2- history of pre-eclampsia with IOL and [...] URINE - [facility] 68 04/13/2022 02:15 PM Last Assessment & Plan: DISCUSSION: 1. Discussed that the overall recurrence [...] of delivery of macrosomal infant 04/16/2022 10/24/2022 Overview: G2- delivery of LGA with birthweight of 4344 grams. Last Assessment & Plan: EFW today at 90%ile. We will be following growth. History of shoulder dystocia in prior 04/16/2022 10/24/2022 Overview: G2- delivery complicated by shoulder dystocia Last Assessment & Plan: 1. Studies have shown a 11.9%-16.7% recurrence [...] low as possible. Genetic screening 04/16/2022 10/24/2022 Overview: Upon discussion with patient, she has opted to decline genetic screening/testing for aneuploidy at this time Last Assessment & Plan: Cell-free DNA (cffDNA) screening is a genetic [...] (0.2%). COVID-19 vaccine series declined 04/16/2022 10/24/2022 Overview: Upon discussion with patient, she has not yet completed COVID-19 vaccine series and has respectfully opted to decline at this time. Last Assessment & Plan: During the visit today, COVID-19 vaccination was discussed and all questions were answered. The following information was shared with the patient. The [employer], Society for Maternal- Medicine, CDC and multiple medical associations strongly recommend the COVID-19 vaccine for women who are in any trimester, those attempting to become , women who have recently delivered, who are lactating as well as any other woman, regardless of age or [employer] disorder. The only exceptions to receiving the vaccine are for those who have a contraindication or allergy to the vaccine or any component of the vaccine or with sincerely held jewish convictions. The CDC and ACOG encourages a COVID-19 vaccine booster for women, given the risk of severe complications from COVID-19 in . Encounter for supervision of with history of infertility 04/13/2022 10/24/2022 Obesity in , antepartum 04/13/2022 10/24/2022 Last Assessment & Plan: I reviewed the ultrasound. The overall estimated weight is consistent with the 92nd percentile for the gestational age and the abdominal circumference is consistent with the 96 percentile the gestational age. The head circumference is greater than the 99th percentile for the gestational age. The anatomy that was visualized appears unremarkable and the amniotic fluid volume is normal. Hx of preeclampsia, prior pr egnancy, currently 04/13/2022 10/24/2022 Supervision of normal 04/13/2022 07/09/2022 Adjustment disorder with mix ed anxiety and depressed mood 10/24/2021 01/10/2023 Body mass index (BMI) of 40. 0 to 44.9 in adult 04/04/2021 10/03/2021 Overview: Per Obesity protocol Iron deficiency anemia due t o chronic blood loss 01/18/2021 10/24/2021 Antepartum anemia complicating 11/16/2020 01/15/2021 Overview: 11/16/20 Hgb 10.3, to start Vitron C GBS (group B Streptococcus c raquel), +RV culture, currently 11/15/2020 01/15/2021 Overview: CLINDAMYCIN SUSCEPTIBLE TETRACYCLINE RESISTANT VANCOMYCIN SUSCEPTIBLE PENICILLIN SUSCEPTIBLE presentation, breech 10/28/2020 0 11/09/2020 Pyelectasis of fetus on ultrasound 09/09/2020 01/15/2021 Overview: We will reassess at her next visit. We recommend alerting the family and consumer education teacher providing care of this finding if it persists in the 3rd trimester. Last Assessment & Plan: urinary tract dilation is found in approximately [...] her next visit. We recommend alerting the family and consumer education teacher providing care of this finding if it persists in the 3rd trimester. PCOS (polycystic ovarian syndrome) 06/23/2020 10/24/2022 Last Assessment & Plan: RECOMMENDATIONS: Due to the increased risk for diabetes in this population, recommend testing for undiagnosed type 2 diabetes mellitus with the first visit using the standard diagnostic criteria (2016 ADA Diabetes Management Guidelines). High-risk 06/23/2020 01/16/20 21 Genetic screening 06/23/2020 07/06/2020 Overview: Patient has opted to decline genetic screening/testing for aneuploidy. Obesity affecting 06/03/2020 01/15/2021 Overview: Pre-gravid BMI of 43. She has not [...] 36 weeks -Deliver by [facility] -Anesthesia consult Last Assessment & Plan: She presents for follow-up of growth. We [...] completion of a repeat 3 hour GTT. OBESITY, PEDIATRIC, BMI 95-98TH PERCENTILE 01/12/2010 07/09/2011 Overview: Per Obesity Taxonomy Allergic rhinitis 03/15/2009 01/15/2021 Urinary frequency 04/12/2000 07/09/2011 Constipation 04/12/2000 07/09/2011 Overview: ICD-10 update of inactive term documented as of this encounter (statuses as of 07/31/2024) Immunizations Name Administration Dates Next Due DTaP [...] money to get more. Patient declined 07/2024 [place] Depression Scale Answer Date Recorded [place] Depression Scale Total 7 12/18/2022 The thought [...] Assigned at Female 01/09/2019 7:58 AM EDT Gender Identity Female 01/09/2019 7:58 AM EDT Sexual Orientation Straight 01/09/2019 7: 58 AM EDT Job Start Date Occupation Industry Not on file Not on file Not on file documented as of this encounter Last Filed Vital Signs Vital Sign Reading Time Taken Comments Blood Pressure 118/72 07/31/2024 9:30 AM EDT Pulse - - Temperature - - Respiratory Rate - - Oxygen Saturation - - Inhaled Oxygen Concentration - - Weight 124.3 kg (274 lb) 07/31/2024 9:30 AM EDT Height - - Body Mass Index 40.46 05/08/2024 8:55 AM EDT documented in this encounter Progress Notes * Lola Raymundo CMA - 07/31/2024 9:30 AM EDT 22w4d Denies any concerns * Karen Dorantes PA-C - 07/31/2024 9:20 AM EDT Karen Ordaz is a 33 year old female here for her routine OB appointment at 22w4d Her Estimated Date of Delivery: 11/30/24 REVIEW OF SYSTEMS She affirms movement. Denies vaginal bleeding, LOF, contractions, headaches, vision changes, chest pain. PHYSICAL EXAM Filed Vitals: 07/31/24 0930 BP: 118/72 Weight: 124.3 kg (274 lb) +FHT 140s Fundal height 22 cm ASSESSMENT/PLAN High-risk in second trimester (Primary) - URINALYSIS OBSTETRICS, POINT OF CARE Obesity in , antepartum Chronic hypertension in - URINALYSIS OBSTETRICS, POINT OF CARE - PROTEIN/ CREATININE RATIO, URINE - Trace protein on urine dip. Sent for PCR. History of shoulder dystocia in prior History of delivery of macrosomal Medication exposure during first trimester of - Folic Acid 800 MCG Oral Tablet; Take 1 Tablet by mouth in the morning. History of pre-eclampsia in prior , currently - URINALYSIS OBSTETRICS, POINT OF CARE History of back surgery Rubella non-immune status, antepartum Maternal asthma complicating Anxiety during Nausea - Ondansetron HCl 4 MG Oral Tablet; Take 1 Tablet by mouth every 8 hours as needed for Nausea. Supervision of - had anatomy u/s 07/15/2024 with MFM - results WNLs RTO in 4 weeks Karen Dorantes PA-C 07/31/2024 documented in this encounter Miscellaneous Notes * Addendum Note - Karen Dorantes PA-C - 07/31/2024 9:45 AM EDT Addended by: KAREN DORANTES on: 07/31/2024 09:45 AM Modules accepted: Orders * Result Encounter Note - Karen Dorantes PA-C - 07/31/2024 9:44 AM EDT Reviewed at [facility] today. Sent for PCR. Karen Dorantes PA-C documented in this encounter Plan of Treatment Upcoming Encounters Date Type Department Care Team (Late st Contact Info) Description 08/20/2024 1:00 PM EDT Imaging [facility], [facility] [address] [place] [phone] 08/28/2024 9:00 AM EST Office Visit Gynecology/Obstetrics [facility] [address] [place] [id number] Yaritza Bartlett PA-C [address] [place] [phone] 09/24/2024 11:00 AM EST Imaging Maternal Medicine [facility] [address] [place] [phone] Pending Results Name Type Priority Associated Diagnoses Date /Time PROTEIN/ CREATININE RATIO, URINE Lab Routine Chronic hypertension in 07/31/2024 10:03 AM EDT Health Maintenance Due Date Last Done Comments Pneumococcal Vaccine: Pediatrics (0 to 5 Years) and At-Risk Patients (6 to 64 Years) (1 of 2 - PCV) 1996 Depression Screening 05/24/2021 05/24/2020 COVID-19 Vaccine ( - season) 2024 Influenza Vaccine (FLU shot) (#1) 2024 GFR 05/08/2025 05/08/2024, 04/20, 12/18/2022, Additional history exists Pap Smear 05/08/2027 05/08/2024, [...] Diagnosis Comments URINALYSIS OBSTETRICS, POINT OF CARE Routine 07/31/2024 9:37 AM EDT High-risk in second trimester Chronic hypertension in History of pre-eclampsia in prior , currently documented in this encounter Results * (ABNORMAL) URINALYSIS OBSTETRICS, POINT OF CARE (07/31/2024 9:37 AM EDT) Color, Urine Yellow Light Yellow, Yellow 07/31/2024 9:39 AM EDT [facility] Clarity, Urine Clear Clear 07/31/2024 9:39 AM EDT [facility] Glucose, Urine Negative Negative mg/dL 07/31/2024 9:39 AM EDT [facility] Bilirubin, Urine Negative Negative 07/31/2024 9:39 AM EDT [facility] Ketone, Urine Negative Negative mg/dL 07/31/2024 9:39 AM EDT [facility] Specific [place], Urine 1.025 1.003 - 1.030 07/31/2024 9:39 AM EDT [facility] Blood, Urine Negative Negative 07/31/2024 9:39 AM EDT [facility] pH, Urine 7.0 5.0, 5.5, 6.0, 6.5, 7.0, 7.5 units 07/31/2024 9:39 AM EDT [facility] Protein, Urine Trace(A) Negative mg/dL 07/31/2024 9:39 AM EDT [facility] Urobilinogen, Urine 1.0 0.2, 1.0 mg/dL 07/31/2024 9:39 AM EDT [facility] Nitrite, Urine Negative Negative 07/31/2024 9:39 AM EDT [facility] Esterase, Urine Negative Negative 07/31/2024 9:39 AM EDT [facility] Urine 07/31/2024 9:37 AM EDT 07/31/2024 9:39 AM EDT Karen Dorantes PA-C LAB POINT OF CARE TEST DOCKED DEVICE UNSOLICITED RESULTS [facility] [address] [facility] [place] [id number] documented in this encounter Visit Diagnoses Diagnosis High-risk in second trimester- Primary Obesity in , antepartum Obesity complicating , [...] as to episode of care Anxiety during Nausea Nausea alone documented in this encounter Additional Health Concerns Active Problems Noted Date Diagnosed Date OB Reminders 05/08/2024 documented as of this encounter Care Teams Admission Specialist Relationship Specialty Start Date End Date Jamaal Cash MD [address] [place] [id number] PCP - General Family Medicine 12/28/20 documented as of this encounter
--- OUTSIDE RECORDS SUMMARY | 2024-09-12 00:17 | External Medical Summary ---
Author Name Unknown Address Unknown Organization [id number]:[facility] [place] [address] [place] [id number] Laboratory Report Ordering Provider Test Date Status MIGUEL العراقي 09/04/2024 10:03:56 Final Observation Date Value Abnormality Reference (Units ) Status Folic Acid 09/04/2024 10:03:56 >20.0 >4.5 (ng/ mL) Final Performing Location [facility] [place] [address] [place] [address]
--- OUTSIDE RECORDS SUMMARY | 2024-09-12 00:17 | External Medical Summary ---
Author Name Unknown Address Unknown Organization [id number]:[facility] [place] - [address] [place] [address] Laboratory Report Ordering Provider Test Date Status MIGUEL العراقي 09/04/2024 10:03:56 Final Observation Date Value Abnormality Reference (Units ) Status Treponema pallidum Ab [Presence] in Serum by Immunoassay 09/04/2024 10:03:56 Nonreactive Nonreactive Final No serologic evidence of syp hilis. No additional testing clinicially indicated at this time. Consider repeat testing in 2-4 weeks if acute or primary syphilis is suspected. Performing Location [facility] [place] - [address] [place] [address]
--- OUTSIDE RECORDS SUMMARY | 2024-09-12 00:17 | External Medical Summary | Summary of Care ---
Author Name Unknown Organization [facility] Address [address] [place] [address] Phone [phone] Care Team Providers Care Hotel Assistant General Manager Name Role Phone Jamaal Cash MD Primary Care Provider [phone] Encounter Details Date Type Department Care Team (Late st Contact Info) Description 08/20/2024 1:00 PM EDT Office Visit Workforce Manager Obstetrics Maternal Medicine, [facility] [address] [place] [address] Sharon Robert, DO [address] [place] [address] Obesity in , antepartum*; Chronic hypertension in ; Ultrasound for screening for growth restriction; 25 weeks gestation of Allergies No known active allergiesdocumented as of this encounter (statuses as of 08/21/2024) Medications Medication Sig Dispensed Refills Start Date End Date Status Vit-Fe Fumarate-FA ( VITAMIN) 27-0.8 MG TABS Take by mouth. Active fluvoxaMINE Maleate 100 MG Oral Tablet (Luvox) TAKE 1 TABLET BY MOUTH EVERYDAY AT BEDTIME 06/13/2023 Active ProAir HFA 108 (90 Base) MCG/ACT Inhalation Aerosol SolutionIndications: Bronchitis, complicated Inhale 2 Puffs by mouth in [...] by mouth in the morning. 05/18/2024 Active Amphetamine-Dextroam phetamine 20 MG Oral Tablet (Adderall) Take 1 Tablet by mouth in the morning and 1 Tablet at noon and 1 Tablet before bedtime. 06/14/2024 Active Labetalol HCl 300 MG Oral Tablet TAKE 1 TABLET BY MOUTH IN THE MORNING AND BEFORE BEDTIME 180 Tablet 2 07/17/2024 Active Folic Acid 800 MCG Oral TabletIndications:Me dication exposure during first trimester of Take 1 Tablet by mouth in the morning. 90 Tablet 2 07/31/2024 Active Ondansetron HCl 4 MG Oral TabletIndications:Na usea Take 1 Tablet by mouth every 8 hours as needed for Nausea. 30 Tablet 2 07/31/2024 Active documented as of this encounter (statuses as of 08/21/2024) Active Problems Problem Noted Date Diagnosed Date [...] weeks on medication, growth q4 weeks, deliver [id number] Last Assessment & Plan: Considerations: Women with chronic hypertension during are at significantly increased risk for morbidity. Signs and symptoms of superimposed pre-eclampsia were reviewed; instructed patient to contact primary OB care provider if these symptoms occur. Recommendations: Obtain baseline lab work TIMOTHY (if not already done) with assessment of proteinuria (24-hour urine protein or gljbsxj-uj-rbmfmvdhux ratio) and CBC, serum AST/ALT/creatinine. If patient [...] History of delivery of macrosomal infant 024 Overview: History of macrosomia with shoulder [...] during first trimester of pr egnancy 05/08/2024 Overview: Gabapentin for chronic back pain [...] as of this encounter (statuses as of 08/21/2024) Resolved Problems Problem Noted Date Diagnosed Date [...] of in third trimester 08/16/2022 10/24/19 23 Last Assessment & Plan: Macrosomia confirmed today, [...] information was shared with the patient. The [employer]s [employer] Gyne[employer], Society for Maternal- Medicine, CDC and multiple medical associations strongly recommend the COVID-19 vaccine for women who are in any trimester, those attempting to become , women who have recently delivered, who are lactating as well as any other woman, regardless of age or PROJECTION PRINTER disorder. The only exceptions to receiving the [...] her next visit. We recommend alerting the slip operator providing care of this finding if it [...] her next visit. We recommend alerting the slip operator providing care of this finding if it [...] as of this encounter (statuses as of 08/21/2024) Immunizations Name Administration Dates Next Due Hepatitis [...] money to get more. Patient declined 07/2024 [place] Depression Scale Answer Date Recorded [place] Depression Scale Total 7 12/18/2022 The thought [...] as of this encounter Progress Notes * Sharon Robert, - 08/21/2024 3:44 PM EDT Theresa presented today at 25w4d for an ultrasound for the following indications: Obesity in , antepartum Chronic hypertension in Ultrasound for screening for growth restriction 25 weeks gestation of Ultrasound summary: Patient presented at 25w 3d for growth assessment. Normal growth with EFW 942 g at 82%ile. Normal ALICE at 15.6 cm. Breech presentation. I reviewed the ultrasound images. Theresa was given the opportunity to meet with me if she had any questions. Please refer to the ultrasound report for additional details about today's ultrasound examination. RECOMMENDATIONS: Recommend follow up ultrasound with MFM in 4-6 weeks for growth secondary to above indications. See prior formal MFM consultation note. Thank you for allowing us to participate in the care of this patient. Please call with any questions. Sharon Robert DO 08/21/2024 3:44 PM documented in this encounter Plan of Treatment Upcoming Encounters Date Type Department Care Team (Late st Contact Info) Description 08/28/2024 9:00 AM EST Office Visit Gynecology/Obstetrics Justus Acosta [address] [place] [address] Yaritza Bartlett PA-C [address] [place] [address] 09/24/2024 11:00 AM EST Imaging Maternal Medicine Chau Perez [address] [place] [phone] 10/29/2024 2:30 PM EST Imaging Maternal Medicine Chau Perez [address] [place] [phone] Health Maintenance Due Date Last Done [...] Author Reminders Care Plan OB Reminders No Veet, Provider documented as of this encounter Medical Devices Not on filedocumented as of this encounter Visit Diagnoses Diagnosis Obesity in , antepartum- Primary Obesity complicating , childbirth, or the puerperium, antepartum condition or complication Chronic hypertension in Benign essential hypertension complicating , childbirth, and the puerperium, unspecified as to episode of care Ultrasound for screening for growth restriction screening for growth retardation using ultrasonics 25 weeks gestation of state, incidental documented in this encounter Additional Health Concerns Active Problems Noted Date Diagnosed Date OB Reminders 05/08/2024 documented as of this encounter Care Teams Hotel Assistant General Manager Relationship Specialty Start Date End Date Jamaal Cash MD [address] [place] [address] PCP - General Family Medicine 12/28/20 documented as of this encounter
--- OUTSIDE RECORDS SUMMARY | 2024-09-12 00:17 | External Medical Summary | Summary of Care ---
Author Name Unknown Organization [facility] Address [address] [place] [address] Phone [phone] Care Team Providers Care Waredresser Name Role Phone Jamaal Cash MD Primary Care Provider [phone] Reason for Visit * Reason Onset Date Comments Referral 05/11/2024 Encounter Details Date Type Department Care Team (Late st Contact Info) Description 05/11/2024 Telephone Rug Washer Obstetrics Maternal Medicine, [place] [address] [place] [address] [place] Nurse Rug Was[facility] [address] [place], [place] [id number] Referral Allergies No known active allergiesdocumented as of this encounter (statuses as of 08/10/2024) Medications Medication Sig Dispensed Refills Start Date End Date Status Vit-Fe Fumarate-FA ( VITAMIN) 27-0.8 MG TABS Take by mouth. Active fluvoxaMINE Maleate 100 MG Oral Tablet (Luvox) TAKE 1 TABLET BY MOUTH EVERYDAY AT BEDTIME 06/13/2023 Active ProAir HFA 108 (90 Base) MCG/ACT Inhalation Aerosol SolutionIndications:B ronchitis, complicated Inhale 2 Puffs by mouth in [...] by mouth in the morning. 05/18/2024 Active documented as of this encounter (statuses as of 08/10/2024) Active Problems Problem Noted Date Diagnosed Date [...] Date/Time 50-G GESTATIONAL GLUCOSE, 1 HOUR - [facility] 121 05/08/2024 10:43 AM Last Assessment & [...] weeks on medication, growth q4 weeks, deliver [id number]-75l8m Last Assessment & Plan: Considerations: Women with chronic hypertension during are at significantly increased risk for morbidity. Signs and symptoms of superimposed pre-eclampsia were reviewed; instructed patient to contact primary OB care provider if these symptoms occur. Recommendations: Obtain baseline lab work TIMOTHY (if not already done) with assessment of proteinuria (24-hour urine protein or mtteusr-cv-ejdtwykqur ratio) and CBC, serum AST/ALT/creatinine. If patient [...] Overview: History of macrosomia with shoulder dystocia. weighed 4344 grams at term Last Assessment [...] as of this encounter (statuses as of 08/10/2024) Resolved Problems Problem Noted Date Diagnosed Date [...] information was shared with the patient. The [place] [employer]s [employer]ne[employer], Society for Maternal- Medicine, CDC and multiple medical associations strongly recommend the COVID-19 vaccine for women who are in any trimester, those attempting to become , women who have recently delivered, who are lactating as well as any other woman, regardless of age or VP TRANSPORTATION disorder. The only exceptions to receiving the vaccine are for those who have a contraindication or allergy to the vaccine or any component of the vaccine or with sincerely held oriental orthodox convictions. The CDC and ACOG encourages a [...] her next visit. We recommend alerting the wet pour supervisor providing care of this finding if it [...] her next visit. We recommend alerting the wet pour supervisor providing care of this finding if it [...] as of this encounter (statuses as of 08/10/2024) Immunizations Name Administration Dates Next Due Hepatitis [...] money to get more. Patient declined 07/2024 [place] Depression Scale Answer Date Recorded [place] Depression Scale Total 7 12/18/2022 The thought [...] encounter Miscellaneous Notes * Telephone Encounter - Lindsay Nielson OSA - 05/12/2024 8:13 AM EDT Spoke with Theresa. Appointment scheduled. Patient aware of date, time and location of Maternal Medicine appointment. * Telephone Encounter - Lindsay Nielson OSA - 05/11/2024 2:10 PM EDT Phone call to patient. Left message on Theresa's voice mail. Encouraged patient to return call to [facility] to assist with scheduling. Sent MyG * Telephone Encounter - Ruth Munguia CCMA - 05/11/2024 1:56 PM EDT Estimated Date of Delivery: 11/30/24 Please schedule for 45 MINUTE CONSULT SIMPLE MEDICAL WITH CLIENT SUPPORT MANAGER, in time frame of next available or atpatient's earliest convenience at location [facility] with the indication of CHTN, class III obesity, medication exposure (Luvox, Adderall, Gabapentin), hx shoulder dystocia in prior , hx macrosomal , hx PEC. Please schedule anatomy between 19-21 weeks (07/07/24-07/21/24). Referring Provider: Joyce Smith CRNP documented in this encounter Plan of Treatment Upcoming Encounters Date Type Department Care Team (Late st Contact Info) Description 08/20/2024 1:00 PM EDT Imaging Maternal Medicine Chau Perez [address] [place] [phone] 08/28/2024 9:00 AM EST Office Visit Gynecology/Obstetrics Justus Acosta [address] [place] [address] Yaritza Bartlett PA-C [address] [place] [address] 09/24/2024 11:00 AM EST Imaging Maternal Medicine Chau Perez [address] [place] [address] Health Maintenance Due Date Last Done Comments [...] Author Reminders Care Plan OB Reminders No Omero Provider documented as of this encounter Medical Devices Not on filedocumented as of this encounter Additional Health Concerns Active Problems Noted Date Diagnosed Date OB Reminders 05/08/2024 documented as of this encounter Care Teams Waredresser Relationship Specialty Start Date End Date Jamaal Cash MD [address] [place] [address] PCP - General Family Medicine 12/28/20 documented as of this encounter
--- OUTSIDE RECORDS SUMMARY | 2024-09-12 00:17 | External Medical Summary ---
Author Name Unknown Address Unknown Organization [id number]:LABORATORY [facility] - [address] [facility] [address] Laboratory Report Ordering Provider Test Date Status MIGUEL العراقي 09/04/2024 10:03:56 Final Observation Date Value Abnormality Reference (Units ) Status SYNC LEUKOCYTES IN BLOOD BY AUTOMATED COUNT 09/04/2024 10:03:56 8.98 4.00-10.80 (K/uL) Final Segs 09/04/2024 10:03:56 62.3 40.0-75.0 (%) Final Lymphs % 09/04/2024 10:03:56 28.4 18.0-42.0 (%) Final Monos 09/04/2024 10:03:56 6.5 1.0-11.0 (%) Final Eosinophils 09/04/2024 10:03:56 1.7 0.0-6.0 (%) Final Basos 09/04/2024 10:03:56 0.4 0.0-2.0 (%) Final Immature Granulocyte, Percent 09/04/2024 10:03:56 0.7 0.0-2.0 (%) Final Absolute Segs 09/04/2024 10:03:56 5.60 1.80-7.70 (K/uL) Final Lymphs, absolute 09/04/2024 10:03:56 2.55 1.00-4.80 (K/ul) Final Monos, Abs 09/04/2024 10:03:56 0.58 0.00-1.10 (K/uL) Final Eos, Abs 09/04/2024 10:03:56 0.15 0.00-0.70 (K/uL) Final Basos, Abs 09/04/2024 10:03:56 0.04 0.00-0.20 (K/uL) Final Immature Granulocytes, Number 09/04/2024 10:03:56 0.06 0.00-0.20 (K/uL) Final Performing Location LABORATORY [facility] - [address] [facility] [address]
--- OUTSIDE RECORDS SUMMARY | 2024-09-12 00:17 | External Medical Summary ---
Author Name Unknown Address Unknown Organization [id number]:LABORATORY [facility] [place] - [address] [facility] [address] [facility] [address] Laboratory Report Ordering Provider Test Date Status MIGUEL العراقي 09/04/2024 10:03:56 Final Observation Date Value Abnormality Reference (Units ) Status TSH 09/04/2024 10:03:56 1.22 0.27-4.20 (uIU/mL) Final Performing Location LABORATORY [facility] [place] - [address] [facility] [address] [facility] [address]
--- OUTSIDE RECORDS SUMMARY | 2024-09-12 00:17 | External Medical Summary ---
Author Name Unknown Address Unknown Organization K0G:LABORATORY [facility] - [address] [place] [address] Laboratory Report Ordering Provider Test Date Status MIGUEL العراقي 08/28/2024 09:28:54 Final Observation Date Value Abnormality Reference (Units ) Status BUN 08/28/2024 09:28:54 7 6-20 (mg/dL) Final Creatinine 08/28/2024 09:28:54 0.6 0.5-1.0 (mg/dL) Final Glomerular filtration rate/1.73 sq M.predicted [Volume Rate/Area] in Serum, Plasma or Blood by Creatinine-based formula (CKD-EPI) 08/28/2024 09:28:54 >90 >=60 (mL/min) Final eGFR is calculated based on the CKD-EPI 2020 equation. Sodium 08/28/2024 09:28:54 137 135-146 (m mol/L) Final Potassium 08/28/2024 09:28:54 4.2 3.5-5.1 (m mol/L) Final Cl 08/28/2024 09:28:54 103 98-107 (mm ol/L) Final CO2 08/28/2024 09:28:54 23 22-32 (mmo l/L) Final Anion gap 08/28/2024 09:28:54 11 7-15 (mmol /L) Final Glucose 08/28/2024 09:28:54 108 70-120 (mg /dL) Final Albumin 08/28/2024 09:28:54 3.7 Below low normal 3.8 -5.0 (g/dL) Final AST (Aspartate aminotransferase) 08/28/2024 09:28:54 19 10-35 (U/L) Fin al Alk Phos 08/28/2024 09:28:54 77 35-130 (U/ L) Final Bilirubin, Total 08/28/2024 09:28:54 0.5 <=1 .2 (mg/dL) Final Calcium 08/28/2024 09:28:54 9.2 8.4-10.2 ( mg/dL) Final Protein 08/28/2024 09:28:54 6.2 6.0-8.3 (g /dL) Final ALT (Alanine aminotransferase) 08/28/2024 09:28:54 23 10-35 (U/L) Sanket veloz Performing Location LABORATORY [facility] - [address] [facility] [address]
--- OUTSIDE RECORDS SUMMARY | 2024-09-12 00:17 | External Medical Summary ---
Author Name Unknown Address Unknown Organization K01:LABORATORY [facility] [place] - [address] [facility] [place] [address] Laboratory Report Ordering Provider Test Date Status MIGUEL العراقي 09/04/2024 10:03:56 Final Observation Date Value Abnormality Reference (Units ) Status Ferritin 09/04/2024 10:03:56 43 13-150 (ng /mL) Final Performing Location LABORATORY [facility] [place] [facility] [address] [facility] [address]
--- OUTSIDE RECORDS SUMMARY | 2024-09-12 00:17 | External Medical Summary ---
Author Name Unknown Address Unknown Organization [id number]:[facility] [address] [place] [address] Laboratory Report Ordering Provider Test Date Status MIGUEL العراقي 08/28/2024 09:11:30 Final Normal: <150 mg/ g creatinine
High: 150-500 mg/g creatinine
Very High: >500 mg/g creatinine
Nephrotic: >3000 mg/g creatinine Observation Date Value Abnormality Reference (Units ) Status Protein/Creatinine [Ratio] in Urine 08/28/2024 09:11:30 136 <150 (mg/g ) Final Protein, Urine 08/28/2024 09:11:30 29 (mg/dL) Final Creatinine, Urine 08/28/2024 09:11:30 214 (mg/dL) Final Performing Location LAB[facility]ORY [facility] [place] [address] [place] [address]
--- OUTSIDE RECORDS SUMMARY | 2024-09-12 00:17 | External Medical Summary | Summary of Care ---
Author Name Unknown Organization [facility] Address [address] [place] [address] Phone [phone] Care Team Providers Care Certified Pharmacist Assistant Name Role Phone Jamaal Cash MD Primary Care Provider [phone] Reason for Visit * Reason Comments Outpatient Testing Encounter Details Date Type Department Care Team (Late st Contact Info) Description 08/28/2024 10:10 AM EST Laboratory [facility] [address] [place] [phone] [facility] [address] [place] [address] Arrived Allergies No known active allergiesdocumented as of this encounter (statuses as of 08/28/2024) Medications Vit-Fe Fumarate-FA ( VITAMIN) 27-0.8 MG [...] as of this encounter (statuses as of 08/28/2024) Active Problems Problem Noted Date Diagnosed Date [...] preeclamptic labs with CBC, serum AST/ALT/creatinine and vhndkgw-gn-wldstjtxfr ratio or 24-hour urine protein TIMOTHY if [...] weeks on medication, growth q4 weeks, deliver [id number] Assessment & Plan (05/18/2024 10:37 AM EDT): Considerations: Women with chronic hypertension during are at significantly increased risk for morbidity. Signs and symptoms of superimposed pre-eclampsia were reviewed; instructed patient to contact primary OB care provider if these symptoms occur. Recommendations: Obtain baseline lab work TIMOTHY (if not already done) with assessment of proteinuria (24-hour urine protein or fuhjyuq-sv-fvubpqjolv ratio) and CBC, serum AST/ALT/creatinine. If patient [...] as of this encounter (statuses as of 08/28/2024) Resolved Problems Problem Noted Date Diagnosed Date [...] information was shared with the patient. The [place] [employer]st[employer]s [employer] Gyne[employer], Society for Maternal- Medicine, CDC and multiple medical associations strongly recommend the COVID-19 vaccine for women who are in any trimester, those attempting to become , women who have recently delivered, who are lactating as well as any other woman, regardless of age or COMPUTER ENGINEER disorder. The only exceptions to receiving the vaccine are for those who have a contraindication or allergy to the vaccine or any component of the vaccine or with sincerely held faith convictions. The CDC and ACOG encourages a [...] Vitron C GBS (group B Streptococcus c arrwill), +RV culture, currently 11/15/2020 01/15/2021 Overview (11/15/2020): CLINDAMYCIN SUSCEPTIBLE TETRACYCLINE RESISTANT VANCOMYCIN SUSCEPTIBLE PENICILLIN SUSCEPTIBLE presentation, breech 10/28/2020 0 11/09/2020 Pyelectasis of fetus on ultrasound 09/09/2020 01/15/2021 Overview (09/09/2020): We will reassess at her next visit. We recommend alerting the delivery technician providing care of this finding if it [...] her next visit. We recommend alerting the delivery technician providing care of this finding if it [...] as of this encounter (statuses as of 08/28/2024) Immunizations Name Administration Dates Next Due Hepatitis [...] money to get more. Patient declined 07/2024 [place] Depression Scale Answer Date Recorded [place] Depression Scale Total 7 12/18/2022 The thought [...] s 04/29/2024 Does the household have a tuba city regional health care corporationlar source of income? (Household - for ages [...] Care Team (Late st Contact Info) Description 09/02/2024 1:40 PM EST Laboratory [facility], [facility] [address] [place] [phone] Scooter Acosta [address] [place] [address] 09/02/2024 1:45 PM EST Office Visit Gynecology/Obstetrics Justus Acosta [address] [place] [address] [place], KAMALA Perez [address] [place] [address] 09/24/2024 11:00 AM EST Imaging Maternal Medicine Imaging, Chau Acosta [address] [place] [phone] 10/29/2024 2:30 PM EST Imaging Maternal Medicine Imaging, Chau Acosta [address] [place] [phone] Health Maintenance Due Date Last Done Comments [...] documented as of this encounter Care Teams Certified Pharmacist Assistant Relationship Specialty Start Date End Date Jamaal Cash MD [address] [facility] [address] [place] [address] PCP - General Family Medicine 12/28/20 documented as of this encounter
--- OUTSIDE RECORDS SUMMARY | 2024-09-12 00:17 | External Medical Summary ---
Author Name Unknown Address Unknown Organization K01:LABORATORY [facility] [place] - [address] [place] [address] Laboratory Report Ordering Provider Test Date Status MIGUEL العراقي 09/04/2024 10:03:56 Final Observation Date Value Abnormality Reference (Units ) Status Iron 09/04/2024 10:03:56 67 33-151 (ug/dL) Final Iron-binding capacity 09/04/2024 10:03:56 463 Above high normal 250-425 (ug/dL) Final Transferrin Sat % 09/04/2024 10:03:56 14 Below low normal 15-55 (%) Final Performing Location LAB[facility]ATORY [facility] [place] - [address] [place] [address]
--- OUTSIDE RECORDS SUMMARY | 2024-09-12 00:17 | External Medical Summary ---
Author Name Unknown Address Unknown Organization K01:LABORATORY [place] [address] [facility] [address] Laboratory Report Ordering Provider Test Date Status MIGUEL العراقي 09/04/2024 10:03:56 Final Observation Date Value Abnormality Reference (Units ) Status Retic, % (auto) 09/04/2024 10:03:56 2.41 Above high normal 0.80-1.90 (%) Final Reticulocytes, Absolute 09/04/2024 10:03:56 88.7 31.3-100.1 (K/uL) Final Reticulocyte fraction, immature 09/04/2024 10:03:56 23.9 Above high normal 2.5-20.6 (%) Final Reticulocyte HGB 09/04/2024 10:03:56 30.8 29.7-37.4 (pg) Final Performing Location LABORATORY [facility] [place] [facility] [address] [facility] [address]
--- OUTSIDE RECORDS SUMMARY | 2024-09-12 00:17 | External Medical Summary | Summary of Care ---
Author Name Unknown Organization [facility] Address [address] [place] [address] Phone [phone] Care Team Providers Care Probation Counselor Name Role Phone Jamaal Cash MD Primary Care Provider [phone] Reason for Visit * Reason Comments Return Visit Encounter Details Date Type Department Care Team (Late st Contact Info) Description 08/28/2024 9:00 AM EST Office Visit Gynecology/Obstetric s Justus Acosta [address] [place] [address] Yaritza Bartlett PA-C [address] [place] [address] High-risk in second trimester*; Obesity in , [...] preeclamptic labs with CBC, serum AST/ALT/creatinine and xqeilcc-uh-zyujmyudno ratio or 24-hour urine protein TIMOTHY if [...] weeks on medication, growth q4 weeks, deliver [id number] Assessment & Plan (05/18/2024 10:37 AM EDT): Considerations: Women with chronic hypertension during are at significantly increased risk for morbidity. Signs and symptoms of superimposed pre-eclampsia were reviewed; instructed patient to contact primary OB care provider if these symptoms occur. Recommendations: Obtain baseline lab work TIMOTHY (if not already done) with assessment of proteinuria (24-hour urine protein or podvvhs-cz-bxjnkeoftx ratio) and CBC, serum AST/ALT/creatinine. If patient [...] as possible. History of delivery of macrosomal Overview (05/12/2024): History of macrosomia with shoulder [...] moderate 02/07/2023 02/07/2023 Depression with anxiety 01/10/2023 04 Positive GBS test 10/08/2022 10/19/2022 Positive testing [...] Value Date/Time PROTEIN/ CREATININE RATIO, URINE - ERIKA 68 04/13/2022 02:15 PM Assessment & Plan [...] information was shared with the patient. The [place] [employer]ne[employer], Society for Maternal- Medicine, CDC and multiple medical associations strongly recommend the COVID-19 vaccine for women who are in any trimester, those attempting to become , women who have recently delivered, who are lactating as well as any other woman, regardless of age or ADOLESCENT PSYCHIATRIST disorder. The only exceptions to receiving the vaccine are for those who have a contraindication or allergy to the vaccine or any component of the vaccine or with sincerely held anglican convictions. The CDC and ACOG encourages a [...] Vitron C GBS (group B Streptococcus c arrier), +RV culture, currently 11/15/2020 01/15/2021 Overview (11/15/2020): CLINDAMYCIN SUSCEPTIBLE TETRACYCLINE RESISTANT VANCOMYCIN SUSCEPTIBLE PENICILLIN SUSCEPTIBLE presentation, breech 10/28/2020 0 11/09/2020 Pyelectasis of fetus on ultrasound 09/09/2020 01/15/2021 Overview (09/09/2020): We will reassess at her next visit. We recommend alerting the destination imagination coordinator providing care of this finding if it [...] her next visit. We recommend alerting the destination imagination coordinator providing care of this finding if it [...] Former Cigarettes 0.3 2 2 011 - 2013 Smokeless Tobacco: Never Alcohol Use Standard Drinks/Week [...] money to get more. Patient declined 07/2024 [place] Depression Scale Answer Date Recorded [place] Depression Scale Total 7 12/18/2022 The thought [...] Sign Reading Time Taken Comments Blood Pressure 120/74 08/28/2024 8:59 AM EST Pulse - - Temperature - - Respiratory Rate - - Oxygen Saturation - - Inhaled Oxygen Concentration - - Weight 128.8 kg (284 lb) 08/28/2024 8:59 AM EST Height - - Body Mass Index 41.94 05/08/2024 8:55 AM EDT documented in this encounter Progress Notes * Yaritza Bartlett PA-C - 08/28/2024 9:04 AM EST 26w4d Reviewed third tri labs including glucola with next visit. Nausea and vomiting not any worse then her baseline. Has Zofran, does not seem to help. Typically worse 4 PM. Does get heartburn, has only tried TUMS. Will add Pepcid daily and may try [place] CHTN on medications. BP remain good. Following with MFM, last growth 08/20. Breech. UA 1+ proteins, and bilirubin. PCR and BMP added. Pt denies any current symptoms. RTC in 2 weeks Yaritza Bartlett PA-C * Lola Raymundo CMA - 08/28/2024 8:59 AM EST 26w4d + nausea/vomiting. Zofran not helping. documented in this encounter Plan of Treatment Upcoming Encounters Date Type Department Care Team (Late st Contact Info) Description 08/28/2024 10:10 AM EST Laboratory Laboratory, [facility] [address] [address] Scooter Acosta [address] [place] [address] Arrived 09/02/2024 1:40 PM EST Laboratory Laboratory [facility] [address] [phone] Scooter Acosta [address] [place] [address] 09/02/2024 1:45 PM EST Office Visit Gynecology/Obstetrics Justus [place] [address] Backer, Joyce KAMALA Baez [address] [place] [address] 09/24/2024 11:00 AM EST Imaging Maternal Medicine Imaging, [place] [place] [phone] 10/29/2024 2:30 PM EST Imaging Maternal Medicine Imaging, [address] [place] [phone] Pending Results Name Type Priority Associated Diagnoses Date /Time PROTEIN/ CREATININE RATIO, URINE Lab Routine High-risk in second trimester Chronic hypertension in 08/28/2024 9:11 AM EST COMPREHENSIVE METABOLIC PANEL Lab Routine High-risk in second trimester Chronic hypertension in 08/28/2024 9:28 AM EST Scheduled Orders Name Type Priority Associated Diagnoses Orde r Schedule 50-G GESTATIONAL GLUCOSE, 1 HOUR Lab Routine High-risk in second trimester Expected: 09/07/2024 (Approximate), Expires: 08/28/2025 CBC WITH WBC DIFFERENTIAL AND ANEMIA REFLEX WORKUP Lab Routine High-risk in second trimester Expected: 09/07/2024 (Approximate), Expires: 08/28/2025 SYPHILIS ANTIBODY SCREEN WITH REFLEX TO RPR Lab Routine High-risk in second trimester Expected: 09/07/2024 (Approximate), Expires: 08/28/2025 Health Maintenance Due Date Last Done Comments [...] Comments URINALYSIS OBSTETRICS, POINT OF CARE Routine 08/28/2024 9:07 AM EST High-risk in second trimester Chronic hypertension in documented in this encounter Results * (ABNORMAL) URINALYSIS OBSTETRICS, POINT OF CARE (08/28/2024 9:07 AM EST) Color, Urine [place](A) Light Yellow, Yellow 08/28/2024 9:10 AM EST [facility] Clarity, Urine Clear Clear 08/28/2024 9:10 AM EST [facility] Glucose, Urine Negative Negative mg/dL 08/28/2024 9:10 AM EST [facility] Bilirubin, Urine Small(A) Negative 08/28/2024 9:10 AM EST [facility] Ketone, Urine Negative Negative mg/dL 08/28/2024 9:10 AM EST [facility] Specific [place], Urine 1.025 1.003 - 1.030 08/28/2024 9:10 AM EST [facility] Blood, Urine Negative Negative 08/28/2024 9:10 AM EST [facility] pH, Urine 6.5 5.0, 5.5, 6.0, 6.5, 7.0, 7.5 units 08/28/2024 9:10 AM EST [facility] Protein, Urine 30(A) Negative mg/dL 08/28/2024 9:10 AM EST [facility] Urobilinogen, Urine 1.0 0.2, 1.0 mg/dL 08/28/2024 9:10 AM EST [facility] Nitrite, Urine Negative Negative 08/28/2024 9:10 AM EST [facility] Esterase, Urine Negative Negative 08/28/2024 9:10 AM EST [facility] Urine 08/28/2024 9:07 AM EST 08/28/2024 9:10 AM EST Yaritza Bartlett PA-C LAB POINT OF CARE TE ST DOCKED DEVICE UNSOLICITED RESULTS Final Result [facility] [place] [address] documented in this encounter Visit Diagnoses Diagnosis [...] to episode of care High-risk in second trimester- Primary Obesity in , antepartum Obesity complicating , childbirth, or the puerperium, antepartum condition or complication Chronic hypertension in Benign essential hypertension complicating , childbirth, and the puerperium, unspecified as to episode of care History of shoulder dystocia in prior History of delivery of macrosomal infant Medication exposure during first trimester of Supervision [...] documented as of this encounter Care Teams Probation Counselor Relationship Specialty Start Date End Date Jamaal Cash MD [address] [place] [address] PCP - General Family Medicine 12/28/20 documented as of this encounter
--- OUTSIDE RECORDS SUMMARY | 2024-09-12 00:17 | External Medical Summary ---
Author Name Unknown Address Unknown Organization [id number]:[facility] [place] [address] [place] [address] Laboratory Report Ordering Provider Test Date Status MIGUEL العراقي 09/04/2024 10:03:56 Final Observation Date Value Abnormality Reference (Units ) Status Vitamin B12 09/04/2024 10:03:56 [id number] (pg/mL) Final Performing Location [facility] [place] [address] [place] [address]
--- OUTSIDE RECORDS SUMMARY | 2024-09-12 00:17 | External Medical Summary ---
Author Name Unknown Address Unknown Organization [id number]:[facility] [place] - [facility] [address] [place] [address] Laboratory Report Ordering Provider Test Date Status MIGUEL العراقي 09/04/2024 10:03:56 Final Observation Date Value Abnormality Reference (Units ) Status WBC, Total 09/04/2024 10:03:56 8.98 4.00-10.8 0 (K/uL) Final RBC 09/04/2024 10:03:56 3.73 3.85-5.15 (M/uL) Final Hemoglobin 09/04/2024 10:03:56 10.9 Below low normal 12 .0-15.3 (g/dL) Final Anemia reflex testing trigge rs on a HGB < 12.0 for Females and HGB < 13.0 for Males in accordance with the WHO Anemia Guidelines
Anemia reflex testing triggers on a HGB < 12.0 for Females and HGB < 13.0 for Males in accordance with the WHO Anemia Guidelines HCT 09/04/2024 10:03:56 34.3 Below low normal 36. 0-45.2 (%) Final MCV 09/04/2024 10:03:56 92.0 81.5-97.5 (fL) Final MCH 09/04/2024 10:03:56 29.2 27.0-34.0 (pg) Final MCHC 09/04/2024 10:03:56 31.8 32.0-36.0 (g/dL) Final RDW 09/04/2024 10:03:56 13.4 11.5-15.5 (%) Final Platelets 09/04/2024 10:03:56 232 140-400 (K /uL) Final MPV 09/04/2024 10:03:56 10.2 6.6-11.1 ( fL) Final Nucleated erythrocytes/100 leukocytes [Ratio] in Blood by Automated count 09/04/2024 10:03:56 0 <=0 (/100 WBCs) Final Performing Location [facility] [place] - [address] [facility] [address]
--- OUTSIDE RECORDS SUMMARY | 2024-09-12 00:17 | External Medical Summary ---
Author Name Unknown Address Unknown Organization [id number][facility] [address] [place] [address] Laboratory Report Ordering Provider Test Date Status MIGUEL العراقي 09/04/2024 10:03:56 Final Observation Date Value Abnormality Reference (Units ) Status Glucose [Moles/volume] in Serum or Plasma --1 hour post 50 g glucose PO 09/04/2024 10:03:56 152 Above high normal 70-129 (mg/dL) Final Performing Location [facility] - [address] [place] [address]
--- OUTSIDE RECORDS SUMMARY | 2024-09-12 00:18 | External Medical Summary ---
Author Name Unknown Address Unknown Organization [id number]:[facility] - [address] [place] [address] Laboratory Report Ordering Provider Test Date Status JOSE E JONES 07/31/2024 09:37:00 Final Observation Date Value Abnormality Reference (Units ) Status Color of Urine by Auto 07/31/2024 09:37:00 Yellow Light Yellow, Yellow Final Clarity, Urine 07/31/2024 09:37:00 Clear Clear Final Glucose [Mass/volume] in Urine by Automated test strip 07/31/2024 09:37:00 Negative Negative (mg/dL) Final Bilirubin.total [Presence] in Urine by Automated test strip 07/31/2024 09:37:00 Negative Negative Final Ketones [Mass/volume] in Urine by Automated test strip 07/31/2024 09:37:00 Negative Negative (mg/dL) Final Specific gravity, Urine 07/31/2024 09:37:00 1.025 1.003-1.030 Final Hemoglobin [Presence] in Urine by Automated test strip 07/31/2024 09:37:00 Negative Negative Final pH, Urine 07/31/2024 09:37:00 7.0 5.0, 5.5, 6.0, 6.5, 7.0, 7.5 (units) Final Protein [Mass/volume] in Urine by Automated test strip 07/31/2024 09:37:00 Trace Abnormal Negative (mg/dL) Final Urobilinogen, Urine 07/31/2024 09:37:00 1.0 0.2, 1.0 (mg/dL) Final Nitrite [Presence] in Urine by Automated test strip 07/31/2024 09:37:00 Negative Negative Final Leukocyte esterase [Presence] in Urine by Automated test strip 07/31/2024 09:37:00 Negative Negative Final Performing Location [facility] 0 - [address] [place] [address]
--- OUTSIDE RECORDS SUMMARY | 2024-09-12 00:18 | External Medical Summary | Summary of Care ---
Author Name Unknown Organization [facility] Address [address] [place] [address] Phone [phone] Care Team Providers Care Pmo Business Analyst Name Role Phone Jamaal Cash MD Primary Care Provider [phone] Reason for Visit * Reason Comments Return Visit Encounter Details Date Type Department Care Team (Late st Contact Info) Description 07/31/2024 9:30 AM EDT Office Visit Gynecology/Obstetric [facility] [address] [facility] [place] [address] Karen Dorantes PA-C [address] [facility], [place] [id number] High-risk in second trimester*; Obesity in , [...] weeks on medication, growth q4 weeks, deliver [id number] Last Assessment & Plan: Considerations: Women with chronic hypertension during are at significantly increased risk for morbidity. Signs and symptoms of superimposed pre-eclampsia were reviewed; instructed patient to contact primary OB care provider if these symptoms occur. Recommendations: Obtain baseline lab work TIMOTHY (if not already done) with assessment of proteinuria (24-hour urine protein or jjxrpvh-tc-rwvzwxmnkc ratio) and CBC, serum AST/ALT/creatinine. If patient [...] information was shared with the patient. The [place] [employer]s [employer] Gyne[employer], Society for Maternal- Medicine, CDC and multiple medical associations strongly recommend the COVID-19 vaccine for women who are in any trimester, those attempting to become , women who have recently delivered, who are lactating as well as any other woman, regardless of age or TUB CHUCKER disorder. The only exceptions to receiving the vaccine are for those who have a contraindication or allergy to the vaccine or any component of the vaccine or with sincerely held rastafari convictions. The CDC and ACOG encourages a [...] her next visit. We recommend alerting the brand sales manager providing care of this finding if it [...] her next visit. We recommend alerting the brand sales manager providing care of this finding if it [...] money to get more. Patient declined 07/2024 [place] Depression Scale Answer Date Recorded [place] Depression Scale Total 7 12/18/2022 The thought [...] PM EDT Imaging Maternal Medicine Imaging, Chau Acosta [address] [place] [phone] 08/28/2024 9:00 AM EST Office Visit Gynecology/Obstetrics [facility] [address] [place] [address] Yaritza Bartlett PA-C [address] [place] [address] 09/24/2024 11:00 AM EST Imaging Maternal Medicine [place] [facility] [place] [address] [place] [phone] Scheduled Orders Name Type Priority Associated Diagnoses Orde r Schedule PROTEIN/ CREATININE RATIO, URINE Lab Routine Chronic hypertension in Ordered: 07/31/2024 Health Maintenance Due Date Last Done Comments [...] AM EDT [facility] Specific [place], Urine 1.025 1.003 - 1.030 07/31/2024 9:39 [...] CARE TEST DOCKED DEVICE UNSOLICITED RESULTS [facility] [address] [facility] [place] [address] documented in this encounter Visit Diagnoses Diagnosis [...] documented as of this encounter Care Teams Pmo Business Analyst Relationship Specialty Start Date End Date Jamaal Cash MD [address] [place] [address] PCP - General Family Medicine 12/28/20 documented as of this encounter
--- OUTSIDE RECORDS SUMMARY | 2024-09-12 00:18 | External Medical Summary | Summary of Care ---
Author Name Unknown Organization [facility] Address [address] [place] [address] Phone [phone] Care Team Providers Care Wound Care Coordinator Name Role Phone Jamaal Cash MD Primary Care Provider [phone] Reason for Visit * Reason Onset Date Comments Test Results 07/03/2024 Encounter Details Date Type Department Care Team (Late st Contact Info) Description 07/03/2024 Telephone Gynecology/Obstetrics [facility] [address] [place] [address] BackerJoyce CRNP [address] [place] [facility] [place] [address] Test Results Allergies No known active allergiesdocumented as of this encounter (statuses as of 07/03/2024) Medications Medication Sig Dispensed Refills Start Date End Date Status Vit-Fe Fumarate-FA ( VITAMIN) 27-0.8 MG TABS Take by mouth. Active fluvoxaMINE Maleate 100 MG Oral Tablet (Luvox) TAKE 1 TABLET BY MOUTH EVERYDAY AT BEDTIME 06/13/2023 Active Labetalol HCl 300 MG Oral Tablet TAKE 1 TABLET BY MOUTH IN THE MORNING AND BEFORE BEDTIME 180 Tablet 2 09/28/2023 Active ProAir HFA 108 (90 Base) MCG/ACT [...] by mouth in the morning. 05/18/2024 Active Folic Acid 800 MCG Oral TabletIndications:Me dication exposure during first trimester of Take 1 Tablet by mouth in the morning. 90 Tablet 2 05/08/2024 Active Amphetamine-Dextroam phetamine 20 MG Oral Tablet (Adderall) Take 1 Tablet by mouth in the morning and 1 Tablet at noon and 1 Tablet before bedtime. 06/14/2024 Active Ondansetron HCl 4 MG Oral TabletIndications:Na usea Take 1 Tablet by mouth every 8 hours as needed for Nausea. 30 Tablet 2 07/03/2024 Active documented as of this encounter (statuses as of 07/03/2024) Active Problems Problem Noted Date Diagnosed Date [...] 05/08/2024 10:43 AM Last Assessment & Plan: CONSIDERATIONS: Discussed obstetrical risks associated with class [...] preeclamptic labs with CBC, serum AST/ALT/creatinine and jyimdsq-oc-ktqjblodmv ratio or 24-hour urine protein TIMOTHY if not already done. For patients with Class 3 obesity, we recommend weekly surveillance starting at 34 weeks and delivery by EDC if not taking antihypertensives for chronic hypertension. Recommend anesthesia consult during the antepartum period. Chronic hypertension in 05/08/2024 Overview: Diagnosed September [...] weeks on medication, growth q4 weeks, deliver [id number] Last Assessment & Plan: Considerations: Women with chronic hypertension during are at significantly increased risk for morbidity. Signs and symptoms of superimposed pre-eclampsia were reviewed; instructed patient to contact primary OB care provider if these symptoms occur. Recommendations: Obtain baseline lab work TIMOTHY (if not already done) with assessment of proteinuria (24-hour urine protein or ausiclc-qr-usqalcxaao ratio) and CBC, serum AST/ALT/creatinine. If patient [...] as of this encounter (statuses as of 07/03/2024) Resolved Problems Problem Noted Date Diagnosed Date [...] information was shared with the patient. The [place] [employer] Obstetrics and Gyne[employer], Society for Maternal- Medicine, CDC and multiple medical associations strongly recommend the COVID-19 vaccine for women who are in any trimester, those attempting to become , women who have recently delivered, who are lactating as well as any other woman, regardless of age or MAINTENANCE CHIEF disorder. The only exceptions to receiving the vaccine are for those who have a contraindication or allergy to the vaccine or any component of the vaccine or with sincerely held scientologist convictions. The CDC and ACOG encourages a [...] her next visit. We recommend alerting the mobile heavy equipment operator providing care of this finding if [...] her next visit. We recommend alerting the mobile heavy equipment operator providing care of this finding if it persists in the 3rd trimester. PCOS (polycystic ovarian syndrome) 06/23/2020 10/24/2022 Last Assessment & Plan: RECOMMENDATIONS: Due to the increased risk for diabetes in this population, recommend testing for undiagnosed type 2 diabetes mellitus with the first visit using the standard diagnostic criteria (2016 ADA Diabetes Management Guidelines). High-risk 06/23/2020 01/16/20 Genetic screening 06/23/2020 07/06/2020 Overview: Patient has [...] as of this encounter (statuses as of 07/03/2024) Immunizations Name Administration Dates Next Due DTaP [...] money to get more. Patient declined 07/2024 [place] Depression Scale Answer Date Recorded [place] Depression Scale Total 7 12/18/2022 The thought [...] encounter Miscellaneous Notes * Telephone Encounter - Zena Gya RN - 07/03/2024 2:37 PM EDT Called patient and made aware. Patient verbalized understanding sent to scheduling to assist with US. * Telephone Encounter - Zena Gay RN - 07/03/2024 1:29 PM EDT Attempted to call patient. No answer, LVM to return call. * Telephone Encounter - Joyce Smith CRNP - 07/03/2024 12:50 PM EDT Small blood in urine - recommend bladder and kidney u/s to check for stones etc. KAMALA Messina documented in this encounter Plan of Treatment Upcoming Encounters Date Type Department Care Team (Late st Contact Info) Description 07/07/2024 3:30 PM EDT Imaging Radiology [facility] [address] [facility] [place] [address] 07/15/2024 9:30 AM EDT Office Visit [facility] [employer] Obstetrics Maternal Medicine, [place] [address] [place] [address] Ke Markham MD [address] [place] [address] 07/15/2024 9:30 AM EDT Imaging Radiology [facility] [address] [place] [address] 07/31/2024 9:30 AM EDT Office Visit Gynecology/Obstetrics [facility] [address] [place] [address] Theresa Ricci PA-C [address] [place] [address] [place] [address] 08/28/2024 9:00 AM EST Office Visit Gynecology/Obstetrics [facility] [address] [facility] [place] [address] Yaritza Bartlett PA-C [address] [place] [address] Scheduled Orders Name Type Priority Associated Diagnoses Orde r Schedule US RENAL Medical Imaging Routine Hematuria, unspecified type Expected: 07/03/2024 (Approximate), Expires: 08/02/2025 Health Maintenance Due Date Last Done Comments Pneumococcal Vaccine: Pediatrics (0 to 5 Years) and At-Risk Patients (6 to 64 Years) (1 of 2 - PCV) 1996 Depression Screening 05/24/2021 05/24/2020 COVID-19 Vaccine ( - 2023- season) 2024 Influenza Vaccine (FLU [...] as of this encounter Visit Diagnoses Diagnosis Hematuria, unspecified type- Primary documented in this encounter Additional Health Concerns Active Problems Noted Date Diagnosed Date OB Reminders 05/08/2024 documented as of this encounter Care Teams Wound Care Coordinator Relationship Specialty Start Date End Date Jamaal Cash MD [address] [place] [address] PCP - General Family Medicine 12/28/20 documented as of this encounter
--- OUTSIDE RECORDS SUMMARY | 2024-09-12 00:18 | External Medical Summary | Summary of Care ---
Author Name Unknown Organization [facility] Address [address] [place] [address] Phone [phone] Care Team Providers Care Sales And Retail Management Recruiter Name Role Phone Jamaal Cash MD Primary Care Provider [phone] Reason for Visit * Reason Comments Ultrasound Encounter Details Date Type Department Care Team (Late st Contact Info) Description 07/15/2024 9:30 AM EDT Office Visit Manager Quality Compliance Obstetrics Maternal Medicine, [place] [address] [place] [address] Ke Markham MD [address], [place] [id number] Morbid obesity (HCC)*; Obesity in , antepartum; Chronic hypertension in ; Anxiety during ; Maternal asthma complicating Allergies No known active allergiesdocumented as of this encounter (statuses as of 07/15/2024) Medications Medication Sig Dispensed Refills Start Date [...] as of this encounter (statuses as of 07/15/2024) Active Problems Problem Noted Date Diagnosed Date [...] weeks on medication, growth q4 weeks, deliver [id number] Last Assessment & Plan: Considerations: Women with chronic hypertension during are at significantly increased risk for morbidity. Signs and symptoms of superimposed pre-eclampsia were reviewed; instructed patient to contact primary OB care provider if these symptoms occur. Recommendations: Obtain baseline lab work TIMOTHY (if not already done) with assessment of proteinuria (24-hour urine protein or nmobhot-bz-cnrshtowxo ratio) and CBC, serum AST/ALT/creatinine. If patient [...] as of this encounter (statuses as of 07/15/2024) Resolved Problems Problem Noted Date Diagnosed Date [...] History of delivery of macrosomal 04/16/2022 10/24/2022 Overview: G2- delivery of LGA [...] shared with the patient. The [employer] [place] [employer]st[employer]s and Gyne[employer], Society for Maternal- Medicine, CDC and multiple medical associations strongly recommend the COVID-19 vaccine for women who are in any trimester, those attempting to become , women who have recently delivered, who are lactating as well as any other woman, regardless of age or HAND PICKER disorder. The only exceptions to receiving the vaccine are for those who have a contraindication or allergy to the vaccine or any component of the vaccine or with sincerely held orthodox convictions. The CDC and ACOG encourages [...] her next visit. We recommend alerting the dental technician metal providing care of this finding if it [...] her next visit. We recommend alerting the dental technician metal providing care of this finding if it [...] as of this encounter (statuses as of 07/15/2024) Immunizations Name Administration Dates Next Due Hepatitis [...] money to get more. Patient declined 07/2024 [place] Depression Scale Answer Date Recorded [place] Depression Scale Total 7 12/18/2022 The thought [...] as of this encounter Progress Notes * Ke Markham MD - 07/15/2024 9:58 AM EDT MATERNAL MEDICINE VISIT Theresa Ordaz is at 20w2d who presents to [facility] for an ultrasound and follow- up of her high riskpregnancy. The patient is currently 20 weeks and 2 days gestation with class 3 obesity and chronic hypertension on medication. She comes in for an evaluation of anatomy. She is being seen today by Maternal- Medicine for the following reasons: Problem List Items Addressed This Visit Morbid obesity (HCC) - Primary Relevant Orders MF US PREG FOLLOW UP EACH FETUS Obesity in , antepartum I reviewed the ultrasound with her. The anatomy that was visualized appears unremarkable and the biometry is appropriate for the gestational age. The amniotic fluid volume is subjectivelynormal and the fetus is in the breech presentation. Relevant Orders MFM US PREG FOLLOW UP EACH FETUS Chronic hypertension in Relevant Orders MFM US PREG FOLLOW UP EACH FETUS Maternal asthma complicating Relevant Orders MFM US PREG FOLLOW UP EACH FETUS Anxiety during Relevant Orders MFM US PREG FOLLOW UP EACH FETUS RECOMMENDATIONS: Recommend surveillance starting at 32 weeks secondary to chronic hypertension on medication. Recommend follow up ultrasound with [facility] in 4 weeks for growth secondary to chronic hypertension on medication. Thank you for allowing us to participate in the care of this patient. Please call with any questions. Ke Markham MD 07/15/2024 9:58 AM documented in this encounter Miscellaneous Notes * Assessment & Plan Note - Ke Markham MD - 07/15/2024 10:52 AM EDT Associated Problem(s): Obesity in , antepartum I reviewed the ultrasound with her. The anatomy that was visualized appears unremarkable and the biometry is appropriate for the gestational age. The amniotic fluid volume is subjectivelynormal and the fetus is in the breech presentation. documented in this encounter Plan of Treatment Upcoming Encounters Date Type Department Care Team (Late st Contact Info) Description 07/31/2024 9:30 AM EDT Office Visit Gynecology/Obstetrics [facility] [address] [place] [address] Theresa Ricci PA-C [address] [place] [address] 08/20/2024 1:00 PM EDT Imaging Maternal Medicine Imaging, [facility] [address] [place] [phone] 08/28/2024 9:00 AM EST Office Visit Gynecology/Obstetrics [facility] [address] [place] [address] Yaritza Bartlett PA-C [address] [place] [address] 09/24/2024 11:00 AM EST Imaging Maternal Medicine Imaging [facility] [address] [place] [phone] Scheduled Orders Name Type Priority Associated Diagnoses Orde r Schedule MFM US PREG FOLLOW UP EACH FETUS Medical Imaging Routine Morbid obesity (HCC) Obesity in , antepartum Chronic hypertension in Anxiety during Maternal asthma complicating 6 Occurrences starting 07/15/2024 until 01/12/2025 Health Maintenance Due Date Last Done Comments [...] as of this encounter Visit Diagnoses Diagnosis Morbid obesity (HCC)- Primary Morbid obesity Obesity [...] documented as of this encounter Care Teams Sales And Retail Management Recruiter Relationship Specialty Start Date End Date Jamaal Cash MD [address] [facility] [place] [address] PCP - General Family Medicine 12/28/20 documented as of this encounter
--- OUTSIDE RECORDS SUMMARY | 2024-09-12 00:18 | External Medical Summary | Summary of Care ---
Author Name Unknown Organization [facility] Address [address] [place] [address] Phone [phone] Care Team Providers Care Audio Tape Librarian Name Role Phone Jamaal Cash MD Primary Care Provider [phone] Reason for Visit * Reason Comments Ultrasound Encounter Details Date Type Department Care Team (Late st Contact Info) Description 07/15/2024 9:30 AM EDT Office Visit Service Delivery Management Consultant Obstetrics Maternal Medicine, [place] [address] [place] [address] Ke Markham MD [address] [place], [place] [phone] Morbid obesity (HCC)*; Obesity in , antepartum; [...] weeks on medication, growth q4 weeks, deliver [id number] Last Assessment & Plan: Considerations: Women with chronic hypertension during are at significantly increased risk for morbidity. Signs and symptoms of superimposed pre-eclampsia were reviewed; instructed patient to contact primary OB care provider if these symptoms occur. Recommendations: Obtain baseline lab work TIMOTHY (if not already done) with assessment of proteinuria (24-hour urine protein or emobxfq-hj-hdljousshy ratio) and CBC, serum AST/ALT/creatinine. If patient [...] information was shared with the patient. The [place] College of Obstetrics and Gynecology, Society for Maternal- Medicine, CDC and multiple medical associations strongly recommend the COVID-19 vaccine for women who are in any trimester, those attempting to become , women who have recently delivered, who are lactating as well as any other woman, regardless of age or FUNNEL COATER disorder. The only exceptions to receiving the [...] her next visit. We recommend alerting the projection technician providing care of this finding if [...] her next visit. We recommend alerting the projection technician providing care of this finding if [...] money to get more. Patient declined 07/2024 [place] Depression Scale Answer Date Recorded [place] Depression Scale Total 7 12/18/2022 The thought [...] Ordaz is at 20w2d who presents to [facility] for an ultrasound and follow- up [...] on medication. Recommend follow up ultrasound with [facility] in 4 weeks for growth secondary [...] [facility] [address] [place] [address] Theresa Ricci PA-C [address] [address] 08/20/2024 1:00 PM EDT Imaging Maternal Medicine Imaging, [facility] [address] [place] [phone] 08/28/2024 9:00 AM EST Office Visit Gynecology/Obstetrics [facility] [address] [place] [address] Yaritza Bartlett PA-C [address] [place] [address] 09/24/2024 11:00 AM EST Imaging Maternal Medicine Imaging [facility] [address] [place] [phone] Scheduled Orders Name Type Priority Associated Diagnoses [...] documented as of this encounter Care Teams Audio Tape Librarian Relationship Specialty Start Date End Date Jamaal Cash MD [address] [facility] [place] [address] PCP - General Family Medicine 12/28/20 documented as of this encounter
--- OUTSIDE RECORDS SUMMARY | 2024-09-12 00:18 | External Medical Summary | Summary of Care ---
Author Name Unknown Organization [facility] Address [address] [place] [address] Phone [phone] Care Team Providers Care [place] Appeals Law Clerk Name Role Phone Jamaal Cash MD Primary Care Provider [phone] Reason for Visit * Reason Comments Return Visit Encounter Details Date Type Department Care Team (Late st Contact Info) Description 07/31/2024 9:30 AM EDT Office Visit Gynecology/Obstetric [facility] [address] [facility] [place] [address] Karen Dorantes PA-C [address] [facility], [place] [phone] High-risk in second trimester*; Obesity in , [...] weeks on medication, growth q4 weeks, deliver [id number] Last Assessment & Plan: Considerations: Women with chronic hypertension during are at significantly increased risk for morbidity. Signs and symptoms of superimposed pre-eclampsia were reviewed; instructed patient to contact primary OB care provider if these symptoms occur. Recommendations: Obtain baseline lab work TIMOTHY (if not already done) with assessment of proteinuria (24-hour urine protein or teaawec-pi-udnamhsbae ratio) and CBC, serum AST/ALT/creatinine. If patient [...] information was shared with the patient. The [place] College of Obstetrics and Gynecology, Society for Maternal- Medicine, CDC and multiple medical associations strongly recommend the COVID-19 vaccine for women who are in any trimester, those attempting to become , women who have recently delivered, who are lactating as well as any other woman, regardless of age or TACKING STITCH REMOVER disorder. The only exceptions to receiving the vaccine are for those who have a contraindication or allergy to the vaccine or any component of the vaccine or with sincerely held episcopalian convictions. The CDC and ACOG encourages a [...] her next visit. We recommend alerting the call center dispatcher providing care of this finding if it [...] her next visit. We recommend alerting the call center dispatcher providing care of this finding if it [...] money to get more. Patient declined 07/2024 [place] Depression Scale Answer Date Recorded [place] Depression Scale Total 7 12/18/2022 The thought [...] accepted: Orders * Result Encounter Note - aKren Dorantes PA-C - 07/31/2024 9:44 AM EDT Reviewed at [facility] today. Sent for PCR. Karen Dorantes PA-C documented in this encounter Plan of Treatment Upcoming Encounters Date Type Department Care Team (Late st Contact Info) Description 08/20/2024 1:00 PM EDT Imaging Maternal Medicine Imaging, [facility] [address] [place] [phone] 08/28/2024 9:00 AM EST Office Visit Gynecology/Obstetrics [facility] [address] [place] [address] Yaritza Bartlett PA-C [address] [place] [address] 09/24/2024 11:00 AM EST Imaging Maternal Medicine [facility] [address] [place] [phone] Scheduled Orders Name Type Priority Associated Diagnoses [...] AM EDT [facility] 57-10 Specific [place], Urine 1.025 1.003 - 1.030 07/31/2024 9:39 AM EDT [facility] 57-10 Blood, Urine Negative Negative 07/31/2024 9:39 [...] TEST DOCKED DEVICE UNSOLICITED RESULTS [facility] 57-10 [address] [facility] [place] [address] documented in this encounter Visit Diagnoses Diagnosis [...] documented as of this encounter Care Teams [place] [employer] [place] Law Clerk Relationship Specialty Start Date End Date Jamaal Cash MD [address] [place] [address] PCP - General Family Medicine 12/28/20 documented as of this encounter
--- OUTSIDE RECORDS SUMMARY | 2024-09-12 00:18 | External Medical Summary | Summary of Care ---
Author Name Unknown Organization [facility] Address [address] [place] [address] Phone [phone] Care Team Providers Care Clinical Unit Coordinator Name Role Phone Jamaal Cash MD Primary Care Provider [phone] Reason for Visit * Reason Onset Date Comments Test Results 07/03/2024 Encounter Details Date Type Department Care Team (Late st Contact Info) Description 07/03/2024 Telephone Gynecology/Obstetrics [facility] [address] [place] [address] BackerJoyce CRNP [address] [place] [address] Test Results Allergies No known active allergiesdocumented [...] preeclamptic labs with CBC, serum AST/ALT/creatinine and ozyywvb-mo-bltdbnlugu ratio or 24-hour urine protein TIMOTHY if [...] weeks on medication, growth q4 weeks, deliver [id number] Last Assessment & Plan: Considerations: Women with chronic hypertension during are at significantly increased risk for morbidity. Signs and symptoms of superimposed pre-eclampsia were reviewed; instructed patient to contact primary OB care provider if these symptoms occur. Recommendations: Obtain baseline lab work TIMOTHY (if not already done) with assessment of proteinuria (24-hour urine protein or drukxhx-ml-tfbdruvict ratio) and CBC, serum AST/ALT/creatinine. If patient [...] information was shared with the patient. The [place] College of Obstetrics and Gynecology, Society for Maternal- Medicine, CDC and multiple medical associations strongly recommend the COVID-19 vaccine for women who are in any trimester, those attempting to become , women who have recently delivered, who are lactating as well as any other woman, regardless of age or TELECOMMUNICATIONS CABLE JOINTER disorder. The only exceptions to receiving the vaccine are for those who have a contraindication or allergy to the vaccine or any component of the vaccine or with sincerely held judaism convictions. The CDC and ACOG encourages a [...] her next visit. We recommend alerting the computational scientist providing care of this finding if it [...] her next visit. We recommend alerting the computational scientist providing care of this finding if it [...] 07/03/2024) Immunizations Name Administration Dates Next Due Hepatitis [...] money to get more. Patient declined 07/2024 [place] Depression Scale Answer Date Recorded [place] Depression Scale Total 7 12/18/2022 The thought [...] Miscellaneous Notes * Telephone Encounter - Zena Gay RN [...] Description 07/15/2024 9:30 AM EDT Office Visit Endless Track Vehicle Supervisor Obstetrics Maternal Medicine, [place] [address] [place] [address] Ke Markham MD [address] [place] [facility] [place] [address] 07/15/2024 9:30 AM EDT Imaging Radiology [facility] [place], [place] [address] [facility] [place] [address] 07/31/2024 9:30 AM EDT Office Visit Gynecology/Obstetrics [facility] [address] [facility] [place] [address] Theresa Ricci PA-C [address] [place] [address] 08/28/2024 9:00 AM EST Office Visit Gynecology/Obstetrics [facility] [address] [facility] [place] [address] Yaritza Bartlett PA-C [address] [place] [address] Scheduled Orders Name Type Priority Associated Diagnoses [...] documented as of this encounter Care Teams Clinical Unit Coordinator Relationship Specialty Start Date End Date Jamaal Cash MD [address] [place] [address] PCP - General Family Medicine 12/28/20 documented as of this encounter
--- OUTSIDE RECORDS SUMMARY | 2024-09-12 00:18 | External Medical Summary | Summary of Care ---
Author Name Unknown Organization [facility] Address [address] [place] [address] Phone [phone] Care Team Providers Care Paper And Prints Restorer Name Role Phone Dami Jones MD Primary Care Provider [phone] Reason for Visit * Reason Comments eRx-Medication Refill Encounter Details Date Type Department Care Team (Late st Contact Info) Description 07/15/[address] [address] Dami Jones MD [address] [place] [address] Allergies No known active allergiesdocumented as of this encounter (statuses as of 07/17/2024) Medications Medication Sig Dispensed Refills Start Date [...] 05/18/2024 Active Folic Acid 800 MCG Oral TabletIndications :Medication exposure during first trimester of Take 1 Tablet by mouth in the morning. 90 Tablet 2 05/08/2024 Active Amphetamine-Dextr oamphetamine 20 MG Oral Tablet (Adderall) Take 1 Tablet by mouth in the morning and 1 Tablet at noon and 1 Tablet before bedtime. 06/14/2024 Active Ondansetron HCl 4 MG Oral TabletIndications :Nausea Take 1 Tablet by mouth every 8 hours as needed for Nausea. 30 Tablet 2 07/03/2024 Active Labetalol HCl 300 MG Oral Tablet TAKE 1 TABLET BY MOUTH IN THE MORNING AND BEFORE BEDTIME 180 Tablet 2 07/17/2024 Active Labetalol HCl 300 MG Oral Tablet TAKE 1 TABLET BY MOUTH IN THE MORNING AND BEFORE BEDTIME 180 Tablet 2 09/28/2023 4 Discontinued documented as of this encounter (statuses as of 07/17/2024) Active Problems Problem Noted Date Diagnosed Date [...] weeks on medication, growth q4 weeks, deliver [id number] Last Assessment & Plan: Considerations: Women with chronic hypertension during are at significantly increased risk for morbidity. Signs and symptoms of superimposed pre-eclampsia were reviewed; instructed patient to contact primary OB care provider if these symptoms occur. Recommendations: Obtain baseline lab work TIMOTHY (if not already done) with assessment of proteinuria (24-hour urine protein or hikkgue-if-pgijxsatqa ratio) and CBC, serum AST/ALT/creatinine. If patient [...] as of this encounter (statuses as of 07/17/2024) Resolved Problems Problem Noted Date Diagnosed Date [...] information was shared with the patient. The [place] [employer] of Obstetrics and Gynecology, Society for Maternal- Medicine, CDC and multiple medical associations strongly recommend the COVID-19 vaccine for women who are in any trimester, those attempting to become , women who have recently delivered, who are lactating as well as any other woman, regardless of age or SUPPLEMENTAL MANAGER disorder. The only exceptions to receiving the vaccine are for those who have a contraindication or allergy to the vaccine or any component of the vaccine or with sincerely held sikhism convictions. The CDC and ACOG encourages a [...] c arrier), +RV culture, currently 11/15/2020 01/15/2021 Overview: CLINDAMYCIN SUSCEPTIBLE TETRACYCLINE RESISTANT VANCOMYCIN SUSCEPTIBLE PENICILLIN SUSCEPTIBLE presentation, breech 10/28/2020 0 11/09/2020 Pyelectasis of fetus on ultrasound 09/09/2020 01/15/2021 Overview: We will reassess at her next visit. We recommend alerting the vp ad products and planning providing care of this finding if it [...] her next visit. We recommend alerting the vp ad products and planning providing care of this finding if it [...] as of this encounter (statuses as of 07/17/2024) Immunizations Name Administration Dates Next Due Hepatitis [...] money to get more. Patient declined 07/2024 [place] Depression Scale Answer Date Recorded [place] Depression Scale Total 7 12/18/2022 The thought [...] encounter Miscellaneous Notes * Telephone Encounter - Dami Jones MD - 07/17/2024 10:47 AM EDTSigned Prescriptions: Disp Refills Labetalol HCl 300 MG Oral Tablet 180 Ta*2 Sig: TAKE 1 TABLET BY MOUTH IN THE MORNING AND BEFORE BEDTIME Authorizing Provider: DAMI JONES * Telephone Encounter - Benigno Leigh, retail merchandiser technician - 07/17/2024 9:52 AM EDTPending Prescriptions: Disp Refills Labetalol HCl 300 MG Oral Tablet [Pharmacy*180 Ta*2 Sig: TAKE 1 TABLET BY MOUTH IN THE MORNING AND BEFORE BEDTIME * Telephone Encounter - Benigno Leigh, retail merchandiser technician - 07/17/2024 9:50 AM EDT Received message from [facility] regarding patient needing an appointment. Call Placed, Left message on voicemail to call back and schedule appointment. Thank you, Benigno Leigh [employer] [facility] 07/17/2024, 9:50 AM * Telephone Encounter - Jeannine Arvizu [facility] - 07/16/2024 1:34 PM EDT Pending Prescriptions: Disp Refills Labetalol HCl 300 MG Oral Tablet [Pharmacy*180 Ta*2 Sig: TAKE 1 TABLET BY MOUTH IN THE MORNING AND BEFORE BEDTIME * Telephone Encounter - Jeannine Arvizu [facility] - 07/16/2024 1:34 PM EDT Please contact patient so that an appointment can be scheduled with her PRIMARY CARE provider before this refill can be authorized. After contacting patient, please forward request to Dami Jones MD. Last Visit: 01/17/2024 (in office - acute), 05/06/2023 (telemedicine) Next Visit: Visit date not found Thank you, Jeannine Arvizu, PharmD Clinical Pharmacist [facility] 07/16/24 1:34 PM [phone] documented in this encounter Plan of Treatment Upcoming Encounters Date Type Department Care Team (Late st Contact Info) Description 07/31/2024 9:30 AM EDT Office Visit Gynecology/Obstetrics [facility] [address] [place] [address] Theresa Ricci PA-C [address] [place] [phone] 08/20/2024 1:00 PM EDT Imaging Maternal Medicine Imaging, [facility] [address] [place] [phone] 08/28/2024 9:00 AM EST Office Visit Gynecology/Obstetrics [facility] [address] [place] [address] Yaritza Bartlett PA-C [address] [place] [address] 09/24/2024 11:00 AM EST Imaging Maternal Medicine Imaging, [facility] [address] [place] [phone] Health Maintenance Due Date Last Done Comments [...] documented as of this encounter Care Teams Paper And Prints Restorer Relationship Specialty Start Date End Date Dami Jones MD [address] [place] [address] PCP - General Family Medicine 12/28/20 documented as of this encounter
--- OUTSIDE RECORDS SUMMARY | 2024-09-12 00:18 | External Medical Summary ---
Author Name Unknown Address Unknown Organization K01:[facility] [place] [address] Laboratory Report Ordering Provider Test Date Status JOSE E JONES 07/31/2024 10:03:12 Final Normal: <150 mg/ g creatinine
High: 150-500 mg/g creatinine
Very High: >500 mg/g creatinine
Nephrotic: >3000 mg/g creatinine Observation Date Value Abnormality Reference (Units ) Status Protein/Creatinine [Ratio] in Urine 07/31/2024 10:03:12 102 <150 (mg/g ) Final Protein, Urine 07/31/2024 10:03:12 19 (mg/dL) Final Creatinine, Urine 07/31/2024 10:03:12 186 (mg/dL) Final Performing Location [facility] [place] [address]
--- OUTSIDE RECORDS SUMMARY | 2024-09-12 00:18 | External Medical Summary | Summary of Care ---
Author Name Unknown Organization [facility] Address [address] [place] [address] Phone [phone] Care Team Providers Care Athlete Marketing Agent Name Role Phone Jamaal Cash MD Primary Care Provider [phone] Reason for Visit * Reason Comments Return Visit Encounter Details Date Type Department Care Team (Late st Contact Info) Description 07/03/2024 11:45 AM EDT Office Visit Gynecology/Obstetric s [facility] [address] [place] [address] [facility] [address] [facility] [address] High-risk in second trimester*; Obesity in , antepartum; Chronic hypertension in ; History of shoulder dystocia in prior ; History of delivery of macrosomal infant; Medication exposure during first trimester of ; History of pre-eclampsia in prior , currently ; History of back surgery; Rubella non-immune status, antepartum; Maternal asthma complicating ; Anxiety during ; Nausea; Hematuria, unspecified type Allergies No known active allergiesdocumented as of [...] for Nausea. 30 Tablet 2 07/03/2024 Active Amphetamine-Dextr oamphet ER 30 MG Oral Capsule Extended Release 24 Hour (Adderall XR) TAKE 1 CAPSULE BY MOUTH IN THE MORNING AND 1 CAP AT NOON 09/23/2023 07/03/2024 Discontinued (Medication List Clean Up) Ondansetron HCl 4 MG Oral TabletIndications :Nausea Take 1 Tablet by mouth every 8 hours as needed for Nausea. 30 Tablet 2 06/05/2024 07/03/2024 Discontinued (Refill) documented as of this encounter [...] Date/Time 50-G [facility] 05/08/2024 10:43 AM Last Assessment & [...] preeclamptic labs with CBC, serum AST/ALT/creatinine and arzexeg-fn-rrocqsogzs ratio or 24-hour urine protein TIMOTHY if [...] weeks on medication, growth q4 weeks, deliver [id number] Last Assessment & Plan: Considerations: Women with chronic hypertension during are at significantly increased risk for morbidity. Signs and symptoms of superimposed pre-eclampsia were reviewed; instructed patient to contact primary OB care provider if these symptoms occur. Recommendations: Obtain baseline lab work TIMOTHY (if not already done) with assessment of proteinuria (24-hour urine protein or iwcntux-zl-mvtbnkmwft ratio) and CBC, serum AST/ALT/creatinine. If patient [...] information was shared with the patient. The [employer], Society for Maternal- Medicine, CDC and multiple medical associations strongly recommend the COVID-19 vaccine for women who are in any trimester, those attempting to become , women who have recently delivered, who are lactating as well as any other woman, regardless of age or SPECTROGRAPHER disorder. The only exceptions to receiving the vaccine are for those who have a contraindication or allergy to the vaccine or any component of the vaccine or with sincerely held moravian convictions. The CDC and ACOG encourages a [...] her next visit. We recommend alerting the wallcovering texturer providing care of this finding if it [...] her next visit. We recommend alerting the wallcovering texturer providing care of this finding if it [...] money to get more. Patient declined 07/2024 [place] Depression Scale Answer Date Recorded [place] Depression Scale Total 7 12/18/2022 The thought [...] Sign Reading Time Taken Comments Blood Pressure 116/64 07/03/2024 11:27 AM EDT Pulse - - Temperature - - Respiratory Rate - - Oxygen Saturation - - Inhaled Oxygen Concentration - - Weight 125.9 kg (277 lb 9.6 oz) 024 11:27 AM EDT Height - - Body Mass Index 40.99 05/08/2024 8:55 AM EDT documented in this encounter Progress Notes * Iris Regalado LPN - 07/03/2024 11:28 AM EDT 18w4d Denies vaginal bleeding/rom + movement Scheduled for anatomy with MFM * Joyce Smith CRNP - 07/03/2024 11:23 AM EDT 18w4d Anatomy scan coming up with MFM. No bleeding, + movement. BP stable. Had an instance of upper abdominal cramping, ?gas. Nothingfurther. +hematuria on urine dip, will send UA. Zofran refilled. Unable to hear FHR with Doppler, +movement per pt. U/S today. 4 week return KAMALA Messina documented in this encounter Plan of Treatment Upcoming Encounters Date Type Department Care Team (Late st Contact Info) Description 07/03/2024 12:15 PM EDT Imaging Radiology [facility] [address] [facility] [place] [address] High-risk in second trimester 07/15/2024 9:30 AM EDT Office Visit [facility], [place] [address] [place] [address] Ke Markham MD [address] [place] [address] 07/15/2024 9:30 AM EDT Imaging Radiology [facility], [place] [address] [place] [address] 07/31/2024 9:30 AM EDT Office Visit Gynecology/Obstetric [facility] [address] [facility] [place] [address] Theresa Ricci PA-C [address] [place] [address] 08/28/2024 9:00 AM EST Office Visit Gynecology/Obstetric [facility] [address] [facility] [place] [address] Yaritza Bartlett PA-C [address] [facility] [place] [address] Pending Results Name Type Priority Associated Diagnoses Date /Time URINALYSIS, REFLEX TO MICROSCOPIC Lab Routine Hematuria, unspecified type 07/03/2024 11:35 AM EDT Scheduled Orders Name Type Priority Associated Diagnoses Orde r Schedule US PREG LIMITED 1 OR MORE FETUSES Medical Imaging Routine High-risk in second trimester Expected: 07/03/2024, Expires: 08/02/2025 Health Maintenance Due Date Last [...] Procedure Name Priority Date/Time Associated Diagnosis Comments URINALYSIS, POINT OF CARE (ENTER/EDIT) Routine 07/03/2024 High-risk in second trimester Chronic hypertension in documented in this encounter Results * URINALYSIS, POINT OF CARE (ENTER/EDIT) (07/03/2024) Color, Urine Yellow Yellow or Light Yellow Clarity, Urine Clear Clear Glucose, Urine Negative Negative mg/dL Bilirubin, Urine Negative Negative Ketone, Urine Negative Negative mg/dL Specific [place], Urine 1.025 1.003 - 1.030 Blood, Urine Moderate Negative pH, Urine 5.5 5.0 - 7.5 units Protein, Urine Negative Negative mg/dL Urobilinogen, Urine 0.2 0.2 - 1.0 mg/dL Nitrite, Urine Negative Negative Esterase, Urine Negative Negative Urine 07/03/2024 Joyce Baez Backer KAMALA LAB POINT O F CARE TEST ENTER/EDIT ORDERABLES documented in this encounter Visit Diagnoses Diagnosis [...] of care Anxiety during Nausea Nausea alone Hematuria, unspecified type High-risk in second trimester documented in this encounter Additional Health Concerns Active Problems Noted Date Diagnosed Date OB Reminders 05/08/2024 documented as of this encounter Care Teams Athlete Marketing Agent Relationship Specialty Start Date End Date Jamaal Cash MD [address] [place] [address] PCP - General Family Medicine 12/28/20 documented as of this encounter
--- OUTSIDE RECORDS SUMMARY | 2024-09-12 00:19 | External Medical Summary | Summary of Care ---
Author Name Unknown Organization [facility] Address [address] [place] [address] Phone [phone] Care Team Providers Care Distributor Advertising Material Name Role Phone Jamaal Cash MD Primary Care Provider [phone] Reason for Visit * Reason Comments Return Visit Encounter Details Date Type Department Care Team (Late st Contact Info) Description 06/05/2024 8:45 AM EDT Office Visit Gynecology/Obstetric s [facility] [address] [place] [address] Joyce Smith CRNP [address] [facility] [place] [address] High-risk in second trimester*; Obesity in , [...] as of this encounter (statuses as of 06/05/2024) Medications Medication Sig Dispensed Refills Start Date End Date Status Vit-Fe Fumarate-FA ( VITAMIN) 27-0.8 MG TABS Take by mouth. Active fluvoxaMINE Maleate 100 MG Oral Tablet (Luvox) TAKE 1 TABLET BY MOUTH EVERYDAY AT BEDTIME 06/13/2023 Active Labetalol HCl 300 MG Oral Tablet TAKE 1 TABLET BY MOUTH IN THE MORNING AND BEFORE BEDTIME 180 Tablet 2 09/28/2023 Active Amphetamine-Dextr oamphet ER 30 MG Oral Capsule Extended Release 24 Hour (Adderall XR) TAKE 1 CAPSULE BY MOUTH IN THE MORNING AND 1 CAP AT NOON 09/23/2023 Active ProAir HFA 108 (90 Base) MCG/ACT [...] the morning. 90 Tablet 2 05/08/2024 Active Ondansetron HCl 4 MG Oral TabletIndications :Nausea Take 1 Tablet by mouth every 8 hours as needed for Nausea. 30 Tablet 2 06/05/2024 Active Ondansetron HCl 4 MG Oral TabletIndications :Nausea Take 1 Tablet by mouth every 8 hours as needed for Nausea. 30 Tablet 2 05/08/2024 06/05/2024 Discontinued (Refill) documented as of this encounter (statuses as of 06/05/2024) Active Problems Problem Noted Date Diagnosed Date [...] Date/Time 50-G [facility] 05/08/2024 10:43 AM Last Assessment & [...] preeclamptic labs with CBC, serum AST/ALT/creatinine and fijaxav-dq-fzxxyoldjj ratio or 24-hour urine protein TIMOTHY if [...] weeks on medication, growth q4 weeks, deliver [id number] Last Assessment & Plan: Considerations: Women with chronic hypertension during are at significantly increased risk for morbidity. Signs and symptoms of superimposed pre-eclampsia were reviewed; instructed patient to contact primary OB care provider if these symptoms occur. Recommendations: Obtain baseline lab work TIMOTHY (if not already done) with assessment of proteinuria (24-hour urine protein or fyfoxsq-fo-eznosdrrks ratio) and CBC, serum AST/ALT/creatinine. If patient [...] disease), lumbar 02/08/20 Tension-type headache, not intractable Hypertension 01/15/2021 Morbid obesity 11/15/2009 Overview: Per Obesity Taxonomy Estimated Date of Delivery Comme nts Yes 11/30/2024 Based on last me nstrual period of 02/24/2024 (Exact Date), cycles irreg documented as of this encounter (statuses as of 06/05/2024) Resolved Problems Problem Noted Date Diagnosed Date [...] Readings from Last 10 Encounters: 04/13/22 118/80 05/04/22 142/92 01/22/22 136/84 10/24/21 130/82 05/05/21 132/82 [...] any other woman, regardless of age or PRODUCTION UTILITY WORKER disorder. The only exceptions to receiving the vaccine are for those who have a contraindication or allergy to the vaccine or any component of the vaccine or with sincerely held restorationism convictions. The CDC and ACOG encourages a [...] her next visit. We recommend alerting the legislative director providing care of this finding if it [...] her next visit. We recommend alerting the legislative director providing care of this finding if it [...] as of this encounter (statuses as of 06/05/2024) Immunizations Name Administration Dates Next Due DTaP [...] money to get more. Patient declined 07/2024 [place] Depression Scale Answer Date Recorded [place] Depression Scale Total 7 12/18/2022 The thought [...] Sign Reading Time Taken Comments Blood Pressure 118/62 06/05/2024 8:27 AM EDT Pulse - - Temperature - - Respiratory Rate - - Oxygen Saturation - - Inhaled Oxygen Concentration - - Weight 124.7 kg (275 lb) 06/05/2024 8:27 AM EDT Height - - Body Mass Index 40.61 05/08/2024 8:55 AM EDT documented in this encounter Progress Notes * Joyce Smith CRNP - 06/05/2024 8:33 AM EDT 14w4d Doing well, thinks she has been feeling movement. No cramping or bleeding. Had a consult w/MFM, planning to complete her anatomy scan with MFM next month. Declines genetic screening. Refills sent forZofran. Taking ASA. 4 week return KAMALA Messina * Josse Klein LPN - 06/05/2024 8:28 AM EDT 14w4d Denies vaginal bleeding/rom + movement No new concerns Declines genetic testing documented in this encounter Miscellaneous Notes * Addendum Note - Josse Klein LPN - 06/05/2024 8:52 AM EDTAddended by: JOSSE KLEIN on: 06/05/2024 08:52 AM Modules accepted: Orders documented in this encounter Plan of Treatment Upcoming Encounters Date Type Department Care Team (Late st Contact Info) Description 06/10/2024 10:30 AM EDT Office Visit Cardiology, [facility] [address] [facility] [place] [address] Danielle Soriano CRNP [address] [place] [address] 07/01/2024 12:20 PM EDT Telemedicine Nutrition & Weight Management, [facility] [address] [facility] [place] [address] Kaye Mills PA-C [address] [facility] [place] [address] 07/15/2024 9:30 AM EDT Office Visit [facility], [place] [address] [place] [address] Ke Markham MD [address] [place] [address] 07/15/2024 9:30 AM EDT Imaging Radiology [facility] [address] [place] [address] Health Maintenance Due Date Last Done Comments Pneumococcal Vaccine: Pediatrics (0 to 5 Years) and At-Risk Patients (6 to 64 Years) (1 of 2 - PCV) 1996 Depression Screening 05/24/2021 05/24/2020 COVID-19 Vaccine ( - season) 2023 Influenza Vaccine (FLU shot) (#1) 2024 GFR 05/08/2025 05/08/2024, 04/20, 12/18/2022, Additional history exists Pap Smear 05/08/2027 05/08/2024, 05/21, 03/01/2017 Cervical Cancer Screening 05/08/2029 HPV/Co-Test 05/08/2029 05/08/2024 DTaP,Tdap,and Td Vaccines (9 - Td or Tdap) 08/01/2032 [...] Comments URINALYSIS, POINT OF CARE (ENTER/EDIT) Routine 06/05/2024 High-risk in second trimester Chronic hypertension in documented in this encounter Results * URINALYSIS, POINT OF CARE (ENTER/EDIT) (06/05/2024) Color, Urine Dark Yellow Yellow or Light Yellow Clarity, Urine Clear Clear Glucose, Urine Negative Negative mg/dL Bilirubin, Urine Negative Negative Ketone, Urine Trace Negative mg/dL Specific [place], Urine 1.025 1.003 - 1.030 Blood, Urine Negative Negative pH, Urine 7.0 5.0 - 7.5 units Protein, Urine 30 Negative mg/dL Urobilinogen, Urine 1.0 0.2 - 1.0 mg/dL Nitrite, Urine Negative Negative Esterase, Urine Trace Negative Urine 06/05/2024 Joyce WRAY LAB POINT O F CARE TEST ENTER/EDIT [...] documented as of this encounter Care Teams Distributor Advertising Material Relationship Specialty Start Date End Date Jamaal Cash MD [address] [place] [address] PCP - General Family Medicine 12/28/20 documented as of this encounter
--- OUTSIDE RECORDS SUMMARY | 2024-09-12 00:19 | External Medical Summary | Summary of Care ---
Author Name Unknown Organization [facility] Address [address] [place] [address] Phone [phone] Care Team Providers Care Ship'S Officer Name Role Phone Jamaal Cash MD Primary Care Provider [phone] Reason for Visit * Reason Comments Consultation High risk * Evaluate & Treat - Unlimited Visits (Within 10 days (routine)) - Pending Review Specialty Diagnoses / Procedures Referred By Dirk perez Referred To Contact Obstetrics/Gynecology / Maternal Medicine Diagnoses High-risk in first trimester Chronic hypertension in Obesity in , antepartum Medication exposure during first trimester of History of shoulder dystocia in prior History of delivery of macrosomal History of pre-eclampsia in prior , currently Joyce Smith CRNP [address] [place] [address] Referral ID Status Reason Start Date Expiration Date Visits Requested Visits Authorized [id number] Pending Review Specialty Services Required 05/08/[phone] Encounter Details Date Type Department Care Team (Late st Contact Info) Description 05/18/2024 10:30 AM EDT Telemedicine Accounts Payable Accountant Obstetrics Maternal Medicine, [place] [address] [facility] [address] [place] [address] Marva Bowen CRNP [address] [facility] [address] [place] [address] Obesity in , antepartum*; Chronic hypertension in ; Medication exposure during first trimester of ; Maternal asthma complicating ; History of pre-eclampsia in prior , currently ; Anxiety during ; History of shoulder dystocia in prior ; History of delivery of macrosomal ; Supervision of high risk , antepartum, first trimester; 12 weeks gestation of Allergies No known active allergiesdocumented as of this encounter (statuses as of 05/18/2024) Medications Medication Sig Dispensed Refills Start Date End Date Status Vit-Fe Fumarate-FA ( VITAMIN) 27-0.8 MG TABS Take by mouth. Active fluvoxaMINE Maleate 100 MG Oral Tablet (Luvox) TAKE 1 TABLET BY MOUTH EVERYDAY AT BEDTIME 06/13/2023 Active Labetalol HCl 300 MG Oral Tablet TAKE 1 TABLET BY MOUTH IN THE MORNING AND BEFORE BEDTIME 180 Tablet 2 09/28/2023 Active Amphetamine-Dextroam phet ER 30 MG Oral Capsule Extended Release [...] before bedtime. 90 Tablet 5 03/03/2024 Active Ondansetron HCl 4 MG Oral TabletIndications:Na usea Take 1 Tablet by mouth every 8 hours as needed for Nausea. 30 Tablet 2 05/08/2024 Active Aspirin 81 MG Oral Tablet Chewable (Aspirin 81) Take 1 Tablet by mouth in the morning. 05/18/2024 Active Folic Acid 800 MCG Oral TabletIndications:Me dication exposure during first trimester of Take 1 Tablet by mouth in the morning. 90 Tablet 2 05/08/2024 Active documented as of this encounter (statuses as of 05/18/2024) Active Problems Problem Noted Date Diagnosed Date [...] Date/Time 50-G GESTATIONAL GLUCOSE, 1 H[address] - [facility] 121 05/08/2024 10:43 AM Last Assessment & [...] preeclamptic labs with CBC, serum AST/ALT/creatinine and dirlqnl-di-edeppjzuis ratio or 24-hour urine protein TIMOTHY if [...] weeks on medication, growth q4 weeks, deliver [id number] Last Assessment & Plan: Considerations: Women with chronic hypertension during are at significantly increased risk for morbidity. Signs and symptoms of superimposed pre-eclampsia were reviewed; instructed patient to contact primary OB care provider if these symptoms occur. Recommendations: Obtain baseline lab work TIMOTHY (if not already done) with assessment of proteinuria (24-hour urine protein or smtkyql-fz-bscumsjjyp ratio) and CBC, serum AST/ALT/creatinine. If patient [...] as of this encounter (statuses as of 05/18/2024) Resolved Problems Problem Noted Date Diagnosed Date [...] any other woman, regardless of age or [employer] disorder. The only exceptions to receiving the [...] her next visit. We recommend alerting the county court judge providing care of this finding if it [...] her next visit. We recommend alerting the county court judge providing care of this finding if it [...] as of this encounter (statuses as of 05/18/2024) Immunizations Name Administration Dates Next Due Hepatitis [...] money to get more. Patient declined 07/2024 [place] Depression Scale Answer Date Recorded [place] Depression Scale Total 7 12/18/2022 The thought [...] as of this encounter Progress Notes * Marva Bowen CRNP - 05/18/2024 11:00 AM EDT MATERNAL MEDICINE CONSULT Theresa Ordaz 05/18/24 REFERRING PROVIDER: KAMALA Cuellar Patient location: HOME. I was in a hospital or clinic location. After connecting through [employer],patient was verified with two unique identifiers. Patient (or authorized legal guest services representative) was then informed that this was a Telemedicine visit and being conducted confidentially over secure lines. Methods to assure confidentiality were taken. Patient acknowledged consent and understanding of pr ivacy and security of the Telemedicine visit. The patient agreed to participate. Theresa Ordaz is a 33 year old with intrauterine at 12w0d (Estimated Date ofDelivery: 11/30/24 by exact LMP) who presents today for an MFM consult due to Chronic hypertension managed with Labetalol, class III obesity, asthma, anxiety managed with Luvox, medication exposure (Adderall and Gabapentin), history of shoulder dystocia in prior , history of macrosomal , and history of preeclampsia . HPI/CURRENT : pre- BMI=class 3 obesity (126.1 kg (278 lb); 5' 9"); FOB #1; complicated by above. Genetic testing: Opted out OB [facility] Problems (from 04/30/24 to present) Problem Noted Resolved Anxiety during Overview Addendum 05/18/2024 10:44 AM by Marva Bowen CRNP Anxiety and OCD managed with Luvox (SSRI) No current outpatient therapy Reports a stable mood in . Denies any suicidal or homicidal ideation. Reports she has a good support system at home. Maternal asthma complicating Overview Addendum 05/18/2024 10:31 AM by Marva Bowen CRNP Managed with albuterol as needed Last albuterol use November 2023 Denies hospitalizations or intubations due to asthma High-risk Obesity in , antepartum Overview Addendum 05/12/2024 8:23 AM by Marva Bowen CRNP The patient's pre-gravid BMI is 41.03. Class 3 Lab Results Component Value Date/Time 50-G GESTATIONAL GLUCOSE, 1 HOUR - [facility] 121 05/08/2024 10:43 AM Chronic hypertension in Overview Addendum 05/18/2024 10:35 AM by Marva Bowen CRNP Diagnosed September 2022 Managed on Labetalol Has [...] AM Currently on aspirin 81 mg therapy History of shoulder dystocia in prior Overview Signed 05/12/2024 8:20 AM by Marva Bowen CRNP History of shoulder dystocia in 2020 History of delivery of macrosomal Overview Signed 05/12/2024 8:20 AM by Marva Bowen CRNP History of macrosomia with shoulder dystocia. weighed 4344 grams at term Medication exposure during first trimester of Overview Addendum 05/18/2024 10:51 AM by Marva Bowen CRNP Gabapentin for chronic back pain managed by PCP Adderall for ADHD and Luvox (SSRI) for anxiety Managed by Dr. Hilario Montelongo MD History of pre-eclampsia in prior , currently Overview Addendum 05/18/2024 10:54 AM by Marva Bowen CRNP History of preeclampsia in 2020 and 2022 History of back surgery Overview Addendum 05/18/2024 10:40 AM by Marva Bowen CRNP History of back surgery (laminectomy) in November 2022 I have reviewed this patient's previous OB ultrasound reports, pertinent labwork and testing provided by her referring OB provider. Current Outpatient Medications Medication Sig Dispense Refill Amphetamine-Dextroamphet ER 30 MG Oral Capsule Extended Release 24 Hour (Adderall XR) TAKE 1 CAPSULE BY MOUTH IN THE MORNING AND 1 CAP AT NOON Aspirin 81 MG Oral Tablet Chewable (Aspirin 81) Take 1 Tablet by mouth in the morning. fluvoxaMINE Maleate 100 MG Oral Tablet (Luvox) TAKE 1 TABLET BY MOUTH EVERYDAY AT BEDTIME Folic Acid 800 MCG Oral Tablet Take 1 Tablet by mouth in the morning. 90 Tablet 2 Gabapentin 600 MG Oral Tablet (Neurontin) Take 1 Tablet by mouth in the morning and 1 Tablet at noon and 1 Tablet before bedtime. 90 Tablet 5 Labetalol HCl 300 MG Oral Tablet TAKE 1 TABLET BY MOUTH IN THE MORNING AND BEFORE BEDTIME 180 Tablet 2 Ondansetron HCl 4 MG Oral Tablet Take 1 Tablet by mouth every 8 hours as needed for Nausea. 30 Tablet 2 Vit-Fe Fumarate-FA ( VITAMIN) 27-0.8 MG TABS Take by mouth. ProAir HFA 108 (90 Base) MCG/ACT Inhalation Aerosol Solution Inhale 2 Puffs by mouth in the morningand 2 Puffs at noon and 2 Puffs in the evening and 2 Puffs before bedtime. 18 g 1 No current facility-administered medications for this visit. Review of patient's allergies indicates: No Known Allergies OB History Para Term AB Living 4 3 3 0 0 3 SAB IAB Ectopic Multiple Live Births 0 0 0 0 3 # Outcome Date GA Lbr Nicola/2nd Weight Sex Type Anes PTL Lv 4 Current 3 Term 10/24/22 39w2d 3.997 kg (8 lb 13 oz) F Vag-Spont EPI N CRISTIANA Comments: FOB#1 Complications: Preeclampsia 2 Term 12/04/20 39w4d 21:43 / 00:33 4.344 kg (9 lb 9.2 oz) M Vag-Spont EPI N CRISTIANA Comments: fob#1 IOL PEC, shoulder dystocia 1st degree laceration Complications: Shoulder Dystocia, Preeclampsia 1 Term 12/11/11 41w0d 2.906 kg (6 lb 6.5 oz) F Vag-Spont N CRISTIANA Comments: fob#1 uncomplicated Obstetric Comments 2023 #1 [place], age 33, healthy, no other children, 4th child together Past Medical History: Diagnosis Date ADHD Depression with anxiety 01/10/2023 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 Gestational hypertension without significant proteinuria 07/09/2022 Diagnosed 24 wks, start BP checking 2x/day History of back surgery 05/08/2024 Consider anesthesia consult History of pre-eclampsia 01/15/2021 required antihypertensive treatment during period Hyperinsulinemia 05/06/2023 Hypertension 01/15/2021 Infertility associated with anovulation Migraines Morbid obesity (HCC) 11/15/2009 Per Obesity Taxonomy PCOS (polycystic ovarian syndrome) discontinued metformin prior to 2018 Reactive airway disease Varicella without complication 09/1992 Past Surgical History: Procedure Laterality Date INJECT DX/THER SUBSTANCE INTERLAMINAR LUMBAR/SACRAL W IMAGE GUIDE 05/01/2023 INJECTION SPINE LUMBAR OR SACRAL performed by Anuel Piña DO at [facility] INJECT DX/THER SUBSTANCE INTERLAMINAR LUMBAR/SACRAL W IMAGE GUIDE 10/02/2023 INJECTION SPINE LUMBAR OR SACRAL performed by Anuel Piña DO at OR [facility] LAMINOTOMY, SINGLE LUMBAR LAPAROSCOPY; CHOLECYSTECTOMY N/A 01/02/2016 01/02/2016 LAPAROSCOPIC CHOLECYSTECTOMY performed by Ehtan Escobedo MD at [facility] LUMBAR / SACRAL EPIDURAL, SINGLE LEVEL 03/20/2023 INJECTION TRANSFORAMINAL EPIDURAL LUMBAR OR SACRAL performed by Anuel Piña DO at [facility] REMOVAL OF APPENDIX 08/16/2008 [facility] - Dr. Arana REVISION OF ANKLE JOINT Ankle Joint Arthroplasty Family History Problem Relation Name Age of Onset No Known Problems Mother Blood Disorder Father VTE attributed to venous insufficency Other (chronic venous insufficiency) Father Pulmonary embolism Father Depression Father Asthma Sister Migraines Sister Other (PCOS) Sister Anxiety Disorder Sister Diabetes Grandmother (Maternal) Breast Cancer Grandmother (Paternal) Diabetes Grandmother (Paternal) No Known Problems Daughter No Known Problems Son No Past Hx None Breast Cancer Aunt (Paternal) Schizophrenia Aunt (Maternal) Social History Tobacco Use Smoking status: Former Current packs/day: 0.00 Average packs/day: 0.3 packs/day for 2.0 years (0.6 ttl pk-yrs) Types: Cigarettes Start date: 2010 Quit date: 2013 Years since quittin.5 Smokeless tobacco: Never Vaping Use Vaping status: Never Used Substance Use Topics Alcohol use: Not Currently Drug use: Never REVIEW OF SYSTEMS: headaches: no nausea/vomiting: reports occas n/v reports movement: n/a abdominal pain/tenderness/cramping/contractions: no vaginal bleeding: no vaginal leaking of fluid: no all other systems negative PHYSICAL EXAM: LMP 02/24/2024 (Exact Date) General: Well appearing Psych: Alert to time, place, and person and Pleasant DISCUSSION/RECOMMENDATIONS: Problem List Items Addressed This Visit OB [facility] Anxiety during CONSIDERATIONS: Untreated maternal anxiety and depression may be associated with an increased risk of multiple poorobstetrical outcomes including miscarriages, low weight, and delivery. Women with a history of anxiety or depression are at risk for recurrence both during and/or the period. Studies of first-trimester SSRI exposure do not demonstrate consistent data to support an increasedrisk for structural malformations. Anti-anxiety or depression medications have been associated with transient effects (withdrawal syndrome). RECOMMENDATIONS: Mental illness can and should be treated during when the benefits of treatment outweigh potential risks. Referral to behavioral health services as clinically indicated. Chronic hypertension in Considerations: Women with chronic hypertension during are at significantly increased risk for morbidity. Signs and symptoms of superimposed pre-eclampsia were reviewed; instructed patient to contact primary OB care provider if these symptoms occur. Recommendations: Obtain baseline lab work TIMOTHY (if not already done) with assessment of proteinuria (24-hour urine protein or lawjdya-zo-ayritzjivt ratio) and CBC, serum AST/ALT/creatinine. If patient [...] type II receptor antagonists under the guidance ofthe primary care physician prior to conception of or upon knowledge of . Initiate or adjust antihypertensive medication if BP is 140/90 or greater on at least two occasionsat least 4 hours apart and refer patient [...] 0/7 and 39 6/7 weeks History of delivery of macrosomal infant CONSIDERATIONS: Explained that macrosomia is defined as [...] 26-28 weeks if early screen is normal. History of pre-eclampsia in prior , currently CONSIDERATIONS: Discussed that the overall recurrence rate for pre-eclampsia is 20%. The recurrence risk of pre-eclampsia is 5-7% if it was uncomplicated pre-eclampsia in the prior . If it was pre-eclampsiawith severe features in the prior , the [...] or fetus (manifested by growth restriction or chiqui th), and even maternal . RECOMMENDATIONS: Recommend baseline pre-eclamptic labwork be done early in subsequent pregnancies to include CBC, AST/ALT, creatinine, and 24 hour total urine protein (complete). Patients should be monitored closely in subsequent pregnancies for signs of pre- eclampsia and managed appropriately to reduce the incidence of associated maternal and risks. Reviewed that pre-eclampsia and HELLP are not preventable conditions. There is some evidence that daily ASA 81mg may decrease the risk for recurrence in patients with a history of pre-eclampsia priorto 34 weeks and we recommend that she continue this therapy. History of shoulder dystocia in prior Studies have shown a 11.9%-16.7% recurrence rate for shoulder dystocia. Factors that will increase the risk of recurrence are high maternal pre- weight, high maternal weight at delivery, prolonged second stage of labor, birthweight greater than the index and a birthweight greaterthan 4000gm. Explained that no testing is available [...] to keep risk as low as possible. Maternal asthma complicating CONSIDERATIONS: Asthma symptoms may improve, worsen or remain unchanged in severity in . Asthma is generally managed the same in as in the non- patient, as asthma-controlmedications are considered safe in . If asthma [...] therapy for all patients except those with intermittentasthma. If patients are routinely requiring rescue inhaler [...] weeks. surveillance with growth ultrasounds and non-stress testsshould be considered starting at 32 weeks. Medication exposure during first trimester of Discussed that every woman has a background risk for a 3-5% chance of having a baby with abirth defect. We review the risks and benefits [...] clear association between maternal gabapentin use and a dverse effects can not be determined. Due to [...] Major congenital malformations included: ventricular septal defect, congenitalheart disease, endocardial fibroelastosis, tethered spinal cord and [...] of withdrawal (dysphoria, agitation, and significant lassitude). Obesity in , antepartum - Primary CONSIDERATIONS: Discussed obstetrical risks associated with class [...] preeclamptic labs with CBC, serum AST/ALT/creatinine and tzjmnym-wz-eacksbwxrw ratio or 24-hour urine protein TIMOTHY if not already done. For patients with Class 3 obesity, we recommend weekly surveillance starting at 34 weeks and delivery by EDC if not taking antihypertensives for chronic hypertension. Recommend anesthesia consult during the antepartum period. Other Visit Diagnoses Supervision of high risk , antepartum, first trimester 12 weeks gestation of Follow up ultrasound with Maternal Medicine is scheduled on 07/15/[address] Markham for anatomy scan secondary to Chronic hypertension managed with Labetalol, class III obesity, asthma, anxiety managed with Luvox, medication exposure (Adderall and Gabapentin), history of shoulder dystocia in prior , history of macrosomal infant, and history of preeclampsia. Patient is aware of upcoming MFM appointment. KAMALA Nina 05/18/2024 11:09 AM documented in this encounter Miscellaneous Notes * Assessment & Plan Note - Marva Bowen CRNP - 05/18/2024 10:57 AM EDT Associated Problem(s): History of delivery of macrosomal infant CONSIDERATIONS: Explained that macrosomia is defined as [...] 26-28 weeks if early screen is normal. * Assessment & Plan Note - Marva Bowen CRNP - 05/18/2024 10:55 AM EDT Associated Problem(s): History of shoulder dystocia in prior Studies have shown a 11.9%-16.7% recurrence rate for shoulder dystocia. Factors that will increase the risk of recurrence are high maternal pre- weight, high maternal weight at delivery, prolonged second stage of labor, birthweight greater than the index and a birthweight greaterthan 4000gm. Explained that no testing is available [...] to keep risk as low as possible. * Assessment & Plan Note - Marva Bowen CRNP - 05/18/2024 10:47 AM EDT Associated Problem(s): Medication exposure during first trimester of Discussed that every woman has a background risk for a 3-5% chance of having a baby with abirth defect. We review the risks and benefits [...] clear association between maternal gabapentin use and a dverse effects can not be determined. Due to [...] Major congenital malformations included: ventricular septal defect, congenitalheart disease, endocardial fibroelastosis, tethered spinal cord and [...] of withdrawal (dysphoria, agitation, and significant lassitude). * Assessment & Plan Note - Marva Bowen CRNP - 05/18/2024 10:44 AM EDT Associated Problem(s): Anxiety during CONSIDERATIONS: Untreated maternal anxiety and depression may be associated with an increased risk of multiple poorobstetrical outcomes including miscarriages, low weight, and delivery. Women with a history of anxiety or depression are at risk for recurrence both during and/or the period. Studies of first-trimester SSRI exposure do not demonstrate consistent data to support an increasedrisk for structural malformations. Anti-anxiety or depression medications have been associated with transient effects (withdrawal syndrome). RECOMMENDATIONS: Mental illness can and should be treated during when the benefits of treatment outweigh potential risks. Referral to behavioral health services as clinically indicated. * Assessment & Plan Note - Marva Bowen CRNP - 05/18/2024 10:39 AM EDT Associated Problem(s): History of back surgery Recommend anesthesia consult during the antepartum period. * Assessment & Plan Note - Marva Bowen CRNP - 05/18/2024 10:38 AM EDT Associated Problem(s): History of pre-eclampsia in prior , currently CONSIDERATIONS: Discussed that the overall recurrence rate for pre-eclampsia is 20%. The recurrence risk of pre-eclampsia is 5-7% if it was uncomplicated pre-eclampsia in the prior . If it was pre-eclampsiawith severe features in the prior , the [...] or fetus (manifested by growth restriction or chiqui th), and even maternal . RECOMMENDATIONS: Recommend baseline pre-eclamptic labwork be done early in subsequent pregnancies to include CBC, AST/ALT, creatinine, and 24 hour total urine protein (complete). Patients should be monitored closely in subsequent pregnancies for signs of pre- eclampsia and managed appropriately to reduce the incidence of associated maternal and risks. Reviewed that pre-eclampsia and HELLP are not preventable conditions. There is some evidence that daily ASA 81mg may decrease the risk for recurrence in patients with a history of pre-eclampsia priorto 34 weeks and we recommend that she continue this therapy. * Assessment & Plan Note - Marva Bowen CRNP - 05/18/2024 10:36 AM EDT Associated Problem(s): Chronic hypertension in Considerations: Women with chronic hypertension during are at significantly increased risk for morbidity. Signs and symptoms of superimposed pre-eclampsia were reviewed; instructed patient to contact primary OB care provider if these symptoms occur. Recommendations: Obtain baseline lab work TIMOTHY (if not already done) with assessment of proteinuria (24-hour urine protein or kdzxntl-mn-yjjownoxfm ratio) and CBC, serum AST/ALT/creatinine. If patient [...] type II receptor antagonists under the guidance ofthe primary care physician prior to conception of or upon knowledge of . Initiate or adjust antihypertensive medication if BP is 140/90 or greater on at least two occasionsat least 4 hours apart and refer patient [...] Between 37 0/7 and 39 6/7 weeks * Assessment & Plan Note - Marva Bowen CRNP - 05/18/2024 10:33 AM EDT Associated Problem(s): Obesity in , antepartum CONSIDERATIONS: Discussed obstetrical risks associated with class [...] preeclamptic labs with CBC, serum AST/ALT/creatinine and tbshadj-oa-zqcmxmumqc ratio or 24-hour urine protein TIMOTHY if not already done. For patients with Class 3 obesity, we recommend weekly surveillance starting at 34 weeks and delivery by EDC if not taking antihypertensives for chronic hypertension. Recommend anesthesia consult during the antepartum period. * Assessment & Plan Note - Marva Bowen CRNP - 05/18/2024 10:32 AM EDT Associated Problem(s): Maternal asthma complicating CONSIDERATIONS: Asthma symptoms may improve, worsen or remain unchanged in severity in . Asthma is generally managed the same in as in the non- patient, as asthma-controlmedications are considered safe in . If asthma [...] therapy for all patients except those with intermittentasthma. If patients are routinely requiring rescue inhaler [...] weeks. surveillance with growth ultrasounds and non-stress testsshould be considered starting at 32 weeks. documented in this encounter Plan of Treatment Upcoming Encounters Date Type Department Care Team (Late st Contact Info) Description 06/05/2024 8:45 AM EDT Office Visit Gynecology/Obstetrics [facility] [address] [address] Joyce Smith CRNP [address] [address] 06/10/2024 10:30 AM EDT Office Visit Cardiology, [facility] [address] [facility] [place] [address] Danielle Soriano CRNP [address] [facility] [place] [address] 07/01/2024 12:20 PM EDT Telemedicine Nutrition & Weight Management, [facility] [address] [facility] [place] [address] Kaye Mills PA-C [address] [place] [address] 07/15/2024 9:30 AM EDT Office Visit Accounts Payable Accountant Obstetrics Maternal Medicine, [place] [address] [place] [address] Ke Markham MD [address] [place] [address] 07/15/2024 9:30 AM EDT Imaging Radiology [facility] [address] [place] [address] Scheduled Referrals Name Type Priority Associated Diagnoses Orde r Schedule MATERNAL MEDICINE REFERRAL OP Referral Within 10 days (routine) High-risk in first trimester Chronic hypertension in Obesity in , antepartum Medication exposure during first trimester of History of shoulder dystocia in prior History of delivery of macrosomal infant History of pre-eclampsia in prior , currently Ordered: 05/08/2024 Health Maintenance Due Date Last Done Comments Pneumococcal Vaccine: Pediatrics (0 to 5 Years) and At-Risk Patients (6 to 64 Years) (1 of 2 - PCV) 1996 Depression Screening 05/24/2021 05/24/2020 COVID-19 Vaccine ( - 2022-24 season) 2023 Influenza Vaccine (FLU shot) (#1) [...] trimester 12 weeks gestation of state, incidental documented in this encounter Additional Health Concerns Active Problems Noted Date Diagnosed Date OB Reminders 05/08/2024 documented as of this encounter Care Teams Ship'S Officer Relationship Specialty Start Date End Date Jamaal Cash MD [address] [place] [id number] PCP - General Family Medicine 12/28/20 documented as of this encounter
--- OUTSIDE RECORDS SUMMARY | 2024-09-12 00:19 | External Medical Summary | Summary of Care ---
Author Name Unknown Organization [facility] Address [address] [place] [address] Phone [phone] Care Team Providers Care Elevator Constructor Helper Name Role Phone Jamaal Cash MD Primary Care Provider [phone] Encounter Details Date Type Department Care Team (Late st Contact Info) Description 07/01/2024 12:20 PM EDT Telemedicine Nutrition & Weight Management, [facility] [address] [place] [address] Kaye Mills PA-C [address] [place] [id number] Morbid obesity due to excess calories (HCC)* Allergies No known active allergiesdocumented as of this encounter (statuses as of 07/01/2024) Medications Medication Sig Dispensed Refills Start Date [...] 05/08/2024 Active Ondansetron HCl 4 MG Oral TabletIndications:Na usea Take 1 Tablet by mouth every 8 hours as needed for Nausea. 30 Tablet 2 06/05/2024 Active documented as of this encounter (statuses as of 07/01/2024) Active Problems Problem Noted Date Diagnosed Date [...] preeclamptic labs with CBC, serum AST/ALT/creatinine and pvtbsbj-ad-wbtnwsivxn ratio or 24-hour urine protein TIMOTHY if [...] 10:43 AM PROTEIN/ CREATININE RATIO, URINE - ERIKA 78 05/08/2024 09:42 AM Currently on aspirin 81 mg therapy Weekly NSTs 32 weeks on medication, growth q4 weeks, deliver [id number] Last Assessment & Plan: Considerations: Women with chronic hypertension during are at significantly increased risk for morbidity. Signs and symptoms of superimposed pre-eclampsia were reviewed; instructed patient to contact primary OB care provider if these symptoms occur. Recommendations: Obtain baseline lab work TIMOTHY (if not already done) with assessment of proteinuria (24-hour urine protein or smkyzip-iq-engbbkqwnr ratio) and CBC, serum AST/ALT/creatinine. If patient [...] as of this encounter (statuses as of 07/01/2024) Resolved Problems Problem Noted Date Diagnosed Date [...] information was shared with the patient. The [place] [employer], Society for Maternal- Medicine, CDC and multiple medical associations strongly recommend the COVID-19 vaccine for women who are in any trimester, those attempting to become , women who have recently delivered, who are lactating as well as any other woman, regardless of age or NURSING ATTENDANT disorder. The only exceptions to receiving the vaccine are for those who have a contraindication or allergy to the vaccine or any component of the vaccine or with sincerely held jainism convictions. The CDC and ACOG encourages a [...] her next visit. We recommend alerting the hand candy dipper providing care of this finding if it [...] her next visit. We recommend alerting the hand candy dipper providing care of this finding if it [...] as of this encounter (statuses as of 07/01/2024) Immunizations Name Administration Dates Next Due Hepatitis [...] money to get more. Patient declined 07/2024 Downey Depression Scale Answer Date Recorded Downey Depression Scale Total 7 12/18/2022 The thought [...] as of this encounter Progress Notes * Kaye Mills PA-C - 07/01/2024 12:20 PM EDT [facility] Note Patient location: HOME. I was in a hospital or clinic location. After connecting through televideo,patient was verified with two unique identifiers. Patient (or authorized legal in store marketing representative) was then informed that this was a Telemedicine visit and being conducted confidentially over secure lines. Methods to assure confidentiality were taken. Patient acknowledged consent and understanding of pr ivacy and security of the Telemedicine visit. The patient agreed to participate. There are no exam notes on file for this visit. Theresa Borjaalba presents in follow up to the comprehensive weight management clinic. The patientis a 33 year old female Wt Readings from Last 6 Encounters: 06/10/24 125.6 kg (276 lb 12.8 oz) 06/05/24 124.7 kg (275 lb) 05/08/24 123.4 kg (272 lb) 04/30/24 126.1 kg (278 lb) 01/17/24 122.5 kg (270 lb) 11/13/23 127.6 kg (281 lb 3.2 oz) Patient is receiving ongoing education regarding dietary and physical modifications for weight loss. - Initial clinic visit 07/11/23. Weight at that time was 307 lbs - Today's weight: 280 lbs - Total weight loss of -27 since initial weight in clinic - Patient's last follow up with GI/Nutrition clinic was on 07/11/23. - The patient's weight has -27 lbs since the last visit 07/01/24 -off topamax - stopped in February because she needed a refill, got shortly thereafter -currently 20 weeks 12/16/23 -off wellbutrin/naltrexone - tolerated well -psychiatrist wanted her to stop Today's Visit 07/11/23 - Overall goal: goal weight 230s - Wt hx: has always struggled - Highest wt as adult: 307lbs - now - Lowest wt as adult: 199lbs - Barriers: back pain Patient Active Problem List Diagnosis Morbid obesity (HCC) Hypertension DDD (degenerative disc disease), lumbar Tension-type headache, not intractable Failed back surgical syndrome Hyperinsulinemia Elevated liver enzymes High-risk Obesity in , antepartum Chronic hypertension in History of shoulder dystocia in prior History of delivery of macrosomal Medication exposure during first trimester of History of pre-eclampsia in prior , currently History of back surgery Rubella non-immune status, antepartum Maternal asthma complicating Anxiety during Review of Systems: Review of Systems All other systems reviewed and are negative. Current Medications: Current Outpatient Medications Medication Sig Dispense Refill Vit-Fe Fumarate-FA ( VITAMIN) 27-0.8 MG TABS Take by mouth. fluvoxaMINE Maleate 100 MG Oral Tablet (Luvox) TAKE 1 TABLET BY MOUTH EVERYDAY AT BEDTIME Labetalol HCl 300 MG Oral Tablet TAKE 1 TABLET BY MOUTH IN THE MORNING AND BEFORE BEDTIME 180 Tablet 2 Amphetamine-Dextroamphet ER 30 MG Oral Capsule Extended Release 24 Hour (Adderall XR) TAKE 1 CAPSULE BY MOUTH IN THE MORNING AND 1 CAP AT NOON ProAir HFA 108 (90 Base) MCG/ACT Inhalation Aerosol Solution Inhale 2 Puffs by mouth in the morningand 2 Puffs at noon and 2 Puffs in the evening and 2 Puffs before bedtime. 18 g 1 Gabapentin 600 MG Oral Tablet (Neurontin) Take 1 Tablet by mouth in the morning and 1 Tablet at noon and 1 Tablet before bedtime. 90 Tablet 5 Aspirin 81 MG Oral Tablet Chewable (Aspirin 81) Take 1 Tablet by mouth in the morning. Folic Acid 800 MCG Oral Tablet Take 1 Tablet by mouth in the morning. 90 Tablet 2 Ondansetron HCl 4 MG Oral Tablet Take 1 Tablet by mouth every 8 hours as needed for Nausea. 30 Tablet 2 No current facility-administered medications for this visit. Water intake: yes Prescribed diet: [id number] Calorie Controlled Current diet: Breakfast-- parfait - yogurt, nature [place] oats and honey/protein granola, +/- fruit Snack-- skips Lunch-- cashew and yogurt granola bar, fruit, beef sticks Snack-- skips Dinner-- 2 hot dogs, 3 mozerella sticks Snack-- skips Drinks-- water Meals Away from Home-- 1x per month Food logs: No Type of exercise: ADL, playing volleyball with daughter Weight loss Pharmacotherapy: no LMP 02/24/2024 (Exact Date) Comment: cycles irreg - currently PHYSICAL EXAMINATION: General: Patient is well appearing and in no acute distress. Skin: No obvious rashes. HEENT: Head is atraumatic, normocephalic. Cardiovascular: Regular rate and effort of breathing. No conversational dyspnea. No cyanosis. Neuro: No obvious focal neurological deficits. Psych: Appropriate mood and affect. Assessment and Plan: Abnormal weight gain / There is no height or weight on file to calculate BMI. / Morbid obesity : - Would like to proceed with medical management - Barriers are consistency. - Motivators are feeling better overall, avoiding/reducing co-morbid conditions. - The patient was encouraged to to avoid all fruit juices and regular sodas, consume at least 64 ounces of water per day, keep food logs and get weighed on a weekly basis. They were encouraged to increase physical activity as prescribed. - Handouts regarding nutrition and physical activity were provided, as appropriate. 1. Keep a food log. If you bite it, write it! Apps like [employer] or [employer] Calorie goal: [id number] 2. Drink 48-64 ounces of non-caloric beverages per day. No fruit juices or regular soda Try crystal light, propel, zero calorie flavored water, plain water 3. Goal of 30 minutes of exercise 5 days per week (150 minutes per week--can be divided up however you would like) Aim for aerobic activity and muscle strengthening activities 4. Increase fruit and vegetable servings to 5-6 per day. 1/2 of your plate should be fruits and vegetables 5. Eat 100-200 calories within 1-2 hours of awakening, and every 4 - 6 hours while awake. (3 meals with snacks in between) Choose 100 calorie or less snacks, protein snacks 7. Weight yourself weekly and follow trend over time (day to day weight fluctuations can be discouraging) 8. Decrease starches like bread, pasta, cereal, potatoes and corn. Aim for of your plate Try substitutions like zoodles, lentil pasta, cauliflower mashed potatoes, whole grain foods, quinoa Limit junk/processed foods Chips, pretzels, cookies, cakes, sweets White bread/rolls/wraps/bagels, white rice 9. Increase protein to feel full longer (1/4 of your plate) Diagnoses and all orders for this visit: Morbid obesity due to excess calories (HCC) -doing well with dietary changes - continue this -track protein, fruits/veggies -consider topamax again -consider wellbutrin/naltrexone again -GLP1 if coverage Abnormal weight gain Hyperinsulinemia Patients with PCOS/hyperinsulinemia tend to respond well to a low-carb diet. Limit processed carbs/sugary foods & drinks; focus on meals consisting primarily of protein, vegetables, fruit, healthy fats, & whole grains Elevated LFTs PRECIOUS -following with sleep medicine -didn't tolerate CPAP HTN -continue labetalol -may improve with treatment PRECIOUS The patient agreed to try the plan as discussed and return in PRN. They were encouraged to call or send a patient portal message in the meantime with any questions or concerns prior to their next clinic visit. I spent a total of 20 minutes on the date of service in preparation, delivery, and documentation ofthe care provided to hTeresa Ordaz excluding any time spent in the performance of separately billed services. This included but was no limited to providing counseling about the benefits of weight loss, about their nutritional status, detailed explanations about calorie count, types of nutrients to choose, and composition of the meals. Motivational interview provided in order to prepare the patient to achieve future goals. Kaye Milsl PA-C documented in this encounter Plan of Treatment Upcoming Encounters Date Type Department Care Team (Late st Contact Info) Description 07/03/2024 11:45 AM EDT Office Visit Gynecology/Obstetrics [facility] [address] [place] [address] Joyce Smith CRNP [address] [place] [address] 07/15/2024 9:30 AM EDT Office Visit Plant Production Manager Obstetrics Maternal [facility], [place] [address] [place] [address] Ke Markham MD [address] [place] [address] 07/15/2024 9:30 AM EDT Imaging Radiology [facility], [place] [address] [place] [address] 07/31/2024 9:30 AM EDT Office Visit Gynecology/Obstetrics [facility] [address] [place] [address] Theresa Ricci PA-C [address] [facility] [place] [address] 08/28/2024 9:00 AM EST Office Visit Gynecology/Obstetrics [facility] [address] [place] [address] Yaritza Bartlett PA-C [address] [place] [address] Health Maintenance Due Date Last Done Comments Pneumococcal Vaccine: Pediatrics (0 to 5 Years) and At-Risk Patients (6 to 64 Years) (1 of 2 - PCV) 1996 Depression Screening 05/24/2021 05/24/2020 COVID-19 Vaccine ( - 24 season) 2024 Influenza Vaccine (FLU shot) (#1) [...] this encounter Visit Diagnoses Diagnosis Morbid obesity due to excess calories (HCC)- Primary documented in this encounter Additional Health Concerns Active Problems Noted Date Diagnosed Date OB Reminders 05/08/2024 documented as of this encounter Care Teams Elevator Constructor Helper Relationship Specialty Start Date End Date Jamaal Cash MD [address] [address] PCP - General Family Medicine 12/28/20 documented as of this encounter
--- OUTSIDE RECORDS SUMMARY | 2024-09-12 00:19 | External Medical Summary ---
Author Name Unknown Address Unknown Organization [id number] [address] [place] [id number] Laboratory Report Ordering Provider Test Date Status ERNESTINE BURRIS 07/03/2024 11:35:43 Final Observation Date Value Abnormality Reference (Units ) Status Color of Urine by Auto 07/03/2024 11:35:43 Yellow Light Yellow, Yellow, Dark Yellow Final Clarity, Urine 07/03/2024 11:35:43 Clear Clear Final Glucose [Mass/volume] in Urine by Automated test strip 07/03/2024 11:35:43 Negative Negative (mg/dL) Final Bilirubin.total [Presence] in Urine by Automated test strip 07/03/2024 11:35:43 Negative Negative Final Ketones [Mass/volume] in Urine by Automated test strip 07/03/2024 11:35:43 Trace Abnormal Negative (mg/dL) Final Specific gravity, Urine 07/03/2024 11:35:43 1.025 1.003-1.030 Final Hemoglobin [Presence] in Urine by Automated test strip 07/03/2024 11:35:43 Small Abnormal Negative Final pH, Urine 07/03/2024 11:35:43 5.5 5.0-7.5 (Units) Final Protein [Mass/volume] in Urine by Automated test strip 07/03/2024 11:35:43 Negative Negative (mg/dL) Final Urobilinogen [Mass/volume] in Urine by Automated test strip 07/03/2024 11:35:43 0.2 0.2, 1.0 (mg/dL) Final Nitrite [Presence] in Urine by Automated test strip 07/03/2024 11:35:43 Negative Negative Final Leukocyte esterase [Presence] in Urine by Automated test strip 07/03/2024 11:35:43 Negative Negative Final Performing Location [facility] [place] [id number]
--- OUTSIDE RECORDS SUMMARY | 2024-09-12 00:19 | External Medical Summary ---
Author Name Unknown Address Unknown Organization [id number] [address] [place] [address] Laboratory Report Ordering Provider Test Date Status ERNESTINE BURRIS 07/03/2024 11:35:43 Final Observation Date Value Abnormality Reference (Units ) Status RBC, Urine 07/03/2024 11:35:43 3-5 Abnormal 0-2 (/HPF) Final WBC, Urine 07/03/2024 11:35:43 3-5 Abnormal 0-2 (/HPF) Final Bacteria [#/area] in Urine sediment by Microscopy high power field 07/03/2024 11:35:43 0-25 0-25 (/HPF) Final Performing Location [facility] [address] [place] [address]
--- OUTSIDE RECORDS SUMMARY | 2024-09-12 00:19 | External Medical Summary | Summary of Care ---
Author Name Unknown Organization [facility] Address [address] [place] [address] Phone [phone] Care Team Providers Care Secondary Special Education Teacher Name Role Phone Jamaal Cash MD Primary Care Provider [phone] Reason for Visit * Reason Comments Follow Up Would like to stay o n labatolol Encounter Details Date Type Department Care Team (Late st Contact Info) Description 06/10/2024 10:30 AM EDT Office Visit Cardiology, [facility] [address] [facility] [place] [address] Danielle Soriano CRNP [address] [place] [address] HTN, goal below 130/80*; Chronic hypertension in ; High-risk in second trimester Allergies No known active allergiesdocumented as of this encounter (statuses as of 06/10/2024) Medications Medication Sig Dispensed Refills Start Date [...] as of this encounter (statuses as of 06/10/2024) Active Problems Problem Noted Date Diagnosed Date [...] preeclamptic labs with CBC, serum AST/ALT/creatinine and xoopteb-yw-xqpyaejdpy ratio or 24-hour urine protein TIMOTHY if [...] [facility] 27 05/08/2024 10:43 AM ALT - ERIKA 32 05/08/2024 10:43 AM PROTEIN/ CREATININE RATIO, URINE - ERIKA 78 05/08/2024 09:42 AM Currently on aspirin 81 mg therapy Weekly NSTs 32 weeks on medication, growth q4 weeks, deliver [id number] Last Assessment & Plan: Considerations: Women with chronic hypertension during are at significantly increased risk for morbidity. Signs and symptoms of superimposed pre-eclampsia were reviewed; instructed patient to contact primary OB care provider if these symptoms occur. Recommendations: Obtain baseline lab work TIMOTHY (if not already done) with assessment of proteinuria (24-hour urine protein or ggujtzx-ng-lmkjxcwzyn ratio) and CBC, serum AST/ALT/creatinine. If patient [...] as of this encounter (statuses as of 06/10/2024) Resolved Problems Problem Noted Date Diagnosed Date [...] information was shared with the patient. The [employer] Gyne[employer], Society for Maternal- Medicine, CDC and multiple medical associations strongly recommend the COVID-19 vaccine for women who are in any trimester, those attempting to become , women who have recently delivered, who are lactating as well as any other woman, regardless of age or ENDOSCOPIC TECHNICIAN disorder. The only exceptions to receiving the vaccine are for those who have a contraindication or allergy to the vaccine or any component of the vaccine or with sincerely held mosque convictions. The CDC and ACOG encourages a [...] her next visit. We recommend alerting the toy electric train repairer providing care of this finding if it [...] her next visit. We recommend alerting the toy electric train repairer providing care of this finding if it [...] as of this encounter (statuses as of 06/10/2024) Immunizations Name Administration Dates Next Due Hepatitis [...] money to get more. Patient declined 07/2024 Idanha Depression Scale Answer Date Recorded Id[place]ha Depression Scale Total 7 12/18/2022 The thought [...] Sign Reading Time Taken Comments Blood Pressure 122/66 06/10/2024 10:22 AM EDT Pulse 76 06/10/2024 10:22 AM EDT Temperature - - Respiratory Rate 16 06/10/2024 10:2 2 AM EDT Oxygen Saturation - - Inhaled Oxygen Concentration - - Weight 125.6 kg (276 lb 12.8 oz) 2023 10:22 AM EDT Height - - Body Mass Index 40.88 05/08/2024 8:55 AM EDT documented in this encounter Progress Notes * Danielle Soriano CRNP - 06/10/2024 10:30 AM EDT 06/10/2024 Cardiology Follow Up Primary Student Finance Specialist: SHANDRA; formerly Dr. Anderson Cardiac Problems: Hypertension and history of preeclampsia Chronic lumbar radiculopathy with history of hemilaminectomy-follows with Neurosurgery HPI: Theresa Ordaz is a 33 year old female presents today for routine cardiology follow up. Last seen office by KAMALA Moreno dating back to April 09, 2023. Blood pressure. BP well controlled at time of last visit and demonstrates continued improvement with the addition of labetalol echocardiogram also noted from that time demonstrates a normal LVEF with no wall motion abnormalities,and no significant valvular disease. Plan at that time was to continue labetalol 300 mg twice daily. Patient presents today feeling well overall. She is currently approx 15 weeks. BP today well controlled. EKG today demonstrates NSR with rate 82bpm. Reports that she is keeping up with her normal routine without difficulty. Compliant on all medications with no untoward effects. REVIEW OF SYSTEMS: See HPI for pertinent positives. All others negative other than those noted in the HPI. CONSTITUTIONAL: No change in weight, No weakness, No fatigue and No fevers, No sweats or chills. PULMONARY: No cough, sputum, or hemoptysis, No wheezing, No shortness or breath and No recent change in breathing. CARDIOVASCULAR: No chest pain, No dyspnea on exertion, No edema, No palpitations and No syncope. GASTROINTESTINAL: No abdominal pain, No change in bowel habits, No significant heartburn, No nausea, No vomiting, No diarrhea, No constipation, No blood in stools or black tarry stools. No dysphagia. HEMATOLOGIC: No abnormal bleeding and No bruising. NEUROLOGICAL: Normal balance, No headaches and No weakness. Review of patient's allergies indicates: No Known Allergies Current Outpatient Medications Medication Sig Dispense Refill [...] No current facility-administered medications for this visit. 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 Tobacco Use Smoking status: Former Current packs/day: 0.00 Average packs/day: 0.3 packs/day for 2.0 years (0.6 ttl pk-yrs) Types: Cigarettes Start date: 2010 Quit date: 2013 Years since quittin.6 Smokeless tobacco: Never Vaping Use Vaping status: Never Used Substance and Sexual Activity Alcohol use: Not Currently Drug use: Never Sexual activity: Yes Partners: Male Social History Narrative Lives with: and kids 11y, 2y, 8 month old (2022) 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 (Adult - for ages 18 years and over): Yes Food Insecurity: No Food Insecurity (04/29/2024) Food Insecurity Do you need food for this week? (Adult - for ages 18 years and over): No Transportation Needs: No Transportation Needs (04/29/2024) Transportation Needs Has lack of transportation kept you from medical appointments, meetings, work, or from getting things needed for daily living? Check all that apply. (Adult - for ages 18 years and over): No Social Connections: Socially Integrated (04/29/2024) Social Connections How often do you feel lonely or isolated from those around you? (Adult - for ages 18 years and over): Never Housing Stability: Low Risk (04/29/2024) Housing Stability Do you currently live in a longterm or have no steady place to sleep at night? (Adult - for ages 18 years and over): No Are you homeless or worried that you might be in the future? (Adult - for ages 18 years and over): No OBJECTIVE/PHYSICAL EXAMINATION: BP 122/66 | Pulse 76 | Resp 16 | Wt 125.6 kg (276 lb 12.8 oz) | LMP 02/24/2024 (Exact Date) Comment: cycles irreg | BMI 40.88 kg/m | BSA 2.47 m General: No acute distress. A+Ox3. HEENT: Normocephalic. Atraumatic. PERRL. EOMI. Conjunctiva and sclera clear. NECK: No carotid bruits. No JVD. Carotid upstrokes are brisk. Heart: RRR. S1 and S2 noted. No murmur. No rubs or gallops. PMI non displaced. Lungs: Clear to auscultation. No wheezes.No rhonchi. No rales. Abdomen: Normal bowel sounds. Soft. Nontender. No masses or organomegaly. No abdominal bruits. Extremities: No edema. No clubbing or cyanosis. Pulses: radial=2/4, posterior tibial=2/4, dorsalis pedis = 2/4. NEURO: No focal deficits. PSYCH: Appropriate affect and insight. DATA Labs & Imaging Reviewed Below: Echo 02/2023 The examination is limited quality but adequate for evaluation of the referral indication. The qualitative LV ejection fraction is 60-64% (normal). The left ventricular wall motion is normal. The left ventricular diastolic function is normal. Poorly visualized valvular anatomy without significant stenosis or regurgitation. ASSESSMENT/PLAN: 33 year old year old female 1. HTN, goal below 130/80 2. Chronic hypertension in 3. High-risk in second trimester -patient is doing well from a cardiac perspective. -BP demonstrates good control and she is continues to tolerate Labetolol without concern. -discussed warning signs with lower extremity edema, increase and persistently elevated blood pressures to make both cardiology and OB aware immediately. -plan is for patient to stay on her Labetolol throughout the course of her . -EKG today normal -If additional antihypertensive agent would be needed, would recommend use of Hydralazine in combination with Labetalol or add Nifedipine. -Would recommend an echocardiogram be repeated if BP would stay elevated. - EKG COMPLETE (TRACING AND INTERP) DISPOSITION: Follow up 1 year or if symptoms worsen/fail to improve. All questions were answered to the patients satisfaction. Patient advised to report to ED with any and all emergencies. The patient agrees to the above plan and will call with additional questions or concerns. KAMALA [facility], [address] [address] I spent a total of 31 minutes on the date of service in preparation, delivery, and documentation ofthe care provided to Theresa Ordaz excluding any time spent in the performance of separately billed services. This chart was completed in part utilizing [employer] Voice Recognition Software. Grammatical errors, random word insertions, pronoun errors, and incomplete sentences are an occasional consequence of this system due to software limitations, ambient noise, and hardware issues. Any formal questions or concerns about the content, text, or information contained within the body of this dictation should be directly addressed to the provider for clarification. documented in this encounter Nursing Notes * Sole Dee CMA - 06/10/2024 10:19 AM EDT Chief Complaint Patient presents with Follow Up Would like to stay on labatolol Examination Room: 6 Name: Theresa Ordaz Date of : (1990). Reason for Visit: Follow up / gestational HTN and pre-eclampsia Interim Hospitalization(s): denies Problems/Concerns: denies cardiac concerns, but did report that 05/11 EKG showed arrhythmia Chest Pain/SOB: denies [facility] Discussed: Yes [facility] is a way you can talk to your provider online through e-mail. Would you like to sign up? I can activate it for you? ALREADY ACTIVE Patient was instructed to not get up on the exam table until directed and assisted by their provider; patient is to remain seated in the chair/ wheelchair/ exam table for fall prevention and safety reasons. Patient is aware to have assistance to step down off exam table with personnel. Patient voiced full comprehension of instructions. documented in this encounter Plan of Treatment Upcoming Encounters Date Type Department Care Team (Late st Contact Info) Description 07/01/2024 12:20 PM EDT Telemedicine Nutrition & Weight Management, [facility] [address] [place] [address] Kaye Mills PA-C [address] [place] [address] 07/15/2024 9:30 AM EDT Office Visit [employer] Obstetrics Maternal Medicine, [place] [address] [place] [address] Ke Markham MD [address] [place] [address] 07/15/2024 9:30 AM EDT Imaging Radiology [place] [address] [place], [place] [id number] Scheduled Orders Name Type Priority Associated Diagnoses Orde r Schedule EKG COMPLETE (TRACING AND INTERP) EKG Routine HTN, goal below 130/80 Ordered: 06/10/2024 Health Maintenance Due Date Last Done Comments Pneumococcal Vaccine: Pediatrics (0 to 5 Years) and At-Risk Patients (6 to 64 Years) (1 of 2 - PCV) 1996 Depression Screening 05/24/2021 05/24/2020 COVID-19 Vaccine (1 - 2022-24 season) 2023 Influenza Vaccine (FLU [...] as of this encounter Visit Diagnoses Diagnosis HTN, goal below 130/80- Primary Unspecified essential hypertension Chronic hypertension in Benign essential hypertension complicating , childbirth, and the puerperium, unspecified as to episode of care High-risk in second trimester documented in this encounter Additional Health Concerns Active Problems Noted Date Diagnosed Date OB Reminders 05/08/2024 documented as of this encounter Care Teams Secondary Special Education Teacher Relationship Specialty Start Date End Date Jamaal Cash MD [address] [place] [address] PCP - General Family Medicine 12/28/20 documented as of this encounter"
--- OUTSIDE RECORDS SUMMARY | 2024-09-12 00:19 | External Medical Summary | Summary of Care ---
Author Name Unknown Organization [facility] Address [address] [place] [address] Phone [phone] Care Team Providers Care Retort Load Expediter Name Role Phone Jamaal Cash MD Primary Care Provider [phone] Reason for Visit * Reason Comments Return Visit Encounter Details Date Type Department Care Team (Late st Contact Info) Description 07/03/2024 11:45 AM EDT Office Visit Gynecology/Obstetric s [facility] [address] [place] [address] Joyce [facility] [address] [facility] [address] High-risk in second trimester*; Obesity in , [...] Date/Time 50-G GESTATIONAL GLUCOSE, 1 HOUR - [facility] 05/08/2024 10:43 AM Last Assessment & [...] preeclamptic labs with CBC, serum AST/ALT/creatinine and qlqzpbf-dz-llyeafkbtv ratio or 24-hour urine protein TIMOTHY if [...] weeks on medication, growth q4 weeks, deliver [id number] Last Assessment & Plan: Considerations: Women with chronic hypertension during are at significantly increased risk for morbidity. Signs and symptoms of superimposed pre-eclampsia were reviewed; instructed patient to contact primary OB care provider if these symptoms occur. Recommendations: Obtain baseline lab work TIMOTHY (if not already done) with assessment of proteinuria (24-hour urine protein or dnnnmfu-kw-wtswftbsie ratio) and CBC, serum AST/ALT/creatinine. If patient [...] information was shared with the patient. The [place] [employer]st[employer]s and Gyne[employer], Society for Maternal- Medicine, CDC and multiple medical associations strongly recommend the COVID-19 vaccine for women who are in any trimester, those attempting to become , women who have recently delivered, who are lactating as well as any other woman, regardless of age or QUILTING SUPERVISOR disorder. The only exceptions to receiving [...] her next visit. We recommend alerting the floor nurse providing care of this finding if it [...] her next visit. We recommend alerting the floor nurse providing care of this finding if it [...] money to get more. Patient declined 07/2024 [place]umber Depression Scale Answer Date Recorded [place]umber Depression Scale Total 7 12/18/2022 The thought [...] Description 07/03/2024 12:15 PM EDT Imaging Radiology [facility] [address] [facility] [place] [address] High-risk in second trimester 07/15/2024 9:30 AM EDT Office Visit [employer] [employer] Obstetrics Maternal Medicine, [place] [address] [place] [address] Ke Markham MD [address] [place] [address] 07/15/2024 9:30 AM EDT Imaging Radiology [facility], [place] [address] [place] [address] 07/31/2024 9:30 AM EDT Office Visit Gynecology/Obstetric [facility] [address] [facility] [place] [address] Theresa Ricci PA-C [address] [place] [address] 08/28/2024 9:00 AM EST Office Visit Gynecology/Obstetric [facility] [address] [facility] [place] [address] Yaritza Bartlett PA-C 132 [facility] [place] [address] Pending Results Name Type Priority Associated Diagnoses [...] Negative Ketone, Urine Negative Negative mg/dL Specific [place], Urine 1.025 1.003 - 1.030 Blood, Urine [...] documented as of this encounter Care Teams Retort Load Expediter Relationship Specialty Start Date End Date Jamaal Cash MD [address] [place] [address] PCP - General Family Medicine 12/28/20 documented as of this encounter
--- OUTSIDE RECORDS SUMMARY | 2024-09-12 00:19 | External Medical Summary | Summary of Care ---
Author Name Unknown Organization [facility] Address [address] [place] [address] Phone [phone] Care Team Providers Care Photovoltaic Panel Installer Name Role Phone Jamaal Cash MD Primary Care Provider [phone] Reason for Visit * Reason Onset Date Comments Test Results 05/11/2024 Encounter Details Date Type Department Care Team (Late st Contact Info) Description 05/11/2024 Telephone Gynecology/Obstetrics [facility] [address] [facility] [place] [address] Joyce Smith CRNP [address] [facility] [address] Test Results Allergies No known active allergiesdocumented as of this encounter (statuses as of 05/11/2024) Medications Medication Sig Dispensed Refills Start Date [...] 1 Tablet by mouth in the morning. Do not start before May 18, 2024. 05/18/2024 Active Folic Acid 800 MCG Oral TabletIndications:Me dication exposure during first trimester of Take 1 Tablet by mouth in the morning. 90 Tablet 2 05/08/2024 Active documented as of this encounter (statuses as of 05/11/2024) Active Problems Problem Noted Date Diagnosed Date Rubella non-immune status, antepartum 05/11/2024 High-risk 05/08/2024 Obesity in , antepartum 05/08/2024 Overview: The patient's pre-gravid BMI is 41.03. 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 The [place] [employer] [employer]st[employer]s and Gyne[employer], Society for Maternal- Medicine, CDC and multiple medical associations strongly recommend the COVID-19 vaccine for women who are in any trimester, those attempting to become , women who have recently delivered, who are lactating as well as any other woman, regardless of age or LUBRICATING ENGINEER disorder. The only exceptions to receiving the vaccine are for those who have a contraindication or allergy to the vaccine or any component of the vaccine or with sincerely held anabaptism convictions. The CDC and ACOG encourages a [...] her next visit. We recommend alerting the side puller providing care of this finding if it [...] her next visit. We recommend alerting the side puller providing care of this finding if it [...] as of this encounter (statuses as of 05/11/2024) Immunizations Name Administration Dates Next Due Hepatitis [...] money to get more. Patient declined 07/2024 [place] Depression Scale Answer Date Recorded [place] Depression Scale Total 7 12/18/2022 The thought [...] Delivery Comme nts Yes 11/30/2024 Based on Ultraso und Sex and Gender Information Value Date Recorded Sex Assigned at Female 01/09/2019 7:58 AM EDT Gender Identity Female 01/09/2019 7:58 AM EDT Sexual Orientation Straight 01/09/2019 7: 58 AM EDT Job Start Date Occupation Industry Not on file Not on file Not on file documented as of this encounter Miscellaneous Notes * Telephone Encounter - Johanny Shin LPN - 05/11/2024 3:22 PM EDT Patient notified. She has an appt with cardiology scheduled. * Telephone Encounter - Joyce Smith CRNP - 05/11/2024 1:57 PM EDT Received EKG report: Normal sinus rhythm with sinus arrhythmia Cannot rule out Anterior infarct When compared with ECG of 21-Dec-2022 10:18, No significant change was found. Good that unchanged since last year, but given arrhythmia would advise seeing cardiology. I can place a new referral if she is agreeable. KAMALA Messina documented in this encounter Plan of Treatment Upcoming Encounters Date Type Department Care Team (Late st Contact Info) Description 06/05/2024 8:45 AM EDT Office Visit Gynecology[facility]stetrics [facility] [place] [address] Joyce Smith CRNP [address] [place] [address] 06/10/2024 10:30 AM EDT Office Visit Cardiology, [facility] [address] [place] [address] Danielle Soriano CRNP [address] [place] [address] 07/01/2024 12:20 PM EDT Telemedicine Nutrition & Weight Management, [facility] [address] [place] [address] Kaye Mills PA-C [address] [place] [address] Health Maintenance Due Date Last Done Comments HPV/Co-Test 2020 Depression Screening 05/24/2021 05/24/2020 Cervical Cancer Screening 06/03/2023 Pap Smear 06/03/2023 06/03/2020, 03/01/2017 COVID-19 Vaccine ( season) 2023 Influenza Vaccine (FLU shot) (#1) 2024 GFR 05/08/2025 05/08/2024, 04/20, 12/18/2022, Additional history exists DTaP,Tdap,and Td Vaccines (9 - Td or Tdap) 08/01/2032 08/01/2022, 09/12/2020, 06/15/2010, Additional history exists Hepatitis B Vaccine Completed 11/12/2003, 02/16/2003, 03/02/2002 MENINGOCOCCAL (MENACTRA/MENVEO) Aged Out 05/29/2006, 05/29/2006 No longer eligibl e based on patient's age to complete this topic HPV (Gardasil) Vaccine Aged Out No lo nger eligible based on patient's age to complete this topic Pneumococcal Vaccine: Pediatrics (0 to 5 Years) and At-Risk Patients (6 to 64 Years) Aged Out No longer eligible based on patient's age to complete [...] documented as of this encounter Care Teams Photovoltaic Panel Installer Relationship Specialty Start Date End Date Jamaal Cash MD [address] [place] [address] PCP - General Family Medicine 12/28/20 documented as of this encounter
--- OUTSIDE RECORDS SUMMARY | 2024-09-12 00:19 | External Medical Summary | Summary of Care ---
Author Name Unknown Organization [facility] Address [address] [place] [address] Phone [phone] Care Team Providers Care Dispatcher Bus And Trolley Name Role Phone Jamaal Cash MD Primary Care Provider [phone] [phone] Reason for Visit * Reason Comments Outpatient Testing Encounter Details Date Type Department Care Team (Late st Contact Info) Description 05/08/2024 10:10 AM EDT Laboratory Laboratory, [facility] [address] [place] [id number] [facility] [address] [place] [address] High-risk in first trimester; Chronic hypertension in ; History of pre-eclampsia in prior , currently ; Obesity in , antepartum Allergies No known active allergiesdocumented as of this encounter (statuses as of 05/08/2024) Medications Medication Sig Dispensed Refills Start Date [...] as of this encounter (statuses as of 05/08/2024) Active Problems Problem Noted Date Diagnosed Date High-risk 05/08/2024 Obesity in , antepartum 05/08/2024 Overview: The patient's pre-gravid BMI is 41.03. Class 3 Baseline preE labs, early GTT, growth q4 weeks Chronic hypertension in 05/08/2024 Overview: Weekly NSTs 32 weeks on medication History of shoulder dystocia in prior 05/08/2024 History of delivery of macrosomal infant 024 Medication exposure during first trimester of [...] as of this encounter (statuses as of 05/08/2024) Resolved Problems Problem Noted Date Diagnosed Date [...] information was shared with the patient. The [employer], Society for Maternal- Medicine, CDC and multiple medical associations strongly recommend the COVID-19 vaccine for women who are in any trimester, those attempting to become , women who have recently delivered, who are lactating as well as any other woman, regardless of age or STOCK SUPERVISOR disorder. The only exceptions to receiving the vaccine are for those who have a contraindication or allergy to the vaccine or any component of the vaccine or with sincerely held amish convictions. The CDC and ACOG encourages a [...] her next visit. We recommend alerting the cuprous chloride helper providing care of this finding if it [...] her next visit. We recommend alerting the cuprous chloride helper providing care of this finding if it [...] as of this encounter (statuses as of 05/08/2024) Immunizations Name Administration Dates Next Due Hepatitis [...] money to get more. Patient declined 07/2024 [place] Depression Scale Answer Date Recorded [place] Depression Scale Total 7 12/18/2022 The thought [...] Team (Late st Contact Info) Description 05/11/2024 1:15 PM EDT Cardiac Studies Cardiac Studies, [facility] [address] [place] [address] 06/05/2024 8:45 AM EDT Office Visit Gynecology/Obstetrics [facility] [address] [address] Joyce Smith CRNP [address] [place] [address] 06/12/2024 11:00 AM EDT Office Visit Cardiology, [facility] [address] [address] Twyla Howell CRNP [address] [place] [address] 07/01/2024 12:20 PM EDT Telemedicine Nutrition & Weight Management, [facility] [address] [address] Kyae Mills PA-C [address] [place] [address] Pending Results Name Type Priority Associated Diagnoses Date /Time TYPE AND SCREEN Lab Routine High-risk in first trimester 05/08/2024 10:43 AM EDT RUBELLA IGG ANTIBODY Lab Routine High-risk in first trimester 05/08/2024 10:43 AM EDT HEPATITIS B SURFACE ANTIGEN Lab Routine High-risk in first trimester 05/08/2024 10:43 AM EDT HIV ANTIGEN & ANTIBODY SCREEN W/ CONFIRMATION Lab Routine High-risk in first trimester 05/08/2024 10:43 AM EDT CBC WITH WBC DIFFERENTIAL AND ANEMIA REFLEX WORKUP Lab Routine High-risk in first trimester 05/08/2024 10:43 AM EDT HEPATITIS C ANTIBODY SCREEN WITH PROGRESSION TO HEPATITIS C RNA QUANTITATIVE Lab Routine High-risk in first trimester 05/08/2024 10:43 AM EDT SYPHILIS ANTIBODY SCREEN WITH REFLEX TO RPR Lab Routine High-risk in first trimester 05/08/2024 10:43 AM EDT COMPREHENSIVE METABOLIC PANEL Lab Routine Chronic hypertension in History of pre-eclampsia in prior , currently 05/08/2024 10:43 AM EDT 50-G GESTATIONAL GLUCOSE, 1 HOUR Lab Routine Obesity in , antepartum 05/08/2024 10:43 AM EDT ANEMIA CBC Lab Routine High-risk in first trimester 05/08/2024 10:43 AM EDT DIFFERENTIAL, AUTOMATED Lab Routine High-risk in first trimester 05/08/2024 10:43 AM EDT ANEMIA REFLEX CHEMISTRY HOLD Lab Routine High-risk in first trimester 05/08/2024 10:43 AM EDT HEPATITIS C ANTIBODY Lab Routine High-risk in first trimester 05/08/2024 10:43 AM EDT HEPATITIS C RNA ADD ON Lab Routine High-risk in first trimester 05/08/2024 10:43 AM EDT SYPHILIS ANTIBODY SCREEN Lab Routine High-risk in first trimester 05/08/2024 10:43 AM EDT Health Maintenance Due Date Last Done Comments HPV/Co-Test 2020 Depression Screening 05/24/2021 05/24/2020 Cervical Cancer Screening 06/03/2023 Pap Smear 06/03/2023 06/03/2020, 03/01/2017 COVID-19 Vaccine (1 2022-24 season) 2023 GFR 05/01/2024 05/01/2023, 11/22, 10/08/2022, Additional history exists Influenza Vaccine (FLU shot) (#1) 2024 DTaP,Tdap,and Td Vaccines (9 - Td or [...] this topic documented as of this encounter Medical Devices Not on filedocumented as of this encounter Visit Diagnoses Diagnosis High-risk in first trimester Chronic hypertension in Benign essential hypertension complicating , childbirth, and the puerperium, unspecified as to episode of care History of pre-eclampsia in prior , currently with other poor obstetric history Obesity in , antepartum Obesity complicating , childbirth, or the puerperium, antepartum condition or complication documented in this encounter Care Teams Dispatcher Bus And Trolley Relationship Specialty Start Date End Date Jamaal Cash MD [address] [facility] [place] [address] PCP - General Family Medicine 12/28/20 documented as of this encounter
--- OUTSIDE RECORDS SUMMARY | 2024-09-12 00:19 | External Medical Summary | Summary of Care ---
Author Name Unknown Organization [facility] Address [address] [place] [address] Phone [phone] Care Team Providers Care Agriculture Instructor Name Role Phone Jamaal Cash MD Primary Care Provider [phone] Reason for Visit * Reason Comments Return Visit Encounter Details Date Type Department Care Team (Late st Contact Info) Description 06/05/2024 8:45 AM EDT Office Visit Gynecology/Obstetric s [facility] [address] [place] [address] Joyce Smith CRNP [address] [place] [address] High-risk in second trimester*; Obesity in , [...] Date/Time 50-G GESTATIONAL GLUCOSE, 1 HOUR - [facility] 05/08/2024 10:43 AM Last Assessment & [...] preeclamptic labs with CBC, serum AST/ALT/creatinine and iwzhcus-jr-irdqaoldbe ratio or 24-hour urine protein TIMOTHY if [...] weeks on medication, growth q4 weeks, deliver [id number] Last Assessment & Plan: Considerations: Women with chronic hypertension during are at significantly increased risk for morbidity. Signs and symptoms of superimposed pre-eclampsia were reviewed; instructed patient to contact primary OB care provider if these symptoms occur. Recommendations: Obtain baseline lab work TIMOTHY (if not already done) with assessment of proteinuria (24-hour urine protein or gdfsojk-zq-xzewowmlvd ratio) and CBC, serum AST/ALT/creatinine. If patient [...] information was shared with the patient. The [place] [employer]ne[employer], Society for Maternal- Medicine, CDC and multiple medical associations strongly recommend the COVID-19 vaccine for women who are in any trimester, those attempting to become , women who have recently delivered, who are lactating as well as any other woman, regardless of age or FILTER TANK OPERATOR disorder. The only exceptions to receiving the vaccine are for those who have a contraindication or allergy to the vaccine or any component of the vaccine or with sincerely held buddhist convictions. The CDC and ACOG encourages a [...] her next visit. We recommend alerting the data entry representative providing care of this finding if it [...] her next visit. We recommend alerting the data entry representative providing care of this finding if it [...] money to get more. Patient declined 07/2024 [place] Depression Scale Answer Date Recorded [place] Depression Scale Total 7 12/18/2022 The thought [...] 06/10/2024 10:30 AM EDT Office Visit Cardiology, [facility] [address] [place] [address] Danielle Soriano CRNP [address] [place] [address] 07/01/2024 12:20 PM EDT Telemedicine Nutrition & Weight Management, [facility] [address] [facility] [place] [address] Kaye Mills PA-C [address] [facility] [place] [address] 07/15/2024 9:30 AM EDT Office Visit Combination Building Inspector Obstetrics [facility], [place] [address] [place] [address] Ke Markham MD [address] [place] [address] 07/15/2024 9:30 AM EDT Imaging Radiology [facility] [address] [place] [address] Health Maintenance Due Date Last Done Comments [...] Negative Ketone, Urine Trace Negative mg/dL Specific [place], Urine 1.025 1.003 - 1.030 Blood, Urine [...] documented as of this encounter Care Teams Agriculture Instructor Relationship Specialty Start Date End Date Jamaal Cash MD [address] [place] [address] PCP - General Family Medicine 12/28/20 documented as of this encounter
--- OUTSIDE RECORDS SUMMARY | 2024-09-12 00:20 | External Medical Summary ---
Author Name Unknown Address Unknown Organization [id number][place] [place] [address] [facility] [address] Laboratory Report Ordering Provider Test Date Status ERNESTINE BURRIS 05/08/2024 10:43:24 Final Observation Date Value Abnormality Reference (Units ) Status Hep B surface Ag 05/08/2024 10:43:24 Negative Neg ative Final Performing Location LABORATORY C - [address] [facility] [address]
--- OUTSIDE RECORDS SUMMARY | 2024-09-12 00:20 | External Medical Summary ---
Author Name Unknown Address Unknown Organization [id number]:LABORATORY [facility] [place] - [facility] [address] [facility] [address] Laboratory Report Ordering Provider Test Date Status ERNESTINE BURRIS 05/08/2024 09:42:15 Final Observation Date Value Abnormality Reference (Units ) Status Chlamydia trachomatis rRNA [Presence] in Specimen by [place] with probe detection 05/08/2024 09:42:15 Negative Negative Final No Chlamydia trachomatis det ected by clicking machine operator-mediated nucleic acid amplification. Neisseria gonorrhoeae rRNA [ Presence] in Specimen by [place] with probe detection 05/08/2024 09:42:15 Negative Negative Final No Neisseria gonorrhoeae det ected by clicking machine operator-mediated nucleic acid amplification. Performing Location LABORATORY [facility] - [address] [facility] [address]
--- OUTSIDE RECORDS SUMMARY | 2024-09-12 00:20 | External Medical Summary ---
Author Name Unknown Address Unknown Organization [id number]:LABORATORY [facility] [place] [facility] - [address] [place] [address] Laboratory Report Ordering Provider Test Date Status ZOEY BURRISANH 05/08/2024 10:43:24 Final Observation Date Value Abnormality Reference (Units ) Status ABO 05/08/2024 10:43:24 O Final RH 05/08/2024 10:43:24 Positive Final RED BLOOD CELL ANTIBODY SCREEN 05/08/2024 10:43:24 Negative Final SPECIMEN EXPIRATION DATE 05/08/2024 10:43:24 05/11/2024 23:59 Final Performing Location LABORATORY [facility] - [address] [place] [address]
--- OUTSIDE RECORDS SUMMARY | 2024-09-12 00:20 | External Medical Summary | Summary of Care ---
Author Name Unknown Organization [facility] Address [address] [place] [address] Phone [phone] Care Team Providers Care Paper Making Machine Operator Name Role Phone Jamaal Cash MD Primary Care Provider [phone] Reason for Visit * Reason Onset Date Comments Advice 01/03/2024 Encounter Details Date Type Department Care Team (Late st Contact Info) Description 01/03/2024 Telephone Sleep Disorder, [facility] [address] [place] [address] Clarisa Cota, [address] [place] [address] Advice Allergies No known active allergiesdocumented as of this encounter (statuses as of 04/03/2024) Medications Medication Sig Dispensed Refills Start Date [...] AND 1 CAP AT NOON 09/23/2023 Active Topiramate 25 MG Oral Tablet (topAMAX) Take 1 Tablet by mouth in the morning. 30 Tablet 5 12/16/2023 Active Gabapentin 600 MG Oral Tablet (Neurontin) Take 1 Tablet by mouth in the morning and 1 Tablet at noon and 1 Tablet before bedtime. 90 Tablet 5 06/05/2023 03/02/2024 Discontinued (Refill) ProAir HFA 108 (90 Base) MCG/ACT Inhalation Aerosol SolutionIndicatio ns:Bronchitis, complicated Inhale 2 Puffs by mouth in the morning and 2 Puffs at noon and 2 Puffs in the evening and 2 Puffs before bedtime. 18 g 1 06/05/2023 01/17/2024 Discontinued (Refill) Ondansetron HCl 4 MG Oral TabletIndications :Nausea Take 1 Tablet by mouth every 8 hours as needed for Nausea. 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 The [place] [employer]ne[employer], Society for Maternal- Medicine, CDC and multiple medical associations strongly recommend the COVID-19 vaccine for women who are in any trimester, those attempting to become , women who have recently delivered, who are lactating as well as any other woman, regardless of age or ENVIRONMENTAL AIR SPECIALIST disorder. The only exceptions to receiving the vaccine are for those who have a contraindication or allergy to the vaccine or any component of the vaccine or with sincerely held lutheran convictions. The CDC and ACOG encourages a [...] t o chronic blood loss 01/18/2021 10/24/2021 HTN, goal below 130/80 01/15/202101/18 Antepartum anemia complicating 11/16/2020 01/15/2021 Overview: 11/16/20 Hgb 10.3, to start Vitron C GBS (group B Streptococcus c raquel), +RV culture, currently 11/15/2020 01/15/2021 Overview: CLINDAMYCIN SUSCEPTIBLE TETRACYCLINE RESISTANT VANCOMYCIN SUSCEPTIBLE PENICILLIN SUSCEPTIBLE presentation, breech 10/28/2020 0 11/09/2020 Pyelectasis of fetus on ultrasound 09/09/2020 01/15/2021 Overview: We will reassess at her next visit. We recommend alerting the astronomy professor providing care of this finding if it [...] her next visit. We recommend alerting the astronomy professor providing care of this finding if it [...] as of this encounter (statuses as of 04/03/2024) Immunizations Name Administration Dates Next Due Hep A - Hepatitis A (ped/adole, 1-18 Yrs) 2006,05/29/2006 Meningococcal Conjugate Vaccine (Menactra/Menveo ) 05/29/2006 PPD [...] you got the money to buy more. Never true 12/18/19 23 Within the past 12 months, t he food you bought just didn't last and you didn't have money to get more. Never true 12/18/2022 [place] Depression Scale Answer Date Recorded [place] Depression Scale Total 7 12/18/2022 The thought of harming myself has occurred to me . Never 12/18/2022 Sex and Gender Information Value Date Recorded Sex Assigned at Female 01/09/2019 7:58 AM EDT Gender Identity Female 01/09/2019 7:58 AM EDT Sexual Orientation Straight 01/09/2019 7: 58 AM EDT Job Start Date Occupation Industry Not on file Not on file Not on file documented as of this encounter Miscellaneous Notes * Telephone Encounter - Yin Vital CMA - 01/13/2024 8:56 AM EDT Patient hasn't used used cpap for 2 days bc she states the mask rubbed her nose ''raw''. She statesit also made her to tongue swell up. She states she uses a full face mask. She needs advice. * Telephone Encounter - Yin Vital CMA - 01/03/2024 1:36 PM EDT Received a fax from [employer] that patient was set up with aircurve 10 ST/A device on 01/03/24. Patientneeds an appointment between 02/03/24-04/02/24. Patient did not answer lmom documented in this encounter Plan of Treatment Upcoming Encounters Date Type Department Care Team (Late st Contact Info) Description 06/12/2024 11:00 AM EDT Office Visit Cardiology, [facility] [address] [address] Twyla Howell CRNP [address] [place] [address] 07/01/2024 12:20 PM EDT Telemedicine Nutrition & Weight Management, [facility] [address] [place] [address] Kaye Mills PA-C [address] [place] [address] Health Maintenance Due Date Last Done Comments HPV/Co-Test 2020 Depression Screening 05/24/2021 05/24/2020 Cervical Cancer Screening 06/03/2023 Pap Smear 06/03/2023 06/03/2020, 03/01/2017 COVID-19 Vaccine ( season) 2023 Influenza Vaccine (FLU shot) (Season Ended) 2024 DTaP,Tdap,and Td Vaccines (9 - Td or Tdap) 08/01/2032 08/01/2022, 09/12/2020, 06/15/2010, Additional history exists Hepatitis B Completed 11/12/2003, 01/20, 03/02/2002 MENINGOCOCCAL (MENACTRA/MENVEO) Aged Out 05/29/2006, 05/29/2006 No longer eligibl e based on patient's age to complete this topic GARDASIL-HPV IMMUNIZATION SERIES Aged Out No longer eligible based on patient's age to complete this topic Pneumococcal Vaccine: Pediatrics (0 to 5 Years) and At-Risk Patients (6 to 64 Years) Aged Out No longer eligible based on patient's age to complete this topic documented as of this encounter Medical Devices Not on filedocumented as of this encounter Care Teams Paper Making Machine Operator Relationship Specialty Start Date End Date Jmaaal Cash MD [address] [place] [address] PCP - General Family Medicine 12/28/20 documented as of this encounter
--- OUTSIDE RECORDS SUMMARY | 2024-09-12 00:20 | External Medical Summary ---
Author Name Unknown Address Unknown Organization [id number]:LABORATORY [facility] [facility] - [address] [place] [address] Laboratory Report Ordering Provider Test Date Status ERNESTINE BURRIS 05/08/2024 10:43:24 Final Observation Date Value Abnormality Reference (Units ) Status WBC, Total 05/08/2024 10:43:24 6.73 4.00-10.8 0 (K/uL) Final RBC 05/08/2024 10:43:24 4.26 3.85-5.15 (M/uL) Final Hemoglobin 05/08/2024 10:43:24 12.3 12.0-15.3 (g/dL) Final Anemia reflex testing trigge rs on a HGB < 12.0 for Females and HGB < 13.0 for Males in accordance with the WHO Anemia Guidelines
Anemia reflex testing triggers on a HGB < 12.0 for Females and HGB < 13.0 for Males in accordance with the WHO Anemia Guidelines HCT 05/08/2024 10:43:24 37.0 36.0-45.2 (%) Final MCV 05/08/2024 10:43:24 86.9 81.5-97.5 (fL) Final MCH 05/08/2024 10:43:24 28.9 27.0-34.0 (pg) Final MCHC 05/08/2024 10:43:24 33.2 32.0-36.0 (g/dL) Final RDW 05/08/2024 10:43:24 12.7 11.5-15.5 (%) Final Platelets 05/08/2024 10:43:24 209 140-400 (K /uL) Final MPV 05/08/2024 10:43:24 9.5 6.6-11.1 ( fL) Final Performing Location LABORATORY [facility] - [address] [place] [address]
--- OUTSIDE RECORDS SUMMARY | 2024-09-12 00:20 | External Medical Summary ---
Author Name Unknown Address Unknown Organization [id number]:[facility] [place] [address] [place] [address] Laboratory Report Ordering Provider Test Date Status ERNESTINE BURRIS 05/08/2024 09:42:15 Final Observation Date Value Abnormality Reference (Units) Status Bacteria identified in Specimen by Culture 05/08/2024 09:42:15 No significant growth Final Test: Culture, Urine, Quanti tative
Specimen Source: Urine, Clean Catch
Specimen Type: Urine
Specimen Date: 05/08/2024 0942
Result Date: 05/09/2024 1350
Result Status: Final result
Resulting Lab: [facility]
[address]
[facility] [address]

CULTURE

No significant growth

null Performing Location LAB[facility]ORY [facility] [place] - [address] [facility] [address]
--- OUTSIDE RECORDS SUMMARY | 2024-09-12 00:20 | External Medical Summary | Summary of Care ---
Author Name Unknown Organization [facility] Address [address] [place] [address] Phone [phone] Care Team Providers Care Client Engagement Manager Name Role Phone Jamaal Cash MD Primary Care Provider [phone] Reason for Referral * Evaluate & Treat - Unlimited Visits [...] currently Joyce Smith CRNP [address] [place] [address] Referral ID Status Reason Start Date Expiration Date Visits Requested Visits Authorized [id number] Pending Review Specialty Services Required 05/08/[phone] Question Answer Referral Priority Within 10 days (routine) Has the patient had a viability scan? Yes Date performed 05/08/2024 Location performed Radiology Reason for referral Hypertension, Medication exposure, Obesity, Other Hypertension type Chronic Obesity type Class 3 Please provide additional details Luvox, Adderall, gabapentin; hx macrosomia and shoulder dystocia, hx pre-eclampsia Where should this appointment be scheduled? [facility] Comments /Para: LMP: Patient's last menstrual period was 02/24/2024 (exact date). Patient is . EVERARDO: 11/30/2024, by Ultrasound Pre-Gravid BMI: 41.03 Reason for Visit * Reason Comments New Visit Encounter Details Date Type Department Care Team (Late st Contact Info) Description 05/08/2024 9:30 AM EDT Office Visit Gynecology/Obstetric s [facility] [address] [place] [id number] Joyce Smith CRNP [address] [place] [address] High-risk in first trimester*; Nausea; Chronic hypertension in ; Obesity in , antepartum; Medication exposure during first trimester of ; History of shoulder dystocia in prior ; History of delivery of macrosomal infant; History of pre-eclampsia in prior , currently ; Pap smear for cervical cancer screening; History of back surgery Allergies No known active allergiesdocumented as of [...] 03/03/2024 Active Ondansetron HCl 4 MG Oral TabletIndications [...] the morning. 90 Tablet 2 05/08/2024 Active Topiramate 25 MG Oral Tablet (topAMAX) Take 1 Tablet by mouth in the morning. 30 Tablet 5 12/16/2023 05/08/2024 Discontinued (Medication List Clean Up) Ondansetron HCl 4 MG Oral TabletIndications :Nausea Take 1 Tablet by mouth every 8 hours as needed for Nausea. 30 Tablet 01/17/2024 05/08/2024 Discontinued (Refill) documented as of this encounter [...] first trimester of pr egnancy 05/08/2024 Overview: Mendoza Schmidt History of pre-eclampsia in prior , currently [...] information was shared with the patient. The [employer], Society for Maternal- Medicine, CDC and multiple medical associations strongly recommend the COVID-19 vaccine for women who are in any trimester, those attempting to become , women who have recently delivered, who are lactating as well as any other woman, regardless of age or STUNTMAN disorder. The only exceptions to receiving the [...] her next visit. We recommend alerting the claims service adjustor providing care of this finding if it [...] her next visit. We recommend alerting the claims service adjustor providing care of this finding if it [...] 05/08/2024) Immunizations Name Administration Dates Next Due DTaP [...] money to get more. Patient declined 07/2024 [place] Depression Scale Answer Date Recorded [place] Depression Scale Total 7 12/18/2022 The thought [...] s 04/29/2024 Does the household have a [facility] source of income? (Household - for ages [...] Sign Reading Time Taken Comments Blood Pressure 114/66 05/08/2024 8:55 AM EDT Pulse - - Temperature - - Respiratory Rate - - Oxygen Saturation - - Inhaled Oxygen Concentration - - Weight 123.4 kg (272 lb) 05/08/2024 8:55 AM EDT Height 175.3 cm (5' 9") 05/08/2024 8:55 AM EDT Body Mass Index 40.17 05/08/2024 8:55 AM EDT documented in this encounter Progress Notes * Joyce Smith CRNP - 05/08/2024 9:35 AM EDT CC: NOB HPI: Theresa Ordaz is a 33 year old female here for initial OB exam. EVERARDO 11/30/24 by LMP and dating ultrasound. She is taking vitamins. Reviewed PMH, social hx, family hx, surgical hx, ob hx with patient. - Hx chronic hypertension, on labetalol BID. BP well controlled. Last EKG 12/2022. - Hx pre-eclampsia in last , delivered at 39+ weeks. - Hx macrosomic infant (G2, 4.3 kg) with shoulder dystocia - On Gabapentin for chronic back pain - On Adderall for ADHD - On Luvox for depression. Plans to meet with her psychiatrist to discuss its use in . - Has a rescue inhaler to use for reactive airway disease - occurs when she has an upper respiratory infection. Has not needed to use it since November 2023. Current symptoms: nausea, taking Zofran w/relief. Able to tolerate food and fluids. Symptoms are worse in the evening. Occasional mild cramping. Denies bleeding. Reviewed current medications with patient. Last pap smear 01/2020 OB History Para Term AB Living 4 3 3 0 0 3 SAB IAB Ectopic Multiple Live Births 0 0 0 0 3 # Outcome Date GA Lbr Nicola/2nd Weight Sex Type Anes PTL Lv 4 Current 3 Term 10/24/22 39w2d 3.997 kg (8 lb 13 oz) F Vag-Spont EPI N CRISTIANA Complications: Preeclampsia 2 Term 12/04/20 39w4d 21:43 / 00:33 4.344 kg (9 lb 9.2 oz) M Vag-Spont EPI N CRISTIANA Comments: fob#1 IOL PEC, shoulder dystocia 1st degree laceration Complications: Shoulder Dystocia 1 Term 12/11/11 41w0d 2.906 kg (6 lb 6.5 oz) F Vag-Spont N CRISTIANA Comments: fob#1 uncomplicated Obstetric Comments 2021 fob#1 [place], 31yo healthy Past Medical History: Diagnosis Date ADHD Depression with anxiety 01/10/2023 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 Gestational hypertension without significant proteinuria 07/09/2022 Diagnosed 24 wks, start BP checking 2x/day History of pre-eclampsia 01/15/2021 required antihypertensive treatment during period Hyperinsulinemia 05/06/2023 Hypertension 01/15/2021 Infertility associated with anovulation Migraines Morbid obesity (HCC) 11/15/2009 Per Obesity Taxonomy PCOS (polycystic ovarian syndrome) discontinued metformin prior to 2019 Reactive airway disease Varicella without complication 09/1992 Social History Socioeconomic History Marital status: Spouse [...] for ages 18 years and over): No Past Surgical History: Procedure Laterality Date INJECT DX/THER SUBSTANCE INTERLAMINAR LUMBAR/SACRAL W IMAGE GUIDE 05/01/2023 INJECTION SPINE LUMBAR OR SACRAL performed by Anuel Piña DO at OR [facility] INJECT DX/THER SUBSTANCE INTERLAMINAR LUMBAR/SACRAL W IMAGE GUIDE 10/02/2023 INJECTION SPINE LUMBAR OR SACRAL performed by Anuel Piña DO at OR [facility] LAMINOTOMY, SINGLE LUMBAR LAPAROSCOPY; CHOLECYSTECTOMY N/A 01/02/2016 01/02/2016 LAPAROSCOPIC CHOLECYSTECTOMY performed by Ethan Escobedo MD at OR [facility] LUMBAR / SACRAL EPIDURAL, SINGLE LEVEL 03/20/2023 INJECTION TRANSFORAMINAL EPIDURAL LUMBAR OR SACRAL performed by Anuel Piña DO at OR [facility] REMOVAL OF APPENDIX 08/16/2008 [facility] - Dr. Arana REVISION OF ANKLE JOINT Ankle Joint Arthroplasty Current Outpatient Medications Medication Sig Dispense Refill [...] THE MORNING AND 1 CAP AT NOON Gabapentin 600 MG Oral Tablet (Neurontin) Take 1 Tablet by mouth in the morning and 1 Tablet at noon and 1 Tablet before bedtime. 90 Tablet 5 Ondansetron HCl 4 MG Oral Tablet Take 1 Tablet by mouth every 8 hours as needed for Nausea. 30 Tablet 2 [START ON 05/18/2024] Aspirin 81 MG Oral Tablet Chewable (Aspirin 81) Take 1 Tablet by mouth in the morning. Do not start before May 18, 2024. Folic Acid 800 MCG Oral Tablet Take 1 Tablet by mouth in the morning. 90 Tablet 2 ProAir HFA 108 (90 Base) MCG/ACT Inhalation Aerosol Solution Inhale 2 Puffs by mouth in the morningand 2 Puffs at noon and 2 Puffs in the evening and 2 Puffs before bedtime. 18 g 1 No current facility-administered medications for this visit. Review of patient's allergies indicates: No Known Allergies Family History Problem Relation Name Age of [...] Breast Cancer Aunt (Paternal) Schizophrenia Aunt (Maternal) Denies family history of genetic conditions in patient's and FOB's families. ROS: General: no fevers, chills CV: no chest pain, SOB GI: no constipation, diarrhea, + nausea Breast: no masses, nipple discharge, tenderness : no vaginal bleeding, unusual vaginal discharge, dysuria Psychological: no anxiety, depression, SI/HI PHYSICAL EXAM: please see physical Manufacturing Engineer Documentation Provider requested education nurse. Name of education nurse: Yajaira ASSESSMENT/PLAN: 1. High-risk in first trimester - CULTURE, URINE, QUANTITATIVE - TYPE AND SCREEN; Future - RUBELLA IGG ANTIBODY; Future - HEPATITIS B SURFACE ANTIGEN; Future - HIV ANTIGEN & ANTIBODY SCREEN W/ CONFIRMATION; Future - CHLAMYDIA TRACHOMATIS AND NEISSERIA GONORRHOEAE, AMPLIFIED PROBE; Future - CBC WITH WBC DIFFERENTIAL AND ANEMIA REFLEX WORKUP; Future - HEPATITIS C ANTIBODY SCREEN WITH PROGRESSION TO HEPATITIS C RNA QUANTITATIVE; Future - SYPHILIS ANTIBODY SCREEN WITH REFLEX TO RPR; Future - URINALYSIS, POINT OF CARE (ENTER/EDIT) - MFM US MATERNAL 1ST FETUS; Future - MATERNAL MEDICINE REFERRAL OP 2. Nausea Notify office if not improving or unable to tolerate PO - Ondansetron HCl 4 MG Oral Tablet; Take 1 Tablet by mouth every 8 hours as needed for Nausea. Dispense: 30 Tablet; Refill: 2 3. Chronic hypertension in Baseline labs and EKG. Will start baby ASA at 12 weeks - pt states she has this at home. - PROTEIN/ CREATININE RATIO, URINE; Future - COMPREHENSIVE METABOLIC PANEL; Future - MFM US MATERNAL 1ST FETUS; Future - MATERNAL MEDICINE REFERRAL OP - EKG; Future 4. Obesity in , antepartum - 50-G GESTATIONAL GLUCOSE, 1 HOUR; Future - MFM US MATERNAL 1ST FETUS; Future - MATERNAL MEDICINE REFERRAL OP 5. Medication exposure during first trimester of Reviewed use of Gabapentin, Luvox, Adderall in through UpToDate and Mother to Baby Fact Sheets. With Gabapentin, recommend additional folic acid supplementation. Will discuss use of Luvox vs another SSRI at her upcoming psychiatrist appointment. Can continue Adderall, will monitor baby's growth. - MFM US MATERNAL 1ST FETUS; Future - MATERNAL MEDICINE REFERRAL OP - Folic Acid 800 MCG Oral Tablet; Take 1 Tablet by mouth in the morning. Dispense: 90 Tablet; Refill: 2 6. History of shoulder dystocia in prior - MFM US MATERNAL 1ST FETUS; Future - MATERNAL MEDICINE REFERRAL OP 7. History of delivery of macrosomal - MFM US MATERNAL 1ST FETUS; Future - MATERNAL MEDICINE REFERRAL OP 8. History of pre-eclampsia in prior , currently - PROTEIN/ CREATININE RATIO, URINE; Future - COMPREHENSIVE METABOLIC PANEL; Future - MFM US MATERNAL 1ST FETUS; Future - MATERNAL MEDICINE REFERRAL OP 9. Pap smear for cervical cancer screening - STUNTMAN PAP SCREEN; Future 10. History of back surgery Consider anesthesia consult in 3rd trimester. Follow Up: Return in about 4 weeks (around 06/05/2024) for rpn. | For: rpn | Check-out note: Labs today, schedule glucose testing and EKG - Discussed timing of routine OB care and OB call coverage. Provided with OB triage phone number; advised to use patient portal for non-emergent questions only. - Offered genetic screening and explained that screening does not provide a definitive diagnosis. Patient declines. - Discussed labs as ordered and instructed patient to present to lab following appointment. - MFM referral discussed, pt agreeable. - RTO in 4 weeks for TYRESE QUINTANILLA with concern KAMALA Messina documented in this encounter Plan of Treatment Upcoming Encounters Date Type Department Care Team (Late st Contact Info) Description 05/11/2024 1:15 PM EDT [facility] [address] [place] [address] 06/05/2024 8:45 AM EDT Office Visit Gynecology/Obstetrics [facility] [address] [place] [address] Joyce Smith CRNP [address] [place] [address] 06/12/2024 11:00 AM EDT Office Visit Cardiology, [facility] [address] [place] [address] Twyla Howell CRNP [address] [place] [address] 07/01/2024 12:20 PM EDT Telemedicine Nutrition & Weight Management, [facility] [address] [place] [address] Kaye Mills PA-C [address] [place] [address] Pending Results Name Type Priority Associated Diagnoses Date /Time STUNTMAN PAP SCREEN Pathology Routine Pap smear for cervical cancer screening 05/08/2024 9:42 AM EDT CULTURE, URINE, QUANTITATIVE Lab Routine High-risk in first trimester 05/08/2024 9:42 AM EDT CHLAMYDIA TRACHOMATIS AND NEISSERIA GONORRHOEAE, AMPLIFIED PROBE Lab Routine High-risk in first trimester 05/08/2024 9:42 AM EDT PROTEIN/ CREATININE RATIO, URINE Lab Routine Chronic hypertension in History of pre-eclampsia in prior , currently 05/08/2024 9:42 AM EDT Scheduled Orders Name Type Priority Associated Diagnoses Orde r Schedule STUNTMAN PAP SCREEN Pathology Routine Pap smear for cervical cancer screening Expected: 05/08/2024, Expires: 06/08/2025 TYPE AND SCREEN Lab Routine High-risk in first trimester Expected: 05/08/2024, Expires: 06/08/2025 RUBELLA IGG ANTIBODY Lab Routine High-risk in first trimester Expected: 05/08/2024, Expires: 05/08/2025 HEPATITIS B SURFACE ANTIGEN Lab Routine High-risk in first trimester Expected: 05/08/2024, Expires: 05/08/2025 HIV ANTIGEN & ANTIBODY SCREEN W/ CONFIRMATION Lab Routine High-risk in first trimester Expected: 05/08/2024, Expires: 05/08/2025 CHLAMYDIA TRACHOMATIS AND NEISSERIA GONORRHOEAE, AMPLIFIED PROBE Lab Routine High-risk in first trimester Expected: 05/08/2024, Expires: 05/08/2025 CBC WITH WBC DIFFERENTIAL AND ANEMIA REFLEX WORKUP Lab Routine High-risk in first trimester Expected: 05/08/2024, Expires: 05/08/2025 HEPATITIS C ANTIBODY SCREEN WITH PROGRESSION TO HEPATITIS C RNA QUANTITATIVE Lab Routine High-risk in first trimester Expected: 05/08/2024, Expires: 05/08/2025 SYPHILIS ANTIBODY SCREEN WITH REFLEX TO RPR Lab Routine High-risk in first trimester Expected: 05/08/2024, Expires: 05/08/2025 PROTEIN/ CREATININE RATIO, URINE Lab Routine Chronic hypertension in History of pre-eclampsia in prior , currently Expected: 05/08/2024, Expires: 05/08/2025 COMPREHENSIVE METABOLIC PANEL Lab Routine Chronic hypertension in History of pre-eclampsia in prior , currently Expected: 05/08/2024, Expires: 05/08/2025 50-G GESTATIONAL GLUCOSE, 1 HOUR Lab Routine Obesity in , antepartum Expected: 05/08/2024, Expires: 05/08/2025 MFM US MATERNAL 1ST FETUS Medical Imaging Routine High-risk in first trimester Chronic hypertension in Obesity in , antepartum Medication exposure during first trimester of History of shoulder dystocia in prior History of delivery of macrosomal History of pre-eclampsia in prior , currently Expected: 08/08/2024 (Approximate), Expires: 06/08/2025 EKG EKG Routine Chronic hypertension in Expected: 05/08/2024 (Approximate), Expires: 06/08/2025 Scheduled Referrals Name Type Priority Associated Diagnoses [...] 06/03/2020, 03/01/2017 COVID-19 Vaccine ( season) 2023 GFR 05/01/2024 05/01/2023, 11/22, 10/08/2022, [...] Comments URINALYSIS, POINT OF CARE (ENTER/EDIT) Routine 05/08/2024 High-risk in first trimester documented in this encounter Results * URINALYSIS, POINT OF CARE (ENTER/EDIT) (05/08/2024) Color, Urine Yellow Yellow or Light Yellow Clarity, Urine Clear Clear Glucose, Urine Negative Negative mg/dL Bilirubin, Urine Negative Negative Ketone, Urine Negative Negative mg/dL Specific [place], Urine 1.010 1.003 - 1.030 Blood, Urine Negative Negative pH, Urine 7.0 5.0 - 7.5 units Protein, Urine Negative Negative mg/dL Urobilinogen, Urine 1.0 0.2 - 1.0 mg/dL Nitrite, Urine Negative Negative Esterase, Urine Negative Negative Urine 05/08/2024 Joyce Baez Backer KAMALA LAB POINT O F CARE TEST ENTER/EDIT ORDERABLES documented in this encounter Visit Diagnoses Diagnosis High-risk in first trimester- Primary Nausea Nausea alone Chronic hypertension in Benign essential hypertension complicating , childbirth, and the puerperium, unspecified as to episode of care Obesity in , antepartum Obesity complicating , childbirth, or the puerperium, antepartum condition or complication Medication exposure during first trimester of Supervision of other high-risk History of shoulder dystocia in prior History of delivery of macrosomal History of pre-eclampsia in prior , currently with other poor obstetric history Pap smear for cervical cancer screening Screening for malignant neoplasm of the cervix History of back surgery Other postprocedural status documented in this encounter Care Teams Client Engagement Manager Relationship Specialty Start Date End Date Jamaal Cash MD [address] [place] [address] PCP - General Family Medicine 12/28/20 documented as of this encounter
--- OUTSIDE RECORDS SUMMARY | 2024-09-12 00:20 | External Medical Summary ---
Author Name Unknown Address Unknown Organization [id number]:[facility] [facility] [address] Laboratory Report Ordering Provider Test Date Status ERNESTINE BURRIS 05/08/2024 10:43:24 Final Observation Date Value Abnormality Reference (Units ) Status SYNC LEUKOCYTES IN BLOOD BY AUTOMATED COUNT 05/08/2024 10:43:24 6.73 4.00-10.80 (K/uL) Final Segs 05/08/2024 10:43:24 56.2 40.0-75.0 (%) Final Lymphs % 05/08/2024 10:43:24 32.8 18.0-42.0 (%) Final Monos 05/08/2024 10:43:24 8.3 1.0-11.0 (%) Final Eosinophils 05/08/2024 10:43:24 2.4 0.0-6.0 (%) Final Basos 05/08/2024 10:43:24 0.3 0.0-2.0 (%) Final Absolute Segs 05/08/2024 10:43:24 3.78 1.80-7.70 (K/uL) Final Lymphs, absolute 05/08/2024 10:43:24 2.21 1.00-4.80 (K/ul) Final Monos, Abs 05/08/2024 10:43:24 0.56 0.00-1.10 (K/uL) Final Eos, Abs 05/08/2024 10:43:24 0.16 0.00-0.70 (K/uL) Final Basos, Abs 05/08/2024 10:43:24 0.02 0.00-0.20 (K/uL) Final Performing Location [facility] 0 - [address] [facility] [address]
--- OUTSIDE RECORDS SUMMARY | 2024-09-12 00:20 | External Medical Summary ---
Author Name Unknown Address Unknown Organization [id number][facility] [place] [address] [place] [address] Laboratory Report Ordering Provider Test Date Status ERNESTINE BURRIS 05/08/2024 10:43:24 Final Observation Date Value Abnormality Reference (Units ) Status Rubella virus IgG Ab [Presence] in Serum 05/08/2024 10:43:24 Negative Negative Final A negative result indicates that immunity to rubella virus has not been acquired. Performing Location [facility] [place] [address] [place] [address]
--- OUTSIDE RECORDS SUMMARY | 2024-09-12 00:20 | External Medical Summary ---
Author Name Unknown Address Unknown Organization [id number]:[facility] [address] [address] Laboratory Report Ordering Provider Test Date Status ERNESTINE BURRIS 05/08/2024 09:42:00 Final Observation Date Value Abnormality Reference (Units ) Status Human papilloma virus E6+E7 mRNA [Presence] in Cervix by [facility] with probe detection 05/08/2024 09:42:00 Negative Not Applicable Final No high/intermediate-risk Hu man Papillomavirus (HPV E6/E7 messenger RNA) detected by nucleic acid amplification.

This assay looks for high/intermediate risk Human Papillomavirus (HPV E6/E7 messenger RNA) by nucleic acid amplification. This assay includes the qualitative detection of HPV types 16,18,31,33,35,39,45,51,52,56,58,59,66 and 68 from cervical specimens.
This assay has been FDA cleared for Thin prep collection vials.
This assay has not been approved for use as a primary screening test for HPV and should be tested in conjunction with a PAP screen.
If collected utilizing a Surepath vial, the collection and specimen preparation of this test was developed, and its performance characteristics determined by [employer]. It has not been cleared or approved by the U.S. Food and Drug Administration (FDA). The FDA has determined that such clearance or approval is not necessary.
This assay has been performed at [facility], [address] [place] [address]. [id number]. Performing Location LABORATORY [address] [facility] [address]
--- OUTSIDE RECORDS SUMMARY | 2024-09-12 00:20 | External Medical Summary ---
Author Name Unknown Address Unknown Organization [id number]:[facility] [place] - [address] [facility] [address] Laboratory Report Ordering Provider Test Date Status ERNESTINE BURRIS 05/08/2024 10:43:24 Final Observation Date Value Abnormality Reference (Units ) Status Treponema pallidum Ab [Presence] in Serum by Immunoassay 05/08/2024 10:43:24 Nonreactive Nonreactive Final No serologic evidence of syp hilis. No additional testing clinicially indicated at this time. Consider repeat testing in 2-4 weeks if acute or primary syphilis is suspected. Performing Location [facility]ORY [facility] [place] - [address] [facility] [address]
--- OUTSIDE RECORDS SUMMARY | 2024-09-12 00:20 | External Medical Summary | Summary of Care ---
Author Name Unknown Organization [facility] Address [address] [place] [address] Phone [phone] Care Team Providers Care Material Flow Engineer Name Role Phone Jamaal Cash MD Primary Care Provider [phone] Reason for Visit * Reason Comments New Visit Encounter Details Date Type Department Care Team (Late st Contact Info) Description 05/01/2024 9:45 AM EDT Nurse Only Gynecology/Obstetrics [facility] [address] [place] [address] Gw, Nurse Skin Diver [facility] [address] [place] [address] New Visit Allergies No known active allergiesdocumented as of this encounter (statuses as of 04/30/2024) Medications Medication Sig Dispensed Refills Start Date [...] the morning. 30 Tablet 5 12/16/2023 Active Ondansetron HCl 4 MG Oral TabletIndications :Nausea Take 1 Tablet by mouth every 8 hours as needed for Nausea. 30 Tablet 01/17/2024 Active ProAir HFA 108 (90 Base) MCG/ACT [...] before bedtime. 90 Tablet 5 03/03/2024 Active Lidocaine Viscous HCl 2 % Mouth/Throat SolutionIndicatio ns:Sore throat Swish and spit 15 mL every 2 hours as needed for Pain, Breakthrough. 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 DDD (degenerative disc disease), lumbar 02/08/20 Tension-type headache, not intractable 3 Morbid obesity 11/15/2009 Overview: Per Obesity Taxonomy Comments Yes documented as of this encounter (statuses as of 04/30/2024) Resolved Problems Problem Noted Date Diagnosed Date Resolved Date S/P hemilaminotomy 02/07/2023 3 Major depressive disorder, r ecurrent episode, moderate 02/07/2023 02/07/2023 Depression with anxiety 01/10/2023 04/2 Positive GBS test 10/08/2022 10/19/2022 Positive testing for group B Streptococcus 10/05/2022 10/24/2022 Polyhydramnios, antepartum 10/01/2022 0 10/24/2022 Overview: MILD: 12/12/22: ALICE is at the 95th percentile with [...] information was shared with the patient. The [employer], Society for Maternal- Medicine, CDC and multiple medical associations strongly recommend the COVID-19 vaccine for women who are in any trimester, those attempting to become , women who have recently delivered, who are lactating as well as any other woman, regardless of age or DAIRY SPECIALIST disorder. The only exceptions to receiving [...] her next visit. We recommend alerting the mattress inspector providing care of this finding if it [...] her next visit. We recommend alerting the mattress inspector providing care of this finding if it [...] as of this encounter (statuses as of 04/30/2024) Immunizations Name Administration Dates Next Due Hepatitis [...] money to get more. Patient declined 07/2024 [place] Depression Scale Answer Date Recorded [place] Depression Scale Total 7 12/18/2022 The thought [...] ages 0-17 years) Not on file 04/29/2024 Comments Yes Sex and Gender Information Value Date Recorded Sex Assigned at Female 01/09/2019 7:58 AM EDT Gender Identity Female 01/09/2019 7:58 AM EDT Sexual Orientation Straight 01/09/2019 7: 58 AM EDT Job Start Date Occupation Industry Not on file Not on file Not on file documented as of this encounter Last Filed Vital Signs Vital Sign Reading Time Taken Comments Blood Pressure - - Pulse - - Temperature - - Respiratory Rate - - Oxygen Saturation - - Inhaled Oxygen Concentration - - Weight 126.1 kg (278 lb) 04/30/2024 1:33 PM EDT Height 175.3 cm (5' 9") 04/30/2024 1:33 PM EDT Body Mass Index 41.05 04/30/2024 1:33 PM EDT documented in this encounter Progress Notes * Ruth Rodriguez RN - 04/30/2024 1:40 PM EDT Intake completed. Most likely will decline Qnatal documented in this encounter Plan of Treatment Upcoming Encounters Date Type Department Care Team (Late st Contact Info) Description 05/08/2024 8:15 AM EDT [facility] [address] [address] 05/08/2024 9:30 AM EDT Office Visit Gynecology/Obstetrics [facility] [address] [address] Joyce Smith CRNP [address] [address] 06/12/2024 11:00 AM EDT Office Visit Cardiology, [facility] [address] [address] Twyla Howell CRNP [address] [address] 07/01/2024 12:20 PM EDT Telemedicine Nutrition & Weight Management, [facility] [address] [address] Kaye Mills PA-C [address] [address] Health Maintenance Due Date Last Done Comments HPV/Co-Test 2020 Depression Screening 05/24/2021 05/24/2020 Cervical Cancer Screening 06/03/2023 Pap Smear 06/03/2023 06/03/2020, 03/01/2017 COVID-19 Vaccine ( season) 2023 Influenza Vaccine (FLU shot) (#1) 2024 DTaP,Tdap,and [...] filedocumented as of this encounter Care Teams Material Flow Engineer Relationship Specialty Start Date End Date Jamaal Cash MD [address] [address] PCP - General Family Medicine 12/28/20 documented as of this encounter
--- OUTSIDE RECORDS SUMMARY | 2024-09-12 00:20 | External Medical Summary ---
Author Name Unknown Address Unknown Organization [id number]:[facility] [place] [address] [place] [address] Ave. [facility] [address] Laboratory Report Ordering Provider Test Date Status ERNESTINE BURRIS 05/08/2024 10:43:24 Final Observation Date Value Abnormality Reference (Units ) Status HIV 1+2 Ab+HIV1 p24 Ag [Presence] in Serum or Plasma by Immunoassay 05/08/2024 10:43:24 Negative Negative Final Negative HIV-1/2 antigen and antibody screening tset results usually indicate the absence of HIV-1 and HIV-2 infection. However, such negative results do not rule-out acute HIV infection. If acute HIV-1 infection is highly suspected, it is recommended that a specimen be submitted for detection of HIV-1 RNA. Performing Location LABORATORY [address] [facility] [address]
--- OUTSIDE RECORDS SUMMARY | 2024-09-12 00:20 | External Medical Summary | Summary of Care ---
Author Name Unknown Organization [facility] Address [address] [place] [address] Phone [phone] Care Team Providers Care Property Investor Name Role Phone Jamaal Cash MD Primary Care Provider [phone] Reason for Visit * Reason Onset Date Comments Order Request 05/01/2024 Encounter Details Date Type Department Care Team (Late st Contact Info) Description 05/01/2024 Telephone Gynecology/Obstetrics [facility] [address] [facility] [place] [address] BackJoyce singh CRNP [address] [facility] [address] Order Request Allergies No known active allergiesdocumented as of this encounter (statuses as of 05/01/2024) Medications Medication Sig Dispensed Refills Start Date [...] 12/16/2023 Active Ondansetron HCl 4 MG Oral TabletIndications:Na [...] before bedtime. 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 The [employer], Society for Maternal- Medicine, CDC and multiple medical associations strongly recommend the COVID-19 vaccine for women who are in any trimester, those attempting to become , women who have recently delivered, who are lactating as well as any other woman, regardless of age or MOBILE PHLEBOTOMIST disorder. The only exceptions to receiving the vaccine are for those who have a contraindication or allergy to the vaccine or any component of the vaccine or with sincerely held confucianism convictions. The CDC and ACOG encourages a [...] her next visit. We recommend alerting the assemblies and installations inspector providing care of this finding if [...] her next visit. We recommend alerting the assemblies and installations inspector providing care of this finding if [...] as of this encounter (statuses as of 05/01/2024) Immunizations Name Administration Dates Next Due Hepatitis [...] money to get more. Patient declined 07/2024 [place] Depression Scale Answer Date Recorded [place] Depression Scale Total 7 12/18/2022 The thought [...] encounter Miscellaneous Notes * Telephone Encounter - Yaritza Bartlett PA-C - 05/01/2024 12:48 PM EDT Covering for Jesús, dating ultrasound placed. Pt scheduled. * Telephone Encounter - Kellee Del Real OSA - 05/01/2024 8:29 AM EDT PT IS SCHEDULED FOR AN US US PELVIS TRANS-VAGINAL OB AND NEEDS THE ORDER PLACED documented in this encounter Plan of Treatment Upcoming Encounters Date Type Department Care Team (Late st Contact Info) Description 05/08/2024 8:15 AM EDT Imaging Radiology [facility] 2nd Floor, [place] [address] [place] [address] 05/08/2024 9:30 AM EDT Office Visit Gynecology/Obstetrics [facility] [address] [place] [address] Joyce Smith CRNP [address] [place] [address] 06/12/2024 11:00 AM EDT Office Visit Cardiology, [facility] [address] [place] [address] Twyla Howell CRNP [address] [place] [address] 07/01/2024 12:20 PM EDT Telemedicine Nutrition & Weight Management, [facility] [address] [place] [address] Kaye Mills PA-C [address] [place] [address] Scheduled Orders Name Type Priority Associated Diagnoses Orde r Schedule US PELVIS TRANS-VAGINAL OB Medical Imaging Routine Early stage of Expected: 05/08/2024, Expires: 06/01/2025 Health Maintenance Due Date Last Done Comments HPV/Co-Test 2020 Depression Screening 05/24/2021 05/24/2020 Cervical Cancer Screening 06/03/2023 Pap Smear 06/03/2023 06/03/2020, 03/01/2017 COVID-19 Vaccine (2022-24 season) 2023 Influenza Vaccine (FLU shot) (#1) [...] as of this encounter Visit Diagnoses Diagnosis Early stage of - Primary documented in this encounter Care Teams Property Investor Relationship Specialty Start Date End Date Jamaal Cash MD [address] [place] [address] PCP - General Family Medicine 12/28/20 documented as of this encounter
--- OUTSIDE RECORDS SUMMARY | 2024-09-12 00:20 | External Medical Summary | Summary of Care ---
Author Name Unknown Organization [facility] Address [address] [place] [address] Phone [phone] Care Team Providers Care Hand Sander Name Role Phone Jamaal Cash MD Primary Care Provider [phone] Reason for Referral * Evaluate & Treat [...] currently Joyce Smith CRNP [address] [place] [address] Referral ID Status Reason Start Date Expiration Date Visits Requested Visits Authorized [id number] Pending Review Specialty Services Required 05/08/2024 999 [...] Justus Acosta [address] [place] [address] Joyce Smith CRNP [address] [place] [address] High-risk in first trimester*; Nausea; Chronic hypertension [...] information was shared with the patient. The [employer], Society for Maternal- Medicine, CDC and multiple medical associations strongly recommend the COVID-19 vaccine for women who are in any trimester, those attempting to become , women who have recently delivered, who are lactating as well as any other woman, regardless of age or CHIEF SECURITY AND SAFETY OFFICER disorder. The only exceptions to receiving the vaccine are for those who have a contraindication or allergy to the vaccine or any component of the vaccine or with sincerely held protestant convictions. The CDC and ACOG encourages a [...] her next visit. We recommend alerting the hotel clerk providing care of this finding if [...] her next visit. We recommend alerting the hotel clerk providing care of this finding if [...] money to get more. Patient declined 07/2024 [place] Depression Scale Answer Date Recorded [place] Depression Scale Total 7 12/18/2022 The thought [...] delivered at 39+ weeks. - Hx macrosomic (G2, 4.3 kg) with shoulder dystocia - [...] Stability Do you currently live in a long-term or have no steady place to sleep [...] performed by Anuel Piña DO at OR [facility] INJECT DX/THER SUBSTANCE INTERLAMINAR LUMBAR/SACRAL W IMAGE GUIDE 10/02/2023 INJECTION SPINE LUMBAR OR SACRAL performed by Anuel Piña DO at OR [facility] LAMINOTOM[facility], SINGLE LUMBAR LAPAROSCOPY; CHOLECYSTECTOMY N/A 01/02/2016 01/02/2016 LAPAROSCOPIC CHOLECYSTECTOMY performed by Ethan Escobedo MD at OR [facility] LUMBAR / SACRAL EPIDURAL, SINGLE LEVEL 03/20/2023 INJECTION TRANSFORAMINAL EPIDURAL LUMBAR OR SACRAL performed by Anuel Piña DO at OR [facility] REMOVAL OF APPENDIX 08/16/2008 [facility] - Dr. Arana REVISION OF ANKLE JOINT [...] depression, SI/HI PHYSICAL EXAM: please see physical Travel Director Documentation Provider requested etl bi developer. Name of etl bi developer: Yajaira ASSESSMENT/PLAN: 1. High-risk in first trimester [...] OP 7. History of delivery of macrosomal infant - MFM US MATERNAL 1ST FETUS; Future - MATERNAL MEDICINE REFERRAL OP 8. History of pre-eclampsia in prior , currently - PROTEIN/ CREATININE RATIO, URINE; Future - COMPREHENSIVE METABOLIC PANEL; Future - MFM US MATERNAL 1ST FETUS; Future - MATERNAL MEDICINE REFERRAL OP 9. Pap smear for cervical cancer screening - CHIEF SECURITY AND SAFETY OFFICER PAP SCREEN; Future 10. History of back [...] agreeable. - RTO in 4 weeks for DWIGHTSTEPANN with concern KAMALA Messina documented in this encounter Plan of Treatment Upcoming Encounters Date Type Department Care Team (Late st Contact Info) Description 05/08/2024 10:10 AM EDT Laboratory Laboratory, [facility] [address] [facility] [place] [id number] Acosta[employer]ooter aranda [facility] [address] [facility] [place] [address] Arrived 05/11/2024 1:15 PM EDT Cardiac Studies Cardiac Studies, [facility] [address] [facility] [place] [address] 06/05/2024 8:45 AM EDT Office Visit Gynecology/Obstetrics [facility] [address] [place] [address] Joyce Smith CRNP [address] [place] [address] 06/12/2024 11:00 AM EDT Office Visit Cardiology, [facility] [address] [place] [address] Twyla Howell CRNP [address] [place] [address] 07/01/2024 12:20 PM EDT Telemedicine Nutrition & Weight Management, [facility] [address] [place] [address] Kaye Mills PA-C [address] [place] [address] Pending Results Name Type Priority Associated Diagnoses Date /Time CHIEF SECURITY AND SAFETY OFFICER PAP SCREEN Pathology Routine Pap smear for [...] Type Priority Associated Diagnoses Orde r Schedule CHIEF SECURITY AND SAFETY OFFICER PAP SCREEN Pathology Routine Pap smear for [...] prior , currently Expected: 05/08/2024, Expires: 05/08/2025 URINALYSIS, POINT OF CARE (ENTER/EDIT) Point of Care Testing Routine High-risk in first trimester Ordered: 05/08/2024 50-G GESTATIONAL GLUCOSE, 1 HOUR Lab Routine [...] status documented in this encounter Care Teams Hand Sander Relationship Specialty Start Date End Date Jamaal Cash MD [address] [facility] [place] [address] PCP - General Family Medicine 12/28/20 documented as of this encounter
--- OUTSIDE RECORDS SUMMARY | 2024-09-12 00:20 | External Medical Summary ---
Author Name Unknown Address Unknown Organization K01:LABORATORY C - [address] [place], [place] [address] Laboratory Report Ordering Provider Test Date Status ERNESTINE BURRIS 05/08/2024 10:43:24 Final Observation Date Value Abnormality Reference (Units ) Status Hep C Ab 05/08/2024 10:43:24 Negative Negative Final Further HCV quantitative red ting not performed per protocol. Performing Location [facility] - [address] [place], [place] [address]
--- OUTSIDE RECORDS SUMMARY | 2024-09-12 00:20 | External Medical Summary ---
Author Name Unknown Address Unknown Organization [id number]:LAB[facility]ATORY [facility] - [address] [place] [address] Laboratory Report Ordering Provider Test Date Status ERNESTINE BURRIS 05/08/2024 10:43:24 Final Observation Date Value Abnormality Reference (Units ) Status Glucose [Moles/volume] in Serum or Plasma --1 hour post 50 g glucose PO 05/08/2024 10:43:24 121 70-129 (mg/dL) Final Performing Location LABORATORY [facility] 57[address] 0 - [address] [place] [address]
--- OUTSIDE RECORDS SUMMARY | 2024-09-12 00:20 | External Medical Summary ---
Author Name Unknown Address Unknown Organization [id number]:[facility]ATORY [facility] - [address] [place] [address] Laboratory Report Ordering Provider Test Date Status ERNESTINE BURRIS 05/08/2024 10:43:24 Final Observation Date Value Abnormality Reference (Units ) Status BUN 05/08/2024 10:43:24 7 6-20 (mg/dL) Final Creatinine 05/08/2024 10:43:24 0.7 0.5-1.0 (mg/dL) Final Glomerular filtration rate/1.73 sq M.predicted [Volume Rate/Area] in Serum, Plasma or Blood by Creatinine-based formula (CKD-EPI) 05/08/2024 10:43:24 >90 >=60 (mL/min) Final eGFR is calculated based on the CKD-EPI 2020 equation. Sodium 05/08/2024 10:43:24 137 135-146 (m mol/L) Final Potassium 05/08/2024 10:43:24 4.0 3.5-5.1 (m mol/L) Final Cl 05/08/2024 10:43:24 103 98-107 (mm ol/L) Final CO2 05/08/2024 10:43:24 23 22-32 (mmo l/L) Final Anion gap 05/08/2024 10:43:24 11 7-15 (mmol /L) Final Glucose 05/08/2024 10:43:24 127 Above high normal 70 -120 (mg/dL) Final Albumin 05/08/2024 10:43:24 3.9 3.8-5.0 (g /dL) Final AST (Aspartate aminotransferase) 05/08/2024 10:43:24 27 10-35 (U/L) Fin al Alk Phos 05/08/2024 10:43:24 56 35-130 (U/ L) Final Bilirubin, Total 05/08/2024 10:43:24 0.7 <=1 .2 (mg/dL) Final Calcium 05/08/2024 10:43:24 9.3 8.4-10.2 ( mg/dL) Final Protein 05/08/2024 10:43:24 6.3 6.0-8.3 (g /dL) Final ALT (Alanine aminotransferase) 05/08/2024 10:43:24 32 10-35 (U/L) Sanket veloz Performing Location LABORATORY [place] [address] 0 - [address] [facility] [address]
--- OUTSIDE RECORDS SUMMARY | 2024-09-12 00:20 | External Medical Summary ---
Author Name Unknown Address Unknown Organization [id number]:[facility]ORY [facility] [place] [facility] [address] [facility] [facility] [address] Laboratory Report Ordering Provider Test Date Status ERNESTINE BURRIS 05/08/2024 09:42:15 Final Normal: <150 mg/ g creatinine
High: 150-500 mg/g creatinine
Very High: >500 mg/g creatinine
Nephrotic: >3000 mg/g creatinine Observation Date Value Abnormality Reference (Units ) Status Protein/Creatinine [Ratio] in Urine 05/08/2024 09:42:15 78 <150 (mg/g ) Final Protein, Urine 05/08/2024 09:42:15 6 (mg/dL) Final Creatinine, Urine 05/08/2024 09:42:15 77 (mg/dL) Final Performing Location LABORATORY [facility] - [facility] [address] [place] [facility] [address]
--- OUTSIDE RECORDS SUMMARY | 2024-09-12 00:47 | External Medical Summary | Summary of Care ---
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 Activ e fluvoxaMINE Maleate 100 MG Oral Tablet (Luvox) TAKE 1 TABLET BY MOUTH EVERYDAY AT BEDTIME 06/13/20 23 Active ProAir HFA 108 (90 Base) MCG/ACT Inhalation Aerosol SolutionIndicat ions:Bronchitis , complicated Inhale 2 Puffs by mouth in the morning and 2 Puffs at noon and 2 Puffs in the evening and 2 Puffs before bedtime. 18 g 1 01/17/20 24 Active Aspirin 81 MG Oral Tablet Chewable (Aspirin 81) Take 1 Tablet by mouth in the morning. 05/18/20 24 Active Amphetamine-Dex troamphetamine 20 MG Oral Tablet (Adderall) Take 1 Tablet by mouth in the morning and 1 Tablet at noon and 1 Tablet before bedtime. 06/14/20 24 Active Labetalol HCl 300 MG Oral Tablet TAKE 1 TABLET BY MOUTH IN THE MORNING AND BEFORE BEDTIME 180 Tablet 2 07/17/20 24 Active Folic Acid 800 MCG Oral TabletIndicatio ns:Medication exposure during first trimester of Take 1 Tablet by mouth in the morning. 90 Tablet 2 07/31/20 24 Active Additional Information Patient not taking.Reported on 09/09/2024 Ondansetron HCl 4 MG Oral TabletIndicatio ns:Nausea Take 1 Tablet by mouth every 8 hours as needed for Nausea. 30 Tablet 2 07/31/20 24 Active Gabapentin 600 MG Oral Tablet (Neurontin) TAKE 1 TABLET BY MOUTH IN THE MORNING AT AT NOON AND BEFORE BEDTIME 90 Tablet 5 09/10/20 24 Active Gabapentin 600 MG Oral Tablet (Neurontin) Take 1 Tablet by mouth in the morning and 1 Tablet at noon and 1 Tablet before bedtime. 90 Tablet 5 03/03/20 24 024 Discontinued documented as of this encounter (statuses as of 09/10/2024) Active Problems Problem Noted Date Diagnosed Date [...] preeclamptic labs with CBC, serum AST/ALT/creatinine and sluxhtj-wz-dwynvadcxl ratio or 24-hour urine protein TIMOTHY if [...] weeks on medication, growth q4 weeks, deliver [id number] Assessment & Plan (05/18/2024 10:37 AM EDT): Considerations: Women with chronic hypertension during are at significantly increased risk for morbidity. Signs and symptoms of superimposed pre-eclampsia were reviewed; instructed patient to contact primary OB care provider if these symptoms occur. Recommendations: Obtain baseline lab work TIMOTHY (if not already done) with assessment of proteinuria (24-hour urine protein or febyqmi-pu-atulrujvyy ratio) and CBC, serum AST/ALT/creatinine. If patient [...] as of this encounter (statuses as of 09/10/2024) Resolved Problems Problem Noted Date Diagnosed Date [...] information was shared with the patient. The [place] [employer], Society for Maternal- Medicine, CDC and multiple medical associations strongly recommend the COVID-19 vaccine for women who are in any trimester, those attempting to become , women who have recently delivered, who are lactating as well as any other woman, regardless of age or AGRICULTURAL CHEMIST disorder. The only exceptions to receiving the vaccine are for those who have a contraindication or allergy to the vaccine or any component of the vaccine or with sincerely held muslim convictions. The CDC and ACOG encourages a [...] her next visit. We recommend alerting the casino floor person providing care of this finding if it [...] her next visit. We recommend alerting the casino floor person providing care of this finding if it [...] as of this encounter (statuses as of 09/10/2024) Immunizations Name Administration Dates Next Due Hepatitis [...] money to get more. Patient declined 07/2024 [place] Depression Scale Answer Date Recorded [place] Depression Scale Total 7 12/18/2022 The thought [...] Telephone Encounter - Dami Jones MD - 09/10/2024 9:34 PM ESTSigned Prescriptions: Disp Refills Gabapentin 600 MG Oral Tablet (Neurontin) 90 Tab*5 Sig: TAKE 1 TABLET BY MOUTH IN THE MORNING AT AT NOON AND BEFORE BEDTIME Authorizing Provider: DAMI JONES * Telephone Encounter - Silke Lanier LPN - 09/10/2024 7:32 PM ESTPending Prescriptions: Disp Refills Gabapentin 600 MG Oral Tablet [Pharmacy Me*90 Tab*5 Sig: TAKE 1 TABLET BY MOUTH IN THE MORNING AT AT NOON AND BEFORE BEDTIME * Telephone Encounter - Silke Lanier LPN - 09/10/2024 7:31 PM EST Did you pend patient's preferred pharmacy and medication before forwarding?yes Pharmacy: [id number] [facility] Pending Prescriptions: Disp Refills Gabapentin 600 MG Oral Tablet (Neurontin)*90 Tab*5 Sig: TAKE 1 TABLET BY MOUTH IN THE MORNING AT AT NOON AND BEFORE BEDTIME Last Visit: 01/17/2024 (in office), 05/06/2023 (telemedicine) Next Visit: Visit date not found If no future appointments scheduled, and last appointment is greater than a year ago, please schedule patient for a follow-up appointment Last date the medication was ordered: 03/03/24 Is this request for a controlled substance?No Urine Drug Screen:No results found for this or any previous visit. Patient Phone Numbers Labs: Lab Results Component Value Date/Time CREAT 0.6 08/28/2024 09:28 AM CREAT 0.7 11/16/2020 08:10 AM POTASSIUM 4.2 08/28/2024 09:28 AM POTASSIUM 3.9 06/03/2020 01:45 PM TSH 1.22 09/04/2024 10:03 AM TSH 0.593 04/07/2018 12:00 AM TSH 2.15 05/26/2004 12:45 PM LDL 99 05/01/2023 12:43 PM LDL 68 05/26/2004 12:45 PM ALT 23 08/28/2024 09:28 AM ALT 13 11/16/2020 08:10 AM HGBA1C 5.6 10/24/2021 11:59 AM HGBA1C 5.4 05/26/2004 12:45 PM * Telephone Encounter - Jari Mazariegos - 09/10/2024 7:23 PM ESTPending Prescriptions: Disp Refills Gabapentin 600 MG Oral Tablet [Pharmacy Me*90 Tab*5 Sig: TAKE 1TABLET BY MOUTH IN THE MORNING AT AT NOON AND BEFORE BEDTIME documented in this encounter Plan of Treatment Upcoming Encounters Date Type Department Care Team (Late st Contact Info) Description 09/11/2024 9:10 AM EST [facility] [address] [id number] [address] [place] [address] 09/16/2024 4:00 PM EST Pharmacy Pharmacy, [address] [place] [address] [facility] [address] [facility] [address] 09/24/2024 11:00 AM EST [facility], Chau [place] [address] [place] [address] 10/29/2024 2:30 PM EST [facility], Chau [place] [address] [place] [phone] Health Maintenance Due Date Last Done [...] documented as of this encounter Care Teams Artificial Inseminator Relationship Specialty Start Date End Date Dami Jones MD [address] [address] PCP - General Family Medicine 12/28/20 documented as of this encounter
[2024-09-12] MEDS: ONDANSETRON INJ 2 MG/ML 2 ML VIAL IV PRN (06:29)
[2024-09-12 06:35] LABS: Basophils # (auto) 0.02 K/uL (0.00-0.20); Basophils % (auto) 0.2 %; Eosinophils # (auto) 0.05 K/uL (0.00-0.50); Eosinophils % (auto) 0.6 %; Hematocrit (blood only) 29.8 % (37.0-47.0); Immature Granulocytes # (auto) 0.07 K/uL (0.01-0.20); Immature Granulocytes % (auto) 0.8 %; Lymphocytes # (auto) 2.72 K/uL (1.20-3.40); Lymphocytes % (auto) 29.9 %; Mean Corpuscular Hemoglobin 28.8 pg (25.0-34.0); Mean Corpuscular Hgb Conc 33.6 g/dL (32.0-36.0); Mean Corpuscular Volume 85.9 fL (80.0-100.0); Mean Platelet Volume 9.1 fL (9.4-12.4); Monocytes # (auto) 0.85 K/uL (0.11-0.59); Monocytes % (auto) 9.4 %; Neutrophils # (auto) 5.38 K/uL (1.40-6.50); Neutrophils % (auto) 59.1 %; Platelet Count 195 K/uL (130-400); RDW Coefficient of Variation 13.4 % (11.5-14.5); RDW Standard Deviation 41.6 fL (36.4-46.3); Red Blood Count 3.47 M/uL (4.20-5.40); White Blood Count 9.09 K/ul (4.8-10.8)
[2024-09-12 07:11] LABS: BUN Creatinine Ratio 10.5 (10-20); Calcium 8.5 mg/dl (8.6-10.3); Creatinine Clr Calc Pharmacy 202.9 ml/min; Potassium 4.1 mmol/L (3.5-5.1)
--- NOTE | 2024-09-12 07:23 | Electrocardiogram Report ---
Test Reason : Blood Pressure : */* mmHG Vent. Rate : 94 BPM Atrial Rate : 94 BPM P-R Int : 144 ms QRS Dur : 76 ms QT Int : 334 ms P-R-T Axes : 61 35 58 degrees QTcB Int : 417 ms Normal sinus rhythm Normal ECG When compared with ECG of 11-Sep-2024 05:57, (unconfirmed) No significant change was found Confirmed by Juan Luis Rowe ([id number]) on 09/12/2024 7:22:48 AM Referred By: Dawson Krishnamurthy Confirmed By: Juan Luis Rowe
--- NOTE | 2024-09-12 08:58 | Hospitalist Progress Note ---
Date of Service September 12, 2024 Assessment & Plan (1) Severe frontal headaches: (2) Migraine: Plan: Severe headache likely migraine Dural sinus thrombosis ruled out Patient presents with severe onset of headache. Reports prior history of migraine; not on any preventive medication CT headno acute intracranial abnormality MRI brainno acute intracranial abnormality MRV brainno evidence of dural sinus thrombosis Patient was given multiple dose of Reglan/Benadryl with improvement of the headache. Patient had episode of elevated temperature last evening; will obtain blood culture. Patient reports previous history of elevated temperature during her pregnancies. She has no neck rigidity. No signs/symptoms of encephalitis/meningitis in the MRI brain/MRV. Monitor for recurrence of fever. Monitor for one more day. Chest pain Patient presented with intermittent report of substernal chest pain EKG reviewed; sinus tachycardia; no other significant changes CTA chest- no acute findings High sensitive troponin negative Echocardiogram shows EF of 55 to 60%; no regional wall motion abnormality. No significant valvular pathology. Third trimester Obstetrics consulted; recommended Continue current medication Hypertensioncontinue on labetalol Full code DVT prophylaxis SCDs Please note the above document was generated using voice recognition software. It may contain grammatical, syntax or spelling errors. Any formal questions or concerns about the content, text or information contained within the body of this dictation should be directly addressed to the provider for clarification Admission and Anticipated Discharge Date Admission Date: September 11, 2024 Subjective Patient seen at bedside. She is comfortable. She reports that her headache has resolved. Discussed with patient regarding elevation of the temperature last evening; she reports that she occasionally gets hot/sweaty- reports that she had these episodes during her previous pregnancies as well. She denies chills. She denies any photophobia, chest pain, shortness of breath, abdominal pain or any rashes. Review of Systems Review of Systems: All systems reviewed & are unremarkable except as noted in Subjective Physical Exam Physical Exam: Constitutional: Awake, alert oriented x 3. Not in any distress. Neckno rigidity present Respiratory: Bilateral vesicular breath sound. Cardiovascular: RRR, no murmur, no edema Vessels: no JVD or carotid bruit Chest: normal inspection of chest Abdomen: normal bowel sounds, soft, nontender, no hepatosplenomegaly Musculoskeletal: no cyanosis or clubbing, extremities motor strength 5/5 Skin: no rashes, warm and dry normal turgor Neurologic: PERRL, EOMI, accommodation nl, no face palsy, no dysarthria CN's II- XI intact bilaterally and moves all extremities Psychiatric: A+Ox3, euthymic affect Results & Data Results & Data Vital Signs (Past 12 Hours) Vital Signs Temp Pulse Pulse Resp BP Pulse Ox O2 Del Method 09/12/24 08:15 36.9 C 97 H 18 126/73 97 Room Air 09/12/24 05:41 94 H 09/12/24 03:32 38.0 C H 100 H 20 117/75 92 Room Air 09/12/24 00:20 36.8 C 97 H 20 114/75 98 Room Air 09/11/24 22:12 89
--- NOTE | 2024-09-12 19:39 | Electrocardiogram Report ---
Test Reason : Blood Pressure : */* mmHG Vent. Rate : 99 BPM Atrial Rate : 99 BPM P-R Int : 150 ms QRS Dur : 86 ms QT Int : 336 ms P-R-T Axes : 35 3 46 degrees QTcB Int : 431 ms Normal sinus rhythm with sinus arrhythmia Normal ECG When compared with ECG of 10-Sep-2024 22:44, No significant change was found Confirmed by Juan Luis Rowe ([id number]) on 09/12/2024 7:38:39 PM Referred By: Dawson Krishnamurthy Confirmed By: Juan Luis Rowe
[2024-09-12 23:07] VITALS: RESP 18
--- NOTE | 2024-09-13 10:06 | Discharge Summary ---
Date of Service September 13, 2024 Admission HPI Per Admitting Provider patient is a 33-year-old -0-0-3 at 28 weeks and 2 days of gestation who started to have headache around 1 PM yesterday while she was at home. it was around her eyes and temples which moves up to her top of the head. The pain level was 9 out of 10 yesterday. Headache continued She also noticed chest pain and presented to ER this morning when she was admitted under medicine. She denies change in her vision, nausea vomiting, epigastric or right upper quadrant pain. She denies contractions, leakage of fluid, vaginal bleeding. She reports good movements. Her has been complicated by, 1. Class II obesity, 2. Anxiety during , OCD, managed by [facility], 3. History of asthma, on albuterol, 4. Chronic hypertension during , on labetalol 300 mg daily blood pressures were stable, labs have been normal, on aspirin 80 mg daily, 5. History of shoulder dystocia in prior in 2020 fetus weight 4344 g, 6. Medication exposure during she has been on gabapentin for chronic back pain and Adderall for ADHD, she has seen [facility] about this and decided to continue during this , 7. History of back surgery, laminectomy in 2022, 8. Close interval, has a 1-year-old baby at home Admission Exam Per Admitting Provider General- Not in distress Head- atraumatic Eyes- PERRL. ENT- oropharynx clear Neck- supple, no JVD. Lungs- clear to auscultation no wheezing or crackles. Heart- regular rate and rhythm; no murmur, no gallop. Abdomen- normal bowel sounds, soft, nontender, no distension Extremities- no pretibial edema, no erythema seen Neuro- alert, oriented PERRL, no facial palsy; no dysarthria; moves extremities Principal Diagnosis Acute migraine attack Discharge Exam Constitutional: Awake, alert oriented x 3. Not in any distress. Neckno rigidity present Respiratory: Bilateral vesicular breath sound. Cardiovascular: RRR, no murmur, no edema Vessels: no JVD or carotid bruit Chest: normal inspection of chest Abdomen: normal bowel sounds, soft, nontender, no hepatosplenomegaly Musculoskeletal: no cyanosis or clubbing, extremities motor strength 5/5 Skin: no rashes, warm and dry normal turgor Neurologic: PERRL, EOMI, accommodation nl, no face palsy, no dysarthria CN's II- XI intact bilaterally and moves all extremities Psychiatric: A+Ox3, euthymic affect Discharge Data Allergies Allergy/AdvReac Type Severity Reaction Status Date / Time No Known Allergies Allergy Verified 01/14/23 00:15 Consultations 09/11/24 02:49 ED Decision to Admit Stat 09/11/24 08:00 Consult Obstetrics Routine 09/11/24 11:03 Consult Neurology Routine Ordered Studies 09/10/24 23:26 CT angio chest PE protocol Stat CT head/brain wo con Stat 09/11/24 12:46 MR brain wo con Urgent MR venography head wo con Urgent Hospital Course (1) Severe frontal headaches: (2) Migraine: Severe headache likely migraine Dural sinus thrombosis ruled out Patient presents with severe onset of headache. Reports prior history of migraine; not on any preventive medication CT headno acute intracranial abnormality MRI brainno acute intracranial abnormality MRV brainno evidence of dural sinus thrombosis Patient was given multiple dose of Reglan/Benadryl with improvement of the headache. Patient had episode of elevated temperature on 09/11 evening; blood Culture was obtained which was negative for 24 hours. Patient did not have any need recurrence of fever. Patient did not have any recurrence of headache and she was discharged home. Chest pain Patient presented with intermittent report of substernal chest pain EKG reviewed; sinus tachycardia; no other significant changes CTA chest- no acute findings High sensitive troponin negative Echocardiogram shows EF of 55 to 60%; no regional wall motion abnormality. No significant valvular pathology. No recurrence of chest pain during the hospitalization. Please note the above document was generated using voice recognition software. It may contain grammatical, syntax or spelling errors. Any formal questions or concerns about the content, text or information contained within the body of this dictation should be directly addressed to the provider for clarification Total Time Total Time Spent Total Time Spent (In Minutes): 35 Total Time Includes: Examination of the Patient, Discharge Planning, Medication Reconciliation, Communication With Other Providers and Other Discharge Plan Discharge Items Patient Disposition: Home - Self-Care Reason For Visit: HEADACHE, CHEST PAIN, 29 WEEK Discharge Diagnosis: Migraine headache Activity: Resume your previous activity Non-emergency contact: Primary Care Provider Call non-emergency contact if: you have any medication questions Follow-up/Referrals: Jamaal Cash MD [Primary Care Provider] - Diet: Regular Addtl Attending Provider Instructions: You were admitted to the hospital due to migraine headaches. You are treated with medications during the hospitalization. You are prescribed riboflavin 100 mg once a day to prevent migraine headaches. Pending Studies at Discharge: No Stand-Alone Forms: [facility], Sm[facility] Cessation Medications and DC Order Prescriptions: New riboflavin (vitamin B2) 100 mg tablet 100 mg PO DAILY Qty: 30 0RF Continued gabapentin 600 mg tablet 600 mg PO TID Rx Instructions: MORNING,NOON,BEFORE BED ondansetron HCl 4 mg tablet 4 mg PO Q8 PRN (Reason: Nausea) dextroamphetamine-amphetamine 20 mg tablet 20 mg PO TID fluvoxamine 100 mg tablet 150 mg PO HS labetalol 300 mg tablet 300 mg PO AMHS folic acid 800 mcg tablet 800 mcg PO QAM albuterol sulfate 90 mcg/actuation HFA aerosol inhaler 2 puff INHALATION QID PRN (Reason: DIRECTED) Admission Data Admit Date/Time: 09/11/24 03:44 Attending Provider: Edwin Dunn Admit Provider: Anson Nuñze Primary Care Provider: aJmaal Cash Other Providers: Anson Nuñez; Rocco Pendleton Mitchell
[2024-09-13 11:08] VITALS: BP 128/76; PULSE 106; TEMP 98.4; O2SAT 96
--- NOTE | 2024-09-13 15:09 | Electrocardiogram Report ---
Test Reason : Blood Pressure : */* mmHG Vent. Rate : 96 BPM Atrial Rate : 96 BPM P-R Int : 144 ms QRS Dur : 80 ms QT Int : 336 ms P-R-T Axes : 54 24 6 degrees QTcB Int : 424 ms Normal sinus rhythm Normal ECG When compared with ECG of 12-Sep-2024 05:49, T wave inversion now evident in Inferior leads Confirmed by Juan Luis Rowe ([id number]) on 09/13/2024 3:08:58 PM Referred By: Dawson Krishnamurthy Confirmed By: Juan Luis Rowe
== END 2024-09-13 12:00 | disposition home or self-care (01) ==
LOC: 2N 22:32 → ED 22:32 → 2N 09-11 05:16

== ENCOUNTER 2024-11-24 07:53 | Inpatient (IN) ==
--- OUTSIDE RECORDS SUMMARY | 2024-11-24 08:41 | External Medical Summary | Summary of Care ---
Author Name Unknown Organization [facility] Address [address] [place] [address] Phone [phone] Care Team Providers Care Rotary Shear Operator Name Role Phone Unavailable Primary Care Provider Unavailabl e Reason for Visit * Reason Onset Date Comments Diabetes 11/19/2024 Encounter Details Date Type Department Care Team (Late st Contact Info) Description 11/19/2024 10:30 AM EST Scheduled Telephone Chau Valverde [address] [place] [id number] Sarah El, SELENA [address] [place] [address] Allergies No known active allergiesdocumented as of this encounter (statuses as of 11/19/2024) Medications Vit-Fe Fumarate-FA ( VITAMIN) 27-0.8 MG [...] before bedtime. 18 g 1 4 Active Additional Information Patient not taking.Reported on 11/13/2024 Aspirin 81 MG Oral Tablet Chewable (Aspirin 81) Take 1 Tablet by mouth in the morning. 4 Active Amphetamine-Dext roamphetamine 20 MG Oral Tablet (Adderall) Take 1 Tablet by mouth in the morning and 1 Tablet at noon and 1 Tablet before bedtime. 4 Active Folic Acid 800 MCG Oral TabletIndication s:Medication exposure during first trimester of Take 1 Tablet by mouth in the morning. 90 Tablet 2 4 Active Additional Information Patient not taking.Reported on 10/12/2024 Ondansetron HCl 4 MG Oral TabletIndication s:Nausea Take 1 Tablet by mouth every 8 hours as needed for Nausea. 30 Tablet 2 4 Active Gabapentin 600 MG Oral Tablet (Neurontin) TAKE 1 TABLET BY MOUTH IN THE MORNING AT AT NOON AND BEFORE BEDTIME 90 Tablet 5 4 Active [employer] Flex System w/Device KitIndications:G estational diabetes mellitus (GDM) in third trimester, gestational diabetes method of control unspecified Use to test blood sugars 4 times daily (fasting, 1 hour after breakfast, lunch, and dinner) 1 Kit 4 Active [employer] Delica Lancets 30GIndications:G estational diabetes mellitus (GDM) in third trimester, gestational diabetes method of control unspecified Use to test blood sugars 4 times daily (fasting, 1 hour after breakfast, lunch, and dinner) 200 Each 6 4 Active [employer] In Vitro Strip (Glucose Blood)Indication s:Gestational diabetes mellitus (GDM) in third trimester, gestational diabetes method of control unspecified Use to test blood sugars 4 times daily (fasting, 1 hour after breakfast, lunch, and dinner) 125 Strip 6 4 Active True Vitamin B2 100 MG Oral Tablet TAKE 1 TABLET BY MOUTH DAILY 4 Active Labetalol HCl 300 MG Oral Tablet Take 1 Tablet by mouth in the morning and 1 Tablet before bedtime. 180 Tablet 3 4 Active documented as of this encounter (statuses as of 11/19/2024) Active Problems Problem Noted Date Diagnosed Date Gestational diabetes mellitus (GDM) in third tri mester 09/16/2024 Overview (11/17/2024): Diagnosed at 29 weeks Nutrition referral ordered; visit completed 09/21/2024 OneTouch Verio meter ordered Note: history of polycystic ovarian syndrome - reports she was on Metformin in past. Lab Results Component Value Date/Time 50-G GESTATIONAL GLUCOSE, 1 HOUR - [facility] 152 (H) 09/04/2024 10:03 AM 100-G GESTATIONAL GLUCOSE, 1 HOUR - [facility] 232 (H) 09/16/2024 10:06 AM 100-G GESTATIONAL GLUCOSE, 2 HOUR - [facility] 176 (H) 09/16/2024 11:06 AM 100-G GESTATIONAL GLUCOSE, 3 HOUR - [facility] 67 (L) 09/16/2024 12:05 PM 100-G GESTATIONAL GLUCOSE, FASTING - [facility] 88 09/16/2024 09:06 AM 09/25/24: MFM ADAPT consult complete. Referred to [facility]. Instructions provided to report blood sugars each week for MFM review; recommend fasting 8-10 hours overnight along with having a bedtime snack of 30g CHO paired with protein 09/28/20245512-GDJ-lzqnffhl in [facility] today. Will review next week 10/05/20247633-PLN-nfmxlpul 5 days in the past week. Overall stable (2 post prandial breakfast elevations) 10/12/24: RPM reviewed; asked for updated blood sugars since 10/08/24 10/19/[id number]-FQS-iwyfsahad via mehdi and messaging. Stable 10/26/20245777-IIC-vqcsumiy one day in past week. Sent message asking her to update values. 10/28/20249880-YLY-cwzl message reporting missed values. Stable. 11/02/20245888-ZOW-owfp message via [facility] to update numbers from the past week. 11/04/2024-Called patient to update blood sugars. See Epic telephone encounter. Values all within normal limits. 11/10/2024-See Epic telephone encounter. Stable 11/10/24: Not reporting in RPM; reviewed blood sugars as reported in encounter - stable; continue diet controlled; CH # provided 11/16/20240567-SSD-imp reporting in mehdi. Sent message via [facility] and [employer] mehdi asking her to update numbers from the past week for review. 11/17/24: patient sent BG log via navigaya. Reviewed and within target. Continue diet control Assessment & Plan (10/29/2024 3:45 PM EST): Working with MUKUL. Assessment & Plan (09/24/2024 5:33 PM EST): CONSIDERATIONS: Reviewed etiology and risks associated with gestational diabetes mellitus (GDM), including risks to , fetus, and maternal progression to Type 2 DM. Instructed on proper use of glucometer; supplies ordered, if indicated. Advised that life-long screening for diabetes is recommended every 1-3 years. RECOMMENDATIONS: Recommend monitoring blood sugars with daily fasting blood sugar (maintained at less than 95) and 1 hour postprandial measurements (maintained at less than 140). Medications should be adjusted to maintain these target values. Report levels to MFM (Maternal- Medicine) weekly. Recommend nutrition consult with RDN (Registered Dietitian Segmental Paving Supervisor). Lifestyle changes are also indicated including optimizing gestational weight gain and physical activity of 30 minutes per day, if not otherwise contraindicated in . Insulin is preferred if medications are indicated to optimize euglycemia. Metformin (preferred over glyburide) may also be used in some circumstances. Reviewed the risks and benefits of each. Recommend ultrasound, surveillance and delivery as follows: A1GDM, delivery should be accomplished by EVERARDO. A2GDM, recommend growth assessment with MFM every 4 weeks, initiate surveillance with twice weekly NSTs at 32 weeks and continue until delivery at 39 weeks. Recommend intrapartum monitoring every 1-2 hours (A2GDM) or every 4 hours (A1GDM) and treat with insulin if indicated. Recommend 2-hour glucose tolerance testing with 75-gram glucose load during admission (or 6-8 weeks if not completed). Anxiety during 05/18/2024 Overview (05/18/2024): Anxiety and [...] Date/Time 50-G [facility] 05/08/2024 10:43 AM Assessment & Plan [...] preeclamptic labs with CBC, serum AST/ALT/creatinine and hqgbeii-si-xdophzacnv ratio or 24-hour urine protein TIMOTHY if [...] weeks on medication, growth q4 weeks, deliver [id number] Assessment & Plan (10/29/2024 3:44 PM EST): BP Readings from Last 5 Encounters: 10/15/24 104/68 10/12/24 124/58 10/07/24 124/74 09/25/24 112/60 09/23/24 122/68 Please titrate medication to maintain goal BP < 140/90. Delivery ~38 weeks if BP remains well controlled. Assessment & Plan (09/24/2024 4:48 PM EST): BP Readings from Last 5 Encounters: 09/23/24 122/68 09/09/24 118/72 08/28/24 120/74 07/31/24 118/72 07/03/24 116/64 Please titrate medication to maintain goal BP < 140/90. Assessment & Plan (05/18/2024 10:37 AM EDT): Considerations: Women with chronic hypertension during are at significantly increased risk for morbidity. Signs and symptoms of superimposed pre-eclampsia were reviewed; instructed patient to contact primary OB care provider if these symptoms occur. Recommendations: Obtain baseline lab work TIMOTHY (if not already done) with assessment of proteinuria (24-hour urine protein or ttcyecv-au-tiuzacziao ratio) and CBC, serum AST/ALT/creatinine. If patient [...] therapy. History of back surgery 05/08/2024 Overview (09/14/2024): History of back surgery (laminectomy) in November 2022 Consider anesthesia consult -- anesthsia reviewed 08/2024. Following response: I have reviewed the most recent MRI of L-spine dated 12/03/23. Upon my review I do not see a contra-indication to neuro-axial anesthesia for labor. Yves Shaw, Assessment & Plan (05/18/2024 10:39 AM EDT): Recommend anesthesia consult during the antepartum period. 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 Projected EFW at her EDC is < 4500g and has been consistently following growth curve thus far, so will likely be reasonable especially with adequate blood glucose management and planned delivery at 37-39 weeks due to CHTN. However, she did experience shoulder dystocia with 4300g infant in her second so repeat u/s scheduled for growth in 3-4 weeks if she is undelivered at that time. Assessment & Plan (09/24/2024 4:50 PM EST): EFW today at 94%ile. MFM consult for GDM scheduled for tomorrow. Assessment & Plan (10/18/2022 11:30 AM EST): [...] normal. Will continue to follow for growth. Iron deficiency anemia 01/18/2021 Hypertension 01/15/2021 Antepartum anemia complicating 021 Overview (09/07/2024): 08/2024 Hgb 10.9 recommended IV iron per OB protocol Morbid obesity 11/15/2009 Overview (05/08/2024): Per Obesity Taxonomy Estimated Date of Delivery Comme nts Yes 11/30/2024 Based on last me nstrual period of 02/24/2024 (Exact Date), cycles irreg documented as of this encounter (statuses as of 11/19/2024) Resolved Problems Problem Noted Date Diagnosed Date [...] high-risk pre gnancy, unspecified trimester 08/20/2022 10/24/2022 HTN in , chronic 05/09/2022 Overview (05/09/2022): [...] information was shared with the patient. The [employer], Society for Maternal- Medicine, CDC and multiple medical associations strongly recommend the COVID-19 vaccine for women who are in any trimester, those attempting to become , women who have recently delivered, who are lactating as well as any other woman, regardless of age or DIRECTOR OF DEVELOPMENT disorder. The only exceptions to receiving the vaccine are for those who have a contraindication or allergy to the vaccine or any component of the vaccine or with sincerely held episcopal convictions. The CDC and ACOG encourages a [...] adult 04/04/2021 10/03/2021 Overview: Per Obesity protocol GBS (group B Streptococcus c raquel), +RV culture, currently 11/15/2020 01/15/2021 Overview (11/15/2020): CLINDAMYCIN SUSCEPTIBLE TETRACYCLINE RESISTANT VANCOMYCIN SUSCEPTIBLE PENICILLIN SUSCEPTIBLE presentation, breech 10/28/2020 0 11/09/2020 Pyelectasis of fetus on ultrasound 09/09/2020 01/15/2021 Overview (09/09/2020): We will reassess at her next visit. We recommend alerting the hand ii thermal cutter providing care of this finding if it [...] next visit. We recommend alerting the hand ii thermal cutter providing care of this finding if it [...] as of this encounter (statuses as of 11/19/2024) Immunizations Name Administration Dates Next Due Hepatitis A, Ped/Adol., 18 year and below, 2-Dos e 01/08/2007,05/29/2006 Meningococcal Conjugate Vaccine (Menactra/Menveo ) 05/29/2006 PPD 06/15/2010 TDAP (age 10 and older)(Boostrix) 08/01/2022, TDAP, Age 7 and older, IM (Adacel) 09/23/2024, documented as of this encounter Social History [...] you got the money to buy more. Sometimes true Within the past 12 months, t he food you bought just didn't last and you didn't have money to get more. Sometimes true [place] Depression Scale Answer Date Recorded [place] Depression Scale Total 7 12/18/2022 The thought of harming myself has occurred to me . Never 12/18/2022 Childcare Answer Date Recorded Do you feel overwhelmed with taking care of a child, family member or friend? No 11/14/2024 Does your family need help f inding childcare? (Household - for ages 0-17 years) Not on file 11/14/2024 Clothing Answer Date Recorded Have you been unable to get clothing when it was really needed? No 11/14/2024 Is your family able to get c lothes or diapers when needed? (Household - for ages 0-17 years) Not on file 11/14/2024 Personal Safety Answer Date Recorded Do you feel unsafe or have concerns for your saf ety? No 11/14/2024 Do you have concerns for you r family's safety? (Household - for ages 0-17 years) Not on file 11/14/2024 Utilities Answer Date Recorded Do you have trouble paying y our heating, water, or electric bill? No 11/14/2024 Is your family able to pay t he heat, water, or electric bill? (Household - for ages 0-17 years) Not on file 11/14/2024 Does your family have access to good internet? (Household - for ages 0-17 years) Not on file 11/14/2024 Employment Status Answer Date Recorded Are you unemployed or without regular income? Ye s 11/14/2024 Does the household have a re gular source of income? (Household - for ages 0-17 years) Not on file 11/14/2024 Social Connections Answer Date Recorded How often do you feel lonely or isolated from th ose around you? Never 11/14/2024 Financial Resource Strain Answer Date R ecorded Do you have any trouble payi ng for your medications, or do you think you might in the future? Yes 11/14/2024 Does your family have troubl e paying for medicine? (Household - for ages 0-17 years) Not on file 11/14/2024 Transportation Needs Answer Date Record ed Do you have trouble getting a ride to medical visits or work? (Adult - for ages 18 years and over) Not on file 11/14/2024 Does your family have a hard time getting a ride to doctors visits? (Household - for ages 0-17 years) Not on file 11/14/2024 Has lack of transportation k ept you from medical appointments, meetings, work, or from getting things needed for daily living? Check all that apply. No 11/14/2024 Do you (or your family) have trouble finding or paying for a ride (transportation)? (Household - for ages 0-17 years) Not on file 11/14/2024 Housing Stability Answer Date Recorded Do you currently live in a s helter or have no steady place to sleep at night? No 11/14/2024 Do you think you are at risk of becoming homeless? (Adult - for ages 18 years and over) Not on file 11/14/2024 Does your family worry about paying for your home or becoming homeless? (Household - for ages 0-17 years) Not on file 0 11/14/2024 Are you homeless or worried that you might be in the future? No 11/14/2024 Are you (or your family) nini eless or worried that you might be in the future? (Household - for ages 0-17 years) Not on file Food Insecurity Answer Date Recorded Do you need food for this week? No 11/14/2024 Are you able to get enough f ood for your family? (Household - for ages 0-17 years) Not on file 11/14/2024 Does your family need food t his week? (Household - for ages 0-17 years) Not on file 11/14/2024 Do you always have enough fo od for your family? (Household - for ages 0-17 years) Not on file 11/14/2024 Estimated Date of Delivery Comme nts Yes [...] encounter Miscellaneous Notes * Telephone Encounter - Sarah El RDN - 11/19/2024 10:43 AM EST Attempted to contact pt to follow-up after initial GDM visit from September 21. Left message on pt's voicemail encouraging her to contact me if any questions or concerns arise. Sarah El RDN, Clinical Dietitian II, [facility] Clinical Nutrition Services [facility] [phone] [place] [phone] Available via [employer] Portal documented in this encounter Plan of Treatment Upcoming Encounters Date Type Department Care Team (Late st Contact Info) Description 11/20/2024 10:00 AM EST Office Visit Gynecology/Obstetrics [facility] [address] [place] [address] Daija Sanon CRNP [address] [place] [address] Liv [facility] Stress Tests [facility]au [address] [place] [id number] 11/23/2024 2:30 PM EST Office Visit [facility], [place] [address] [place] [address] Benedict Boss, [address], [place] [id number] 11/23/2024 2:30 PM EST [facility], [place] [address] [place] [address] Health Maintenance Due Date Last Done Comments Pneumococcal Vaccine: Pediatrics (0 to 5 Years) and At-Risk Patients (6 to 18 Years and 19+ Years) (1 of 2 - PCV) 2009 Depression Screening 05/24/2021 05/24/2020 COVID-19 Vaccine ( - 2023- season) 2024 Influenza Vaccine (FLU shot) (#1) 2024 GFR 08/28/2025 08/28/2024, 04/20, 05/01/2023, Additional history exists Pap Smear 05/08/2027 05/08/2024, 05/21, 03/01/2017 Cervical Cancer Screening 05/08/2029 HPV/Co-Test 05/08/2029 05/08/2024 DTap/Tdap Vaccines (10 - Td or Tdap) 09/23/2034 09/23/2024, 08/01/2022, 09/12/2020, Additional history exists Hepatitis B Vaccine Completed [...]
--- OUTSIDE RECORDS SUMMARY | 2024-11-24 08:41 | External Medical Summary | Summary of Care ---
Author Name Unknown Organization [facility] Address [address] [place] [address] Phone [phone] Care Team Providers Care Bench Loom Weaver Name Role Phone Unavailable Primary Care Provider Unavailabl e Reason for Visit * Reason Onset Date Comments Self-Blood Glucose Monitoring 11/10/2024 Encounter Details Date Type Department Care Team (Late st Contact Info) Description 11/10/2024 Telephone Inspector Soldering Obstetrics Maternal Medicine [facility], Chidi Guy [address] [place] [address] [facility], Nurse Inspector Soldering [facility] [address] [address] Self-Blood Glucose Monitoring Allergies No known active allergiesdocumented as of this encounter (statuses as of 11/23/2024) Medications Vit-Fe Fumarate-FA ( VITAMIN) 27-0.8 MG [...] Active Additional Information Patient not taking.Reported on 11/20/2024 Aspirin 81 MG Oral Tablet Chewable (Aspirin [...] BEFORE BEDTIME 90 Tablet 5 4 Active [employer] Flex System w/Device KitIndications:G estational diabetes mellitus (GDM) in third trimester, gestational diabetes method of control unspecified Use to test blood sugars 4 times daily (fasting, 1 hour after breakfast, lunch, and dinner) 1 Kit 4 Active [employer] Delica Lancets 30GIndications:G estational diabetes mellitus (GDM) in third trimester, gestational diabetes method of control unspecified Use to test blood sugars 4 times daily (fasting, 1 hour after breakfast, lunch, and dinner) 200 Each 6 4 Active [employer] In Vitro Strip (Glucose Blood)Indication s:Gestational diabetes [...] as of this encounter (statuses as of 11/23/2024) Active Problems Problem Noted Date Diagnosed Date Gestational diabetes mellitus (GDM) in third tri mester 09/16/2024 Overview (11/23/2024): Diagnosed at 29 weeks Nutrition referral ordered; [...] 09/25/24: MFM ADAPT consult complete. Referred to [facility]. Instructions provided to report blood sugars each week for MFM review; recommend fasting 8-10 hours overnight along with having a bedtime snack of 30g CHO paired with protein 09/28/20247978-XKW-byowvqbx in [employer] today. Will review next week 10/05/20243125-ZCC-tdvtxrjp 5 days in the past week. Overall stable (2 post prandial breakfast elevations) 10/12/24: RPM reviewed; asked for updated blood sugars since 10/08/24 10/19/20245852-ZIC-rclbcyyya via mehdi and messaging. Stable 10/26/20243733-JBW-atpsncrl one day in past week. Sent message asking her to update values. 10/28/20247787-VQL-nvgi message reporting missed values. Stable. 11/02/20241442-PIF-zxan message via [employer] to update numbers from the past week. 11/04/2024-Called patient to update blood sugars. See [employer] telephone encounter. Values all within normal limits. 11/10/2024-See Epic telephone encounter. Stable 11/10/24: Not reporting in RPM; reviewed blood sugars as reported in encounter - stable; continue diet controlled; CH # provided 11/16/20244270-DQL-xoo reporting in mehdi. Sent message via [employer] and [employer] mehdi asking her to update numbers from the past week for review. 11/17/24: patient sent BG log via [employer]. Reviewed and within target. Continue diet control 11/23/20249011-SCC-meb reporting in mehdi. Sent message via [employer] chart mehdi to update values from past week. Theresa sent message via [employer] mehdi reporting 11/17 through today; stable Assessment & Plan (10/29/2024 3:45 PM EST): Working with ADAPT. Assessment & Plan (09/24/2024 5:33 PM EST): [...] Recommend nutrition consult with RDN (Registered Dietitian Chief Maintenance Supervisor). Lifestyle changes are also indicated including [...] Date/Time 50-G GESTATIONAL GLUCOSE, 1 HOUR - [facility] 05/08/2024 10:43 AM Assessment & [...] preeclamptic labs with CBC, serum AST/ALT/creatinine and vqxagzm-vv-jahcvipujx ratio or 24-hour urine protein TIMOTHY if [...] weeks on medication, growth q4 weeks, deliver [id number] Assessment & Plan (11/23/2024 3:14 PM EST): She presents for follow-up of growth secondary to class III obesity, CHTN on medications, GDMA1, and previously-noted LGA. Today's ultrasound notes the following: The estimated weight is appropriate for gestational age in the 68th percentile. The visualized anatomy is unremarkable in appearance. The ALICE is normal. A BPP is 8/8. Unstable lie - initially cephalic but transitioned to breech. We discussed the the biometry today is closer to average today than on prior exams. We reviewed the potential for over- or under-estimation of weight with ultrasound. However, it does not appear that significant LGA is present at this time. With respect to lie, she is scheduled for delivery tomorrow. I recommended that she notify her OB provider of today's unstable lie in order to allow for a recheck prior to delivery. Assessment & Plan (10/29/2024 3:44 PM EST): [...] assessment of proteinuria (24-hour urine protein or hocetjp-bl-rtfwlgmtwi ratio) and CBC, serum AST/ALT/creatinine. If patient [...] 02/08/20 23 Tension-type headache, not intractable 3 Excessive growth [...] she did experience shoulder dystocia with 4300g in her second so repeat u/s scheduled [...] as of this encounter (statuses as of 11/23/2024) Resolved Problems Problem Noted Date Diagnosed Date [...] in record at OB visits. Agree that Theersa likely has underlying mild CHTN which is [...] information was shared with the patient. The [employer]s [employer] Gyne[employer], Society for Maternal- Medicine, CDC and multiple medical associations strongly recommend the COVID-19 vaccine for women who are in any trimester, those attempting to become , women who have recently delivered, who are lactating as well as any other woman, regardless of age or CUPOLA PATCHER disorder. The only exceptions to receiving the vaccine are for those who have a contraindication or allergy to the vaccine or any component of the vaccine or with sincerely held methodist convictions. The CDC and ACOG encourages a [...] her next visit. We recommend alerting the shared services manager providing care of this finding if [...] her next visit. We recommend alerting the shared services manager providing care of this finding if [...] as of this encounter (statuses as of 11/23/2024) Immunizations Name Administration Dates Next Due DTaP [...] have money to get more. Sometimes true [place] Depression Scale Answer Date Recorded [place] Depression Scale Total 7 12/18/2022 The [...] 11/14/2024 Does the household have a re lar source of income? (Household - for ages [...] encounter Miscellaneous Notes * Telephone Encounter - Theresa Gama CRNP - 11/10/2024 11:46 AM EST Reviewed patient's blood sugars. Stable. Diet controlled. Please continue to follow GDM diet and send blood sugars in for review again next week. KAMALA Funk 11/10/2024 11:46 AM * Telephone Encounter - Sahil Ma RN - 11/10/2024 8:59 AM EST Patient not reporting via [employer] mehdi. Theresa Hickman Sushma phoned her blood sugars today for review. She monitors her blood sugars with fasting and one hour post-prandial values. She reports that she controls her blood sugars with diet only. She denies any problems with this therapy. She reports them as follows since 11/04/2024: [id number] Post-breakfast: [phone] Post-lunch: [phone] Post-dinner: [phone] Blood sugars are being forwarded to Maternal Medicine provider for review and advisement. Sahil Flores RN 11/10/2024 8:59 AM documented in this encounter Plan of Treatment Health Maintenance Due Date Last Done Comments [...]
--- OUTSIDE RECORDS SUMMARY | 2024-11-24 08:41 | External Medical Summary | Summary of Care ---
Author Name Unknown Organization [facility] Address [address] [place] [address] Phone [phone] Care Team Providers Care Security Manager Name Role Phone Unavailable Primary Care Provider Unavailabl e Reason for Visit * Reason Onset Date Comments Self-Blood Glucose Monitoring 11/10/2024 Encounter Details Date Type Department Care Team (Late st Contact Info) Description 11/10/2024 Telephone Warm In Worker Obstetrics Maternal Medicine [facility], Chidi Guy [address] [place] [address] [facility], Nurse Warm In Worker [facility] [address] [address] Self-Blood Glucose Monitoring Allergies No known active allergiesdocumented as of this encounter (statuses as of 11/16/2024) Medications Vit-Fe Fumarate-FA ( VITAMIN) 27-0.8 MG [...] BEFORE BEDTIME 90 Tablet 5 4 Active [employer] Flex System w/Device KitIndications:G estational diabetes mellitus (GDM) in third trimester, gestational diabetes method of control unspecified Use to test blood sugars 4 times daily (fasting, 1 hour after breakfast, lunch, and dinner) 1 Kit 4 Active [employer] Del[employer] Lancets 30GIndications:G estational diabetes mellitus (GDM) in third trimester, gestational diabetes method of control unspecified Use to test blood sugars 4 times daily (fasting, 1 hour after breakfast, lunch, and dinner) 200 Each 6 4 Active [employer] In Vitro Strip (Glucose Blood)Indication s:Gestational diabetes [...] as of this encounter (statuses as of 11/16/2024) Active Problems Problem Noted Date Diagnosed Date Gestational diabetes mellitus (GDM) in third tri mester 09/16/2024 Overview (11/16/2024): Diagnosed at 29 weeks Nutrition referral ordered; [...] 09/25/24: MFM ADAPT consult complete. Referred to [facility]. Instructions provided to report blood sugars each week for MFM review; recommend fasting 8-10 hours overnight along with having a bedtime snack of 30g CHO paired with protein 09/28/20246530-FHX-bzdoeboy in [facility] today. Will review next week 10/05/20245748-RYH-lxufajsl 5 days in the past week. Overall stable (2 post prandial breakfast elevations) 10/12/24: RPM reviewed; asked for updated blood sugars since 10/08/24 10/19/20248850-GDY-ptarpatqi via mehdi and messaging. Stable 10/26/20242234-HUZ-yfdlkxrm one day in past week. Sent message asking her to update values. 10/28/20244965-WMW-gwcl message reporting missed values. Stable. 11/02/20242317-IUF-njvr message via [facility] to update numbers from the past week. 11/04/2024-Called patient to update blood sugars. See [employer] telephone encounter. Values all within normal limits. 11/10/2024-See Epic telephone encounter. Stable 11/10/24: Not reporting in RPM; reviewed blood sugars as reported in encounter - stable; continue diet controlled; CH # provided 11/16/20249524-CFE-cmw reporting in mehdi. Sent message via [facility] and [employer] mehdi asking her to update numbers from the past week for review. Assessment & Plan (10/29/2024 3:45 PM EST): [...] Recommend nutrition consult with RDN (Registered Dietitian Slack Line Yarder). Lifestyle changes are also indicated including optimizing [...] preeclamptic labs with CBC, serum AST/ALT/creatinine and mdjohei-hb-aifwboonli ratio or 24-hour urine protein TIMOTHY if [...] weeks on medication, growth q4 weeks, deliver [id number] Assessment & Plan (10/29/2024 3:44 PM EST): [...] assessment of proteinuria (24-hour urine protein or dogvtew-th-temrrjzxqx ratio) and CBC, serum AST/ALT/creatinine. If patient [...] as of this encounter (statuses as of 11/16/2024) Resolved Problems Problem Noted Date Diagnosed Date [...] information was shared with the patient. The [place] [employer]stetrics and Gyne[employer], Society for Maternal- Medicine, CDC and multiple medical associations strongly recommend the COVID-19 vaccine for women who are in any trimester, those attempting to become , women who have recently delivered, who are lactating as well as any other woman, regardless of age or LABOR AND EMPLOYMENT PARALEGAL disorder. The only exceptions to receiving the [...] her next visit. We recommend alerting the animal nursery worker providing care of this finding if it [...] her next visit. We recommend alerting the animal nursery worker providing care of this finding if it [...] as of this encounter (statuses as of 11/16/2024) Immunizations Name Administration Dates Next Due DTaP [...] have money to get more. Sometimes true [place] Depression Scale Answer Date Recorded [...] not reporting via [employer] mehdi. Theresa Ordaz phoned her blood sugars today for review. She monitors her blood sugars with fasting and one hour post-prandial values. She reports that she controls her blood sugars with diet only. She denies any problems with this therapy. She reports them as follows since 11/04/2024: [id number] Post-breakfast: [phone] Post-lunch: [phone] Post-dinner: [phone] Blood sugars are being forwarded to Maternal Medicine provider for review and advisement. Sahil Flores RN 11/10/2024 8:59 AM documented in this encounter Plan of Treatment Upcoming Encounters Date Type Department Care Team (Late st Contact Info) Description 11/20/2024 9:30 AM EST Pharmacy Pharmacy, [facility] [address] [place] [address] Clinic, [facility] [address] [place] [address] 11/20/2024 10:00 AM EST Office Visit Gynecology/Obstetrics [facility] [address] [place] [address] Daija Sanon CRNP [address] [place] [address] Dave, Non Stress Tests [facility] [address] [place] [address] 11/23/2024 2:30 PM EST Office Visit Warm In Worker Obstetrics Maternal Medicine, [facility] [address] [place] [address] Benedict Boss, [address] [place] [address] 11/23/2024 2:30 PM EST Imaging [facility], [facility] [address] [place], [place] [id number] Health Maintenance Due Date Last Done Comments Pneumococcal Vaccine: Pediatrics (0 to 5 Years) and At-Risk Patients (6 to 18 Years and 19+ Years) (1 of 2 - PCV) 2009 Depression Screening 05/24/2021 05/24/2020 COVID-19 Vaccine (1 [...]
--- OUTSIDE RECORDS SUMMARY | 2024-11-24 08:41 | External Medical Summary | Summary of Care ---
Author Name Unknown Organization [facility] Address [address] [place] [address] Phone [phone] Care Team Providers Care Concrete Curer Name Role Phone Unavailable Primary Care Provider Unavailabl e Reason for Visit * Reason Onset Date Comments Self-Blood Glucose Monitoring 11/10/2024 Encounter Details Date Type Department Care Team (Late st Contact Info) Description 11/10/2024 Telephone Tower Equipment Repairer Obstetrics Maternal Medicine [facility], Chidi Guy [address] [place] [address] [facility], Nurse Tower Equipment Repairer [facility] [address] [address] Self-Blood Glucose Monitoring Allergies No known active [...] BEFORE BEDTIME 90 Tablet 5 4 Active [employer] Flex System w/Device KitIndications:G estational diabetes mellitus (GDM) in third trimester, gestational diabetes method of control unspecified Use to test blood sugars 4 times daily (fasting, 1 hour after breakfast, lunch, and dinner) 1 Kit 4 Active [employer] Delica Lancets 30GIndications:G estational diabetes mellitus (GDM) in third trimester, gestational diabetes method of control unspecified Use to test blood sugars 4 times daily (fasting, 1 hour after breakfast, lunch, and dinner) 200 Each 6 4 Active [employer] In Vitro Strip (Glucose Blood)Indication s:Gestational diabetes [...] 09/25/24: MFM ADAPT consult complete. Referred to [facility]. Instructions provided to report blood sugars each week for MFM review; recommend fasting 8-10 hours overnight along with having a bedtime snack of 30g CHO paired with protein 09/28/20244784-DGN-kvwlucej in [employer] today. Will review next week 10/05/20244019-FRF-peqheepy 5 days in the past week. Overall stable (2 post prandial breakfast elevations) 10/12/24: RPM reviewed; asked for updated blood sugars since 10/08/24 10/19/20240833-VYJ-qbbxxktjq via mehdi and messaging. Stable 10/26/20244122-QXX-uoucgtqt one day in past week. Sent message asking her to update values. 10/28/20249870-TXN-lrws message reporting missed values. Stable. 11/02/20240374-IOF-biyh message via [employer] to update numbers from the past week. 11/04/2024-Called patient to update blood sugars. See [employer] telephone encounter. Values all within normal limits. 11/10/2024-See Epic telephone encounter. Stable 11/10/24: Not reporting in RPM; reviewed blood sugars as reported in encounter - stable; continue diet controlled; CH # provided 11/16/20246928-YGU-eqs reporting in mehdi. Sent message via [employer] and [employer] mehdi asking her to update numbers from the past week for review. 11/17/24: patient sent BG log via [employer]. Reviewed and within target. Continue diet control 11/23/20241271-KBD-okf reporting in mehdi. Sent message via [employer] chart mehdi to update values from past week. Theresa sent message via [employer] mehdi reporting 11/17 through today; stable Assessment [...] Recommend nutrition consult with RDN (Registered Dietitian Disease Management Nurse). Lifestyle changes are also indicated including optimizing [...] Date/Time 50-G [facility] 05/08/[facility] 10:43 AM Assessment & [...] preeclamptic labs with CBC, serum AST/ALT/creatinine and aixzfck-fx-ieguypqvww ratio or 24-hour urine protein TIMOTHY if [...] weeks on medication, growth q4 weeks, deliver [id number] Assessment & Plan (11/23/2024 3:14 PM EST): [...] assessment of proteinuria (24-hour urine protein or slsrivb-mc-njrankngok ratio) and CBC, serum AST/ALT/creatinine. If patient [...] (SSRI) for anxiety Managed by Dr. Hilario Motnelongo MD Assessment & Plan (05/18/2024 10:47 AM [...] information was shared with the patient. The [place] [employer] Obst[employer]s and Gyne[employer], Society for Maternal- Medicine, CDC and multiple medical associations strongly recommend the COVID-19 vaccine for women who are in any trimester, those attempting to become , women who have recently delivered, who are lactating as well as any other woman, regardless of age or CARD GRINDER HELPER disorder. The only exceptions to receiving [...] her next visit. We recommend alerting the senior procurement specialist providing care of this finding if it [...] her next visit. We recommend alerting the senior procurement specialist providing care of this finding if it [...] have money to get more. Sometimes true [place] Depression Scale Answer Date Recorded [place] Depression Scale Total 7 12/18/2022 The thought [...] She reports them as follows since 11/04/2024: [id number] Post-breakfast: [phone] Post-lunch: [phone] Post-dinner: [phone] Blood sugars are being forwarded to Maternal [...]
--- OUTSIDE RECORDS SUMMARY | 2024-11-24 08:41 | External Medical Summary | Summary of Care ---
Author Name Unknown Organization [facility] Address [address] [place] [address] Phone [phone] Care Team Providers Care Customer Account Specialist Name Role Phone Unavailable Primary Care Provider Unavailabl e Reason for Visit * Reason Comments anemia Encounter Details Date Type Department Care Team (Late st Contact Info) Description 11/19/2024 9:30 AM [facility], [place] [address], [place] [id number] Clinic, Anemia [address] [place], [place] [id number] Iron deficiency anemia, unspecified iron deficiency anemia type* Allergies No known active allergiesdocumented as of [...] BEFORE BEDTIME 90 Tablet 5 4 Active Alchemy PharmatechTouch Verio Flex System w/Device KitIndications:G estational diabetes mellitus (GDM) in third trimester, gestational diabetes method of control unspecified Use to test blood sugars 4 times daily (fasting, 1 hour after breakfast, lunch, and dinner) 1 Kit 4 Active Alchemy PharmatechTouch Delica Lancets 30GIndications:G estational diabetes mellitus (GDM) in third trimester, gestational diabetes method of control unspecified Use to test blood sugars 4 times daily (fasting, 1 hour after breakfast, lunch, and dinner) 200 Each 6 4 Active Alchemy PharmatechToBuddy Drinks Verio In Vitro Strip (Glucose Blood)Indication s:Gestational diabetes [...] 09/25/24: MFM ADAPT consult complete. Referred to [facility]. Instructions provided to report blood sugars each week for MFM review; recommend fasting 8-10 hours overnight along with having a bedtime snack of 30g CHO paired with protein 09/28/20240462-TET-telwqsrh in [facility] today. Will review next week 10/05/20243851-KJM-jxxbguto 5 days in the past week. Overall stable (2 post prandial breakfast elevations) 10/12/24: RPM reviewed; asked for updated blood sugars since 10/08/24 10/19/20242370-MVZ-remcqcjil via mehdi and messaging. Stable 10/26/20246636-UCI-qdgkcxwu one day in past week. Sent message asking her to update values. 10/28/20248979-BWP-dktf message reporting missed values. Stable. 11/02/20247888-EMH-oxqk message via [facility] to update numbers from the past week. 11/04/2024-Called patient to update blood sugars. See [employer] telephone encounter. Values all within normal limits. 11/10/2024-See Epic telephone encounter. Stable 11/10/24: Not reporting in RPM; reviewed blood sugars as reported in encounter - stable; continue diet controlled; CH # provided 11/16/20241770-DTZ-kom reporting in mehdi. Sent message via [facility] [facility] [employer] and [employer] mehdi asking her to update numbers from the past week for review. 11/17/24: patient sent BG log via [employer]. Reviewed and within target. Continue diet control [...] Recommend nutrition consult with RDN (Registered Dietitian Computer Information Systems Instructor). Lifestyle changes are also indicated including optimizing [...] preeclamptic labs with CBC, serum AST/ALT/creatinine and zefozbh-fo-fftwhfqibr ratio or 24-hour urine protein TIMOTHY if [...] weeks on medication, growth q4 weeks, deliver [id number] Assessment & Plan (10/29/2024 3:44 PM EST): [...] assessment of proteinuria (24-hour urine protein or maemoql-pa-cbkgsxrqoc ratio) and CBC, serum AST/ALT/creatinine. If patient [...] any other woman, regardless of age or CHECK WRITER SALESPERSON disorder. The only exceptions to receiving the vaccine are for those who have a contraindication or allergy to the vaccine or any component of the vaccine or with sincerely held congregational convictions. The CDC and ACOG encourages a [...] her next visit. We recommend alerting the rn appeals providing care of this finding if it [...] her next visit. We recommend alerting the rn appeals providing care of this finding if it [...] have money to get more. Sometimes true [place] Depression Scale Answer Date Recorded [place] Depression Scale Total 7 12/18/2022 The thought [...] as of this encounter Progress Notes * Whit Snyder, [facility] - 11/19/2024 2:37 PM EST Patient Phone Numbers [employer] [phone] Called patient to review labs from 11/13/24. LVM letting her know labs are stable. Hgb: 11.1 g/dL TSAT: 19 % Ferritin: 131 ng/mL B12: 404 pg/mL FA: 18.7 ng/mL GA: 38w3d Estimated Date of Delivery: 11/30/24 S/p Infed 1000 mg x1 09/25/24. Hgb is adequate target range for the 3rd trimester. Iron studies within target range. B12 level within target range. FA level within target range. Patient is taking folic acid 800 mg QD. Plan: No intervention needed. Anemia Clinic will sign off. Thank you for allowing us to participate in the care of this patient. Whit Snyder, PharmD Clinical Pharmacist [facility] (P: [phone]) 11/19/2024,2:38 PM documented in this encounter Plan of Treatment Upcoming Encounters Date Type Department Care Team (Late st Contact Info) Description 11/20/2024 10:00 AM EST Office Visit Gynecology/Obstetrics [facility] [address] [place] [address] Daija Sanon CRNP [address] [place] [address] [place], Non Stress Tests [facility] [address] [place] [address] 11/23/2024 2:30 PM EST Office Visit Information Technology Consultant Obstetrics Maternal Medicine, [place] [address] [place] [address] Benedict Boss DO [address] [place] [facility] [place] [address] 11/23/2024 2:30 PM EST Imaging [facility]iology [facility], [place] [address] [place] [address] Health Maintenance Due Date Last Done Comments [...] or the puerperium, antepartum condition or complication Obesity, Class III, BMI 40-49.9 (morbid obesity) (HCC) Morbid obesity Ultrasound for screening for growth restriction screening for growth retardation using ultrasonics Excessive growth affecting management of in third trimester, single or unspecified fetus Obesity in , antepartum- Primary Obesity complicating , childbirth, or the puerperium, antepartum condition or complication Obesity, Class III, BMI 40-49.9 (morbid obesity) (HCC) Morbid obesity HTN in , chronic Benign essential hypertension complicating , childbirth, and the puerperium, unspecified as to episode of care History of shoulder dystocia in prior Excessive growth affecting management of in third trimester, single or unspecified fetus Ultrasound for screening for growth restriction screening for growth retardation using ultrasonics Obesity in , antepartum- Primary Obesity complicating [...] to episode of care Obesity in , antepartum- Primary Obesity complicating , childbirth, or the puerperium, antepartum condition or complication Chronic hypertension in Benign essential hypertension complicating , childbirth, and the puerperium, unspecified as to episode of care Excessive growth affecting management of in third trimester, single or unspecified fetus Supervision of high risk in third trimester- Primary Unspecified high-risk 30 weeks gestation of state, incidental Diet controlled gestational diabetes mellitus (GDM) in third trimester Excessive growth affecting management of in third trimester, single or unspecified fetus- Primary History of shoulder dystocia in prior Diet controlled gestational diabetes mellitus (GDM) in third trimester Ultrasound for screening for growth restriction screening for growth retardation using ultrasonics 35 weeks gestation of state, incidental Iron deficiency anemia, unspecified iron deficiency anemia type- Primary documented in this encounter Additional Health Concerns Active Problems Noted Date Diagnosed Date OB Reminders 05/08/2024 documented as of this encounter
--- OUTSIDE RECORDS SUMMARY | 2024-11-24 08:41 | External Medical Summary | Summary of Care ---
Author Name Unknown Organization [facility] Address [address] [place] [address] Phone [phone] Care Team Providers Care Engineer Third Assistant Name Role Phone Unavailable Primary Care Provider Unavailabl e Reason for Visit * Reason Comments Return Visit Non Stress Test Encounter Details Date Type Department Care Team (Late st Contact Info) Description 11/20/2024 10:00 AM EST Office Visit Gynecology/Obstetric s [facility] [address] [place] [address] Daija Sanon CRNP [address] [place] [address] [place], Non Stress Tests [facility] [address] [place] [address] High-risk in third trimester*; Antepartum anemia complicating ; Excessive growth affecting management of in third trimester, single or unspecified fetus; Obesity in , antepartum; Chronic hypertension in ; History of shoulder dystocia in prior ; History of delivery of macrosomal ; Medication exposure during first trimester of ; History of pre-eclampsia in prior , currently ; History of back surgery; Rubella non-immune status, antepartum; Maternal asthma complicating ; Anxiety during ; Diet controlled gestational diabetes mellitus (GDM) in third trimester Allergies No known active allergiesdocumented as of this encounter (statuses as of 11/20/2024) Medications Vit-Fe Fumarate-FA ( VITAMIN) 27-0.8 MG [...] BEFORE BEDTIME 90 Tablet 5 4 Active United Theological SeminaryTouch Verio Flex System w/Device KitIndications:G estational diabetes mellitus (GDM) in third trimester, gestational diabetes method of control unspecified Use to test blood sugars 4 times daily (fasting, 1 hour after breakfast, lunch, and dinner) 1 Kit 4 Active [employer] Delica Lancets 30GIndications:G estational diabetes mellitus (GDM) in third trimester, gestational diabetes method of control unspecified Use to test blood sugars 4 times daily (fasting, 1 hour after breakfast, lunch, and dinner) 200 Each 6 4 Active [employer] Verio In Vitro Strip (Glucose Blood)Indication s:Gestational [...] as of this encounter (statuses as of 11/20/2024) Active Problems Problem Noted Date Diagnosed Date [...] 09/25/24: MFM ADAPT consult complete. Referred to [facility]. Instructions provided to report blood sugars each week for MFM review; recommend fasting 8-10 hours overnight along with having a bedtime snack of 30g CHO paired with protein 09/28/20241855-GRV-dngoisdi in [facility] today. Will review next week 10/05/20241658-TJU-zwxswrwq 5 days in the past week. Overall stable (2 post prandial breakfast elevations) 10/12/24: RPM reviewed; asked for updated blood sugars since 10/08/24 10/19/20249352-NRW-dlpagtpgk via mehdi and messaging. Stable 10/26/20244730-IQF-vmkefdwf one day in past week. Sent message asking her to update values. 10/28/20243519-LHW-mhpq message reporting missed values. Stable. 11/02/20246998-FLK-xlkt message via [employer] to update numbers from the past week. 11/04/2024-Called patient to update blood sugars. See Epic telephone encounter. Values all within normal limits. 11/10/2024-See Epic telephone encounter. Stable 11/10/24: Not reporting in RPM; reviewed blood sugars as reported in encounter - stable; continue diet controlled; CH # provided 11/16/20241731-AAC-sqw reporting in mehdi. Sent message via [employer] and [employer] mehdi asking her to update numbers from the past week for review. 11/17/24: patient sent BG log via [employer]. Reviewed and within target. Continue diet control [...] Recommend nutrition consult with RDN (Registered Dietitian Chrome Plater Helper). Lifestyle changes are also indicated including optimizing [...] Date/Time 50-G [facility] 05/08/2024 10:43 AM Assessment & Plan [...] preeclamptic labs with CBC, serum AST/ALT/creatinine and wncwxdu-jo-ektjfynxyo ratio or 24-hour urine protein TIMOTHY if [...] weeks on medication, growth q4 weeks, deliver [id number] Assessment & Plan (10/29/2024 3:44 PM EST): [...] assessment of proteinuria (24-hour urine protein or nzplsmw-vd-cfctzxvcaa ratio) and CBC, serum AST/ALT/creatinine. If patient [...] as of this encounter (statuses as of 11/20/2024) Resolved Problems Problem Noted Date Diagnosed Date [...] information was shared with the patient. The [place] [employer]s [employer] Gyne[employer], Society for Maternal- Medicine, CDC and multiple medical associations strongly recommend the COVID-19 vaccine for women who are in any trimester, those attempting to become , women who have recently delivered, who are lactating as well as any other woman, regardless of age or HUMAN PERFORMANCE CONSULTANT disorder. The only exceptions to receiving the [...] Obesity protocol GBS (group B Streptococcus c arrier), +RV culture, currently 11/15/2020 01/15/2021 Overview (11/15/2020): CLINDAMYCIN SUSCEPTIBLE TETRACYCLINE RESISTANT VANCOMYCIN SUSCEPTIBLE PENICILLIN SUSCEPTIBLE presentation, breech 10/28/2020 0 11/09/2020 Pyelectasis of fetus on ultrasound 09/09/2020 01/15/2021 Overview (09/09/2020): We will reassess at her next visit. We recommend alerting the docking pilot providing care of this finding if it [...] her next visit. We recommend alerting the docking pilot providing care of this finding if it [...] as of this encounter (statuses as of 11/20/2024) Immunizations Name Administration Dates Next Due Hepatitis [...] have money to get more. Sometimes true [place] Depression Scale Answer Date Recorded [place] Depression Scale Total 7 12/18/2022 The thought [...] Sign Reading Time Taken Comments Blood Pressure 128/72 11/20/2024 9:53 AM EST Pulse - - Temperature - - Respiratory Rate - - Oxygen Saturation - - Inhaled Oxygen Concentration - - Weight 134.4 kg (296 lb 6.4 oz) 11/20/2024 9:53 AM EST Height - - Body Mass Index 43.77 09/21/2024 3:22 PM EST documented in this encounter Progress Notes * Daija Sanon CRNP - 11/20/2024 10:19 AM EST 38w4d Seeing MFM on Saturday for growth u/s. Baby has been LGA. Has IOL scheduled for Saturday. Requesting cervical check. Fluid Dynamicist Documentation Provider requested expressive music therapist. Name of expressive music therapist: Lola ASSESSMENT assessment with Non-stress Test completed on 11/20/2024 at 38.4weeks gestation for indication of chronic hypertension heart baseline: 130 bpm Variability: Moderate Decelerations: absent Accelerations: present Contractions: None NST start time: 1052 NST stop time: 1120 NST strip reviewed, interpreted, and approved by OB provider, KAMALA Bowen . NST strip stored in clinic storage file * Lola Raymundo CMA - 11/20/2024 9:53 AM EST 38w4d +possible contractions Requesting cervical check documented in this encounter Plan of Treatment Upcoming Encounters Date Type Department Care Team (Late st Contact Info) Description 11/23/2024 2:30 PM EST Office Visit Lamp Tester And Inspector Obstetrics Maternal Medicine, [place] [address] [place] [address] Benedict Boss, [address] [place] [address] 11/23/2024 2:30 PM EST Imaging Radiology [facility], [place] [address] [place], [place] [id number] Health Maintenance Due Date Last Done Comments [...] ultrasonics 35 weeks gestation of state, incidental High-risk in third trimester- Primary Antepartum anemia complicating Anemia, antepartum Excessive growth affecting management of in third trimester, single or unspecified fetus Obesity in , antepartum Obesity complicating , [...] as to episode of care Anxiety during Diet controlled gestational diabetes mellitus (GDM) in third trimester documented in this encounter Additional Health Concerns Active Problems Noted Date Diagnosed Date OB Reminders 05/08/2024 documented as of this encounter
--- OUTSIDE RECORDS SUMMARY | 2024-11-24 08:41 | External Medical Summary | Summary of Care ---
Author Name Unknown Organization [facility] Address [address] [place] [address] Phone [phone] Care Team Providers Care Shell Worker Name Role Phone Unavailable Primary Care Provider Unavailabl e Reason for Visit * Reason Comments Ultrasound Encounter Details Date Type Department Care Team (Late st Contact Info) Description 11/23/2024 2:30 PM EST Office Visit Airline Dispatcher Obstetrics Maternal Medicine, [place] [address] [place] [address] Benedict Boss, [address] [place] [address] Chronic hypertension in *; Diet controlled gestational diabetes mellitus (GDM) in third trimester Allergies No known active allergiesdocumented as of this encounter (statuses as of 11/24/2024) Medications Vit-Fe Fumarate-FA ( VITAMIN) 27-0.8 MG [...] BEFORE BEDTIME 90 Tablet 5 4 Active [employer] Flex System w/Device KitIndications:G estational diabetes mellitus (GDM) in third trimester, gestational diabetes method of control unspecified Use to test blood sugars 4 times daily (fasting, 1 hour after breakfast, lunch, and dinner) 1 Kit 4 Active [employer] Delica Lancets 30GIndications:G estational diabetes mellitus (GDM) in third trimester, gestational diabetes method of control unspecified Use to test blood sugars 4 times daily (fasting, 1 hour after breakfast, lunch, and dinner) 200 Each 6 4 Active [employer] In Vitro Strip (Glucose Blood)Indication s:Gestational diabetes [...] as of this encounter (statuses as of 11/24/2024) Active Problems Problem Noted Date Diagnosed Date Gestational diabetes mellitus (GDM) in third [facility] 09/16/2024 Overview (11/23/2024): Diagnosed at 29 weeks [...] 09/25/24: MFM ADAPT consult complete. Referred to [facility]. Instructions provided to report blood sugars each week for MFM review; recommend fasting 8-10 hours overnight along with having a bedtime snack of 30g CHO paired with protein 09/28/20243383-NWC-xkqmbtwf in [facility] today. Will review next week 10/05/20247915-ASD-nvzwtldo 5 days in the past week. Overall stable (2 post prandial breakfast elevations) 10/12/24: RPM reviewed; asked for updated blood sugars since 10/08/24 10/19/20245478-QMU-mkntgcvwo via mehdi and messaging. Stable 10/26/20249234-IQG-gpxzvumu one day in past week. Sent message asking her to update values. 10/28/20246997-BWQ-wzvz message reporting missed values. Stable. 11/02/20240049-CLC-kikq message via [facility] [facility] to update numbers from the past week. 11/04/2024-Called patient to update blood sugars. See Epic telephone encounter. Values all within normal limits. 11/10/2024-See Epic telephone encounter. Stable 11/10/24: Not reporting in RPM; reviewed blood sugars as reported in encounter - stable; continue diet controlled; CH # provided 11/16/20246287-PHJ-dky reporting in mehdi. Sent message via [employer] and [employer] mehdi asking her to update numbers from the past week for review. 11/17/24: patient sent BG log via [employer]. Reviewed and within target. Continue diet control 11/23/20242859-FSM-ted reporting in mehdi. Sent message via [employer] mehdi to update values from past week. Theresa sent message via [employer] mehdi reporting 11/17 through today; stable Assessment [...] Recommend nutrition consult with RDN (Registered Dietitian Mobile Practice Lead). Lifestyle changes are also indicated including optimizing [...] Date/Time 50[facility] 10[facility]43 AM Assessment [...] preeclamptic labs with CBC, serum AST/ALT/creatinine and cdgvqqq-yl-jhyqvglbpo ratio or 24-hour urine protein TIMOTHY if [...] weeks on medication, growth q4 weeks, deliver [id number] Assessment & Plan (11/23/2024 3:14 PM EST): [...] assessment of proteinuria (24-hour urine protein or nwtlhij-nn-ljkrggmipf ratio) and CBC, serum AST/ALT/creatinine. If patient [...] possible. History of delivery of macrosomal infant Overview (05/12/2024): History of macrosomia with shoulder [...] as of this encounter (statuses as of 11/24/2024) Resolved Problems Problem Noted Date Diagnosed Date Resolved Date S/P hemilaminotomy 02/07/2023 Major depressive disorder, r ecurrent episode, moderate 02/07/2023 02/07/2023 Depression with anxiety 01/10/2023 04/2 Positive GBS test 10/08/2022 10/19/2022 Positive testing for group B Streptococcus 10/05/2022 10/24/2022 Polyhydramnios, antepartum 10/01/2022 0 10/24/2022 Overview (10/08/2022): MILD: 10/01/22: AILCE is at the 95th percentile with MVP [...] information was shared with the patient. The [place] [employer] Obstetrics and Gynecology, Society for Maternal- Medicine, CDC and multiple medical associations strongly recommend the COVID-19 vaccine for women who are in any trimester, those attempting to become , women who have recently delivered, who are lactating as well as any other woman, regardless of age or SENIOR COMPLIANCE ANALYST disorder. The only exceptions to receiving the [...] her next visit. We recommend alerting the utility bagger providing care of this finding if it [...] her next visit. We recommend alerting the utility bagger providing care of this finding if it [...] as of this encounter (statuses as of 11/24/2024) Immunizations Name Administration Dates Next Due Hepatitis [...] have money to get more. Sometimes true [place] Depression Scale Answer Date Recorded [place] Depression Scale Total 7 12/18/2022 The thought [...] Sign Reading Time Taken Comments Blood Pressure 134/74 11/23/2024 2:47 PM EST Pulse - - Temperature - - Respiratory Rate - - Oxygen Saturation - - Inhaled Oxygen Concentration - - Weight - - Height - - Body Mass Index - - documented in this encounter Progress Notes * Benedict Boss, DO - 11/23/2024 3:14 PM EST MATERNAL MEDICINE VISIT Theresa Oradz is at 39w0d who presents to [facility] for an ultrasound and follow- up of her high riskpregnancy. PHYSICAL EXAM: BP 134/74 | LMP 02/24/2024 (Exact Date) Comment: cycles irreg General: pleasant, alert and oriented, no acute distress She is being seen today by Maternal- Medicine for the following reasons: Problem List Items Addressed This Visit Chronic hypertension in - Primary She presents for follow-up of growth secondary [...] of weight with ultrasound. However, it does notappear that significant LGA is present at this time. With respect to lie, she is scheduled for delivery tomorrow. I recommended that she notify her OB provider of today's unstable lie in order to allow for a recheck prior to delivery. Gestational diabetes mellitus (GDM) in third trimester We reviewed today's ultrasound findings. (For full report, please refer to ultrasound report provided separately). Ms. Ordaz's questions were answered to her satisfaction. RECOMMENDATIONS: Recommend surveillance secondary to CHTN on medications. No follow-up with Maternal Medicine is necessary unless further questions or indications arise. Recommend reassessment of position prior to delivery tomorrow. Thank you for allowing us to participate in the care of this patient. Please call with any questions. Benedict Boss DO 11/23/2024 3:14 PM documented in this encounter Miscellaneous Notes * Assessment & Plan Note - Benedict Boss DO - 11/23/2024 2:47 PM EST Associated Problem(s): Chronic hypertension in She presents for follow-up of growth secondary [...] of weight with ultrasound. However, it does notappear that significant LGA is present at this time. With respect to lie, she is scheduled for delivery tomorrow. I recommended that she notify her OB provider of today's unstable lie in order to allow for a recheck prior to delivery. documented in this encounter Plan of Treatment [...] Author Reminders Care Plan OB Reminders No Samanthahart, Provider documented as of this encounter Medical [...] ultrasonics 35 weeks gestation of state, incidental Chronic hypertension in - Primary Benign essential hypertension complicating , childbirth, and the puerperium, unspecified as to episode of care Diet controlled gestational diabetes mellitus (GDM) in third trimester documented in this encounter Additional Health Concerns Active Problems Noted Date Diagnosed Date OB Reminders 05/08/2024 documented as of this encounter"
--- OUTSIDE RECORDS SUMMARY | 2024-11-24 08:42 | External Medical Summary ---
Author Name Unknown Address Unknown Organization K01:LABORATORY [facility] [place] - [address] [place] [address] Laboratory Report Ordering Provider Test Date Status CATRACHITA HAWLEY 11/13/2024 10:56:47 Final Observation Date Value Abnormality Reference (Units ) Status WBC, Total 11/13/2024 10:56:47 7.69 4.00-10.80 (K/uL) Final RBC 11/13/2024 10:56:47 3.83 3.85-5.15 (M/uL) Final Hemoglobin 11/13/2024 10:56:47 11.1 Below low normal 12.0-15.3 (g/dL) Final HCT 11/13/2024 10:56:47 34.4 Below low normal 36.0-45.2 (%) Final MCV 11/13/2024 10:56:47 89.8 81.5-97.5 (fL) Final MCH 11/13/2024 10:56:47 29.0 27.0-34.0 (pg) Final MCHC 11/13/2024 10:56:47 32.3 32.0-36.0 (g/dL) Final RDW 11/13/2024 10:56:47 14.2 11.5-15.5 (%) Final Platelets 11/13/2024 10:56:47 199 140-400 (K/uL) Final MPV 11/13/2024 10:56:47 10.9 6.6-11.1 (fL) Final Nucleated erythrocytes/100 leukocytes [Ratio] in Blood by Automated count 11/13/2024 10:56:47 0 <=0 (/100 WBCs) Final Performing Location [facility] [place] - [address] [place] [address]
--- OUTSIDE RECORDS SUMMARY | 2024-11-24 08:42 | External Medical Summary ---
Author Name Unknown Address Unknown Organization K01:[facility] [place] [facility] [address] Laboratory Report Ordering Provider Test Date Status CATRACHITA HAWLEY 11/13/2024 10:56:47 Final Observation Date Value Abnormality Reference (Units ) Status Retic, % (auto) 11/13/2024 10:56:47 2.88 Above high normal 0.80-1.90 (%) Final Reticulocytes, Absolute 11/13/2024 10:56:47 110.3 Above high normal 31.3-100.1 (K/uL) Final Reticulocyte fraction, immature 11/13/2024 10:56:47 26.8 Above high normal 2.5-20.6 (%) Final Reticulocyte HGB 11/13/2024 10:56:47 30.4 29.7-37.4 (pg) Final Performing Location [facility] [place] [address] [place] [address]
--- OUTSIDE RECORDS SUMMARY | 2024-11-24 08:42 | External Medical Summary ---
Author Name Unknown Address Unknown Organization K01:LABORATORY [facility] [place] - [address] [facility] [address] Laboratory Report Ordering Provider Test Date Status CHANDANCATRACHITA 11/13/2024 10:56:47 Final Observation Date Value Abnormality Reference (Units ) Status Iron 11/13/2024 10:56:47 87 33-151 (ug/dL) Final Iron-binding capacity 11/13/2024 10:56:47 454 Above high normal 250-425 (ug/dL) Final Transferrin Sat % 11/13/2024 10:56:47 19 15-55 (%) Final Performing Location LABORATORY [facility] [place] - [address] [facility] [address]
--- OUTSIDE RECORDS SUMMARY | 2024-11-24 08:42 | External Medical Summary | Summary of Care ---
Author Name Unknown Organization [facility] Address [address] [place] [address] Phone [phone] Care Team Providers Care Raw Cheese Worker Name Role Phone Unavailable Primary Care Provider Unavailabl e Reason for Visit * Reason Comments Return Visit Non Stress Test Encounter Details Date Type Department Care Team (Late st Contact Info) Description 11/13/2024 10:00 AM EST Office Visit Gynecology/Obstetric s [facility] [address] [place] [address] Daija Sanon CRNP [address] [place] [address] [place], Non Stress Tests [facility] [address] [place] [address] High-risk in third trimester*; Antepartum anemia complicating [...] as of this encounter (statuses as of 11/13/2024) Medications Vit-Fe Fumarate-FA ( VITAMIN) 27-0.8 MG [...] BEFORE BEDTIME 90 Tablet 5 4 Active OonairTouch Verio Flex System w/Device KitIndications:G estational diabetes [...] as of this encounter (statuses as of 11/13/2024) Active Problems Problem Noted Date Diagnosed Date Gestational diabetes mellitus (GDM) in third [facility] 09/16/2024 Overview (11/10/2024): Diagnosed at 29 weeks Nutrition referral ordered; [...] snack of 30g CHO paired with protein 09/28/20248813-AHL-ruzbpbch in [facility] today. Will review next week 10/05/20240376-BTP-hgksjdtn 5 days in the past week. Overall stable (2 post prandial breakfast elevations) 10/12/24: RPM reviewed; asked for updated blood sugars since 10/08/24 10/19/20243273-WJI-zpikkalzg via mehdi and messaging. Stable 10/26/20242056-ANW-jkgfvpuk one day in past week. Sent message asking her to update values. 10/28/20244064-SXD-srvh message reporting missed values. Stable. 11/02/20240156-UJM-oyfu message via [facility] to update numbers from the past week. 11/04/2024-Called patient to update blood sugars. See Epic telephone encounter. Values all within normal limits. 11/10/2024-See Epic telephone encounter. Stable 11/10/24: Not reporting in RPM; reviewed blood sugars as reported in encounter - stable; continue diet controlled; CH # provided Assessment & Plan (10/29/2024 3:45 PM EST): [...] Recommend nutrition consult with RDN (Registered Dietitian Olericulturist). Lifestyle changes are also indicated including optimizing [...] preeclamptic labs with CBC, serum AST/ALT/creatinine and vxdfvob-cs-eatjgvfeft ratio or 24-hour urine protein TIMOTHY if [...] weeks on medication, growth q4 weeks, deliver [id number] Assessment & Plan (10/29/2024 3:44 PM EST): [...] assessment of proteinuria (24-hour urine protein or osjtnxm-or-xvsghsjpyf ratio) and CBC, serum AST/ALT/creatinine. If patient [...] as of this encounter (statuses as of 11/13/2024) Resolved Problems Problem Noted Date Diagnosed Date [...] information was shared with the patient. The [employer], Society for Maternal- Medicine, CDC and multiple medical associations strongly recommend the COVID-19 vaccine for women who are in any trimester, those attempting to become , women who have recently delivered, who are lactating as well as any other woman, regardless of age or DIATHERMY EQUIPMENT REPAIRER disorder. The only exceptions to receiving the [...] her next visit. We recommend alerting the perinatal technician providing care of this finding if [...] her next visit. We recommend alerting the perinatal technician providing care of this finding if [...] as of this encounter (statuses as of 11/13/2024) Immunizations Name Administration Dates Next Due Hepatitis [...] money to get more. Patient declined 07/2024 Morrison Depression Scale Answer Date Recorded Morrison Depression Scale Total 7 12/18/2022 The thought [...] Sign Reading Time Taken Comments Blood Pressure 128/74 11/13/2024 9:54 AM EST Pulse - - Temperature - - Respiratory Rate - - Oxygen Saturation - - Inhaled Oxygen Concentration - - Weight 136.7 kg (301 lb 6.4 oz) 11/13/2024 9:54 AM EST Height - - Body Mass Index 44.51 09/21/2024 3:22 PM EST documented in this encounter Progress Notes * Daija Sanon CRNP - 11/13/2024 10:03 AM EST 37w4d Some headaches and swelling, but BP is normal. No other concerns. ASSESSMENT assessment with Non-stress Test completed on 11/13/2024 at 37.4weeks gestation for indication of chronic hypertension heart baseline: 140 bpm Variability: Moderate Decelerations: absent Accelerations: present Contractions: None NST start time: 0952 NST stop time: 1028 NST strip reviewed, interpreted, and approved by OB provider, KAMALA Bowen . NST strip stored in clinic storage file * Lola Raymundo CMA - 11/13/2024 9:54 AM EST 37w4d Denies any concerns documented in this encounter Plan of Treatment Upcoming Encounters Date Type Department Care Team (Late st Contact Info) Description 11/20/2024 9:30 AM EST Pharmacy Pharmacy, [place] [address] [place] [address] Clinic, [facility] [address] [place] [address] 11/20/2024 10:00 AM EST Office Visit Gynecology/Obstetrics [facility] [address] [place] [address] Daija Sanon CRNP [address] [place] [address] Dave Non Stress Tests [facility] [address] [place] [address] 11/23/2024 2:30 PM EST Office Visit [facility] Car Supervisor Obstetrics Maternal Medicine, [place] [address] [place] [address] Benedict Boss, [address] [place] [address] 11/23/2024 2:30 PM EST Imaging [facility]iology [facility] [place], [place] [address] [place] [address] 11/27/2024 1:00 PM EST Office Visit Gynecology/Obstetrics [facility] [address] [facility] [place] [address] Joyce Smith CRNP [address] [place] [address] Dave Non Stress Tests [facility] [address] [place] [address] Health Maintenance Due Date Last Done Comments [...]
--- OUTSIDE RECORDS SUMMARY | 2024-11-24 08:42 | External Medical Summary ---
Author Name Unknown Address Unknown Organization K01:LAB[facility]ATORY [facility] [place] - [address] [place] [address] Laboratory Report Ordering Provider Test Date Status CATRACHITA HAWLEY 11/13/2024 10:56:47 Final Observation Date Value Abnormality Reference (Units ) Status Folic Acid 11/13/2024 10:56:47 18.7 >4.5 (ng/ mL) Final Performing Location LAB[facility]ATORY [facility] [place] - [address] [place] [address]
--- OUTSIDE RECORDS SUMMARY | 2024-11-24 08:42 | External Medical Summary | Summary of Care ---
Author Name Unknown Organization [facility] Address [address] [place] [address] Phone [phone] Care Team Providers Care Analysis Reporting Developer Name Role Phone Unavailable Primary Care Provider Unavailabl e Reason for Visit * Reason Onset Date Comments Self-Blood Glucose Monitoring 11/10/2024 Encounter Details Date Type Department Care Team (Late st Contact Info) Description 11/10/2024 Telephone Emg Technician Obstetrics Maternal Medicine [facility], Chidi Guy [address] [place] [address] [facility], Nurse Emg Technician [facility] [address] [address] Self-Blood Glucose Monitoring Allergies No known active allergiesdocumented as of this encounter (statuses as of 11/10/2024) Medications Vit-Fe Fumarate-FA ( VITAMIN) 27-0.8 MG [...] Active Additional Information Patient not taking.Reported on 10/22/2024 Aspirin 81 MG Oral Tablet Chewable (Aspirin [...] BEFORE BEDTIME 90 Tablet 5 4 Active [employer] Flex System w/Device KitIndications:G estational diabetes mellitus (GDM) in third trimester, gestational diabetes method of control unspecified Use to test blood sugars 4 times daily (fasting, 1 hour after breakfast, lunch, and dinner) 1 Kit 4 Active [employer] Del[employer]annado Lancets 30GIndications:G estational diabetes mellitus (GDM) in third trimester, gestational diabetes method of control unspecified Use to test blood sugars 4 times daily (fasting, 1 hour after breakfast, lunch, and dinner) 200 Each 6 4 Active [employer] In Vitro Strip (Glucose Blood)Indication s:Gestational diabetes [...] as of this encounter (statuses as of 11/10/2024) Active Problems Problem Noted Date Diagnosed Date Gestational diabetes mellitus (GDM) in third tri mester 09/16/2024 Overview (11/10/2024): Diagnosed at 29 weeks [...] snack of 30g CHO paired with protein 09/28/20245233-SKR-mqnfieqd in Current [facility] today. Will review next week 10/05/20246769-MKY-tjskiswh 5 days in the past week. Overall stable (2 post prandial breakfast elevations) 10/12/24: RPM reviewed; asked for updated blood sugars since 10/08/24 10/19/20242620-TOS-uyoefqaqc via mehdi and messaging. Stable 10/26/20241455-HTG-cfyqncke one day in past week. Sent message asking her to update values. 10/28/20240007-FSQ-plio message reporting missed values. Stable. 11/02/20241197-IYY-wlje message via [employer] to update numbers from the past week. [...] Recommend nutrition consult with RDN (Registered Dietitian Weld Inspector). Lifestyle changes are also indicated including optimizing [...] preeclamptic labs with CBC, serum AST/ALT/creatinine and cdtkuog-qd-wdfrcijmxh ratio or 24-hour urine protein TIMOTHY if [...] weeks on medication, growth q4 weeks, deliver [id number] Assessment & Plan (10/29/2024 3:44 PM EST): [...] assessment of proteinuria (24-hour urine protein or tkgvjsi-uv-kqgzczboxn ratio) and CBC, serum AST/ALT/creatinine. If patient [...] Medication exposure during first trimester of pr rosalionancy 05/08/2024 Overview (05/18/2024): Gabapentin for chronic back [...] disease), lumbar 02/08/20 Tension-type headache, not intractable Excessive growth affec ting management of in [...] as of this encounter (statuses as of 11/10/2024) Resolved Problems Problem Noted Date Diagnosed Date [...] any other woman, regardless of age or GOLD LEAF PRINTER disorder. The only exceptions to receiving the vaccine are for those who have a contraindication or allergy to the vaccine or any component of the vaccine or with sincerely held presybeterian convictions. The CDC and ACOG encourages a [...] her next visit. We recommend alerting the insurance executive providing care of this finding if it [...] her next visit. We recommend alerting the insurance executive providing care of this finding if it [...] as of this encounter (statuses as of 11/10/2024) Immunizations Name Administration Dates Next Due DTaP [...] money to get more. Patient declined 07/2024 [place] Depression Scale Answer Date Recorded [place] Depression Scale Total 7 12/18/2022 The thought [...] She reports them as follows since 11/04/2024: Fastin88-31-86-76-79-89-84 Post-breakfast: [phone] Post-lunch: [phone] Post-dinner: [phone] Blood sugars are being forwarded to Maternal Medicine provider for review and advisement. Sahil Flores RN 11/10/2024 8:59 AM documented in this encounter Plan of Treatment Upcoming Encounters Date Type Department Care Team (Late st Contact Info) Description 11/13/2024 9:30 AM EST Pharmacy Pharmacy, [place] [address] [facility] [place] [id number] Clinic, Anemia [address] [place] [address] 11/13/2024 10:00 AM EST Office Visit Gynecology/Obstetrics [facility] [address] [place] [address] Daija Sanon CRNP [address] [place] [address] Dave Non Stress Tests [facility] [address] [place] [address] 11/20/2024 10:00 AM EST Office Visit Gynecology/Obstetrics [facility] [address] [place] [address] Daija Sanon CRNP [address] [place] [address] Dave Non Stress Tests [facility] [address] [place] [address] 11/23/2024 2:30 PM EST Office Visit Emg Technician Obstetrics Maternal Medicine, [place] [address] [place] [address] Benedict Boss, [address] [place] [address] 11/23/2024 2:30 PM EST Imaging Radiology [facility], [place] [address] [place] [address] 11/27/2024 1:00 PM EST Office Visit Gynecology/Obstetrics [facility] [address] [place] [address] Joyce Smith CRNP [address] [place] [address] Dave Non Stress Tests [facility] [address] [place] [address] Health Maintenance Due Date Last Done Comments [...]
--- OUTSIDE RECORDS SUMMARY | 2024-11-24 08:42 | External Medical Summary | Summary of Care ---
Author Name Unknown Organization [facility] Address [address] [place] [address] Phone [phone] Care Team Providers Care Technical Producer Name Role Phone Unavailable Primary Care Provider Unavailabl e Reason for Visit * Reason Comments Status Check Encounter Details Date Type Department Care Team (Late st Contact Info) Description 11/13/2024 9:30 AM [facility] Pharmacy Pharmacy, [place] [address] [place] [address] Clinic, Anemia [address] [place] [address] Iron deficiency anemia, unspecified iron deficiency anemia [...] BEFORE BEDTIME 90 Tablet 5 4 Active MobuleTouch Verio Flex System w/Device KitIndications:G estational diabetes mellitus (GDM) in third trimester, gestational diabetes method of control unspecified Use to test blood sugars 4 times daily (fasting, 1 hour after breakfast, lunch, and dinner) 1 Kit 4 Active MobuleTouch Delica Lancets 30GIndications:G estational diabetes mellitus (GDM) in third trimester, gestational diabetes method of control unspecified Use to test blood sugars 4 times daily (fasting, 1 hour after breakfast, lunch, and dinner) 200 Each 6 4 Active [employer] In Vitro Strip (Glucose Blood)Indication s:Gestational diabetes [...] 09/25/24: MFM ADAPT consult complete. Referred to [facility]. Instructions provided to report blood sugars each week for MFM review; recommend fasting 8-10 hours overnight along with having a bedtime snack of 30g CHO paired with protein 09/28/20246479-YCJ-qfwqnlgb in [facility] today. Will review next week 10/05/20244146-LPW-xvimvldj 5 days in the past week. Overall stable (2 post prandial breakfast elevations) 10/12/24: RPM reviewed; asked for updated blood sugars since 10/08/24 10/19/20249112-LSO-bqgnjckzw via mehdi and messaging. Stable 10/26/20248566-ZMO-vmzzgdff one day in past week. Sent message asking her to update values. 10/28/20242428-MXB-ezxu message reporting missed values. Stable. 11/02/20243264-PIF-kuof message via [facility] to update numbers from the past week. [...] Recommend nutrition consult with RDN (Registered Dietitian Rehabilitation Technician). Lifestyle changes are also indicated including optimizing [...] preeclamptic labs with CBC, serum AST/ALT/creatinine and jgjwais-yl-dwomygrwcg ratio or 24-hour urine protein TIMOTHY if [...] weeks on medication, growth q4 weeks, deliver [id number]-06s7d Assessment & Plan (10/29/2024 3:44 PM EST): [...] assessment of proteinuria (24-hour urine protein or olpodxs-ng-llxvwkfcub ratio) and CBC, serum AST/ALT/creatinine. If patient [...] information was shared with the patient. The [place] [employer]s [employer]ne[employer], Society for Maternal- Medicine, CDC and multiple medical associations strongly recommend the COVID-19 vaccine for women who are in any trimester, those attempting to become , women who have recently delivered, who are lactating as well as any other woman, regardless of age or PERSONAL COMPANION disorder. The only exceptions to receiving the [...] her next visit. We recommend alerting the chief operating engineer providing care of this finding if it [...] her next visit. We recommend alerting the chief operating engineer providing care of this finding if it [...] money to get more. Patient declined 07/2024 [place] Depression Scale Answer Date Recorded [place] Depression Scale Total 7 12/18/2022 The thought [...] s 04/29/2024 Does the household have a select specialty hospitalr source of income? (Household - for [...] as of this encounter Progress Notes * Kayleen Rolon CPhT - 11/13/2024 8:52 AM EST Attempt 3 Patient is due for Anemia clinic labs [facility] reminder message sent today Follow up for results Thank you, Kayleen Rolon CPhT [facility] 11/13/2024,8:53 AM documented in this encounter Plan of Treatment Upcoming Encounters Date Type Department Care Team (Late st Contact Info) Description 11/13/2024 10:00 AM EST Office Visit Gynecology/Obstetrics [facility] [address] [place] [address] Daija Sanon CRNP [address] [place] [address] [place] [facility] Stress Tests [facility] [address] [place] [address] 11/20/2024 9:30 AM EST Pharmacy Pharmacy, [id number] [place] [address] [place] [address] 11/20/2024 10:00 AM EST Office Visit Gynecology/Obstetrics [facility] [address] [place] [address] Daija Sanon CRNP [address] [place] [address] [place] [facility] Stress Tests [facility] [address] [place] [address] 11/23/2024 2:30 PM EST Office Visit Road Design Engineer Obstetrics Maternal Medicine, [place] [address] [place] [address] Beendict Boss, [place] [address] 11/23/2024 2:30 PM EST Imaging Radiology [facility], [place] [address] [place] [address] 11/27/2024 1:00 PM EST Office Visit Gynecology/Obstetrics [facility] [address] [place] [address] Joyce Smith CRNP [address] [place] [address] Liv [facility] Stress Tests [facility] [address] [place] [address] Health Maintenance Due Date Last Done Comments [...]
--- OUTSIDE RECORDS SUMMARY | 2024-11-24 08:42 | External Medical Summary ---
Author Name Unknown Address Unknown Organization K01:LABORATORY [facility] - [address] [facility] [address] Laboratory Report Ordering Provider Test Date Status CATRACHITA HAWLEY 11/13/2024 10:56:47 Final Observation Date Value Abnormality Reference (Units ) Status SYNC LEUKOCYTES IN BLOOD BY AUTOMATED COUNT 11/13/2024 10:56:47 7.69 4.00-10.80 (K/uL) Final Segs 11/13/2024 10:56:47 59.5 40.0-75.0 (%) Final Lymphs % 11/13/2024 10:56:47 27.8 18.0-42.0 (%) Final Monos 11/13/2024 10:56:47 9.9 1.0-11.0 (%) Final Eosinophils 11/13/2024 10:56:47 1.6 0.0-6.0 (%) Final Basos 11/13/2024 10:56:47 0.3 0.0-2.0 (%) Final Immature Granulocyte, Percent 11/13/2024 10:56:47 0.9 0.0-2.0 (%) Final Absolute Segs 11/13/2024 10:56:47 4.58 1.80-7.70 (K/uL) Final Lymphs, absolute 11/13/2024 10:56:47 2.14 1.00-4.80 (K/ul) Final Monos, Abs 11/13/2024 10:56:47 0.76 0.00-1.10 (K/uL) Final Eos, Abs 11/13/2024 10:56:47 0.12 0.00-0.70 (K/uL) Final Basos, Abs 11/13/2024 10:56:47 0.02 0.00-0.20 (K/uL) Final Immature Granulocytes, Number 11/13/2024 10:56:47 0.07 0.00-0.20 (K/uL) Final Performing Location [facility] - [address] [facility] [address]
--- OUTSIDE RECORDS SUMMARY | 2024-11-24 08:42 | External Medical Summary | Summary of Care ---
Author Name Unknown Organization [facility] Address [address] [place] [address] Phone [phone] Care Team Providers Care Horticultural Manager Name Role Phone Unavailable Primary Care Provider Unavailabl e Reason for Visit * Reason Onset Date Comments Self-Blood Glucose Monitoring 11/10/2024 Encounter Details Date Type Department Care Team (Late st Contact Info) Description 11/10/2024 Telephone Solder Making Laborer Obstetrics Maternal Medicine [facility], Chidi Guy [address] [place] [address] [facility] Nurse Solder Making Laborer [facility] [address] [address] Self-Blood Glucose Monitoring Allergies No known active [...] BEFORE BEDTIME 90 Tablet 5 4 Active [employer] Flex System w/Device KitIndications:G estational diabetes mellitus (GDM) in third trimester, gestational diabetes method of control unspecified Use to test blood sugars 4 times daily (fasting, 1 hour after breakfast, lunch, and dinner) 1 Kit 4 Active TensorComm DelArboribus Lancets 30GIndications:G estational diabetes mellitus (GDM) in third trimester, gestational diabetes method of control unspecified Use to test blood sugars 4 times daily (fasting, 1 hour after breakfast, lunch, and dinner) 200 Each 6 4 Active [employer] In Vitro Strip (Glucose Blood)Indication s:Gestational diabetes [...] snack of 30g CHO paired with protein 09/28/20244153-YKF-sylqxfyk in Current [facility] today. Will review next week 10/05/20245506-CJM-clboxyhy 5 days in the past week. Overall stable (2 post prandial breakfast elevations) 10/12/24: RPM reviewed; asked for updated blood sugars since 10/08/24 10/19/20243623-YDC-oxankkbur via mehdi and messaging. Stable 10/26/20243636-LXF-lpzmyphf one day in past week. Sent message asking her to update values. 10/28/20240918-CNC-pgub message reporting missed values. Stable. 11/02/20240318-KDV-ggtk message via Right Relevance to update numbers from the past week. 11/04/2024-Called patient to update blood sugars. See [facility] telephone encounter. Values all within normal limits. 11/10/2024-See Epic telephone encounter. Stable Assessment & Plan (10/29/2024 3:45 PM EST): [...] Recommend nutrition consult with RDN (Registered Dietitian Anatomy Teacher). Lifestyle changes are also indicated including optimizing [...] preeclamptic labs with CBC, serum AST/ALT/creatinine and ydbughb-ps-lhbzpexsai ratio or 24-hour urine protein TIMOTHY if [...] weeks on medication, growth q4 weeks, deliver [id number] Assessment & Plan (10/29/2024 3:44 PM EST): [...] assessment of proteinuria (24-hour urine protein or qyjordu-gd-jvznckgzjn ratio) and CBC, serum AST/ALT/creatinine. If patient [...] information was shared with the patient. The [employer]s [employer]ne[employer], Society for Maternal- Medicine, CDC and multiple medical associations strongly recommend the COVID-19 vaccine for women who are in any trimester, those attempting to become , women who have recently delivered, who are lactating as well as any other woman, regardless of age or GROUNDS CREW SUPERVISOR disorder. The only exceptions to receiving [...] her next visit. We recommend alerting the quality control lab technician providing care of this finding if [...] her next visit. We recommend alerting the quality control lab technician providing care of this finding if [...] gain 11-20lbs -Nutrition consult -Early GDM screening -[facility] anatomy scan, growth scan q4 weeks -Baseline [...] 11/10/2024) Immunizations Name Administration Dates Next Due Hepatitis [...] money to get more. Patient declined 07/2024 [place] Depression Scale Answer Date Recorded [place] Depression Scale Total 7 12/18/2022 The thought [...] encounter Miscellaneous Notes * Telephone Encounter - Sahil Ma RN [...] She reports them as follows since 11/04/2024: [id number] Post-breakfast: [phone] Post-lunch: [phone] Post-dinner: [phone] Blood sugars are being forwarded to Maternal Medicine provider for review and advisement. Sahil Flores RN 11/10/2024 8:59 AM documented in this encounter Plan of Treatment Upcoming Encounters Date Type Department Care Team (Late st Contact Info) Description 11/13/2024 9:30 AM EST Pharmacy Pharmacy, [address] [id number] [facility], [address] [id number] 11/13/2024 10:00 AM EST Office Visit Gynecology/Obstetrics Justus Acosta [address] [facility] [place] [address] Daija Sanon CRNP [address] [place] [address] Liv Acosta Stress Tests [place] [address] [place] [address] 11/20/2024 10:00 AM EST Office Visit Gynecology/Obstetrics Just[facility] Acosta [address] [place] [address] Daija Sanon CRNP [address] [place] [address] Liv Acosta Stress Tests [place] [address] [place] [address] 11/23/2024 2:30 PM EST Office Visit Solder Making Laborer Obstetrics Maternal Medicine, [address] [address] Benedict Boss DO [facility] [place] [address] 11/23/2024 2:30 PM EST Imaging Radiology [facility] [place], [place] [address] [facility] [place] [address] 11/27/2024 1:00 PM EST Office Visit Gynecology/Obstetrics Justus Acosta [address] [place] [address] [place], KAMALA Perez [address] [place] [address] Dave, Non Stress Tests [facility] [address] [place] [address] Health Maintenance Due Date Last Done Comments [...]
--- OUTSIDE RECORDS SUMMARY | 2024-11-24 08:42 | External Medical Summary ---
Author Name Unknown Address Unknown Organization K01:[facility] - [address] [facility] [address] [facility] [address] Laboratory Report Ordering Provider Test Date Status CATRACHITA HAWLEY 11/13/2024 10:56:47 Final Observation Date Value Abnormality Reference (Units ) Status Ferritin 11/13/2024 10:56:47 131 13-150 (ng /mL) Final Performing Location [facility] [address] [facility] [address]
--- OUTSIDE RECORDS SUMMARY | 2024-11-24 08:42 | External Medical Summary ---
Author Name Unknown Address Unknown Organization K01:LABORATORY [facility] - [address] [place] [address] Laboratory Report Ordering Provider Test Date Status CATRACHITA HAWLEY 11/13/2024 10:56:47 Final Observation Date Value Abnormality Reference (Units ) Status Vitamin B12 11/13/2024 10:56:47 880 512-5053 (pg/mL) Final Performing Location LABORATORY [facility] - [address] [place] [address]
--- OUTSIDE RECORDS SUMMARY | 2024-11-24 08:42 | External Medical Summary | Summary of Care ---
Author Name Unknown Organization [facility] Address [address] [place] [address] Phone [phone] Care Team Providers Care Finished Cigar Maker Name Role Phone Unavailable Primary Care Provider Unavailabl e Reason for Visit * Reason Comments Outpatient Testing Encounter Details Date Type Department Care Team (Late st Contact Info) Description 11/13/2024 10:50 AM EST Laboratory Laboratory, [facility] [address] [place] [address] [facility] [address] [place] [address] Antepartum anemia complicating Allergies No known active allergiesdocumented as [...] BEFORE BEDTIME 90 Tablet 5 4 Active [employer] Flex System w/Device KitIndications:G estational diabetes mellitus (GDM) in third trimester, gestational diabetes method of control unspecified Use to test blood sugars 4 times daily (fasting, 1 hour after breakfast, lunch, and dinner) 1 Kit 4 Active [employer] Delica Lancets 30GIndications:G estational diabetes mellitus (GDM) in third trimester, gestational diabetes method of control unspecified Use to test blood sugars 4 times daily (fasting, 1 hour after breakfast, lunch, and dinner) 200 Each 6 4 Active [employer] In Vitro Strip (Glucose Blood)Indication s:Gestational diabetes [...] Date Gestational diabetes mellitus (GDM) in third [facility] 09/16/2024 Overview (11/10/2024): Diagnosed at 29 [...] snack of 30g CHO paired with protein 09/28/20246791-ABU-qbtoyvtd in Current Health today. Will review next week 10/05/20247183-OXL-aqvjaiwz 5 days in the past week. Overall stable (2 post prandial breakfast elevations) 10/12/24: RPM reviewed; asked for updated blood sugars since 10/08/24 10/19/20241593-SSB-ltgnfneix via mehdi and messaging. Stable 10/26/20242106-CLM-tnizgamy one day in past week. Sent message asking her to update values. 10/28/20247178-GVU-xouh message reporting missed values. Stable. 11/02/20245308-ORY-jwsx message via SpotMe to update numbers from the past week. [...] Recommend nutrition consult with RDN (Registered Dietitian Fittings Finisher). Lifestyle changes are also indicated including optimizing [...] Date/Time 50-G [facility] GL[facility], [facility] 05/08/2024 10:43 AM Assessment & [...] preeclamptic labs with CBC, serum AST/ALT/creatinine and frzhmvd-ya-wcerebavmc ratio or 24-hour urine protein TIMOTHY if [...] weeks on medication, growth q4 weeks, deliver [id number] Assessment & Plan (10/29/2024 3:44 PM EST): [...] assessment of proteinuria (24-hour urine protein or dwftuoz-iq-kgnmougwsp ratio) and CBC, serum AST/ALT/creatinine. If patient [...] information was shared with the patient. The [place] [employer]st[employer]s and Gyne[employer], Society for Maternal- Medicine, CDC and multiple medical associations strongly recommend the COVID-19 vaccine for women who are in any trimester, those attempting to become , women who have recently delivered, who are lactating as well as any other woman, regardless of age or ELEVATOR OPERATOR FREIGHT disorder. The only exceptions to receiving the [...] next visit. We recommend alerting the rn utilization management um providing care of this finding if it [...] next visit. We recommend alerting the rn utilization management um providing care of this finding if it [...] money to get more. Patient declined 07/2024 [place] Depression Scale Answer Date Recorded [place] Depression Scale Total 7 12/18/2022 The [...] 04/29/2024 Does the household have a re lar [...] Description 11/20/2024 9:30 AM EST Pharmacy Pharmacy, [place] [address] [place] [address] Clinic, [place] [address] [place] [address] 11/20/2024 10:00 AM EST Office Visit Gynecology/Obstetrics [facility] [address] [place] [address] Daija Sanon CRNP [address] [place] [address] Dave, Non Stress Tests [facility] [address] [place] [address] 11/23/2024 2:30 PM EST Office Visit Food Mixer Obstetrics Maternal Medicine, [place] [address] [place] [address] Benedict Boss, [address] [place] [address] 11/23/2024 2:30 PM EST Imaging Radiology [facility] [place], [place] [address] [place] [address] 11/27/2024 1:00 PM EST Office Visit Gynecology/Obstetrics Froil[facility]all Acosta [address] [place] [address] Joyce Smith CRNP [address] [place] [address] Dave Non Stress Tests [facility] [address] [place] [address] Pending Results Name Type Priority Associated Diagnoses Date /Time CBC WITH WBC DIFFERENTIAL Lab Routine Antepartum anemia complicating 11/13/2024 10:56 AM EST IRON SCREEN, INCLUDING TIBC Lab Routine Antepartum anemia complicating 11/13/2024 10:56 AM EST FERRITIN Lab Routine Antepartum anemia complicating 11/13/2024 10:56 AM EST RETICULOCYTE PANEL Lab Routine Antepartum anemia complicating 11/13/2024 10:56 AM EST FOLIC ACID Lab Routine Antepartum anemia complicating 11/13/2024 10:56 AM EST VITAMIN B12 Lab Routine Antepartum anemia complicating 11/13/2024 10:56 AM EST CBC Lab Routine Antepartum anemia complicating 11/13/2024 10:56 AM EST DIFFERENTIAL, AUTOMATED Lab Routine Antepartum anemia complicating 11/13/2024 10:56 AM EST Health Maintenance Due Date Last [...] ultrasonics 35 weeks gestation of state, incidental Antepartum anemia complicating Anemia, antepartum documented in this encounter Additional Health Concerns Active Problems Noted Date Diagnosed Date OB Reminders 05/08/2024 documented as of this encounter
[2024-11-24] MEDS ORDERED: ACETAMINOPHEN 500 MG TAB PO PRN (08:43)
[2024-11-24] MEDS ORDERED: OXYTOCIN 30 UNITS/NSS 30 UNITS/500 ML BAG IV PRN (08:43)
[2024-11-24] MEDS ORDERED: LIDOCAINE 1% LOCAL 20 ML VIAL INFIL PRN (08:43)
--- OUTSIDE RECORDS SUMMARY | 2024-11-24 08:43 | External Medical Summary | Summary of Care ---
Author Name Unknown Organization [facility] Address [address] [place] [address] Phone [phone] Care Team Providers Care District Plant Engineer Name Role Phone Unavailable Primary Care Provider Unavailabl e Reason for Visit * Reason Comments Status Check Encounter Details Date Type Department Care Team (Late st Contact Info) Description 10/30/2024 9:30 AM [facility] Pharm[facility] Pharmacy, [place] [address] [place] [address] Clinic, [place] [address] [place] [address] Iron deficiency anemia, unspecified iron deficiency anemia type* Allergies No known active allergiesdocumented as of this encounter (statuses as of 10/30/2024) Medications Vit-Fe Fumarate-FA ( VITAMIN) 27-0.8 MG [...] BEFORE BEDTIME 90 Tablet 5 4 Active KadenzeTouch Verio Flex System w/Device KitIndications:G estational diabetes mellitus (GDM) in third trimester, gestational diabetes method of control unspecified Use to test blood sugars 4 times daily (fasting, 1 hour after breakfast, lunch, and dinner) 1 Kit 4 Active KadenzeTouch Delica Lancets 30GIndications:G estational diabetes mellitus (GDM) in third trimester, gestational diabetes method of control unspecified Use to test blood sugars 4 times daily (fasting, 1 hour after breakfast, lunch, and dinner) 200 Each 6 4 Active KadenzeToInventure Cloudio In Vitro Strip (Glucose Blood)Indication s:Gestational diabetes [...] as of this encounter (statuses as of 10/30/2024) Active Problems Problem Noted Date Diagnosed Date Gestational diabetes mellitus (GDM) in third tri mester 09/16/2024 Overview (10/28/2024): Diagnosed at 29 weeks Nutrition referral ordered; [...] MFM ADAPT consult complete. Referred to [facility]. Instructions provided to report blood sugars each week for MFM review; recommend fasting 8-10 hours overnight along with having a bedtime snack of 30g CHO paired with protein 09/28/20247528-CJH-axgtuvja in Current [facility] today. Will review next week 10/05/20248190-VNR-hgmzjavb 5 days in the past week. Overall stable (2 post prandial breakfast elevations) 10/12/24: RPM reviewed; asked for updated blood sugars since 10/08/24 10/19/20248461-YCX-qdrcibihi via mehdi and messaging. Stable 10/26/20244392-HYU-dnlcwfvt one day in past week. Sent message asking her to update values. 10/28/20243134-LEW-axgg message reporting missed values. Stable. Assessment & Plan (10/29/2024 3:45 PM EST): [...] Recommend nutrition consult with RDN (Registered Dietitian Principal Gifts Officer). Lifestyle changes are also indicated including optimizing [...] preeclamptic labs with CBC, serum AST/ALT/creatinine and wckimrj-qb-evrhdgfmbw ratio or 24-hour urine protein TIMOTHY if [...] Last 7 Encounters: 05/08/24 114/66 01/17/24 120/80 01/24/24 122/76 10/18/23 124/78 10/02/23 137/78 07/08/23 130/82 [...] weeks on medication, growth q4 weeks, deliver [id number] Assessment & Plan (10/29/2024 3:44 PM EST): [...] assessment of proteinuria (24-hour urine protein or rzetvqo-ux-kkebwdaele ratio) and CBC, serum AST/ALT/creatinine. If patient [...] as of this encounter (statuses as of 10/30/2024) Resolved Problems Problem Noted Date Diagnosed Date [...] information was shared with the patient. The [place] [employer] Obst[employer]s and Gyne[employer], Society for Maternal- Medicine, CDC and multiple medical associations strongly recommend the COVID-19 vaccine for women who are in any trimester, those attempting to become , women who have recently delivered, who are lactating as well as any other woman, regardless of age or NURSERY TEACHER disorder. The only exceptions to receiving the vaccine are for those who have a contraindication or allergy to the vaccine or any component of the vaccine or with sincerely held samaritan convictions. The CDC and ACOG encourages a [...] her next visit. We recommend alerting the clin asst providing care of this finding if it [...] her next visit. We recommend alerting the clin asst providing care of this finding if it [...] as of this encounter (statuses as of 10/30/2024) Immunizations Name Administration Dates Next Due Hepatitis [...] money to get more. Patient declined 07/2024 [place] Depression Scale Answer Date Recorded [place] Depression Scale Total 7 12/18/2022 The [...] Progress Notes * Kayleen Rolon CPhT - 10/30/2024 9:31 AM EST Attempt 1 Patient is due for Anemia clinic labs [facility] reminder message sent today Follow up for results Thank you, Kayleen Rolon CPhT [employer] [employer] 10/30/2024,9:31 AM documented in this encounter Plan of Treatment Upcoming Encounters Date Type Department Care Team (Late st Contact Info) Description 11/06/2024 9:30 AM EST Pharmacy Pharmacy, [place] [address] [place] [address] Clinic, [place] [address] [place] [address] 11/06/2024 1:45 PM EST Office Visit Gynecology/Obstetrics Just[facility] Acosta [address] [place] [address] Daija Sanon CRNP [address] [place] [address] Dave Non Stress Tests [facility] [address] [place] [address] 11/13/2024 10:00 AM EST Office Visit Gynecology/Obstetrics Justus Acosta [address] [place] [address] Daija Sanon CRNP [address] [place] [address] Dave Non Stress Tests [facility] [address] [place] [address] 11/20/2024 10:00 AM EST Office Visit Gynecology/Obstetrics Justus Acosta [address] [place] [address] Daija Sanon CRNP [address] [place] [address] Dave Non Stress Tests [facility] [address] [place] [address] 11/23/2024 2:30 PM EST Office Visit Composition Instructor Obstetrics Maternal Medicine, [place] [address] [place] [address] Benedict Boss, [address] [place] [address] 11/23/2024 2:30 PM EST Imaging Radiology [facility], [place] [address] [place] [address] 11/27/2024 1:00 PM EST Office Visit Gynecology/Obstetrics Justus Acosta [address] [place] [address] [place], KAMALA Perez [address] [place] [address] Dave, Non Stress Tests [facility] [address] [place] [address] Health Maintenance Due Date Last Done Comments [...]
--- OUTSIDE RECORDS SUMMARY | 2024-11-24 08:43 | External Medical Summary ---
Author Name Unknown Address Unknown Organization K01:LABORATORY [place] [address] [place] [address] Laboratory Report Ordering Provider Test Date Status DANIEL AU 11/06/2024 14:18:39 Final Observation Date Value Abnormality Reference (Units ) Status Streptococcus agalactiae DNA [Presence] in Specimen by MILAGRO with probe detection 11/06/2024 14:18:39 Positive Abnormal Negative Final Group B Streptococcus detect ed by culture-enhanced PCR (amplified probe). [facility] - [facility] 11/06/2024 14:18:39 15.9 Final [facility] S[facility] - [facility] 11/06/2024 14:18:39 0.0 Final Performing Location [facility] [place] [address]
--- OUTSIDE RECORDS SUMMARY | 2024-11-24 08:43 | External Medical Summary | Summary of Care ---
Author Name Unknown Organization [facility] Address [address] [place] [address] Phone [phone] Care Team Providers Care Motor Checker Name Role Phone Unavailable Primary Care Provider Unavailabl e Reason for Visit * Reason Comments Return Visit Encounter Details Date Type Department Care Team (Late st Contact Info) Description 11/06/2024 1:45 PM EST Office Visit Gynecology/Obstetric s [facility] [address] [facility] [place] [address] Daija Sanon CRNP [address] [facility] [place] [address] [facility], Non Stress Tests [facility] [address] [place] [address] High-risk in third trimester*; Antepartum anemia complicating [...] as of this encounter (statuses as of 11/06/2024) Medications Vit-Fe Fumarate-FA ( VITAMIN) 27-0.8 MG [...] BEFORE BEDTIME 90 Tablet 5 4 Active [employer] Verio Flex System w/Device KitIndications:G estational diabetes [...] as of this encounter (statuses as of 11/06/2024) Active Problems Problem Noted Date Diagnosed Date Gestational diabetes mellitus (GDM) in third [facility] 09/16/2024 Overview (11/04/2024): Diagnosed at 29 weeks Nutrition referral ordered; [...] snack of 30g CHO paired with protein 09/28/20243226-SSG-pkkfyoji in Current Health today. Will review next week 10/05/20244534-UCI-ndemxosf 5 days in the past week. Overall stable (2 post prandial breakfast elevations) 10/12/24: RPM reviewed; asked for updated blood sugars since 10/08/24 10/19/20244276-VFI-hyplcitiu via mehdi and messaging. Stable 10/26/20240397-UYG-hppbsydz one day in past week. Sent message asking her to update values. 10/28/20249872-XED-fjek message reporting missed values. Stable. 11/02/20249862-RHP-tmro message via OpTrip to update numbers from the past week. 11/04/2024-Called patient to update blood sugars. See [facility] telephone encounter. Values all within normal limits. Assessment & Plan (10/29/2024 3:45 PM EST): [...] Recommend nutrition consult with RDN (Registered Dietitian Director Records Management). Lifestyle changes are also indicated including optimizing [...] Date/Time 50-G GESTATIONAL GLUCOSE, 1 HOUR - [facility] 121 05/08/2024 10:43 AM Assessment & Plan [...] preeclamptic labs with CBC, serum AST/ALT/creatinine and enahvld-wv-sqbvhuxkvf ratio or 24-hour urine protein TIMOTHY if [...] weeks on medication, growth q4 weeks, deliver [id number]-53n3m Assessment & Plan (10/29/2024 3:44 PM EST): [...] assessment of proteinuria (24-hour urine protein or tsixsxz-an-wcqhoykptk ratio) and CBC, serum AST/ALT/creatinine. If patient [...] as of this encounter (statuses as of 11/06/2024) Resolved Problems Problem Noted Date Diagnosed Date [...] 132/82 01/18/21 128/80 01/16/21 134/78 12/28/20 130/80 02/09/21 142/78 11/22/20 124/78 Lab Results Component Value [...] any other woman, regardless of age or VIDEO CAMERA OPERATOR disorder. The only exceptions to receiving [...] her next visit. We recommend alerting the waterworks operator providing care of this finding if [...] her next visit. We recommend alerting the waterworks operator providing care of this finding if [...] as of this encounter (statuses as of 11/06/2024) Immunizations Name Administration Dates Next Due Hepatitis [...] money to get more. Patient declined 07/2024 [place] Depression Scale Answer Date Recorded [place] Depression Scale Total 7 12/18/2022 The thought [...] Sign Reading Time Taken Comments Blood Pressure 132/84 11/06/2024 1:40 PM EST Pulse - - Temperature - - Respiratory Rate - - Oxygen Saturation - - Inhaled Oxygen Concentration - - Weight 136.1 kg (300 lb) 11/06/2024 1:40 PM EST Height - - Body Mass Index 44.3 09/21/2024 3:22 PM EST documented in this encounter Progress Notes * Daija Sanon CRNP - 11/06/2024 2:03 PM EST 36w4d No concerns. Needs IOL scheduled between 37w-39.6w for gestational HTN on meds. GBS today. Building Dismantler Documentation Provider requested homebound teacher. Name of homebound teacher: Lola ASSESSMENT assessment with Non-stress Test completed on 11/06/2024 at 36.4weeks gestation for indication of chronic hypertension heart baseline: 130 bpm Variability: Moderate Decelerations: absent Accelerations: present Contractions: None NST start time: 1336 NST stop time: 1400 NST strip reviewed, interpreted, and approved by OB provider, KAMALA Bowen . NST strip stored in clinic storage file documented in this encounter Plan of Treatment Upcoming Encounters Date Type Department Care Team (Late st Contact Info) Description 11/13/2024 9:30 AM EST Pharmacy Pharmacy, [place] [address] [place] [address] Clinic, Anemia [address] [place] [address] 11/13/2024 10:00 AM EST Office Visit Gynecology/Obstetrics [facility] [address] [place] [address] Daija Sanon CRNP [address] [place] [address] Liv [facility] Stress Tests [facility] [address] [place] [address] 11/20/2024 10:00 AM EST Office Visit Gynecology/Obstetrics [facility] [address] [place] [address] Daija Sanon CRNP [address] [place], [place] [address] Dave Non Stress Tests [facility] [address] [place] [address] 11/23/2024 2:30 PM EST Office Visit Painter Railroad Car Obstetrics Maternal Medicine, [place] [address] [place] [address] Benedict Boss, [address] [place] [address] 11/23/2024 2:30 PM EST Imaging Radiology [facility], [place] [address] [place] [address] 11/27/2024 1:00 PM EST Office Visit Gynecology/Obstetrics [facility] [address] [place] [address] Joyce Smith CRNP [address] [place] [address] Liv [facility] Stress Tests [facility] [address] [place] [address] Pending Results Name Type Priority Associated Diagnoses Date /Time GROUP B STREP CULTURE/PCR Lab Routine High-risk in third trimester 11/06/2024 2:18 PM EST Scheduled Orders Name Type Priority Associated Diagnoses Orde r Schedule GROUP B STREP CULTURE/PCR Lab Routine High-risk in third trimester Expected: 11/06/2024, Expires: 11/06/2025 Health Maintenance Due Date Last Done Comments [...]
--- OUTSIDE RECORDS SUMMARY | 2024-11-24 08:43 | External Medical Summary | Summary of Care ---
Author Name Unknown Organization [facility] Address [address] [place] [address] Phone [phone] Care Team Providers Care Production Crew Supervisor Name Role Phone Unavailable Primary Care Provider Unavailabl e Reason for Visit * Reason Comments Status Check Encounter Details Date Type Department Care Team (Late st Contact Info) Description 11/06/2024 9:30 AM [facility] Pharmacy Pharmacy, [place] [address] [place] [address] Clinic, Anemia [address] [place] [address] Iron deficiency anemia, unspecified iron deficiency anemia [...] BEFORE BEDTIME 90 Tablet 5 4 Active [employer] Verio Flex System w/Device KitIndications:G estational diabetes mellitus (GDM) in third trimester, gestational diabetes method of control unspecified Use to test blood sugars 4 times daily (fasting, 1 hour after breakfast, lunch, and dinner) 1 Kit 4 Active [employer] Delica Lancets 30GIndications:G estational diabetes mellitus (GDM) in third trimester, gestational diabetes method of control unspecified Use to test blood sugars 4 times daily (fasting, 1 hour after breakfast, lunch, and dinner) 200 Each 6 4 Active [employer] GroupToKrowd[employer]io In Vitro Strip (Glucose Blood)Indication s:Gestational diabetes [...] (GDM) in third tri mester 09/16/2024 Overview (11/04/2024): Diagnosed at 29 weeks [...] 09/25/24: MFM ADAPT consult complete. Referred to [facility]. Instructions provided to report blood sugars each week for MFM review; recommend fasting 8-10 hours overnight along with having a bedtime snack of 30g CHO paired with protein 09/28/20241775-RWC-pewjdfkn in [facility] today. Will review next week 10/05/20243433-GQB-txmbrwro 5 days in the past week. Overall stable (2 post prandial breakfast elevations) 10/12/24: RPM reviewed; asked for updated blood sugars since 10/08/24 10/19/20246758-WQO-hvbtrhais via mehdi and messaging. Stable 10/26/20249946-CWV-bmlbvpog one day in past week. Sent message asking her to update values. 10/28/20248762-EDP-kfsc message reporting missed values. Stable. 11/02/20246680-VYP-bvos message via [facility] to update numbers from the past week. [...] Recommend nutrition consult with RDN (Registered Dietitian Engraver Apprentice Decorative). Lifestyle changes are also indicated including optimizing [...] preeclamptic labs with CBC, serum AST/ALT/creatinine and xnqzwmt-oa-bwkyzmeqlz ratio or 24-hour urine protein TIMOTHY if [...] weeks on medication, growth q4 weeks, deliver [id number]-09t8g Assessment & Plan (10/29/2024 3:44 PM EST): [...] assessment of proteinuria (24-hour urine protein or naevrkk-wt-nzlbicmqhy ratio) and CBC, serum AST/ALT/creatinine. If patient [...] information was shared with the patient. The [place] [employer]ne[employer], Society for Maternal- Medicine, CDC and multiple medical associations strongly recommend the COVID-19 vaccine for women who are in any trimester, those attempting to become , women who have recently delivered, who are lactating as well as any other woman, regardless of age or SHOT PACKER disorder. The only exceptions to receiving the vaccine are for those who have a contraindication or allergy to the vaccine or any component of the vaccine or with sincerely held zoroastrian convictions. The CDC and ACOG encourages a [...] her next visit. We recommend alerting the orthophotography technician providing care of this finding if [...] her next visit. We recommend alerting the orthophotography technician providing care of this finding if [...] money to get more. Patient declined 07/2024 [place] Depression Scale Answer Date Recorded [place] Depression Scale Total 7 12/18/2022 The thought [...] Progress Notes * Kayleen Rolon CPhT - 11/06/2024 9:31 AM EST Attempt 2 Patient is due for Anemia clinic labs [employer]Ge[employer]echer reminder message sent today Follow up for results Thank you, Kayleen Rolon CPhT Software Test Analyst II [facility] 11/06/2024,9:31 AM documented in this encounter Plan of Treatment Upcoming Encounters Date Type Department Care Team (Late st Contact Info) Description 11/06/2024 1:45 PM EST Office Visit Gynecology/Obstetrics [facility] [address] [place] [address] Daija Sanon CRNP [address] [place] [address] Dave Non Stress Tests [facility] [address] [place] [address] 11/13/2024 9:30 AM EST Pharmacy Pharmacy, [place] [address], [place] [id number] [facility] [address] [place], [place] [id number] 11/13/2024 10:00 AM EST Office Visit Gynecology/Obstetrics [facility] [address] [place] [address] Daija Sanon CRNP [address] [place] [address] Dave Non Stress Tests [facility] [address] [place] [address] 11/20/2024 10:00 AM EST Office Visit Gynecology/Obstetrics [facility] [address] [place] [address] Daija Sanon CRNP [address] [place] [address] Dave Non Stress Tests [facility] [address] [place] [address] 11/23/2024 2:30 PM EST Office Visit Business Services Assistant Obstetrics Maternal Medicine, [place] [address] [place] [address] [facility] [address] [place] [address] 11/23/2024 2:30 PM EST Imaging Radiology [facility] [address] [place] [address] 11/27/2024 1:00 PM EST Office Visit Gynecology/Obstetrics [facility] [address] [place] [address] [place], KAMALA Perez [address] [place] [address] Dave, Non Stress Tests [facility] [address] [place] [address] Health Maintenance Due Date Last Done Comments [...]
--- OUTSIDE RECORDS SUMMARY | 2024-11-24 08:43 | External Medical Summary | Summary of Care ---
Author Name Unknown Organization [facility] Address [address] [place] [address] Phone [phone] Care Team Providers Care Health Equipment Servicer Name Role Phone Unavailable Primary Care Provider Unavailabl e Reason for Visit * Reason Onset Date Comments Self-Blood Glucose Monitoring 11/04/2024 Encounter Details Date Type Department Care Team (Late st Contact Info) Description 11/04/2024 Telephone Tongue And Groove Machine Feeder Obstetrics Maternal Medicine [facility], Chidi Guy [address] [place] [address] [facility], Nurse Tongue And Groove Machine Feeder [facility] [address] [address] Self-Blood Glucose Monitoring Allergies No known active allergiesdocumented as of this encounter (statuses as of 11/04/2024) Medications Vit-Fe Fumarate-FA ( VITAMIN) 27-0.8 MG [...] BEFORE BEDTIME 90 Tablet 5 4 Active [employer] Flex System w/Device KitIndications:G estational diabetes mellitus (GDM) in third trimester, gestational diabetes method of control unspecified Use to test blood sugars 4 times daily (fasting, 1 hour after breakfast, lunch, and dinner) 1 Kit 4 Active light [employer] Lancets 30GIndications:G estational diabetes mellitus (GDM) in third trimester, gestational diabetes method of control unspecified Use to test blood sugars 4 times daily (fasting, 1 hour after breakfast, lunch, and dinner) 200 Each 6 4 Active [employer] In Vitro Strip (Glucose Blood)Indication s:Gestational diabetes [...] as of this encounter (statuses as of 11/04/2024) Active Problems Problem Noted Date Diagnosed Date [...] snack of 30g CHO paired with protein 09/28/20248532-UXG-vgbmqkbq in Current Health today. Will review next week 10/05/20240328-BNI-pfhnldnm 5 days in the past week. Overall stable (2 post prandial breakfast elevations) 10/12/24: RPM reviewed; asked for updated blood sugars since 10/08/24 10/19/20249088-UAA-drdqmudxc via mehdi and messaging. Stable 10/26/20246131-RTW-csyebccp one day in past week. Sent message asking her to update values. 10/28/20241051-DRG-lesm message reporting missed values. Stable. 11/02/20243316-BJL-fhru message via Phizzbo to update numbers from the past week. [...] Recommend nutrition consult with RDN (Registered Dietitian Neurosurgical Nurse). Lifestyle changes are also indicated including [...] preeclamptic labs with CBC, serum AST/ALT/creatinine and dmqydkk-la-zclkgwmoxx ratio or 24-hour urine protein TIMOTHY if [...] weeks on medication, growth q4 weeks, deliver [id number] Assessment & Plan (10/29/2024 3:44 PM EST): [...] assessment of proteinuria (24-hour urine protein or umyehng-ta-mrwuqhmkbi ratio) and CBC, serum AST/ALT/creatinine. If patient [...] to neuro-axial anesthesia for labor. Yves Shaw, DO Assessment & Plan (05/18/2024 10:39 AM EDT): [...] as of this encounter (statuses as of 11/04/2024) Resolved Problems Problem Noted Date Diagnosed Date [...] information was shared with the patient. The [place] [employer]s [employer] Gyne[employer], Society for Maternal- Medicine, CDC and multiple medical associations strongly recommend the COVID-19 vaccine for women who are in any trimester, those attempting to become , women who have recently delivered, who are lactating as well as any other woman, regardless of age or ROUTE RIDER SUPERVISOR disorder. The only exceptions to receiving the vaccine are for those who have a contraindication or allergy to the vaccine or any component of the vaccine or with sincerely held uatsdin convictions. The CDC and ACOG encourages a [...] her next visit. We recommend alerting the bilingual administrative assistant providing care of this finding if it [...] her next visit. We recommend alerting the bilingual administrative assistant providing care of this finding if it [...] as of this encounter (statuses as of 11/04/2024) Immunizations Name Administration Dates Next Due Hepatitis [...] money to get more. Patient declined 07/2024 [place] Depression Scale Answer Date Recorded [place] Depression Scale Total 7 12/18/2022 The thought [...] Telephone Encounter - Sahil Ma RN - 11/04/2024 9:01 AM EST Theresa Ordaz phoned her blood sugars today for review. She monitors her blood sugars with fasting and one hour post-prandial values. She reports that she controls her blood sugars with diet only. She denies any problems with this therapy. She reports them as follows since 10/28/2024: [id number] Post-breakfast: [phone] Post-lunch: [phone] Post-dinner: [phone] Blood sugars are being forwarded to Maternal Medicine provider for review and advisement. Sahil Flores RN 11/04/2024 9:02 AM documented in this encounter Plan of Treatment Upcoming Encounters Date Type Department Care Team (Late st Contact Info) Description 11/06/2024 9:30 AM EST Pharmacy Pharmacy, [place] [address] [place] [address] Clinic, [facility] [address] [place] [address] 11/06/2024 1:45 PM EST Office Visit Gynecology/Obstetrics [facility] [address] [place] [address] Daija Sanon CRNP [address] [place] [address] Dave Non Stress Tests [facility] [address] [place] [address] 11/13/2024 10:00 AM EST Office Visit Gynecology/Obstetrics [facility] [address] [place] [address] Daija Sanon CRNP [address] [place] [address] Dave, Non Stress Tests [facility] [address] [place] [address] 11/20/2024 10:00 AM EST Office Visit Gynecology/Obstetrics [facility] [address] [place] [address] Daija Sanon CRNP [address] [place] [address] Dave, Non Stress Tests [facility] [address] [facility] [place] [address] 11/23/2024 2:30 PM EST Office Visit Tongue And Groove Machine Feeder Obstetrics Maternal Medicine, [place] [address] [place] [address] Benedict Boss, [address] [place] [address] 11/23/2024 2:30 PM EST Imaging [facility], [place] [address] [place] [address] 11/27/2024 1:00 PM EST Office Visit Gynecology/Obstetrics [facility] [address] [place] [address] BackerJoyce CRNP [address] [place] [address] Liv [facility] Stress Tests [facility] [address] [facility] [place] [address] Health Maintenance Due Date Last Done Comments [...]
[2024-11-24] MEDS ORDERED: SODIUM CHLORIDE 0.9% 100 ML IV PRN (09:15)
[2024-11-24] MEDS ORDERED: SODIUM CHLORIDE 0.9% 50 ML IV PRN (09:15)
[2024-11-24 09:17] LABS: Hematocrit (blood only) 32.5 % (37.0-47.0); Hemoglobin 10.8 g/dl (12.0-16.0); Mean Corpuscular Hemoglobin 28.3 pg (25.0-34.0); Mean Corpuscular Hgb Conc 33.2 g/dL (32.0-36.0); Mean Corpuscular Volume 85.3 fL (80.0-100.0); Mean Platelet Volume 10.1 fL (9.4-12.4); Platelet Count 182 K/uL (130-400); RDW Coefficient of Variation 14.2 % (11.5-14.5); RDW Standard Deviation 43.5 fL (36.4-46.3); Red Blood Count 3.81 M/uL (4.20-5.40); White Blood Count 8.94 K/ul (4.8-10.8)
[2024-11-24] MEDS: miSOPROStoL 50 MCG TAB PO ONE ×2 (09:23→13:53)
[2024-11-24] MEDS: PENICILLIN GK 6 MU in SODIUM CHLORIDE 0.9% 250 ML IV STA (09:27)
[2024-11-24] MEDS: PENICILLIN GK 3 MU in DEXTROSE 5% 100 ML IV PRN (13:30)
[2024-11-24] MEDS ORDERED: Nursing to Pharmacy Communication SCH (18:45)
[2024-11-24] MEDS: OXYTOCIN 30 UNITS/NSS 30 UNITS/500 ML BAG IV PRN (19:19)
[2024-11-24] MEDS: LABETALOL HCL 300 MG TAB PO SCH (19:19)
[2024-11-24] MEDS: SODIUM CHLORIDE 0.9% 1,000 ML IV SCH (20:33)
[2024-11-24] MEDS ORDERED: LABETALOL HCL 300 MG TAB PO SCH (21:00)
[2024-11-24] MEDS ORDERED: fentANYL 2 MCG/ML BUPIVacaine 0.125%-NSS 100ML BAG EPI PRN (23:17)
[2024-11-24] MEDS ORDERED: ONDANSETRON INJ 2 MG/ML 2 ML VIAL IV PRN (23:17)
[2024-11-24] MEDS ORDERED: NALOXONE HCL 0.4 MG/1 ML VIAL/CARP IV PRN (23:17)
[2024-11-24] MEDS ORDERED: diphenhydrAMINE 50 MG/ML VIAL IV PRN (23:17)
[2024-11-24] MEDS ORDERED: ROPIVACAINE 0.5% PF 5 MG/ML 20 ML VIAL EPI PRN (23:17)
[2024-11-24] MEDS ORDERED: BUPIVACAINE 0.25% PF 30 ML VIAL EPI PRN (23:17)
[2024-11-24] MEDS ORDERED: NALOXONE HCL 1 MG in SODIUM CHLORIDE 0.9% 1,000 ML IV PRN (23:17)
[2024-11-24] MEDS ORDERED: ePHEDrine sulfate 50 MG/ML AMP IV PRN (23:17)
[2024-11-24] MEDS ORDERED: fentaNYL citrate PF 100 MCG/2 ML VIAL EPI PRN (23:17)
[2024-11-24] MEDS ORDERED: LIDOCAINE 2% MPF LOCAL 5 ML VIAL EPI PRN (23:17)
[2024-11-24] MEDS ORDERED: NALBUPHINE HCL INJ 10 MG/ML AMP IV PRN (23:17)
[2024-11-24] MEDS ORDERED: SODIUM CHLORIDE 0.9% PF INJ 10 ML VIAL EPI PRN (23:17)
--- NOTE | 2024-11-24 23:21 | Anesthesiology Consultation ---
Date of Service November 24, 2024 Assessment & Plan (1) Encounter for pre-operative examination: Chart Review Chart Review: Patient NOT seen in Pre Admission Testing and Acceptable Risk for Labor Epidural Consults Requested none History Height/Weight Height: 5 ft 9 in Weight: 134.263 kg Allergies Allergy/AdvReac Type Severity Reaction Status Date / Time No Known Allergies Allergy Verified 01/14/23 00:15 Medications Home Medications Medication Instructions Recorded Confirmed Last Taken dextroamphetamine-amphetamine 20 20 mg PO TID 09/11/24 11/24/24 11/24/24 mg tablet fluvoxamine 100 mg tablet 150 mg PO HS 09/11/24 11/24/24 11/23/24 gabapentin 600 mg tablet 600 mg PO TID 09/11/24 11/24/24 11/24/24 labetalol 300 mg tablet 300 mg PO AMHS 09/11/24 11/24/24 11/24/24 ondansetron HCl 4 mg tablet 4 mg PO Q8 PRN Nausea 09/11/24 09/11/24 Unknown 1 tab PO DAILY 10/30/24 11/24/24 11/24/24 aspirin 81 mg tablet 81 mg PO DAILY 10/30/24 11/24/24 11/24/24 Active Medications Generic Name Dose Route Start Last Admin Trade Name Freq PRN Reason Stop Dose Admin Penicillin G Potassium 3 mu/ 106 mls @ 100 mls/hr 11/24/24 11:43 11/24/24 23:02 Dextrose IV 12/04/24 11:42 Infused Q4H PRN Infusion GBS(+) Until Delivery Sodium Chloride 1,000 mls @ 80 mls/hr 11/24/24 13:45 11/24/24 23:02 Nss IV 11/25/24 13:44 999 mls/hr .[id number] ANDRES Administration Oxytocin 30 units in 500 mls @ 16 mls/hr 11/24/24 18:55 11/24/24 23:00 Pitocin 30 Units/Nss IV 11/26/24 18:54 0.96 units/hr .Q24H PRN 16 mls/hr Labor Induction/Augmentation Titration Protocol 0.96 UNITS/HR Labetalol HCl 300 mg 11/24/24 18:45 11/24/24 19:19 Labetalol Hcl 300 Mg Tab PO 03/06/25 18:44 300 mg BID ANDRES Administration Past Medical History Medical History Depression Anxiety Gestational diabetes Iron deficiency anemia Chronic hypertension during H/O degenerative disc disease Asthma History of migraine Exercise / Class Metabolic Activity II 4-5 Yardwork/Stairs/Walk up hill Past Family History Family History Other Diabetes Family history of blood clots Past Surgical History Surgical History History of laminectomy L5-S1 12/05/22: Grade 1 view, MAC 3, ETT 7.0 at [facility] Hx of appendectomy Hx laparoscopic cholecystectomy History of ankle surgery Social History Smoking Status: Never smoker Do You Dip or Chew Tobacco: No Hx Alcohol Use: No Hx Substance Use: No substance use type: does not use Physical Exam Vital Signs Last Vital Signs Temp 36.8 C 11/24/24 21:00 Pulse 77 11/24/24 23:39 Resp 18 11/24/24 21:00 BP 131/71 11/24/24 23:39 Pulse Ox 100 11/24/24 23:37 Testing Laboratory Results 11/24/24 09:01 Blood Type O Positive 11/24/24 09:01 Antibody Screen NEGATIVE 11/24/24 09:01
[2024-11-24] MEDS: BUPIVACAINE 0.25% PF 30 ML VIAL ONE (23:29)
[2024-11-24] MEDS: fentaNYL citrate PF 100 MCG/2 ML VIAL ONE (23:29)
[2024-11-24] MEDS: fentANYL 2 MCG/ML BUPIVacaine 0.125%-NSS 100ML BAG ONE (23:30)
[2024-11-24] MEDS: LIDOCAINE 2%/EPINEPHRINE 1:200,000 20 ML PF ONE (23:56)
[2024-11-24] MEDS: BUPIVACAINE 0.25% PF 30 ML VIAL EPI STA (23:57)
[2024-11-24] MEDS: SODIUM CHLORIDE 0.9% PF INJ 10 ML VIAL ONE (23:57)
[2024-11-24] MEDS: ePHEDrine sulfate 50 MG/ML AMP ONE (23:57)
[2024-11-24] MEDS: fentaNYL citrate PF 100 MCG/2 ML VIAL EPI STA (23:57)
[2024-11-24] MEDS: LIDOCAINE 2%/EPINEPHRINE 1:200,000 20 ML PF EPI STA (23:58)
[2024-11-24] MEDS: SODIUM CHLORIDE 0.9% PF INJ 10 ML VIAL EPI STA (23:58)
[2024-11-25] MEDS ORDERED: ROPIVACAINE 0.5% 5 MG/ML 30 ML VIAL ONE (04:10)
[2024-11-25] MEDS ORDERED: LIDOCAINE 2%/EPINEPHRINE 1:200,000 20 ML PF ONE (04:10)
--- NOTE | 2024-11-25 04:29 | Anesthesia Procedure Note ---
Date of Service November 25, 2024 Anesthesia Epidural Re-Dose Vital Signs Temp Pulse Resp BP Pulse Ox 36.8 C 82 18 126/58 L 87 L 11/25/24 02:42 11/25/24 04:26 11/25/24 02:42 11/25/24 04:26 11/25/24 04:26 Notes Pain Intensity: 10 Dilatation (cm): 7.0 Effacement (%): 90 Called by nursing to evaluate epidural as the patient is having increased pain. The epidural was re-dosed with the following medications (all medications via epidural route) after negative aspiration of the epidural catheter for CSF/HEME. 5mll of 2% LIdocaine mixed with 5ml of 0.5% ropivicaine After Epidural Re-Dose Mental Status: alert / awake / arousable Pain: improving with treatment Airway Patency, RR, SpO2: stable & adequate BP & HR: stable & adequate
[2024-11-25] MEDS ORDERED: OXYTOCIN 30 UNITS/NSS 30 UNITS/500 ML BAG IV PRN (05:01)
[2024-11-25] MEDS ORDERED: oxyCODONE/ACETAMINOPHEN 5mg/325mg TAB PO PRN (05:01)
[2024-11-25] MEDS ORDERED: bisacodyL 10 MG SUPP PR PRN (05:01)
[2024-11-25] MEDS ORDERED: ACETAMINOPHEN W/CODEINE #3 1 TAB PO PRN (05:02)
--- NOTE | 2024-11-25 05:11 | Delivery Summary ---
Vaginal Delivery Summary Date of Service November 25, 2024 Vaginal Delivery Summary Patient is a 4 para 4. She is on medications to control her blood pressure. He has a history of macrosomia and shoulder dystocia. Was seen a day or 2 prior to admission by maternal- medicine. At that time she had an estimated weight of 8 pounds 1 ounce. Also she had an unstable lie. On admission to the hospital she received a bedside ultrasound to confirm vertex presentation. On admission she was about 2 cm dilated head was -2 and cervix was posterior. She was started on p.o. Cytotec. Eventually she received 2 doses of p.o. Cytotec followed by IV Pitocin. At the patient's request when she became about 5 cm she received epidural anesthesia for pain control. We then continued to titrate up the Pitocin in order to obtain good regular contractions. Eventually we placed a monitor in order to get better her heart rate. This specifically is a scalp monitor. Heart rate remained good up until short time prior to where she became bradycardia. However she still retain good bnic-sf-vyvs variability. When she became fully dilated she usually pushed out a live male via direct occiput anterior position over an intact perineum. There was a nuchal cord x 1 which was reduced over the head. Shoulders were then delivered without difficulty. was suctioned through the mouth and the nose prior to delivery of the shoulders. After delivery we allowed the cord to pulse for 1 full minute. Infant was pink at this time and had good tone. Following this with IV Pitocin running the placenta was removed intact. The placenta was noted to be meconium stained. Inspection of the perineum revealed no lacerations. IM Methergine and rectal Cytotec were used to help contract the uterus. Calculated blood loss was 151 mL.
[2024-11-25] MEDS: NURSING L&D Epidural Breakthrough Pain Update ONE (05:22)
[2024-11-25] MEDS: IBUPROFEN 600 MG TAB PO PRN (06:01)
[2024-11-25] MEDS: METHYLERGONOVINE MALEATE 0.2 MG/ML AMP IM ONE (06:02)
[2024-11-25] MEDS: miSOPROStoL 200 MCG TAB PR ONE (06:02)
[2024-11-25] MEDS: DIPHTHER/TETAN/PERTUS Vaccine (Tdap, Adol/Adult) 0.5mL IM ONE (06:03)
--- NOTE | 2024-11-25 07:52 | Anesthesia Procedure Note ---
Date of Service November 25, 2024 Anesthesia Post Epidural Note Vital Signs Vital Signs: Temp Pulse Resp BP Pulse Ox 36.6 C 81 18 138/70 100 11/25/24 06:30 11/25/24 07:30 11/25/24 06:30 11/25/24 07:30 11/25/24 04:43 Pain Intensity Abdomen: Pain Intensity: 10 Head: Pain Intensity: 5 Notes Mental Status: alert / awake / arousable Nausea / Vomiting: adequately controlled Pain: adequately controlled Airway Patency, RR, SpO2: stable & adequate BP & HR: stable & adequate Hydration State: stable & adequate Neuraxial Anesthesia: was administered and sensory block is resolving Anesthetic Complications: no major complications apparent and Pt Satisfied with anesthetic care Epidural: Removed without complications and With tip intact
[2024-11-25] MEDS: DOCUSATE SODIUM 100 MG CAP PO SCH (09:32)
[2024-11-25] MEDS: PRENATAL VITAMIN 1 TAB PO SCH (09:32)
[2024-11-25] MEDS: LABETALOL HCL 100 MG TAB PO SCH (12:05)
[2024-11-25] MEDS ORDERED: Nursing to Pharmacy Communication SCH (12:15)
[2024-11-25] MEDS: HYDROCORTISONE ACETATE 25 MG SUPP PR PRN (16:13)
[2024-11-25] MEDS: BENZOCAINE 20% SPRY 85 APPLN/85 GM CAN EXT PRN (16:29)
[2024-11-25] MEDS: CALCIUM CARBONATE 500 MG CHEWABLE TAB PO PRN (19:50)
[2024-11-25] MEDS: ACETAMINOPHEN 325 MG TAB PO PRN (19:50)
[2024-11-25] MEDS: fluvoxaMINE MALEATE 50 MG TAB PO SCH (22:07)
[2024-11-26 05:50] VITALS: O2SAT 98
[2024-11-26 06:00] LABS: Hematocrit (blood only) 31.1 % (37.0-47.0); Hemoglobin 10.3 g/dl (12.0-16.0); Mean Corpuscular Hemoglobin 28.1 pg (25.0-34.0); Mean Corpuscular Hgb Conc 33.1 g/dL (32.0-36.0); Mean Platelet Volume 10.1 fL (9.4-12.4); Platelet Count 170 K/uL (130-400); RDW Coefficient of Variation 14.2 % (11.5-14.5); RDW Standard Deviation 43.7 fL (36.4-46.3); Red Blood Count 3.66 M/uL (4.20-5.40); White Blood Count 8.37 K/ul (4.8-10.8)
[2024-11-26 08:41] VITALS: BP 128/83; PULSE 84; RESP 18; TEMP 98.1
--- NOTE | 2024-11-26 08:59 | Obstetrical Progress Note ---
Date of Service November 26, 2024 Assessment & Plan Admission and Anticipated Discharge Date Admission Date: November 24, 2024 Subjective Patient is seen and examined. She feels well, no complaints. Ambulating without dizziness Voiding without difficulty Tolerating regular diet with out N&V Bleeding is minimal No fever/ chills/ CP/ SOB/ N&V/ Leg pain Bottle feeding without problems Vital Signs Temp Pulse Resp BP Pulse Ox O2 Del Method 11/26/24 07:30 36.7 C 84 18 128/83 98 Room Air 11/26/24 04:00 36.4 C L 81 16 136/89 98 Room Air 11/26/24 00:14 36.5 C 80 18 115/75 99 Room Air Vital Signs Temp Pulse Resp BP Pulse Ox O2 Del Method 11/26/24 07:30 36.7 C 84 18 128/83 98 Room Air 11/26/24 04:00 36.4 C L 81 16 136/89 98 Room Air 11/26/24 00:14 36.5 C 80 18 115/75 99 Room Air 11/25/24 19:52 36.9 C 85 20 137/81 96 Room Air 11/25/24 16:27 36.7 C 77 20 129/82 11/25/24 12:07 36.8 C 76 20 141/83 H 11/25/24 09:20 36.8 C 88 20 135/85 97 Room Air Lab Results 11/24/24 11/26/24 Range/Units 09:01 05:36 WBC 8.94 8.37 (4.8-10.8) K/ul RBC 3.81 L 3.66 L (4.20-5.40) M/uL Hgb 10.8 L 10.3 L (12.0-16.0) g/dl Hct 32.5 L 31.1 L (37.0-47.0) % MCV 85.3 85.0 (80.0-100.0) fL MCH 28.3 28.1 (25.0-34.0) pg MCHC 33.2 33.1 (32.0-36.0) g/dL RDW Std Deviation 43.5 43.7 (36.4-46.3) fL RDW Coeff of Gurpreet 14.2 14.2 (11.5-14.5) % Plt Count 182 170 (130-400) K/uL MPV 10.1 10.1 (9.4-12.4) fL Treponema pallidum Ab Negative (Negative) Blood Type O Positive Antibody Screen NEGATIVE Crossmatch See Detail PE: General: Alert, orientedx3, NAD Abd: soft, NT, fundus firm, below Umbilicus Perineum intact, Lochia rubra minimal Ext; NT, no edema AP: 33 yo s/p , ppd# 1 VSS Afebrile doing well Continue routine care All questions were answered D/C home , f/u in office Results & Data Vital Signs (Past 12 Hours) Vital Signs Temp Pulse Resp BP Pulse Ox O2 Del Method 11/26/24 07:30 36.7 C 84 18 128/83 98 Room Air 11/26/24 04:00 36.4 C L 81 16 136/89 98 Room Air 11/26/24 00:14 36.5 C 80 18 115/75 99 Room Air
[2024-11-26] MEDS: MEASLES, MUMPS & RUBELLA VIRUS VACCINE (MMR) 0.5ML VIAL SQ ONE (11:17)
[2024-11-26] MEDS ORDERED: bisacodyL 5 MG TABEC PO SCH (20:00)
--- NOTE | 2024-12-01 11:21 | Coding Query ---
CODING QUERY To promote full compliance with coding requirements relating to patient care, provider participation is requested in all cases of pot maker uncertainty. Please assist us with the question(s) below: Coding Question(s): Please document weeks of gestation 39 weeks 2 days Physician's Response(s): Thank you Ruth Conde Principal Diagnosis: "that condition established after study, to be chiefly responsible for occasioning the admission of the patient to the hospital for care." Co-Existing Principal Diagnosis: "when two or more diagnoses equally meet the criteria for principal diagnosis as determined by the circumstances of admission, diagnostic work up, and/or therapy provided, and the Alphabetic Index, Tabular List, or another coding guideline does not provide sequencing direction, any one of the diagnoses may be sequenced first." "When the physician has documented what appears to be a current diagnosis in the body of the record, but has not included the diagnosis in the final diagnostic statement, the physician should be asked whether the diagnosis should be added." (Source Coding [facility] 2 QTR90. p3-4) JAN
== END 2024-11-26 13:00 | disposition home health service (06) | DRG 807 ==
LOC: 4S1 07:53 → 4E2 11-25 09:37

== ENCOUNTER 2025-04-30 10:41 | Inpatient (IN) ==
--- NOTE | 2025-04-30 11:01 | Emergency Department Note ---
Impression & Plan Shingles, Face pain, HTN (hypertension) ED Provider Note NAME: KAREN ALDANA AGE: 34 SEX: F : 1990 ARRIVES VIA: Walk-In INFORMANT: Patient ED PROVIDER(S): Leonid Staples DO CHIEF COMPLAINT: Right-sided headache and facial pain HPI: Patient is a 34-year-old female with a past medical history of migraines who gets these about twice a month who presents to the ER for right-sided facial pain. This started last Saturday with a rash. She has been seen by ophthalmology yesterday and was diagnosed with shingles. There is no involvement of the eye. She has no change or loss of vision. No new eye pain. She notes that she has pain in the frontal part of her head. This consistent with her typical migraines. Sharp and stabbing in nature. Photophobia. She does have nausea. Denies any weakness or numbness in arms or legs. No chest pain or shortness of breath. No nausea, vomiting, or diarrhea. No dysuria, urgency, or frequency. She admits to severe pain on the right side of her face. No neck stiffness. ADDITIONAL HISTORY OBTAINED: Family notes that she has 4 kids at home but has been having trouble doing things due to the severe pain. Chronic Medical/Social Conditions Affecting Care: Per HPI PAST MEDICAL HISTORY:See Below PAST SURGICAL HISTORY:See Below FAMILY HISTORY:See Below SOCIAL HISTORY:See Below HOME MEDICATIONS:See Below ALLERGIES:See Below VITALS:See Below PHYSICAL EXAMINATION: GENERAL: Sitting up in bed, alert, well appearing, well nourished, no distress, non-toxic EYE EXAM: normal conjunctiva. PERRL and EOM's grossly intact. OROPHARYNX: no exudate, no erythema, lips, buccal mucosa, and tongue normal and mucous membranes are moist NECK: supple, no nuchal rigidity, no adenopathy, non-tender LUNGS: Clear to auscultation. Normal chest wall mechanics HEART: no murmurs, S1 normal and S2 normal ABDOMEN: abdomen soft, non-tender, normo-active bowel sounds, no masses, no rebound or guarding. BACK: Back is symmetrical on inspection and there is no deformity, no midline tenderness, no CVA tenderness. SKIN: Erythematous blistering rash on the right side of the face tracking around the right orbit and to the right cheek involving the right side of the lip and tongue UPPER EXTREMITIES: upper extremities are grossly normal. LOWER EXTREMITIES: No pitting edema. NEURO EXAM: Normal sensorium, cranial nerves II-XII intact, normal speech, no weakness of arms, no weakness of legs. No drift. Finger to nose intact. Gross sensation intact. MEDICAL DECISION MAKING: Patient is a 34-year-old female who presents ER for the above-stated complaint. IV was established and blood work was obtained. Labs showed no significant leukocytosis or anemia. BMP slightly elevated glucose of 106. LFTs and bilirubin and troponin were reassuring. Lipase was normal. On exam she has shingles on the right side of her face and is having severe pain. Does not appear to have any eye involvement and was just evaluated by ophthalmology yesterday. She has no new eye pain. She was given IV Toradol, Benadryl and Compazine and fluids for the headache. She was given IV morphine. Discussed performing LP for meningitis but she declined. Risk and benefits were discussed. She notes that this headache is consistent with her typical migraines. CT head was negative. She was updated bedside. Discussed case with hospitalist for further evaluation management treatment. Consults/Care Managements Discussions: Per [facility] Triage Nursing notes reviewed. Limited review of prior medical records performed Vital Signs: reviewed and remarkable for no significant abnormalities Differential diagnosis: Differential Diagnosis includes but is not limited to headache, tension headache, cluster headache, migraine, subarachnoid hemorrhage, meningitis, mass, central venous thrombus, concussion, trauma and epidural/subdural hemorrhage. ER treatment provided: See below Diagnostics interpreted by me include EKG and cardiac monitoring as listed below: -Cardiac Monitoring: An order was placed for continuous cardiac monitoring. The monitor shows a rate of 92 with sinus rhythm. -ECG: none -Laboratory studies:Interpreted by me as stated above in MDM and shown below. Imaging studies: Xrays: As interpreted by me: Portable AP upright 1 view of the chest shows no focal infiltrate CTs show: CT of the head was negative per radiology Procedures:none Critical Care: None Past Med/Surg History Problem List (Updated 04/30/25 @ 17:02 by Leonid Staples DO) HTN (hypertension) (Acute) Face pain (Acute) Shingles (Acute) Positive GBS test Entered 2022 Medical History Depression Anxiety Gestational diabetes Iron deficiency anemia Chronic hypertension during H/O degenerative disc disease Asthma History of migraine Surgical History History of laminectomy L5-S1 12/05/22: Grade 1 view, MAC 3, ETT 7.0 at [facility] Hx of appendectomy Hx laparoscopic cholecystectomy History of ankle surgery Family History Other Diabetes Family history of blood clots Social History (Updated 11/24/24 @ 08:17 by Renée Shaffer RN) Smoking Status: Never smoker Do You Dip or Chew Tobacco: No; Hx Alcohol Use: No Hx Substance Use: No Preferred Language: Kyrgyz Communication Ability: Effective Marine Insulator Required: No Beliefs That Will Affect Care: None marital status: marital status details: Cachorro Baez Current Living Situation: Family Current Living Situation Comment: lives at home with and 3 children 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 Feels Safe at Home: Yes Diet: diabetic Assistive Devices: None Allergies Allergies Allergy/AdvReac Type Severity Reaction Status Date / Time No Known Allergies Allergy Verified 01/14/23 00:15 Home Meds Home Medications Medication Instructions Recorded Confirmed dextroamphetamine-amphetamine 20 20 mg PO TID 09/11/24 04/30/25 mg tablet fluvoxamine 100 mg tablet 150 mg PO HS 09/11/24 04/30/25 gabapentin 600 mg tablet 600 mg PO TID 09/11/24 04/30/25 ondansetron HCl 4 mg tablet 4 mg PO Q8H PRN Nausea 09/11/24 04/30/25 vit no.95-ferrous 1 tab PO DAILY ##0 10/30/24 04/30/25 fumarate 28 mg-folic acid 800 mcg tablet () amoxicillin 875 mg tablet 875 mg PO AMHS 04/30/25 04/30/25 ibuprofen 600 mg tablet 600 mg PO Q6H 04/30/25 04/30/25 labetalol 300 mg tablet 300 mg PO AMHS 04/30/25 04/30/25 qzoohzsp-vbezspwhc-ciquxruuy 3.5 4 drp otic (ear) BID 04/30/25 04/30/25 mg/mL-10,000 unit/mL-1 % ear solution prednisone 20 mg tablet 40 mg PO QAM 04/30/25 04/30/25 valacyclovir 1 gram tablet 1,000 mg PO TID 04/30/25 04/30/25 Results & Data (ED) Vital Signs Vital Signs - 24 hr 04/30/25 10:43 04/30/25 13:07 Temperature 36.4 C L Temperature Source Temporal Artery Scan Pulse Rate 98 H Pulse Rate [Apical] 65 Respiratory Rate 19 18 Blood Pressure 131/85 Blood Pressure [Left Arm] 179/110 H Blood Pressure Mean 100 Blood Pressure Mean [Left Arm] 133 Pulse Oximetry 94 94 Oxygen Delivery Method Room Air Sepsis Recent Fever Within 48 Hours No Sepsis New/Unexplained Change in Mental Status N/A Sepsis Action Taken by Nursing No Action Required Laboratory Data 04/30/25 11:18 04/30/25 11:18 Lab Results 04/30/25 Range/Units 11:18 WBC 7.63 (4.8-10.8) K/ul RBC 4.79 (4.20-5.40) M/uL Hgb 13.2 (12.0-16.0) g/dl Hct 39.7 (37.0-47.0) % MCV 82.9 (80.0-100.0) fL MCH 27.6 (25.0-34.0) pg MCHC 33.2 (32.0-36.0) g/dL RDW Std Deviation 40.0 (36.4-46.3) fL RDW Coeff of Gurpreet 13.4 (11.5-14.5) % Plt Count 173 (130-400) K/uL MPV 9.1 L (9.4-12.4) fL Immature Gran % (Auto) 0.4 % Neut % (Auto) 73.7 % Lymph % (Auto) 15.7 % [place] % (Auto) 9.3 % Eos % (Auto) 0.5 % Baso % (Auto) 0.4 % Neut # (Auto) 5.62 (1.40-6.50) K/uL Lymph # (Auto) 1.20 (1.20-3.40) K/uL [place] # (Auto) 0.71 H (0.11-0.59) K/uL Eos # (Auto) 0.04 (0.00-0.50) K/uL Baso # (Auto) 0.03 (0.00-0.20) K/uL Immature Gran # (Auto) 0.03 (0.01-0.20) K/uL Sodium 137 (136-145) mmol/L Potassium 4.1 (3.5-5.1) mmol/L Chloride 102 (98-107) mmol/L Carbon Dioxide 28 (21-32) mmol/L Anion Gap 7 (3-11) BUN 19 (6-23) mg/dl Creatinine 0.87 (0.6-1.2) mg/dl Est Cr Clr Drug Dosing Not Reportable eGFR 89.60 BUN/Creatinine Ratio 21.8 H (10-20) Glucose 106 H (70-99(Fasting)) mg/dl Calcium 9.5 (8.6-10.3) mg/dl Total Bilirubin 1.2 H (0.2-1.0) mg/dl AST 29 (13-39) U/L ALT 46 (7-52) U/L Alkaline Phosphatase 62 (34-104) U/L Troponin I High Sens < 2.3 (0-14) pg/ml Total Protein 7.9 (6.0-8.3) gm/dl Albumin 4.3 (3.4-5.0) gm/dl Globulin 3.6 (2.5-4.0) gm/dl Albumin/Globulin Ratio 1.2 (0.9-2) Lipase 11 (11-82) U/L Administered Medications Amphetamine/Dextroamphetamine (Dextroamphetamine/Amphetamine Ir 20 Mg Tab) 20 mg PO TID [facility] Stop: 05/14/25 13:59 Last Admin: 04/30/25 14:44 Dose: 20 mg Documented By: MARILU Gabapentin (Gabapentin 600 Mg Tab) 600 mg PO TID@0800,1200,2100 [facility] Stop: 05/30/25 13:59 Last Admin: 04/30/25 14:44 Dose: 600 mg Documented By: MARILU Acyclovir Sodium 900 mg/ (Dextrose) 268 mls @ 250 mls/hr IV Q8H [facility]; Protocol Stop: 05/10/25 15:59 Last Admin: 04/30/25 16:30 Dose: 250 mls/hr Documented By: GILA Discontinued Medications Diphenhydramine HCl (Diphenhydramine 50 Mg/Ml Vial) 50 mg IV NOW STA Stop: 04/30/25 11:00 Last Admin: 04/30/25 11:15 Dose: 50 mg Documented By: MARILU Sodium Chloride (Nss) 1,000 mls @ 999 mls/hr IV .Q1H1M ONE Stop: 04/30/25 11:58 Last Infusion: 04/30/25 14:35 Dose: Infused Documented By: Admin: 04/30/25 11:15 Dose: 999 mls/hr Documented By: MARILU Prochlorperazine (Compazine) 2 mls @ 1 mls/min IV ONE ONE Stop: 04/30/25 10:59 Last Admin: 04/30/25 11:15 Dose: 1 mls/min Documented By: MARILU Ioversol (Optiray 320 125ml) 119 ml IV ONCE ONE Stop: 04/30/25 16:07 Last Admin: 04/30/25 16:06 Dose: 119 ml Documented By: ROHIT Ketorolac Tromethamine (Ketorolac Tromethamine 15 Mg/Ml Vial) 15 mg IV NOW ONE Stop: 04/30/25 10:59 Last Admin: 04/30/25 11:14 Dose: 15 mg Documented By: MARILU Miscellaneous (Patient's Height &/Or Weight Needed) 1 each N/A NOW STA Stop: 04/30/25 14:03 Last Admin: 04/30/25 14:42 Dose: Not Given Documented By: MARILU Morphine Sulfate (Morphine Sulfate 2 Mg/Ml Carp) 2 mg IV NOW STA Stop: 04/30/25 12:38 Last Admin: 04/30/25 13:03 Dose: 2 mg Documented By: MARILU Oxycodone HCl (Oxycodone Hcl Ir 5 Mg Tab (Immediate Release)) 5 mg PO NOW ONE Stop: 04/30/25 14:45 Last Admin: 04/30/25 15:49 Dose: 5 mg Documented By: MARIE Imaging Data Radiologist's Impression: Chest X-Ray 04/30/25 10:58 SINGLE VIEW CHEST CLINICAL HISTORY: Chest pain FINDINGS: An AP, portable, upright chest radiograph is compared to study dated 11/05/2022 and correlated with chest CT dated 09/10/2024. The cardiomediastinal silhouette is unremarkable. There is elevation of the right hemidiaphragm and mild bibasilar atelectasis. The lungs and pleural spaces are otherwise clear. No pneumothorax is seen. The bony thorax is grossly intact. IMPRESSION: No acute cardiopulmonary abnormality is identified. ACT 112: Negative or not required by law. Electronically signed by: Simon Sullivan M.D. 04/30/2025 11:[address] 04/30/25 10:58 CT SCAN OF THE BRAIN WITHOUT IV CONTRAST CLINICAL HISTORY: Headache. COMPARISON STUDY: MRI of the brain September 11, 2024. Head CT September 10, 2024. TECHNIQUE: Unenhanced axial CT scan of the brain was performed from the vertex to the skull base. A dose lowering technique was utilized adhering to the principles of ALARA. CT DOSE: 1649.83 mGy.cm FINDINGS: Brain parenchyma: No acute intracranial hemorrhage, midline shift or mass effect is present. Mcgovern-white matter differentiation is preserved. There are no extra- axial fluid collections. There are no findings to suggest acute dural sinus thrombosis or acute territorial infarct. Ventricles, sulci, cisterns: There is no hydrocephalus. The basal cisterns are patent. Calvarium: Unremarkable. Sinuses and mastoids: The visualized paranasal sinuses are clear. The mastoid air cells are well pneumatized. Orbits: The bony orbits are grossly intact. Face: There is mild asymmetric right facial and temporal scalp stranding with skin thickening. No fluid collection is identified. There may be slight asymmetric enlargement of the right parotid gland. IMPRESSION: 1. No acute intracranial findings. 2. Right facial and temporal scalp stranding with skin thickening. This represents a nonspecific inflammatory process. Right-sided parotitis cannot be excluded. ACT 112: Negative or not required by law. Electronically signed by: Duran Davila M.D. 04/30/2025 12:07 PM Discharge Plan Visit Data Chief Complaint: Facial Injury/Pain Stated Complaint: SHINGLES ON FACE,EAR & JAW PAIN ED Provider: Leonid Staples Discharge Problem: Shingles, Face pain, HTN (hypertension) Patient Disposition: Admitted As Inpatient Condition: Fair Discharge Instructions Interventions: ED Discharge Assessment Last Done: 04/30/25 16:27 Discharge Problem: Shingles Qualifiers: Herpes zoster complications: without complications Qualified Code(s): B02.9 - Zoster without complications HTN (hypertension) Qualifiers: Hypertension type: unspecified Qualified Code(s): I10 - Essential (primary) hypertension
[2025-04-30] MEDS: KETOROLAC TROMETHAMINE 15 MG/ML VIAL IV ONE (11:14)
--- NOTE | 2025-04-30 11:14 | XRay Report ---
SINGLE VIEW CHEST CLINICAL HISTORY: Chest pain FINDINGS: An AP, portable, upright chest radiograph is compared to study dated 11/05/2022 and correlat ed with chest CT dated 09/10/2024. The cardiomediastinal silhouette is unremarkable. There is elevati on of the right hemidiaphragm and mild bibasilar atelectasis. The lungs and pleural spaces are otherw ise clear. No pneumothorax is seen. The bony thorax is grossly intact. IMPRESSION: No acute cardiopulmonary abnormality is identified. ACT 112: Negative or not required by law. Electronically signed by: Simon Sullivan M.D. 04/30/2025 11:13 AM
[2025-04-30] MEDS: SODIUM CHLORIDE 0.9% 1,000 ML IV ONE (11:15)
[2025-04-30] MEDS: diphenhydrAMINE 50 MG/ML VIAL IV STA (11:15)
[2025-04-30] MEDS: PROCHLORPERAZINE 2 ML IV ONE (11:15)
[2025-04-30 11:32] LABS: Hematocrit (blood only) 39.7 % (37.0-47.0); Hemoglobin 13.2 g/dl (12.0-16.0); Immature Granulocytes # (auto) 0.03 K/uL (0.01-0.20); Immature Granulocytes % (auto) 0.4 %; Mean Corpuscular Hemoglobin 27.6 pg (25.0-34.0); Mean Corpuscular Volume 82.9 fL (80.0-100.0); Platelet Count 173 K/uL (130-400); RDW Standard Deviation 40.0 fL (36.4-46.3); Red Blood Count 4.79 M/uL (4.20-5.40); White Blood Count 7.63 K/ul (4.8-10.8)
[2025-04-30 11:50] LABS: Alanine Aminotransferase 46 U/L (7-52); Albumin Globulin Ratio 1.2 (0.9-2); Alkaline Phosphatase 62 U/L (34-104); Anion Gap 7 (3-11); Bilirubin,Total 1.2 mg/dl (0.2-1.0); Blood Urea Nitrogen 19 mg/dl (6-23); Calcium 9.5 mg/dl (8.6-10.3); Carbon Dioxide 28 mmol/L (21-32); Chloride 102 mmol/L (98-107); Globulin 3.6 gm/dl (2.5-4.0); Glucose 106 mg/dl (70-99(Fasting)); Lipase 11 U/L (11-82); Potassium 4.1 mmol/L (3.5-5.1); Sodium 137 mmol/L (136-145); Total Protein 7.9 gm/dl (6.0-8.3)
--- NOTE | 2025-04-30 12:09 | CT Scan Report ---
CT SCAN OF THE BRAIN WITHOUT IV CONTRAST CLINICAL HISTORY: Headache. COMPARISON STUDY: MRI of the brain September 11, 2024. Head CT September 10, 2024. TECHNIQUE: Unenhanced axial CT scan of the brain was performed from the vertex to the skull base. A dose lowering technique was utilized adhering to the principles of ALARA. CT DOSE: 1649.83 mGy.cm FINDINGS: Brain parenchyma: No acute intracranial hemorrhage, midline shift or mass effect is present. Mcgovern-whi te matter differentiation is preserved. There are no extra-axial fluid collections. There are no find ings to suggest acute dural sinus thrombosis or acute territorial infarct. Ventricles, sulci, cisterns: There is no hydrocephalus. The basal cisterns are patent. Calvarium: Unremarkable. Sinuses and mastoids: The visualized paranasal sinuses are clear. The mastoid air cells are well pneu matized. Orbits: The bony orbits are grossly intact. Face: There is mild asymmetric right facial and temporal scalp stranding with skin thickening. No flu id collection is identified. There may be slight asymmetric enlargement of the right parotid gland. IMPRESSION: 1. No acute intracranial findings. 2. Right facial and temporal scalp stranding with skin thickening. This represents a nonspecific infl ammatory process. Right-sided parotitis cannot be excluded. ACT 112: Negative or not required by law. Electronically signed by: Duran Davila M.D. 04/30/2025 12:07 PM
[2025-04-30] MEDS: MoRPHine SULFATE 2 MG/ML CARP IV STA (13:03)
--- NOTE | 2025-04-30 14:07 | History & Physical Report ---
Date of Service April 30, 2025 Assessment & Plan (1) Shingles: Plan: Patient is a 34 year old F with a past medical history of HTN, Anxiety, Depression, migraines, DDD, presenting with right-sided facial pain and oral lesions. Patient presented to PCP on Saturday with ear pain and lesions, diagnosed with swimmer's ear and prescribed topical antibiotics. Condition worsened with increasing right-sided facial pain with progressing to oral lesions limiting ability to eat. She returned to her PCP office on Saturday, diagnosed with Shingles and prescribed Prednisone and Valacyclovir. Also with has a history of migraines and feels current infection has aggravated a headache. Singles Infection (Right-sided face and mouth) * Admit to Med Surg for further management * Symptoms began 04/26 with right ear pain progressively worsened with OP mgmt- Pred and Valancyc started 04/28 * Decadron x 1 given; begin Pred 40 mg Daily tomorrow * Stop oral antiviral and start IV Acyclovir Q8H today- weight adjusted * Suspect infectiosus right ear- will collect surface swab and MRSA--> will cover with Cefazolin Q8H empirically * Multiple painful oral lesions- Magic Mouthwash BID with oral care Q4H * Pain management with Acetaminophen, Oxy, Morphine * Continue home Gabapentin-> per Neurology, if not controlled with Gabapentin, may try Lyrica * Clinically dry, will give NSS at 100 ml/hr * Ful liquid diet and advance as tolerated * CBC/BMP with AM labs #Migraines * H/O migraines with c/o headache today; also hypertensive * Per Neurology- obtain CTA Head and Neck for r/o vasculitis and then obtain MRI Brain w wo contrast when able #HYpertension * BP Goal <130/80 * Continue home labetolol and trend DVT Ppx: Teds Code status: Full PCP: Dr. Cash Dispo: Admit for additional management Patient seen in collaboration with Dr. Flanagan. Please see addendum.I spent a total of 70 minutes coordinating, documenting and providing care for this patient excluding time spent in the performance of separately billed services or time spent by another provider/QHP. (2) Hypertension: (3) History of migraine: History of Present Illness Primary Care Provider: Jamaal Cash MD Patient is a 34 year old F with a past medical history of HTN, Anxiety, Depression, migraines, DDD, presenting with right-sided facial pain and oral lesions. Patient presented to PCP on Saturday with ear pain and lesions, diagnosed with swimmer's ear and prescribed topical antibiotics. Condition worsened with increasing right-sided facial pain with progressing to oral lesions limiting ability to eat. She returned to her PCP office on Saturday, diagnosed with Shingles and prescribed Prednisone and Valacyclovir. Also with has a history of migraines and feels current infection has aggravated a headache. Denies fever, chills, weight loss, cognitive changes, vision changes, chest pain, SOB, swelling, difficulty breathing, urinary concerns, N/V/D, joint swelling/pain, ambulation difficulty, bleeding, bruising. In the emergency department, patient was hemodynamically stable with no signs of infection or sepsis on lab workup. BP initially stable, then increased to 179/110 with headache. NSS 1 L bolus given. Morphine and Oxy given for pain. Neurology consulted and recs given via [facility] Text- CTA Head and Neck for concern of vasculitis in the setting of shingles with headaches. No MS changes noted on exam. EKG: NSR, vent rate 75 bpm, QTc 415; Chest Xray showed No acute cardiopulmonary abnormality is identified.; Head CT revealed No acute intracranial findings; Right facial and temporal scalp stranding with skin thickening representing nonspecific inflammatory process. Right-sided parotitis cannot be excluded. History obtained primarily from the patient and via hospitalization record. The patient's family was at the bedside and assisted with history of present illness and med rec. Allergies Allergy/AdvReac Type Severity Reaction Status Date / Time No Known Allergies Allergy Verified 01/14/23 00:15 Home Medications Medication Instructions Recorded Confirmed Type dextroamphetamine-amphetamine 20 20 mg PO TID 09/11/24 04/30/25 History mg tablet fluvoxamine 100 mg tablet 150 mg PO HS 09/11/24 04/30/25 History gabapentin 600 mg tablet 600 mg PO TID 09/11/24 04/30/25 History ondansetron HCl 4 mg tablet 4 mg PO Q8H PRN Nausea 09/11/24 04/30/25 History vit no.95-ferrous 1 tab PO DAILY ##0 10/30/24 04/30/25 History fumarate 28 mg-folic acid 800 mcg tablet () amoxicillin 875 mg tablet 875 mg PO AMHS 04/30/25 04/30/25 History ibuprofen 600 mg tablet 600 mg PO Q6H 04/30/25 04/30/25 History labetalol 300 mg tablet 300 mg PO AMHS 04/30/25 04/30/25 History qgrjgadk-flineqvhy-vyiuwlnga 3.5 4 drp otic (ear) BID 04/30/25 04/30/25 History mg/mL-10,000 unit/mL-1 % ear solution prednisone 20 mg tablet 40 mg PO QAM 04/30/25 04/30/25 History valacyclovir 1 gram tablet 1,000 mg PO TID 04/30/25 04/30/25 History Past Med/Surg History Problem List HTN (hypertension) (Acute) Face pain (Acute) Shingles (Acute) Positive GBS test Entered 2022 Medical History Encounter for pre-operative examination Depression Anxiety Gestational diabetes Iron deficiency anemia Chronic hypertension during H/O degenerative disc disease Asthma History of migraine Surgical History History of laminectomy L5-S1 12/05/22: Grade 1 view, MAC 3, ETT 7.0 at [facility] Hx of appendectomy Hx laparoscopic cholecystectomy History of ankle surgery Family History Other Diabetes Family history of blood clots Social History Smoking Status: Former smoker Do You Dip or Chew Tobacco: No; Hx Alcohol Use: Yes Hx Substance Use: No Preferred Language: Sammarinese Communication Ability: Effective House Carpenter Helper Required: No Beliefs That Will Affect Care: None marital status: marital status details: Cachorro Baez Current Living Situation: Spouse and Family Current Living Situation Comment: lives at home with and 3 children 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 WEIGHT/BMI reviewed. GEN: Healthy appearing, well-developed, NAD. PSYCH: Good Judgment. AOx3. Normal memory, mood, and affect. HEENT -Head: NC/AT; -Eyes: PERRL, EOMI. No discharge or redn ess; -Ears: External right ear swollen, red, + yellow drainage; left external ear no rmal -Nose: Normal nares. -Mouth and throat: Dry mucous membranes, white crusted lesions to right side lip, right palate, and tongue; swallow without difficulty NECK: Supple, with no masses. CV: RRR, no m/r/g. LUNGS: CTAB, no w/r/c. ABD: Soft, NT/ND, NBS, no masses or organomegaly. : N/A SKIN: Right face with erythema, + swelling, + lesions to right lip MSK: No deformities, Normal gait. EXT: No clubbing, cyanosis, or edema. NEURO: Ambulating with no limitations. Normal muscle strength and tone. No focal deficits. Results & Data Results & Data Vital Signs (Past 12 Hours) Vital Signs Temp Pulse Pulse Resp BP BP Pulse Ox 04/30/25 13:07 65 18 179/110 H 94 04/30/25 10:43 36.4 C L 98 H 19 131/85 94 O2 Del Method 04/30/25 13:07 04/30/25 10:43 Room Air Laboratory Results Short CBC 04/30/25 Range/Units 11:18 WBC 7.63 (4.8-10.8) K/ul Hgb 13.2 (12.0-16.0) g/dl Hct 39.7 (37.0-47.0) % Plt Count 173 (130-400) K/uL BMP 04/30/25 11:18 Sodium 137 Potassium 4.1 Chloride 102 Carbon Dioxide 28 BUN 19 Creatinine 0.87 Glucose 106 H Calcium 9.5 Liver Function 04/30/25 Range/Units 11:18 Total Bilirubin 1.2 H (0.2-1.0) mg/dl AST 29 (13-39) U/L ALT 46 (7-52) U/L Alkaline Phosphatase 62 (34-104) U/L Albumin 4.3 (3.4-5.0) gm/dl Diagnostic Findings Chest X-Ray 04/30/25 10:58 SINGLE VIEW CHEST CLINICAL HISTORY: Chest pain FINDINGS: An AP, portable, upright chest radiograph is compared to study dated 11/05/2022 and correlated with chest CT dated 09/10/2024. The cardiomediastinal silhouette is unremarkable. There is elevation of the right hemidiaphragm and mild bibasilar atelectasis. The lungs and pleural spaces are otherwise clear. No pneumothorax is seen. The bony thorax is grossly intact. IMPRESSION: No acute cardiopulmonary abnormality is identified. ACT 112: Negative or not required by law. Electronically signed by: Simon Sullivan M.D. 04/30/2025 11:[address] 04/30/25 10:58 CT SCAN OF THE BRAIN WITHOUT IV CONTRAST CLINICAL HISTORY: Headache. COMPARISON STUDY: MRI of the brain September 11, 2024. Head CT September 10, 2024. TECHNIQUE: Unenhanced axial CT scan of the brain was performed from the vertex to the skull base. A dose lowering technique was utilized adhering to the principles of ALARA. CT DOSE: 1649.83 mGy.cm FINDINGS: Brain parenchyma: No acute intracranial hemorrhage, midline shift or mass effect is present. Mcgovern-white matter differentiation is preserved. There are no extra- axial fluid collections. There are no findings to suggest acute dural sinus thrombosis or acute territorial infarct. Ventricles, sulci, cisterns: There is no hydrocephalus. The basal cisterns are patent. Calvarium: Unremarkable. Sinuses and mastoids: The visualized paranasal sinuses are clear. The mastoid air cells are well pneumatized. Orbits: The bony orbits are grossly intact. Face: There is mild asymmetric right facial and temporal scalp stranding with skin thickening. No fluid collection is identified. There may be slight asymmetric enlargement of the right parotid gland. IMPRESSION: 1. No acute intracranial findings. 2. Right facial and temporal scalp stranding with skin thickening. This represents a nonspecific inflammatory process. Right-sided parotitis cannot be excluded. ACT 112: Negative or not required by law. Electronically signed by: Duran Davila M.D. 04/30/2025 12:07 PM Code Status & VTE Plan VTE Prophylaxis Plan VTE Prophylaxis will be ordered: Yes (2) Hypertension Hypertension type: unspecified Qualified Code(s): I10 - Essential (primary) hypertension
[2025-04-30] MEDS: Patient's HEIGHT &/or WEIGHT Needed STA (14:42)
[2025-04-30] MEDS: GABAPENTIN 600 MG TAB PO SCH (14:44)
[2025-04-30] MEDS: DEXTROAMPHETAMINE/AMPHETAMINE IR 20 MG TAB PO SCH (14:44)
[2025-04-30] MEDS ORDERED: DEXTROSE 5% IV SCH (14:45)
[2025-04-30] MEDS ORDERED: ACYCLOVIR SOD IV SCH (14:45)
--- NOTE | 2025-04-30 15:06 | Communication Note ---
Date of Service: April 30, 2025 Communicated directly with primary/hospitalist team. Patient reported to have lesions on face concerning for VZV. Recommend obtain CTA head & neck STAT to ev aluate for possible vasculitis. Fortunately there is no reported changes in mentation. Also obtain MRI brain with and without contrast. Recommend obtain ID consultation as soon as possible.
--- NOTE | 2025-04-30 15:08 | Communication Note ---
Date of Service: April 30, 2025 Attending Addendum: Case reviewed with the advanced practitioner. I have personally performed a history and physical examination on the patient. I have reviewed the advanced practitioner's documentation on the date of service referenced in note, and I agree with, and take responsibility for the plan of care. please refer to her notes for full details patient seen and examined, records reviewed by myself as well on exam, patient seen resting in bed no other symptoms VS noted and reviewed oriented x 3, not in distress, speaks in sentences with no effort nor accessory muscle use (+) vesicular rash R face- V3 dermatome extending from R temporal scalp, preauricular region to middle of the face (+) vesicular lesions R oral mucosa (+) small open area with yellow discharge R preauricular area Eyes- no periorbital rash, full EOMs, no conjunctival redness normal rate, regular rhythm, no murmurs clear breath sounds bilaterally non distended, soft, nontender no bipedal edema, erythema, warmth no neuro deficits all labs, imaging noted and reviewed ASSESSMENT AND PLAN> HERPES ZOSTER, FACE POSSIBLE BACTERIAL SUPERINFECTION SEVERE PAIN SECONDARY TO ABOVE symptoms and rash started 9 days ago, started on PO Acyclovir and Prednisone 2 days ago presenting with severe facial and oral pain transition to IV Acyclovir, IV Decadron today then Prednisone tomorrow pain control with PRN Narcotics, Magic mouthwash, full liquids possible bacteria superinfection- wound culture, check nasal MRSA, Cefazolin IV for now consult Neurology and ID IV NSS other diagnoses and plan of care as per advanced practitioner's notes I spent a total of 40 minutes coordinating, documenting, and providing care for this patient, excluding time spent in the performance of separately billed services or time spent by another provider/QHP. Lm Verde MD
[2025-04-30] MEDS: OPTIRAY 320 125ml IV ONE (16:06)
[2025-04-30] MEDS ORDERED: POLYETHYLENE (MIRALAX) 17 GM PACK PO PRN (16:27)
[2025-04-30] MEDS ORDERED: PROMETHAZINE 12.5 MG/50.5 ML BAG IV PRN (16:27)
[2025-04-30] MEDS ORDERED: DEXAMETHASONE SOD INJ 4 MG/ML VIAL IV ONE ×2 (16:27→18:20)
--- NOTE | 2025-04-30 16:29 | CT Scan Report ---
CT angiogram of the neck CT angiogram of the brain with contrast Provided History: Headache Comparison: None Technique: HEAD and NECK CTA: During rapid bolus intravenous injection of nonionic contrast material, axial images were obtained using thin collimation multidetector helical technique from the base of the neck through the of vertex of the head. This CT angiogram data was reconstructed at thin intervals with mild overlap. 3D reconstructions were obtained. The axial source images, multiplanar reformations, 3D reconstructions in both maximum intensity projection display and volume rendered models were reviewed. Dose reduction techniques were achieved by using automatic exposure control and/or adjustment of mA and/or kV according to patient size and/or use of iterative reconstruction technique. Findings: Head CTA demonstrates no aneurysm or stenosis of the major intracranial arteries. Neck CTA demonstrates no stenosis of the major cervical arteries. The origins of the great vessels from the aortic arch are patent. No mass is noted within the visualized portions of the cervical soft tissues or lung apices. Shotty appearing extensive lymph nodes throughout the neck, appear increased in number and only slightly prominent in size. Impression: 1. Head CTA demonstrates no aneurysm or stenosis of the major intracranial arteries, 2. Neck CTA demonstrates no stenosis of the major cervical arteries. 3. Shotty appearing lymph nodes throughout the neck, increased in number and only slightly enlarged in size, appear reactive. Electronically signed by Juan Luis Manrique 04-30-2025 4:28 PM
[2025-04-30] MEDS: ACYCLOVIR SOD 900 MG in DEXTROSE 5% 250 ML IV SCH (16:30)
[2025-04-30] MEDS: SODIUM CHLORIDE 0.9% 1,000 ML IV SCH (17:47)
[2025-04-30] MEDS: MoRPHine SULFATE 2 MG/ML CARP IV PRN (18:07)
[2025-04-30] MEDS: ACETAMINOPHEN 325 MG TAB PO PRN (18:07)
[2025-04-30] MEDS: dexAMETHasone 8 MG in SYRINGE 0 ML IV ONE (18:42)
[2025-04-30] MEDS: DOCUSATE SODIUM 100 MG CAP PO SCH (21:26)
[2025-04-30] MEDS: LABETALOL HCL 300 MG TAB PO SCH (21:26)
[2025-04-30] MEDS: FIRST - Mouthwash BLM 5 ML UDP PO SCH (22:30)
[2025-05-01 07:05] LABS: Hematocrit (blood only) 36.5 % (37.0-47.0); Hemoglobin 12.3 g/dl (12.0-16.0); Mean Corpuscular Hemoglobin 27.8 pg (25.0-34.0); Mean Corpuscular Volume 82.4 fL (80.0-100.0); Platelet Count 179 K/uL (130-400); RDW Standard Deviation 38.7 fL (36.4-46.3); Red Blood Count 4.43 M/uL (4.20-5.40); White Blood Count 7.38 K/ul (4.8-10.8)
[2025-05-01] MEDS: DEXTROAMPHETAMINE/AMPHETAMINE IR 20 MG TAB PO SCH (07:36)
[2025-05-01 07:40] LABS: Anion Gap 6.0 (3-11); Blood Urea Nitrogen 19.0 mg/dl (6-23); Calcium 9.1 mg/dl (8.6-10.3); Carbon Dioxide 28.0 mmol/L (21-32); Chloride 104.0 mmol/L (98-107); Creatinine Clr Calc Pharmacy 204.5 ml/min; Glucose 122.0 mg/dl (70-99(Fasting)); Potassium 4.2 mmol/L (3.5-5.1); Sodium 138.0 mmol/L (136-145)
[2025-05-01] MEDS: ADVANCED PROBIOTIC 625 MG CAPSULE PO SCH (07:53)
[2025-05-01] MEDS: GADOBUTROL 65ML VIAL IV ONE (09:35)
--- NOTE | 2025-05-01 11:13 | Magnetic Resonance Report ---
EXAM: MR brain wo/w con CLINICAL HISTORY: VZV headache. TECHNIQUE: MRI of the brain was performed with and without intravenous contrast administration (13 ML GADAVIST). Sequences obtained include pre-contrast and post-contrast T1-weighted, T2-weighted, FLAIR (Fluid-Attenuated Inversion Recovery), DWI (Diffusion-Weighted Imaging), and ADC (Apparent Diffusion Coefficient) sequences. COMPARISON: 09/09/2024 MR. FINDINGS: Brain Parenchyma: No evidence of acute infarction or hemorrhage. Mcgovern-white matter differentiation is preserved. No abnormal signal intensity lesions identified. Post-Contrast Findings: No abnormal enhancement of the brain parenchyma or meninges. Ventricles and Sulci: Ventricular system is within normal limits without evidence of hydrocephalus. Sulci and cisternal spaces are age-appropriate. Brainstem and Cerebellum: Normal appearance of the brainstem and cerebellum without focal lesions or abnormal enhancement. Vessels: Intracranial vessels appear normal without evidence of vascular malformations or aneurysms. Skull and Calvarium: No evidence of skull vault lesions or abnormal marrow signal within the calvarium. IMPRESSION: 1. No evidence of acute intracranial pathology or abnormal contrast enhancement. 2. No interval changes noted. Electronically signed by Shun Bernardo 05-01-2025 11:12 AM
--- NOTE | 2025-05-01 12:22 | Neurology Consultation ---
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 No evidence of intracranial abnormality as above Agree with ID consultation Continue antimicrobial treatment Continue to control pain Continue frequent neurological assessments frequently Obtain stat CT brain without contrast for any acute neurological decline Keep low threshold for LP if concerned for SLIP OPERATOR involvement or if there are noted changes in mentation or seizure Continue to monitor/control blood pressure & blood glucose Continue to monitor telemetry closely Continue to monitor renal and hepatic function, keep euvolemic Ok from neurology perspective for VTE prophylaxis PT/OT/SLT to eval and treat Telehealth Consultation Telehealth Information Telehealth Information: I performed this visit using a real-time telehealth connection between my location and the patients location ([facility]). After connecting through interactive tele-video, patient was identified by name and date of and/or wristband check.Patient (or authorized healthcare sales representative consultant) was informed that this was a telemedicine visit and it was being conducted confidentially over secure lines. My office door was closed and no one else was present in the room with me.Patient (or authorized healthcare sales representative consultant) provided consent to proceed with the visit, expressed an understanding of privacy and security of the telemedicine visit, and gave permission to have a hospital sales representative consultant in the room in order to assist with the visit and to conduct portions of the visit, as needed. I informed the patient (or authorized healthcare sales representative consultant) that I reviewed their record and presented the opportunity for them to ask any questions regarding the visit today. The patient agreed to participate. History of Present Illness Reason for Consultation: Shingles Requesting Physician: Dr Sams Attending Physician: Agnes Sams MD History of Present Illness 34yo female with past medical hx significant for HTN, migraines, anxiety/depression presented with right facial and oral lesion. Originally presented to her primary care provider outpatient with ear pain and painful lesions on her ear and was diagnosed with otitis externa and prescribed topical antimicrobial. Unfortunately her condition did not improve and lesions spread to her oral cavity resulting in limited PO intake. She then returned to PCP office and was diagnosed with shingles and provided with PO antiviral medication and PO steroids. She presented to ER hypertensive with headache but no changes in mentation. She has undergone CT brain, CTA head & neck and MRI brain with and without contrast revealing no overt evidence of acute intracranial pathology including signs of vasculitis. I have performed televideo consultation. She is alert & oriented. She is able to answer all questions appropriately, name objects on televideo monitor, repeat phrases and perform complex/embedded commands without deficit. She reports lesions only on right side of mouth and some in middle but no lesions on the left side of her mouth. Neurological exam is non lateralizing/nonfocal in terms of motor strength and coordination. Family at bedside, all questions answered. Allergies Allergy/AdvReac Type Severity Reaction Status Date / Time No Known Allergies Allergy Verified 01/14/23 00:15 Home Medications Medication Instructions Recorded Confirmed Type dextroamphetamine-amphetamine 20 20 mg PO TID 09/11/24 04/30/25 History mg tablet fluvoxamine 100 mg tablet 150 mg PO HS 09/11/24 04/30/25 History gabapentin 600 mg tablet 600 mg PO TID 09/11/24 04/30/25 History ondansetron HCl 4 mg tablet 4 mg PO Q8H PRN Nausea 09/11/24 04/30/25 History vit no.95-ferrous 1 tab PO DAILY ##0 10/30/24 04/30/25 History fumarate 28 mg-folic acid 800 mcg tablet () amoxicillin 875 mg tablet 875 mg PO AMHS 04/30/25 04/30/25 History ibuprofen 600 mg tablet 600 mg PO Q6H 04/30/25 04/30/25 History labetalol 300 mg tablet 300 mg PO AMHS 04/30/25 04/30/25 History cmsizxbv-yyppfjcgc-iqrsxcgvy 3.5 4 drp otic (ear) BID 04/30/25 04/30/25 History mg/mL-10,000 unit/mL-1 % ear solution prednisone 20 mg tablet 40 mg PO QAM 04/30/25 04/30/25 History valacyclovir 1 gram tablet 1,000 mg PO TID 04/30/25 04/30/25 History Patient History Medical History Encounter for pre-operative examination Depression Anxiety Gestational diabetes Iron deficiency anemia Chronic hypertension during H/O degenerative disc disease Asthma History of migraine Surgical History History of laminectomy L5-S1 12/05/22: Grade 1 view, MAC 3, ETT 7.0 at [facility] Hx of appendectomy Hx laparoscopic cholecystectomy History of ankle surgery Family History Other Diabetes Family history of blood clots Social History Smoking Status: Former smoker Do You Dip or Chew Tobacco: No; Hx Alcohol Use: Yes Hx Substance Use: No Preferred Language: Macedonian Communication Ability: Effective 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 Oriented to person, place, and time. Fluency naming repetition and comprehension appear grossly intact. Affect remains appropriate. CN testing: I: Deferred II:Reports no changes in visual acuity III/IV/: No evidence of gaze preference, hippus, nystagmus or roving eye movements V: Facial sensation reportedly grossly intact to light touch bilaterally VII: Facial movements appear without evidence of asymmetry VIII: Hearing appears grossly intact to loud voice bilaterally IX/X: Palate is unable to be accurately assessed via telemedicine XI: Shoulder shrug appears symmetric/ grossly intact bilaterally XII: Tongue protrudes midline without evidence of biting Motor exam: Strength appears grossly intact/symmetric in all extremities Sensory: Right facial pain Coordination: No apparent evidence of dysmetria or dysdiadochokinesia Reflexes: Deferred Gait: Deferred Results & Data Vital Signs (Past 12 Hours) Vital Signs Temp Pulse Resp BP Pulse Ox O2 Del Method 05/01/25 07:53 36.7 C 58 L 16 126/81 94 Room Air Laboratory Results Abnormal lab results 05/01/25 Range/Units 06:37 Hct 36.5 L (37.0-47.0) % MPV 9.2 L (9.4-12.4) fL Creatinine 0.55 L D (0.6-1.2) mg/dl BUN/Creatinine Ratio 34.5 H (10-20) Glucose 122 H (70-99(Fasting)) mg/dl Diagnostic Findings Head CTA 04/30/25 15:10 CT angiogram of the neck CT angiogram of the brain with contrast Provided History: Headache Comparison: None Technique: HEAD and NECK CTA: During rapid bolus intravenous injection of nonionic contrast material, axial images were obtained using thin collimation multidetector helical technique from the base of the neck through the of vertex of the head. This CT angiogram data was reconstructed at thin intervals with mild overlap. 3D reconstructions were obtained. The axial source images, multiplanar reformations, 3D reconstructions in both maximum intensity projection display and volume rendered models were reviewed. Dose reduction techniques were achieved by using automatic exposure control and/or adjustment of mA and/or kV according to patient size and/or use of iterative reconstruction technique. Findings: Head CTA demonstrates no aneurysm or stenosis of the major intracranial arteries. Neck CTA demonstrates no stenosis of the major cervical arteries. The origins of the great vessels from the aortic arch are patent. No mass is noted within the visualized portions of the cervical soft tissues or lung apices. Shotty appearing extensive lymph nodes throughout the neck, appear increased in number and only slightly prominent in size. Impression: 1. Head CTA demonstrates no aneurysm or stenosis of the major intracranial arteries, 2. Neck CTA demonstrates no stenosis of the major cervical arteries. 3. Shotty appearing lymph nodes throughout the neck, increased in number and only slightly enlarged in size, appear reactive. Electronically signed by Juan Luis Manrique 04-30-2025 4:28 PM Neck CTA 04/30/25 15:10 CT angiogram of the neck CT angiogram of the brain with contrast Provided History: Headache Comparison: None Technique: HEAD and NECK CTA: During rapid bolus intravenous injection of nonionic contrast material, axial images were obtained using thin collimation multidetector helical technique from the base of the neck through the of vertex of the head. This CT angiogram data was reconstructed at thin intervals with mild overlap. 3D reconstructions were obtained. The axial source images, multiplanar reformations, 3D reconstructions in both maximum intensity projection display and volume rendered models were reviewed. Dose reduction techniques were achieved by using automatic exposure control and/or adjustment of mA and/or kV according to patient size and/or use of iterative reconstruction technique. Findings: Head CTA demonstrates no aneurysm or stenosis of the major intracranial arteries. Neck CTA demonstrates no stenosis of the major cervical arteries. The origins of the great vessels from the aortic arch are patent. No mass is noted within the visualized portions of the cervical soft tissues or lung apices. Shotty appearing extensive lymph nodes throughout the neck, appear increased in number and only slightly prominent in size. Impression: 1. Head CTA demonstrates no aneurysm or stenosis of the major intracranial arteries, 2. Neck CTA demonstrates no stenosis of the major cervical arteries. 3. Shotty appearing lymph nodes throughout the neck, increased in number and only slightly enlarged in size, appear reactive. Electronically signed by Juan Luis Manrique 04-30-2025 4:28 PM Brain MRI 05/01/25 08:17 EXAM: MR brain wo/w con CLINICAL HISTORY: VZV headache. TECHNIQUE: MRI of the brain was performed with and without intravenous contrast administration (13 ML GADAVIST). Sequences obtained include pre-contrast and post-contrast T1-weighted, T2-weighted, FLAIR (Fluid-Attenuated Inversion Recovery), DWI (Diffusion-Weighted Imaging), and ADC (Apparent Diffusion Coefficient) sequences. COMPARISON: 09/09/2024 MR. FINDINGS: Brain Parenchyma: No evidence of acute infarction or hemorrhage. Mcgovern-white matter differentiation is preserved. No abnormal signal intensity lesions identified. Post-Contrast Findings: No abnormal enhancement of the brain parenchyma or meninges. Ventricles and Sulci: Ventricular system is within normal limits without evidence of hydrocephalus. Sulci and cisternal spaces are age-appropriate. Brainstem and Cerebellum: Normal appearance of the brainstem and cerebellum without focal lesions or abnormal enhancement. Vessels: Intracranial vessels appear normal without evidence of vascular malformations or aneurysms. Skull and Calvarium: No evidence of skull vault lesions or abnormal marrow signal within the calvarium. IMPRESSION: 1. No evidence of acute intracranial pathology or abnormal contrast enhancement. 2. No interval changes noted. Electronically signed by Shun Bernardo 05-01-2025 11:12 AM Medications Administered Home Medications Medication Instructions Recorded Confirmed Last Taken dextroamphetamine-amphetamine 20 20 mg PO TID 09/11/24 04/30/25 11/24/24 mg tablet fluvoxamine 100 mg tablet 150 mg PO HS 09/11/24 04/30/25 11/23/24 gabapentin 600 mg tablet 600 mg PO TID 09/11/24 04/30/25 11/24/24 ondansetron HCl 4 mg tablet 4 mg PO Q8H PRN Nausea 09/11/24 04/30/25 Unknown vit no.95-ferrous 1 tab PO DAILY ##0 10/30/24 04/30/25 11/24/24 fumarate 28 mg-folic acid 800 mcg tablet () amoxicillin 875 mg tablet 875 mg PO AMHS 04/30/25 04/30/25 Unknown ibuprofen 600 mg tablet 600 mg PO Q6H 04/30/25 04/30/25 Unknown labetalol 300 mg tablet 300 mg PO AMHS 04/30/25 04/30/25 Unknown cxgncfye-hsubfnqbc-nvlentzyc 3.5 4 drp otic (ear) BID 04/30/25 04/30/25 Unknown mg/mL-10,000 unit/mL-1 % ear solution prednisone 20 mg tablet 40 mg PO QAM 04/30/25 04/30/25 Unknown valacyclovir 1 gram tablet 1,000 mg PO TID 04/30/25 04/30/25 Unknown Active Medications Generic Name Dose Route Start Last Admin Trade Name Timmyq PRN Reason Stop Dose Admin Acetaminophen 650 mg 04/30/25 16:27 05/01/25 11:15 Acetaminophen 325 Mg Tab PO 05/30/25 16:26 650 mg Q4H PRN Administration pain/fever Amphetamine/Dextroamphetamine 20 mg 05/01/25 07:00 05/01/25 11:14 Dextroamphetamine/Amphetamine Ir 20 Mg Tab PO 05/15/25 06:59 Not Given 0700,1100,1500 ANDRES Docusate Sodium 100 mg 04/30/25 21:00 05/01/25 07:36 Docusate Sodium 100 Mg Cap PO 05/30/25 20:59 Not Given BID ANDRES Fluvoxamine Maleate 150 mg 04/30/25 21:00 04/30/25 21:25 Fluvoxamine Maleate 50 Mg Tab PO 05/30/25 20:59 150 mg HS ANDRES Administration Gabapentin 600 mg 04/30/25 14:00 05/01/25 11:16 Gabapentin 600 Mg Tab PO 05/30/25 13:59 600 mg TID@0800,1200,2100 ANDRES Administration Acyclovir Sodium 900 mg/ 268 mls @ 250 mls/hr 04/30/25 16:00 05/01/25 10:44 Dextrose IV 05/10/25 15:59 Infused Q8H ANDRES Infusion Protocol Cefazolin Sodium 2,000 mg in 15 mls @ 3.75 mls/min 04/30/25 17:00 05/01/25 07:54 Ancef 2000mg IV 05/07/25 16:59 3.75 mls/min Q8H ANDRES Administration Sodium Chloride 1,000 mls @ 100 mls/hr 04/30/25 16:27 05/01/25 04:27 Nss IV 05/03/25 16:26 100 mls/hr .Q10H ANDRES Administration Labetalol HCl 300 mg 04/30/25 21:00 05/01/25 07:52 Labetalol Hcl 300 Mg Tab PO 05/30/25 20:59 300 mg AMHS ANDRES Administration Lactobacillus Acidophilus 1,250 mg 05/01/25 09:00 05/01/25 07:53 Advanced Probiotic 625 Mg Capsule PO 05/31/25 08:59 1,250 mg DAILY ANDRES Administration Morphine Sulfate 2 mg 04/30/25 16:27 05/01/25 07:56 Morphine Sulfate 2 Mg/Ml Carp IV 05/14/25 16:26 2 mg Q4H PRN Administration Pain Multi-Ingredient Mouthwash/Gargle 5 ml 04/30/25 21:00 05/01/25 10:32 First - Mouthwash Blm 5 Ml Udp PO 05/30/25 20:59 5 ml BID ANDRES Administration Oxycodone HCl 5 mg 04/30/25 16:27 05/01/25 11:19 Oxycodone Hcl Ir 5 Mg Tab (Immediate Release) PO 05/14/25 16:26 5 mg Q4H PRN Administration Mod-Sev Pain (Scale 4-10) (1) Shingles Herpes zoster complications: without complications Qualified Code(s): B02.9 - Zoster without complications
[2025-05-01] MEDS ORDERED: dexAMETHasone**PF** 10 MG/ML VIAL IV ONE (13:13)
--- NOTE | 2025-05-01 13:15 | Hospitalist Progress Note ---
Date of Service May 01, 2025 Assessment & Plan (1) Shingles: (2) Hypertension: (3) History of migraine: Plan Ms. Ordaz is a 34 year old woman with a past medical history of HTN, Anxiety, Depression, migraines, DDD, presenting with right-sided facial pain and oral lesions, admitted for shingles. Patient with severe headache consistent with her migraines. Neuro following and imaging thus far has been negative to date, however, low threshold for any LP at this time. #Varicella zoster infection, (Right-sided face and mouth) history of chicken pox around 5 years old Symptoms began 04/26 with right ear pain progressively worsened with OP mgmt- Pred and Valancyc started 04/28 Repeat Decadron today 4mg IV to help with headache/migraine, with plans to start oral prednisone tomorrow Continue IV Acyclovir Q8h Continue Cefazolin Q8h for superimposed cellulitis/otitis externa Magic Mouthwash BID with oral care Q4H for mouth lesions Transitioning from 600mg TID gabapentin to Lyrica 150mg bid, with room in increase for more pain control for post herpetic neuralgia Discontinue IVF at this time, encourage po intake as patient able to tolerate more fluids today trend labs ID consult given worsening while on po valacyclovir #Migraines imaging negative for vasulitis or other intracranial pathology contributing Decadron 4mg iv x1 plan for migraine cocktail if no improvement low threshold for lp per neuro #Hypertension Continue home labetolol and trend DVT Ppx: Teds Code status: Full PCP: Dr. Cash Admission and Anticipated Discharge Date Admission Date: April 30, 2025 Subjective Evaluated at bedside with mother present reports that she feels a little improvement, however, still with notable pain in right side of face, reduced hearing, and discomfort overall She notes headache is present and feels "deep like a migraine" as well as with photophobia Reports she is eating a bit more than before, but mouth is still very painful Physical Exam Constitutional: WD/WN, vitals as above ENMT: notable right sided inflammation of face, area of crusted vesicular lesions with beefy red irritation from midmandible along jaw line up to forehead, eye with conjunctival injection noted Respiratory: normal respiratory effort, lungs clear to auscultation Cardiovascular: RRR, no murmur, no edema Gastrointestinal (Abdomen): normal bowel sounds, soft, nontender, no hepatosplenomegaly Results & Data Results & Data Vital Signs (Past 12 Hours) Vital Signs Temp Pulse Resp BP Pulse Ox O2 Del Method 05/01/25 07:53 36.7 C 58 L 16 126/81 94 Room Air Laboratory Results Short CBC 05/01/25 Range/Units 06:37 WBC 7.38 (4.8-10.8) K/ul Hgb 12.3 (12.0-16.0) g/dl Hct 36.5 L (37.0-47.0) % Plt Count 179 (130-400) K/uL BMP 05/01/25 06:37 Sodium 138 Potassium 4.2 Chloride 104 Carbon Dioxide 28 BUN 19 Creatinine 0.55 L D Glucose 122 H Calcium 9.1 Medications Administered Home Medications Medication Instructions Recorded Confirmed Last Taken dextroamphetamine-amphetamine 20 20 mg PO TID 09/11/24 04/30/25 11/24/24 mg tablet fluvoxamine 100 mg tablet 150 mg PO HS 09/11/24 04/30/25 11/23/24 gabapentin 600 mg tablet 600 mg PO TID 09/11/24 04/30/25 11/24/24 ondansetron HCl 4 mg tablet 4 mg PO Q8H PRN Nausea 09/11/24 04/30/25 Unknown vit no.95-ferrous 1 tab PO DAILY ##0 10/30/24 04/30/25 11/24/24 fumarate 28 mg-folic acid 800 mcg tablet () amoxicillin 875 mg tablet 875 mg PO AMHS 04/30/25 04/30/25 Unknown ibuprofen 600 mg tablet 600 mg PO Q6H 04/30/25 04/30/25 Unknown labetalol 300 mg tablet 300 mg PO AMHS 04/30/25 04/30/25 Unknown rskkeacq-yulhrzqzo-gdxectsss 3.5 4 drp otic (ear) BID 04/30/25 04/30/25 Unknown mg/mL-10,000 unit/mL-1 % ear solution prednisone 20 mg tablet 40 mg PO QAM 04/30/25 04/30/25 Unknown valacyclovir 1 gram tablet 1,000 mg PO TID 04/30/25 04/30/25 Unknown Active Medications Generic Name Dose Route Start Last Admin Trade Name Freq PRN Reason Stop Dose Admin Acetaminophen 650 mg 04/30/25 16:27 05/01/25 11:15 Acetaminophen 325 Mg Tab PO 05/30/25 16:26 650 mg Q4H PRN Administration pain/fever Amphetamine/Dextroamphetamine 20 mg 05/01/25 07:00 05/01/25 11:14 Dextroamphetamine/Amphetamine Ir 20 Mg Tab PO 05/15/25 06:59 Not Given 0700,1100,1500 ANDRES Docusate Sodium 100 mg 04/30/25 21:00 05/01/25 07:36 Docusate Sodium 100 Mg Cap PO 05/30/25 20:59 Not Given BID ANDRES Fluvoxamine Maleate 150 mg 04/30/25 21:00 04/30/25 21:25 Fluvoxamine Maleate 50 Mg Tab PO 05/30/25 20:59 150 mg HS ANDRES Administration Acyclovir Sodium 900 mg/ 268 mls @ 250 mls/hr 04/30/25 16:00 05/01/25 10:44 Dextrose IV 05/10/25 15:59 Infused Q8H ANDRES Infusion Protocol Cefazolin Sodium 2,000 mg in 15 mls @ 3.75 mls/min 04/30/25 17:00 05/01/25 07:54 Ancef 2000mg IV 05/07/25 16:59 3.75 mls/min Q8H ANDRES Administration Sodium Chloride 1,000 mls @ 100 mls/hr 04/30/25 16:27 05/01/25 04:27 Nss IV 05/03/25 16:26 100 mls/hr .Q10H ANDRES Administration Labetalol HCl 300 mg 04/30/25 21:00 05/01/25 07:52 Labetalol Hcl 300 Mg Tab PO 05/30/25 20:59 300 mg AMHS ANDRES Administration Lactobacillus Acidophilus 1,250 mg 05/01/25 09:00 05/01/25 07:53 Advanced Probiotic 625 Mg Capsule PO 05/31/25 08:59 1,250 mg DAILY ANDRES Administration Morphine Sulfate 2 mg 04/30/25 16:27 05/01/25 07:56 Morphine Sulfate 2 Mg/Ml Carp IV 05/14/25 16:26 2 mg Q4H PRN Administration Pain Multi-Ingredient Mouthwash/Gargle 5 ml 04/30/25 21:00 05/01/25 10:32 First - Mouthwash Blm 5 Ml Udp PO 05/30/25 20:59 5 ml BID ANDRES Administration Oxycodone HCl 5 mg 04/30/25 16:27 05/01/25 11:19 Oxycodone Hcl Ir 5 Mg Tab (Immediate Release) PO 05/14/25 16:26 5 mg Q4H PRN Administration Mod-Sev Pain (Scale 4-10) (1) Shingles Herpes zoster complications: without complications Qualified Code(s): B02.9 - Zoster without complications (2) Hypertension Hypertension type: unspecified Qualified Code(s): I10 - Essential (primary) hypertension
[2025-05-01] MEDS: dexAMETHasone 4 MG in SYRINGE 0 ML IV ONE (14:42)
[2025-05-01] MEDS ORDERED: predniSONE 20 MG TAB PO SCH (16:00)
[2025-05-01] MEDS: ENOXAPARIN INJ 40 MG/0.4 ML SYR SQ SCH (17:08)
[2025-05-01] MEDS: PREGABALIN 150 MG CAP PO SCH (21:14)
[2025-05-02 07:05] LABS: Hematocrit (blood only) 35.6 % (37.0-47.0); Hemoglobin 11.9 g/dl (12.0-16.0); Mean Corpuscular Hemoglobin 27.7 pg (25.0-34.0); Mean Corpuscular Volume 83.0 fL (80.0-100.0); Platelet Count 182 K/uL (130-400); RDW Standard Deviation 39.8 fL (36.4-46.3); Red Blood Count 4.29 M/uL (4.20-5.40); White Blood Count 8.44 K/ul (4.8-10.8)
[2025-05-02 07:35] LABS: Anion Gap 7.0 (3-11); Blood Urea Nitrogen 17.0 mg/dl (6-23); Calcium 9.2 mg/dl (8.6-10.3); Carbon Dioxide 31.0 mmol/L (21-32); Chloride 102.0 mmol/L (98-107); Creatinine Clr Calc Pharmacy 167.8 ml/min; Glucose 93.0 mg/dl (70-99(Fasting)); Magnesium 2.1 mg/dl (1.7-2.4); Potassium 4.1 mmol/L (3.5-5.1); Sodium 140.0 mmol/L (136-145)
[2025-05-02 08:23] VITALS: BP 159/98; PULSE 59; RESP 14; TEMP 98.1; O2SAT 93
[2025-05-02] MEDS: predniSONE 20 MG TAB PO SCH (08:30)
--- NOTE | 2025-05-02 14:00 | Discharge Summary ---
Discharge Summary Date of Service May 02, 2025 Principal Dx & Hospital Course #1 = Principal Diagnosis (1) Shingles: Patient is a 34 year old F with a past medical history of HTN, Anxiety, Depression, migraines, DDD, presenting with right-sided facial pain and oral lesions. Patient presented to PCP on Saturday with ear pain and lesions, diagnosed with swimmer's ear and prescribed topical antibiotics. Condition worsened with increasing right-sided facial pain with progressing to oral lesions limiting ability to eat. She returned to her PCP office on Saturday, diagnosed with Shingles and prescribed Prednisone and Valacyclovir. Also with has a history of migraines and feels current infection has aggravated a headache. Patient with significant improvement in just 24 hours. Lesions crusted on right lower mandible and swelling much reduced on face Denies any acute concerns at this time. Discussed over tiger text if the valacyclovir would be considered treatment failure with Dr Hogue from [facility]. He states this would not be consider as such and patient can transition to valacyclovir tid for total 10 days. Plan to do so, with short course of prednisone and doxycycline for superimposed bacterial infection. #Singles Infection (Right-sided face and mouth) * Symptoms began 04/26 with right ear pain progressively worsened with OP mgmt- Pred and Valacyclovir started 04/28 * Decadron x 1 given; begin Pred 40 mg Daily today for total of 4 more days * Transition to po valacyclovir from acyclovir--plan for 8 more days of po therapy * superimposed bacterial infection--continue with doxycycline 100mg bid x 7 more days * Multiple painful oral lesions- continue with magic mouthwash prn * Transitioned to lyrica 150mg bid #Migraines * H/O migraines with c/o headache today; also hypertensive * Per Neurology-imaging wnl; migraine improved #HYpertension * BP Goal <130/80 * Continue home labetolol and trend (2) History of migraine: Notes For Next Care Provider Medication Changes From Visit -Valacyclovir 1g (2 tablets) three times a day x8 -Prednisone 40mg daily in the morning until all tabs completed x3 -Doxycycline 100mg two times a day x7 -Magic mouthwash before or after meals to heal with mouth pain Admission HPI Per Admitting Provider Patient is a 34 year old F with a past medical history of HTN, Anxiety, Depression, migraines, DDD, presenting with right-sided facial pain and oral lesions. Patient presented to PCP on Saturday with ear pain and lesions, diagnosed with swimmer's ear and prescribed topical antibiotics. Condition worsened with increasing right-sided facial pain with progressing to oral lesions limiting ability to eat. She returned to her PCP office on Saturday, diagnosed with Shingles and prescribed Prednisone and Valacyclovir. Also with has a history of migraines and feels current infection has aggravated a headache. Denies fever, chills, weight loss, cognitive changes, vision changes, chest pain, SOB, swelling, difficulty breathing, urinary concerns, N/V/D, joint swelling/pain, ambulation difficulty, bleeding, bruising. In the emergency department, patient was hemodynamically stable with no signs of infection or sepsis on lab workup. BP initially stable, then increased to 179/110 with headache. NSS 1 L bolus given. Morphine and Oxy given for pain. Neurology consulted and recs given via [place] Text- [facility]A Head and Neck for concern of vasculitis in the setting of shingles with headaches. No MS changes noted on exam. EKG: NSR, vent rate 75 bpm, QTc 415; Chest Xray showed No acute cardiopulmonary abnormality is identified.; Head CT revealed No acute intracranial findings; Right facial and temporal scalp stranding with skin thickening representing nonspecific inflammatory process. Right-sided parotitis cannot be excluded. History obtained primarily from the patient and via hospitalization record. The patient's family was at the bedside and assisted with history of present illness and med rec. Admission Exam Per Admitting Provider VITALS: Reviewed. WEIGHT/BMI reviewed. GEN: Healthy appearing, well-developed, NAD. PSYCH: Good Judgment. AOx3. Normal memory, mood, and affect. HEENT -Head: NC/AT; -Eyes: PERRL, EOMI. No discharge or redness; -Ears: External right ear swollen, red, + yellow drainage; left external ear normal -Nose: Normal nares. -Mouth and throat: Dry mucous membranes, white crusted lesions to right side lip, right palate, and tongue; swallow without difficulty NECK: Supple, with no masses. CV: RRR, no m/r/g. LUNGS: CTAB, no w/r/c. ABD: Soft, NT/ND, NBS, no masses or organomegaly. : N/A SKIN: Right face with erythema, + swelling, + lesions to right lip MSK: No deformities, Normal gait. EXT: No clubbing, cyanosis, or edema. NEURO: Ambulating with no limitations. Normal muscle strength and tone. No focal deficits. Discharge Exam Constitutional WD/WN, vitals as above Respiratory normal respiratory effort, lungs clear to auscultation Cardiovascular RRR, no murmur, no edema Gastrointestinal (Abdomen) normal bowel sounds, soft, nontender, no hepatosplenomegaly Updated Medication List Medication Instructions Recorded Confirmed Type dextroamphetamine-amphetamine 20 20 mg PO TID 09/11/24 04/30/25 History mg tablet fluvoxamine 100 mg tablet 150 mg PO HS 09/11/24 04/30/25 History ondansetron HCl 4 mg tablet 4 mg PO Q8H PRN Nausea 09/11/24 04/30/25 History vit no.95-ferrous 1 tab PO DAILY ##0 10/30/24 04/30/25 History fumarate 28 mg-folic acid 800 mcg tablet () labetalol 300 mg tablet 300 mg PO AMHS 04/30/25 04/30/25 History [id number] 3.5 4 drp otic (ear) BID 04/30/25 04/30/25 History mg/mL-10,000 unit/mL-1 % ear solution Magic Mouthwash 300 mL mouthwash 5 ml mucous membrane ACHS #300 mL 05/02/25 Rx doxycycline hyclate 100 mg tablet 100 mg PO BID 7 days #14 tabs 05/02/25 Rx prednisone 20 mg tablet 40 mg (2 x 20 mg) PO DAILY 3 days 05/02/25 Rx #6 tabs pregabalin 150 mg capsule 150 mg PO BID 30 days #60 caps 05/02/25 Rx valacyclovir 500 mg tablet 1,000 mg (2 x 500 mg) PO TID 8 05/02/25 Rx days #48 tabs Hospital Stay Data Consultations 04/30/25 12:37 ED Decision to Admit Stat 04/30/25 14:43 Consult Neurology Stat 05/01/25 08:18 Consult Infectious Diseases Routine Diagnostic Imagining Performed 04/30/25 10:58 CT head/brain wo con Stat 04/30/25 15:10 CT angio head w con Urgent CT angio neck with con Urgent 05/01/25 08:17 MRI Brain [MR brain wo/w con] Routine Pending Results Patient Have Any Pending Studies at Discharge: No Discharge Instructions Given to Patient (Per Discharging Provider) You were admitted for shingles. An outbreak of shingles usually follows the following course: * Blisters and pimples appear on your skin and cause pain. * A crust forms over the blisters and pimples. * In 2 to 4 weeks, the blisters and pimples heal. They rarely come back. * Pain from shingles lasts for 2 to 4 weeks. You may have tingling or a [id number] feeling, itching, burning, and a deep pain. Your skin may be very painful when it is touched. * You may have a fever. To treat your shingles, you recieved IV antiviral medicine and steroids with improvement. You will continue the following: -Valacyclovir 1g (2 tablets) three times a day, until all tabs completed (your next dose is this evening) -Prednisone 40mg daily in the morning until all tabs completed (your next dose is tomorrow morning) -Doxycycline 100mg two times a day until all tabs completed for superimposed bacterial infection (your next dose is this evening) -Magic mouthwash before or after meals to heal with mouth oain Your gabapentin was transitioned to lyrica (pregabalin). This will be taken two times a day and should help with the shingles pain, as well as still addressing your back pain. Skin Care and Itch Relief for Shingles To relieve itching and discomfort, try: * A cool, wet compresses on the affected skin * Soothing baths and lotions, such as colloidal oatmeal bath, starch baths, or calamine lotion * Zostrix, a cream that contains capsaicin (an extract of pepper) Keep your skin clean. Throw away bandages you use to cover your skin sores. Throw away or wash in hot water clothing that has contact with your skin sores. Wash your sheets and towels in hot water. While your skin sores are still open and oozing, avoid all contact with anyone who has never had chickenpox, especially women. Total Time Total Time Spent Total Time Spent (In Minutes): 45
--- NOTE | 2025-05-03 07:43 | Electrocardiogram Report ---
Test Reason : Blood Pressure : */* mmHG Vent. Rate : 75 BPM Atrial Rate : 75 BPM P-R Int : 152 ms QRS Dur : 84 ms QT Int : 372 ms P-R-T Axes : 38 -8 28 degrees QTcB Int : 415 ms Normal sinus rhythm Normal ECG When compared with ECG of 13-Sep-2024 07:16, Nonspecific T wave abnormality has replaced inverted T waves in Inferior leads Confirmed by Crystal Jackman (Deb) on 05/03/2025 7:43:12 AM Referred By: Confirmed By: Crystal Jackman
== END 2025-05-02 14:00 | disposition home or self-care (01) | DRG 596 ==
LOC: ED 10:41 → EDINP 13:39 → SUATTDRO 13:39 → 3N 16:27